=== PATIENT | male | born 1955 | race Caucasian/White ===

== ENCOUNTER → 2020-03-23 19:07 | Outpatient (CLI) | payer MEDICARE, OTHER, SELFPAY ==
[2020-03-23 19:18] LABS: Basophils # 0.1 K/mm3 (0-0.2); Basophils % 0.7 % (0.1-2.0); Eosinophils # 0.2 K/mm3 (0.0-0.4); Eosinophils % 2.5 % (0.1-12.0); Hematocrit 50.4 % (42.0-52.0); Hemoglobin 16.5 g/dL (14.1-18.0); Lymphocytes # 3.8 K/mm3 (0.7-4.5); Lymphocytes % 38.7 % (10-50); Mean Corpuscular HGB Conc 32.8 g/dL (31.8-35.4); Mean Corpuscular Hemoglobin 27.4 pg (27.0-31.2); Mean Corpuscular Volume 83.5 fl (80-94); Mean Platelet Volume 8.9 fl (7.4-10.4); Monocytes # 0.6 K/mm3 (0.1-1.0); Monocytes % 5.9 % (1.7-9.3); Neutrophils # 5.2 K/mm3 (1.8-7.8); Neutrophils % 52.3 % (37.0-80.0); Platelet Count 311 K/mm3 (142-424); Red Blood Count 6.04 M/mm3 (4.60-6.20); White Blood Count 9.9 K/mm3 (4.8-10.8)
[2020-03-23 19:21] LABS: Alanine Aminotransferase 37 U/L (12-78); Albumin Level 5.3 g/dl (3.5-5.0); Albumin/Globulin Ratio 1.5 (1.1-1.8); Alkaline Phosphatase 106 U/L (38-126); Anion Gap 19.5 mEq/L (5-15); Aspartate Amino Transferase 33 U/L (17-59); Bilirubin,Total 0.6 mg/dl (0.2-1.3); Blood Urea Nitrogen 23 mg/dl (9-20); Calcium 10.3 mg/dl (8.4-10.2); Carbon Dioxide 28 mmol/L (22.0-30.0); Chloride 98 mmol/L (98-107); Chol/HDL Ratio 4.3 (1-3.5); Cholesterol 226 mg/dl (140-200); Estimated Glomerular Filt Rate 97 ml/min (>60); GFR (African American) 118 ML/MIN (>60); Globulin 3.6 g/dL (1.3-3.2); Glucose 112 mg/dl (74-100); HDL Cholesterol 52 mg/dl (40-60); Potassium 4.5 mmoL/L (3.5-5.1); Sodium 141 mmol/L (136-145); Total Protein,Serum 8.9 g/dl (6.3-8.2)
[2020-03-23 19:32] LABS: Triglycerides 496 mg/dl (30-150)
[2020-03-23 19:53] LABS: Prostate Specific Ag Screen 0.2 ng/ml (0.0-4.0)
[2020-03-23 20:11] LABS: Hemoglobin A1C 7.3 % (4.0-6.0)
== END ==
PROVIDERS: Visit Provider Family Medicine
DX: E11.9 Type 2 diabetes mellitus without complications (principal); I10 Essential (primary) hypertension; Z12.5 Encounter for screening for malignant neoplasm of prostate; Z87.81 Personal history of (healed) traumatic fracture; Z79.84 Long term (current) use of oral hypoglycemic drugs
CPT/HCPCS: 80053; 80061; 83036; 85025; G0103

== ENCOUNTER → 2020-10-09 14:52 | Outpatient (CLI) | payer MEDICARE, OTHER, SELFPAY ==
[2020-10-09 16:01] LABS: Chol/HDL Ratio 6.6 (1-3.5); Cholesterol 296 mg/dl (140-200); HDL Cholesterol 45 mg/dl (40-60); Triglycerides 364 mg/dl (30-150); VLDL Cholesterol 73 mg/dL (0-40)
[2020-10-09 16:04] LABS: Alanine Aminotransferase 37 U/L (12-78); Albumin Level 4.8 g/dl (3.5-5.0); Albumin/Globulin Ratio 1.5 (1.1-1.8); Alkaline Phosphatase 99 U/L (38-126); Anion Gap 15.7 mEq/L (5-15); Aspartate Amino Transferase 31 U/L (17-59); Basophils # 0.1 K/mm3 (0-0.2); Basophils % 0.7 % (0.1-2.0); Bilirubin,Total 0.7 mg/dl (0.2-1.3); Blood Urea Nitrogen 14 mg/dl (9-20); Calcium 10.1 mg/dl (8.4-10.2); Carbon Dioxide 25 mmol/L (22.0-30.0); Chloride 102 mmol/L (98-107); Eosinophils # 0.2 K/mm3 (0.0-0.4); Eosinophils % 2.8 % (0.1-12.0); Estimated Glomerular Filt Rate 114 ml/min (>60); GFR (African American) 137 ML/MIN (>60); Globulin 3.2 g/dL (1.3-3.2); Glucose 165 mg/dl (74-100); Hematocrit 44.4 % (42.0-52.0); Hemoglobin 14.5 g/dL (14.1-18.0); Lymphocytes # 2.8 K/mm3 (0.7-4.5); Lymphocytes % 36.1 % (10-50); Mean Corpuscular HGB Conc 32.7 g/dL (31.8-35.4); Mean Corpuscular Volume 85.7 fl (80-94); Mean Platelet Volume 8.5 fl (7.4-10.4); Monocytes # 0.5 K/mm3 (0.1-1.0); Monocytes % 5.8 % (1.7-9.3); Neutrophils # 4.3 K/mm3 (1.8-7.8); Neutrophils % 54.6 % (37.0-80.0); Platelet Count 355 K/mm3 (142-424); Potassium 4.7 mmoL/L (3.5-5.1); Red Blood Count 5.18 M/mm3 (4.60-6.20); Red Cell Distribution Width 14.4 % (11.5-17.5); Sodium 138 mmol/L (136-145); White Blood Count 7.8 K/mm3 (4.8-10.8)
[2020-10-09 16:12] LABS: Direct LDL Cholesterol 180.73 mg/dL (100-129)
[2020-10-09 16:31] LABS: Prostate Specific Ag, Diagnost 0.261 ng/ml (0.0-4.0)
[2020-10-09 18:20] LABS: Hemoglobin A1C 8.7 % (4.0-6.0)
== END ==
PROVIDERS: Visit Provider Family Medicine
DX: I10 Essential (primary) hypertension (principal); E11.9 Type 2 diabetes mellitus without complications; R35.1 Nocturia; Z79.84 Long term (current) use of oral hypoglycemic drugs
CPT/HCPCS: 80053; 80061; 83036; 84153; 85025

== ENCOUNTER → 2020-12-28 18:58 | Outpatient (CLI) | payer MEDICARE, OTHER, SELFPAY ==
[2020-12-28 19:56] LABS: Basophils # 0.1 K/mm3 (0-0.2); Basophils % 0.7 % (0.1-2.0); Eosinophils # 0.2 K/mm3 (0.0-0.4); Eosinophils % 2.1 % (0.1-12.0); Hematocrit 43.8 % (42.0-52.0); Hemoglobin 14.2 g/dL (14.1-18.0); Lymphocytes % 29.2 % (10-50); Mean Corpuscular HGB Conc 32.4 g/dL (31.8-35.4); Mean Corpuscular Hemoglobin 27.4 pg (27.0-31.2); Mean Corpuscular Volume 84.4 fl (80-94); Mean Platelet Volume 7.8 fl (7.4-10.4); Monocytes # 0.5 K/mm3 (0.1-1.0); Monocytes % 4.6 % (1.7-9.3); Neutrophils # 6.5 K/mm3 (1.8-7.8); Neutrophils % 63.5 % (37.0-80.0); Platelet Count 317 K/mm3 (142-424); Red Blood Count 5.19 M/mm3 (4.60-6.20); Red Cell Distribution Width 15.6 % (11.5-17.5); White Blood Count 10.2 K/mm3 (4.8-10.8)
[2020-12-28 19:58] LABS: Chloride 103 mmol/L (98-107); Sodium 141 mmol/L (136-145)
[2020-12-28 19:59] LABS: Potassium 4.6 mmoL/L (3.5-5.1)
[2020-12-28 20:01] LABS: Alanine Aminotransferase 29 U/L (12-78); Alkaline Phosphatase 90 U/L (38-126); Anion Gap 15.6 mEq/L (5-15); Aspartate Amino Transferase 25 U/L (17-59); Bilirubin,Total 0.6 mg/dl (0.2-1.3); Blood Urea Nitrogen 14 mg/dl (9-20); Carbon Dioxide 27 mmol/L (22.0-30.0); Cholesterol 112 mg/dl (140-200); Estimated Glomerular Filt Rate 97 ml/min (>60); GFR (African American) 117 ML/MIN (>60); Triglycerides 187 mg/dl (30-150); VLDL Cholesterol 37 mg/dL (0-40)
[2020-12-28 20:02] LABS: Albumin Level 4.8 g/dl (3.5-5.0); Albumin/Globulin Ratio 1.8 (1.1-1.8); Calcium 9.6 mg/dl (8.4-10.2); Globulin 2.7 g/dL (1.3-3.2); Glucose 99 mg/dl (74-100); HDL Cholesterol 37 mg/dl (40-60); Total Protein,Serum 7.5 g/dl (6.3-8.2)
[2020-12-28 20:14] LABS: Direct LDL Cholesterol 45.83 mg/dL (100-129)
[2020-12-28 20:45] LABS: Hemoglobin A1C 7.2 % (4.0-6.0)
== END ==
PROVIDERS: Visit Provider Family Medicine
DX: I35.0 Nonrheumatic aortic (valve) stenosis (principal); I10 Essential (primary) hypertension; E11.9 Type 2 diabetes mellitus without complications; Z79.84 Long term (current) use of oral hypoglycemic drugs
CPT/HCPCS: 80053; 80061; 83036; 85025

== ENCOUNTER → 2021-05-07 14:52 | Outpatient (CLI) | payer MEDICARE, OTHER, SELFPAY ==
[2021-05-07 16:29] LABS: Alanine Aminotransferase 25 U/L (12-78); Albumin Level 4.9 g/dl (3.5-5.0); Albumin/Globulin Ratio 1.6 (1.1-1.8); Alkaline Phosphatase 82 U/L (38-126); Anion Gap 17.5 mEq/L (5-15); Aspartate Amino Transferase 30 U/L (17-59); Bilirubin,Total 0.7 mg/dl (0.2-1.3); Blood Urea Nitrogen 13 mg/dl (9-20); Calcium 10.1 mg/dl (8.4-10.2); Carbon Dioxide 29 mmol/L (22.0-30.0); Chloride 102 mmol/L (98-107); Estimated Glomerular Filt Rate 97 ml/min (>60); GFR (African American) 117 ML/MIN (>60); Globulin 3.1 g/dL (1.3-3.2); Glucose 103 mg/dl (74-100); Potassium 4.5 mmoL/L (3.5-5.1); Sodium 144 mmol/L (136-145)
[2021-05-07 16:30] LABS: Hemoglobin A1C 6.9 % (4.0-6.0)
[2021-05-07 17:00] LABS: Prostate Specific Ag Screen 0.2 ng/ml (0.0-4.0)
== END ==
PROVIDERS: Visit Provider Family Medicine
DX: E11.9 Type 2 diabetes mellitus without complications (principal); Z12.5 Encounter for screening for malignant neoplasm of prostate
CPT/HCPCS: 80053; 83036; G0103

== ENCOUNTER → 2021-10-20 09:48 | Outpatient (CLI) | payer MEDICARE, OTHER, SELFPAY | PROVIDERS: PCP Family Medicine; Visit Provider Surgery | DX: Z01.812 Encounter for preprocedural laboratory examination (principal); Z11.52 Encounter for screening for COVID-19; Z13.810 Encounter for screening for upper gastrointestinal disorder; R07.89 Other chest pain | CPT/HCPCS: C9803; U0003; U0005 ==

== ENCOUNTER 2021-10-23 11:23 | Day surgery (SDC) | payer MEDICARE, OTHER, SELFPAY ==
[2021-10-22 12:55] VITALS: BMI 28.8
[2021-10-23] VITALS (7 sets, daily range): BP systolic 124–161; BP diastolic 71–93; PULSE 58–75; RESP 16–18; TEMP 36.3–36.4; O2SAT 93–97
--- NOTE | 2021-10-23 11:42 | P.PN_ITS ---
[facility] Anesthesia Checklist - Structural Data Admitted From: Home Planned Operative Procedure/s: egd Consent for Planned Operative Procedure(s) Verified: Yes - Airway Assessment C-Spine Mobility Assessed: Yes TMJ Mobility Assessed: Yes Dentition: Good Dentition - Neurological Assessment Level of Consciousness: Awake, Alert, Appropriate - Anesthesia Plan Anesthesia Risk discussed: Yes Anesthesia Plan: Verified ASA Class: III Anesthesia Type: [facility] History I have reviewed the patient's past medical history: Yes Medical History: Reports:: Coronary Artery Disease, Diabetes Mellitus Type 2, Hyperlipidemia, Hypertension, Myocardial Infarction Denies:: Cancer, Diabetes Mellitus Type 1, MRSA *Have you ever received a pneumonia vaccine?: No *Have you received a flu vaccine this season?: No Other Medical History: Reports: Other (Jardiance hurt his kidneys - was taken off ) Anesthesia experience/problems:: none Other Surgeries: Yes: Colonoscopy, Hernia Repair Amputation: No Fractures: Yes (left leg) - *Social History Last grade of school completed: GED Smoking Status: Never smoker Alcohol Intake: current Alcohol Intake Frequency:: holidays/special occasions only Substance Use Type: denies use *Occupational Status:: retired, disabled Housing: house Household Members: spouse *Travel in the last 8 weeks: None Family Hx:: No significant family history
[2021-10-23 11:52] LABS: POC Glucose,Bedside 132 (70-110)
--- NOTE | 2021-10-23 12:12 | P.PCN_ITS ---
- Procedure: Date: 10/23/21 Patient Date of :: 1955 Procedure Performed:: Esophagogastroduodenoscopy with biopsy Indications:: Atypical chest pain Performing Provider:: Guillermo Chnace MD Referring Provider:: Dr. Calabrese Sedation:: Monitored anesthesia care Procedure:: After informed consent was obtained the patient was taken to the endoscopy suite . Sedation ensued after the patient was transferred to the left lateral decubitus position. Pulse, blood pressure, and oxygen saturation were monitored throughout the procedure. The endoscope was advanced beyond the duodenal bulb. Retroflexion within the gastric lumen was accomplished. The gastroscope was carefully removed and the patient was transferred to recovery in stable condition. Please see findings and specimens below for detail. Findings:: Gastroesophageal junction at 40 cm Some increase spasticity/contraction of distal esophagus No obvious stricture or mass lesions Patchy mild gastritis with increased lobulated inflammation and prepyloric region Specimens:: Antral/prepyloric (increased lobulation) biopsy Recommendations:: Follow-up pathology Barium swallow and possible modified barium swallow to be considered Complications:: No immediate Estimated blood obtained (mL): 1
== END 2021-10-23 12:50 | disposition home or self-care (01) ==
LOC: OUTP 11:26
PROVIDERS: PCP Family Medicine; Visit Provider Surgery
PROC: 0DJ08ZZ Inspection of Upper Intestinal Tract, Via Natural or Artificial Opening Endoscopic (ICD-10-PCS; CPT 43235; principal; 2021-10-23 12:30)
DX: K22.4 Dyskinesia of esophagus (principal); K31.9 Disease of stomach and duodenum, unspecified; K29.60 Other gastritis without bleeding; I25.10 Atherosclerotic heart disease of native coronary artery without angina pectoris; E11.9 Type 2 diabetes mellitus without complications; E78.5 Hyperlipidemia, unspecified; I10 Essential (primary) hypertension; I25.2 Old myocardial infarction; E66.9 Obesity, unspecified; Z68.30 Body mass index [BMI] 30.0-30.9, adult; Z88.8 Allergy status to other drugs, medicaments and biological substances; Z79.82 Long term (current) use of aspirin; Z79.84 Long term (current) use of oral hypoglycemic drugs; Z79.899 Other long term (current) drug therapy
CPT/HCPCS: 43239; 82962; 88305

== ENCOUNTER → 2021-11-09 08:14 | Outpatient (CLI) | payer MEDICARE, OTHER, SELFPAY ==
--- NOTE | 2021-11-09 08:14 | FL_ITS ---
FINAL REPORT CLINICAL HISTORY: dysphagia FINDINGS: ESOPHAGRAM HISTORY: Dysphagia. PROCEDURE: The patient ingested barium. Effervescent crystals were also administered. 9 fluoroscopic spot films were obtained. 1.2 minutes of fluoroscopy time. FINDINGS: The esophagus is normal. There is small sliding-typehiatal hernia. There is no gastroesophageal reflux. Peristalsis is normal. A 13 mm barium tablet passes through the esophagus and into the stomach without delay. IMPRESSION: Small sliding-type hiatal hernia. Otherwise, unremarkable exam. Films reviewed , interpreted and dictated by Dr. Will. Transcribed by Mo Jane PA-C. Reviewed, Interpreted and Dictated by Zane Will III, MD Transcribed by PRANAV Tomlin Authenticated and [facility]
== END ==
PROVIDERS: PCP Family Medicine; Visit Provider Surgery
DX: R13.10 Dysphagia, unspecified (principal)
CPT/HCPCS: 74220

== ENCOUNTER → 2022-02-22 11:44 | Outpatient (CLI) | payer MEDICARE, OTHER, SELFPAY ==
[2022-02-22 12:12] LABS: INR 3.06 (0.9-1.1)
== END ==
PROVIDERS: PCP Family Medicine; Visit Provider Family Medicine
DX: I35.0 Nonrheumatic aortic (valve) stenosis (principal); Z51.81 Encounter for therapeutic drug level monitoring; Z79.01 Long term (current) use of anticoagulants
CPT/HCPCS: 36415; 85610

== ENCOUNTER → 2022-07-23 23:56 | Outpatient (CLI) | payer MEDICARE, OTHER, SELFPAY ==
[2022-07-23 18:12] LABS: Hemoglobin A1C 6.1 % (4.0-6.0)
== END ==
PROVIDERS: PCP Family Medicine; Visit Provider Family Medicine
DX: E11.9 Type 2 diabetes mellitus without complications (principal); Z79.84 Long term (current) use of oral hypoglycemic drugs
CPT/HCPCS: 83036

== ENCOUNTER → 2022-10-15 11:00 | Outpatient (CLI) | payer MEDICARE, OTHER, SELFPAY ==
[2022-10-15 14:24] LABS: Basophils # 0.1 K/mm3 (0-0.2); Basophils % 0.8 % (0.1-2.0); Eosinophils # 0.2 K/mm3 (0.0-0.4); Eosinophils % 2.8 % (0.1-12.0); Hematocrit 41.3 % (42.0-52.0); Hemoglobin 13.3 g/dL (14.1-18.0); Lymphocytes # 2.6 K/mm3 (0.7-4.5); Lymphocytes % 33.3 % (10-50); Mean Corpuscular HGB Conc 32.3 g/dL (31.8-35.4); Mean Corpuscular Hemoglobin 28.4 pg (27.0-31.2); Mean Corpuscular Volume 87.9 fl (80-94); Mean Platelet Volume 7.8 fl (7.4-10.4); Monocytes # 0.5 K/mm3 (0.1-1.0); Monocytes % 6.2 % (1.7-9.3); Neutrophils # 4.5 K/mm3 (1.8-7.8); Platelet Count 263 K/mm3 (142-424); Red Cell Distribution Width 14.5 % (11.5-17.5); White Blood Count 7.9 K/mm3 (4.8-10.8)
[2022-10-15 14:37] LABS: Alanine Aminotransferase 28 U/L (12-78); Albumin Level 4.3 g/dl (3.5-5.0); Albumin/Globulin Ratio 1.7 (1.1-1.8); Alkaline Phosphatase 76 U/L (38-126); Aspartate Amino Transferase 26 U/L (17-59); Bilirubin,Total 0.5 mg/dl (0.2-1.3); Blood Urea Nitrogen 17 mg/dl (9-20); Calcium 8.9 mg/dl (8.4-10.2); Carbon Dioxide 27 mmol/L (22.0-30.0); Chloride 98 mmol/L (98-107); Chol/HDL Ratio 2.8 (1-3.5); Cholesterol 136 mg/dl (140-200); Estimated Glomerular Filt Rate 97 ml/min (>60); GFR (African American) 117 ML/MIN (>60); Globulin 2.5 g/dL (1.3-3.2); Glucose 145 mg/dl (74-100); HDL Cholesterol 48 mg/dl (40-60); Sodium 138 mmol/L (136-145); Total Protein,Serum 6.8 g/dl (6.3-8.2); Triglycerides 257 mg/dl (30-150); VLDL Cholesterol 51 mg/dL (0-40)
[2022-10-15 14:49] LABS: Direct LDL Cholesterol 56.93 mg/dL (100-129)
[2022-10-15 15:08] LABS: Prostate Specific Ag Screen 0.2 ng/ml (0.0-4.0); Thyroid Stimulating Hormone 1.53 uIU/mL (0.465-4.68)
== END ==
PROVIDERS: PCP Family Medicine; Visit Provider Family Medicine
DX: E11.9 Type 2 diabetes mellitus without complications (principal); Z12.5 Encounter for screening for malignant neoplasm of prostate; Z79.4 Long term (current) use of insulin; Z79.899 Other long term (current) drug therapy
CPT/HCPCS: 80053; 80061; 84443; 85025; G0103

== ENCOUNTER 2024-05-20 11:20 | Outpatient (CLI) | payer MEDICARE, OTHER, SELFPAY ==
[2024-05-20 18:23] LABS: Chol/HDL Ratio 3.7 (1-3.5); Cholesterol 143 mg/dl (140-200); HDL Cholesterol 39 mg/dl (40-60); Triglycerides 320 mg/dl (30-150); VLDL Cholesterol 64 mg/dL (0-40)
[2024-05-20 18:34] LABS: Direct LDL Cholesterol 71.11 mg/dL (100-129)
== END 2024-05-20 23:59 | disposition home or self-care (01) ==
LOC: LAB.DROPOF 05-21 14:35
PROVIDERS: PCP Family Medicine; Visit Provider Family Medicine
DX: E11.9 Type 2 diabetes mellitus without complications (principal)
CPT/HCPCS: 80061

== ENCOUNTER 2024-09-02 11:40 | Outpatient (CLI) | payer MEDICARE, OTHER, SELFPAY ==
[2024-09-02 18:30] LABS: Basophils # 0.1 K/mm3 (0-0.2); Basophils % 0.6 % (0.1-2.0); Eosinophils # 0.2 K/mm3 (0.0-0.4); Eosinophils % 2.7 % (0.1-12.0); Hematocrit 37.6 % (42.0-52.0); Hemoglobin 11.6 g/dL (14.1-18.0); Lymphocytes # 2.6 K/mm3 (0.7-4.5); Lymphocytes % 32.8 % (10-50); Mean Corpuscular HGB Conc 30.9 g/dL (31.8-35.4); Mean Corpuscular Hemoglobin 24.6 pg (27.0-31.2); Mean Corpuscular Volume 79.7 fl (80-94); Mean Platelet Volume 10.3 fl (7.4-10.4); Monocytes # 0.6 K/mm3 (0.1-1.0); Monocytes % 7.8 % (1.7-9.3); Neutrophils # 4.4 K/mm3 (1.8-7.8); Neutrophils % 55.8 % (37.0-80.0); Platelet Count 266 K/mm3 (142-424); Red Blood Count 4.72 M/mm3 (4.60-6.20); Red Cell Distribution Width 17.1 % (11.5-17.5); White Blood Count 7.9 K/mm3 (4.8-10.8)
[2024-09-02 20:52] LABS: Alanine Aminotransferase 33 U/L (12-78); Albumin Level 4.3 g/dl (3.5-5.0); Albumin/Globulin Ratio 1.7 (1.1-1.8); Alkaline Phosphatase 74 U/L (38-126); Anion Gap 16.5 mEq/L (5-15); Aspartate Amino Transferase 29 U/L (17-59); Bilirubin,Total 0.7 mg/dl (0.2-1.3); Blood Urea Nitrogen 15 mg/dl (9-20); Calcium 9.4 mg/dl (8.4-10.2); Carbon Dioxide 25 mmol/L (22.0-30.0); Chloride 102 mmol/L (98-107); Chol/HDL Ratio 3.6 (1-3.5); Cholesterol 138 mg/dl (140-200); Estimated Glomerular Filt Rate 112 ml/min (>60); GFR (African American) 136 ML/MIN (>60); Globulin 2.6 g/dL (1.3-3.2); Glucose 153 mg/dl (74-100); HDL Cholesterol 38 mg/dl (40-60); Potassium 4.5 mmoL/L (3.5-5.1); Sodium 139 mmol/L (136-145); Total Protein,Serum 6.9 g/dl (6.3-8.2); Triglycerides 232 mg/dl (30-150); VLDL Cholesterol 46 mg/dL (0-40)
[2024-09-02 21:03] LABS: Direct LDL Cholesterol 56.21 mg/dL (100-129)
[2024-09-02 21:06] LABS: Creatinine,Urine Random 126 mg/dL (Not Estab.)
[2024-09-02 21:07] LABS: Microalbumin/Creatinine Ratio 44.8
[2024-09-02 21:23] LABS: Thyroid Stimulating Hormone 1.43 uIU/mL (0.465-4.68)
== END 2024-09-02 23:59 | disposition home or self-care (01) ==
LOC: LAB.DROPOF 09-03 13:20
PROVIDERS: PCP Family Medicine; Visit Provider Family Medicine
DX: E78.5 Hyperlipidemia, unspecified (principal); E11.9 Type 2 diabetes mellitus without complications; I10 Essential (primary) hypertension
CPT/HCPCS: 80053; 80061; 82043; 82570; 84443; 85025

== ENCOUNTER 2025-04-29 11:14 | Outpatient (CLI) | payer MEDICARE, OTHER, SELFPAY ==
--- OUTSIDE RECORDS SUMMARY | 2025-04-05 12:15 | XMS_ITS | Encounter Summary ---
Author Organization [employer] ([place], [place], [place], [place], [place]) Address [address] [place] [address] Care Team Providers Care Extras Casting Director Name Role Phone Tony Calabrese MD Primary Care Provider [phone] Jean-Pierre Cabrera MD Unavailable [phone] Kd Prince PA-C Unavailable [phone] Renae Car AUTOMOBILE MECHANIC Unavailable [phone] Reason for Visit * Reason Comments Follow-up 6 mth F/U LV 5 Encounter Details Date Type Department Care Team (Late st Contact Info) Description 04/05/2025 1:15 PM EDT Office Visit [facility] Cardiology [address] [place] [address] Renae Car, AUTOMOBILE MECHANIC [address] [facility] [address] [place] [address] Coronary artery disease involving [place] coronary artery of [place] heart without angina pectoris (Primary Dx); Nonrheumatic aortic valve stenosis; Primary hypertension; Mixed hyperlipidemia; History of mechanical aortic valve replacement; Essential hypertension; Anticoagulant long-term use Social History Tobacco Use Types Packs/Day Years Used Date Smoking Tobacco: Never Smokeless Tobacco: Never Alcohol Use Standard Drinks/Week Comments Yes 1 (1 standard drink = 0.6 oz pur e alcohol) Social Connection and Isolation Panel Answer Date Recorded In a typical week, how many times do you talk on the phone with family, friends, or neighbors? Never 08/26/2022 How often do you get together with friends or re latives? Never 08/26/2022 How often do you attend worship or church serv ices? Never 08/26/2022 Do you belong to any clubs o r organizations such as worship groups, unions, fraternal or athletic groups, or school groups? No 08/26/2022 How often do you attend meet ings of the clubs or organizations you belong to? Never 08/26/2022 Are you , , di vorced, , never , or living with a partner? 08/26/2022 Overall Financial Resource Strain (CARDIA) Answe r Date Recorded How hard is it for you to pa y for the very basics like food, housing, medical care, and heating? Not hard at all 08/26/2022 Exercise Vital Sign Answer Date Recorde d On average, how many days pe r week do you engage in moderate to strenuous exercise (like a brisk walk)? 0 days 08/26/2022 On average, how many minutes do you engage in exercise at this level? 0 min 08/26/2022 Hunger Vital Sign Answer Date Recorded Within the past 12 months, y ou worried that your food would run out before you got the money to buy more. Never true 08/27/19 23 Within the past 12 months, t he food you bought just didn't last and you didn't have money to get more. Never true 08/26/2022 PRAPARE - Transportation Answer Date Re corded In the past 12 months, has l ack of transportation kept you from medical appointments or from getting medications? No 06/16/2023 Lack of Transportation (Non-Medical) Not on file 06/16/2023 Family and Community Support Answer Vinicio e Recorded Help with Day to Day Activities Not on file 06/17/2023 Feeling Lonely or Isolated Not on file 06/17 Educational Attainment Answer Date Jason rded Speak language other than Ethiopian at home Not on file 06/17/2023 Want help with school or training Not on file 06/17/2023 Substance Use Answer Date Recorded Used prescription meds for non-medical reasons N ot on file 06/17/2023 Used illegal drugs past 12 months Not on file 06/17/2023 Sex and Gender Information Value Date Recorded Sex Assigned at Male 08/26/2022 2:31 AM CDT Legal Sex Male 5:38 PM CDT Gender Identity Male 08/26/2022 2:31 AM CDT Sexual Orientation Not on file documented as of this encounter Last Filed Vital Signs Vital Sign Reading Time Taken Comments Blood Pressure 130/60 04/05/2025 1:22 PM EDT Pulse 65 04/05/2025 1:22 PM EDT Temperature - - Respiratory Rate - - Oxygen Saturation - - Inhaled Oxygen Concentration - - Weight 86.7 kg (191 lb 3.2 oz) 04/05/2025 1:22 P M EDT Height 170.2 cm (5' 7 ) 04/05/2025 1:22 PM EDT Body Mass Index 29.95 04/05/2025 1:22 PM EDT documented in this encounter Progress Notes * Renae Car, AUTOMOBILE MECHANIC - 04/05/2025 1:15 PM EDT Basic Information: Name: Ian Koch, :1955 PCP: Tony Calabrese MD HPI: History of Present Illness Ian Koch is a 68 y.o. year old male with a past medical history of coronary artery disease,hypertension, hyperlipidemia, and aortic stenosis s/p aortic valve replacement in November 2021. He presents to the office today for 6 month follow up. He has not experienced any recent episodes of chest pain. Occasionally, he experiences discomfort when walking fast or after eating a large meal, which resolves after resting for a few minutes. His breathing remains unchanged and good. He is currently taking Farxiga and glimepiride for blood sugar management. Farxiga is expensive butcovered by his insurance, while there was a recent issue with refilling glimepiride, which was resolved. He performs INR checks at home every Friday, which he finds convenient despite some discomfortfrom finger pricks. Socially, he lives in [place] after moving from [facility] to be closer to his grandson, who is his only grandchild. He spends a lot of time in his Lazy Boy chair and feels unmotivated, oftenprocrastinating on tasks. He attributes some of this to the weather, stating he is often tired. Review of Systems: ROS Pertinent positives as listed in the HPI. All other systems reviewed are negative. History: History Past Medical History: Diagnosis Date Aortic valve stenosis Back pain Benign prostatic hyperplasia Cardiac enzymes elevated Carotid bruit Chest pain Coronary artery disease Diabetes mellitus (HCC) DVT (deep venous thrombosis) (HCC) Hypertension NSTEMI (non-ST elevated myocardial infarction) (HCC) Open fracture Peptic ulcer Past Surgical History: Procedure Laterality Date AORTIC VALVE REPLACEMENT [address] [place] HP mechanical valve. application of platelet rich poor platelet gel BACK SURGERY spinal fusion w/spinal cord stimulator BYPASS,CORONARY ENDOVASCULAR N/A 06/14/2023 Procedure: LISA, REDO-STERNOTOMY,CORONARY ARTERY BYPASS GRAFT X 2 ([facility]) USING RIGHT SAPHENOUS VEIN VIA EVH + INTERNAL MAMMARY ARTERY, REMOVAL OF INTRA-AORTIC BALLOON PUMP; Surgeon: Jean-Pierre Cabrera IV, MD; Location: [facility] OR; Service: Cardiothoracic; Laterality: N/A; CARDIAC CATHETERIZATION PHUONG to Prox Cx ENDOSCOPIC VEIN HARVEST N/A 06/14/2023 Procedure: SURGICAL PROCUREMENT, VEIN, ENDOSCOPIC; Surgeon: Jean-Pierre Cabrera IV, MD; Location: [facility] OR; Service: Cardiothoracic; Laterality: N/A; FOOT SURGERY FRACTURE SURGERY HERNIA REPAIR LEG SURGERY spinal instrumentation placement STERNOTOMY LISA 06/14/2023 Procedure: ECHOCARDIOGRAM, TRANSESOPHAGEAL; Surgeon: Jean-Pierre Cabrera IV, MD; Location: [facility] OR; Service: Cardiothoracic;; Social History Tobacco Use Smoking status: Never Smokeless tobacco: Never Vaping Use Vaping status: Never Used Substance Use Topics Alcohol use: Yes Alcohol/week: 1.0 standard drink of alcohol Types: 1 Cans of beer per week Drug use: Never Allergies Allergen Reactions Empagliflozin Other (See Comments) Other reaction(s): kidney pain Prior Cardiac/Vascular Testing: Coronary artery disease 06/14/2023 Re-entry sternotomy CABG x 2 (RIZZO to LAD, SVG to OM) -05/2023 ISR to LCx-->CTSx consulted -01/2023 PHUONG to LCx -08/2022 NSTEMI- PTCA/ PHUONG to Lcx -05/2022- NSTEMI- PTCA to LCx -10/2021 NSTEMI- [facility] PHUONG to prox LCX, -01/2021 [facility]- another overlapping PHUONG to LAD. -12/2020 [facility] PHUONG to proximal LAD Severe aortic stenosis 11/28/2021 Aortic valve replacement using a [address] Blayne HP mechanical valve -06/10/2023 LISA EF 45-50%, stable mechanical aortic valve, mild physiological leakage volume Medications: Scheduled Meds: Continuous Infusions: Current Outpatient Medications Medication Sig Dispense Refill aspirin 81 MG EC tablet Take 1 tablet (81 mg total) by mouth daily. atorvastatin (LIPITOR) 80 MG tablet TAKE 1 TABLET BY MOUTH EVERY DAY 90 tablet 2 dapagliflozin propanediol (Farxiga) 10 mg tablet Take by mouth daily. dutasteride-tamsulosin 0.5-0.4 mg CM24 Take 1 capsule by mouth daily. glimepiride (AMARYL) 1 MG tablet Take 1 tablet (1 mg total) by mouth daily with breakfast. lisinopriL (ZESTRIL) 5 MG tablet Take 0.5 tablets (2.5 mg total) by mouth daily. 45 tablet 3 metFORMIN (GLUCOPHAGE-XR) 500 MG 24 hr tablet Take 2 tablets (1,000 mg total) by mouth daily with dinner. metoprolol succinate (TOPROL-XL) 50 MG 24 hr tablet Take 1 tablet (50 mg total) by mouth daily. nitroglycerin (NITROSTAT) 0.[address] 1 tablet (0.4 mg total) under the tongue every 5 (five) minutes as needed Put 1 pill under tongue every 5min as needed for chest pain.No more than 3 doses in 15min.Call 911 if pain unrelieved 5min after 1st dose. pantoprazole (PROTONIX) 40 MG tablet Take 1 tablet (40 mg total) by mouth daily. 90 tablet 3 warfarin (COUMADIN, JANTOVEN) 5 MG tablet Take 1 tablet (5 mg total) by mouth daily. No current facility-administered medications for this visit. PRN Meds:.@MEDSPRN@ Objective: BP 130/60 (BP Location: Right arm, Patient Position: Sitting) Pulse 65 Ht 1.702 m (5' 7 ) Wt 86.7 kg (191 lb 3.2 oz) BMI 29.95 kg/m?? Physical Exam General- alert and aware, no acute distress. HEENT- normocephalic, oral membranes moist Neck- supple, no lymphadenopathy. No carotid bruits. No noted JVD Lungs- clear to auscultation throughout, no wheezes, rhonci or rales Heart- Normal S1,S2. Regular rate and rhythm without murmur, gallop or rub Ext- palpable pulses. No noted edema. Skin- Clear, dry. Warm Psych- orientated to person, place, and time. Appropriate mood. EKG: Sinus Rhythm, ventricular rate 65 bpm Assessment and Plan: 1. Coronary artery disease involving [place] coronary artery of [place] heart without angina pectorisECG 12 lead 2. Nonrheumatic aortic valve stenosis 3. Primary hypertension ECG 12 lead 4. Mixed hyperlipidemia ECG 12 lead 5. History of mechanical aortic valve replacement 6. Essential hypertension 7. Anticoagulant long-term use Assessment & Plan Coronary artery disease -Stable ischemic heart disease with no anginal symptoms by description. -Continue with aspirin 81 mg indefinitely along with high intensity statin therapy for established CAD. Severe aortic stenosis - Mechanical aortic valve replacement in 2021 - INR monitoring at home weekly, management per primary care physician Hypertension --Blood pressure at goal today continue current antihypertensive regimen. Hyperlipidemia - Continue statin therapy -Periodic blood work as prescribed with PCP, specifically lipid profile with a goal LDL less than 55. Encouraged patient to increase physical activity for a goal of 150 minutes of moderate cardiovascular activity each week. Follow a heart healthy diet to reduce cardiovascular risk. Follow-up: 6 month or sooner if needed Renae Car APRN Consent for [employer] Use The following consent language was reviewed verbally with the patient in full: Mary Carmen, I am using a tool to help me do my notes. It is recording our conversation and creates my notes automatically and I can focus on our discussion instead of typing in the room. Is that okay with you? The patient demonstrated understanding and verbally agreed to the above consent language. All questions were addressed, and the patient provided informed consent to proceed. OPERATOR documented in this encounter Plan of Treatment Scheduled Orders Name Type Priority Associated Diagnoses Orde r Schedule ECG 12 lead ECG Routine Coronary artery disease involving [place] coronary artery of [place] heart without angina pectoris Primary hypertension Mixed hyperlipidemia Expected: 04/05/2025, Expires: 05/06/2026 documented as of this encounter Visit Diagnoses Diagnosis Coronary artery disease involving [place] coronary artery of [place] heart without angina pectoris- Primary Nonrheumatic aortic valve stenosis Primary hypertension Unspecified essential hypertension Mixed hyperlipidemia History of mechanical aortic valve replacement Essential hypertension Unspecified essential hypertension Anticoagulant long-term use Encounter for long-term (current) use of anticoagulants documented in this encounter Care Teams Extras Casting Director Relationship Specialty Start Date End Date Tony Calabrese MD [address] [place] [address] PCP - General Family Medicine 06/06/22 Jean-Pierre Cabrera MD [address] [facility] [address] [place], [place] [id number] Surgeon Cardiothoracic Surgery 06/26/23 Kd Prince PA-C [address] [place] [address] Associate Professor Of Musicology Cardiology 06/26/23 Renae Car, JOSÉ MIGUEL [address] [facility] [address] [place] [address] Cardiology 09/30/23 documented as of this encounter
--- OUTSIDE RECORDS SUMMARY | 2025-05-02 11:42 | XMS_ITS | Encounter Summary ---
Author Organization [employer] ([place], [place], [place], [place], [place]) Address [address] [place] [address] Care Team Providers Care Card Feeder Name Role Phone Tony Calabrese MD Primary Care Provider [phone] Jean-Pierre Cabrera MD Unavailable [phone] Kd Prince PA-C Unavailable [phone] Renae Car APRN Unavailable [phone] Encounter Details Date Type Department Care Team (Latest Contact Info) Description 04/05/2025 Travel Social History Tobacco Use Types Packs/Day Years [...] Never 08/26/2022 How often do you attend buddhist or sikh serv ices? Never 08/26/2022 Do you belong to any clubs o r organizations such as buddhist groups, unions, fraternal or athletic groups, or [...] Date Jason rded Speak language other than Honduran at home Not on file 06/17/2023 Want [...] on file documented as of this encounter Plan of Treatment Not on file documented as of this encounter Visit Diagnoses Not on filedocumented in this encounter Care Teams Card Feeder Relationship Specialty Start Date End Date Tony Calabrese MD [address] [place] [address] PCP - General Family Medicine 06/06/22 Jean-Pierre Cabrera MD [address] [facility] [address] [place] [address] Surgeon Cardiothoracic Surgery 06/26/23 Kd Prince PA-C [address] [place] [address] Thermal Spray Operator Cardiology 06/26/23 Renae Car, LOAN INTERVIEWER [employer] [address] [facility] [address] [place] [address] Cardiology 09/30/23 documented as of this encounter
--- OUTSIDE RECORDS SUMMARY | 2025-05-02 11:42 | XMS_ITS | Clinical Summary ---
Author Organization [employer] ([place], [place], [place], [place], [place]) Address [address] [place] [address] Care Team Providers Care Artillery Specialist Name Role Phone Tony Calabrese MD Primary Care Provider [phone] Jean-Pierre Cabrera MD Unavailable [phone] Kd Prince PA-C Unavailable [phone] Renae Car APRN Unavailable Allergies Active Allergy Reactions Criticality Noted Date Comments Empagliflozin Other (See Comments) Medium 12/24/2021 Other reaction(s): kidney pain Medications nitroglycerin (NITROSTAT) 0.[address] 1 tablet (0.4 mg total) under the tongue every 5 (five) minutes as needed Put 1 pill under tongue every 5min as needed for chest pain.No more than 3 doses in 15min.Call 911 if pain unrelieved 5min after 1st dose. Active metFORMIN (GLUCOPHAGE-XR) 500 MG 24 hr tablet Take 2 tablets (1,000 mg total) by mouth daily with dinner. Active dutasteride-tamsul osin 0.5-0.4 mg CM24 Take 1 capsule by mouth daily. Active aspirin 81 MG EC tablet Take 1 tablet (81 mg total) by mouth daily. Active warfarin (COUMADIN, JANTOVEN) 5 MG tablet Take 1 tablet (5 mg total) by mouth daily. Active lisinopriL (ZESTRIL) 5 MG tablet Take 0.5 tablets (2.5 mg total) by mouth daily. 45 tablet 3 4 Active atorvastatin (LIPITOR) 80 MG tabletIndications: Mixed hyperlipidemia TAKE 1 TABLET BY MOUTH EVERY DAY 90 tablet 2 5 Active pantoprazole (PROTONIX) 40 MG tablet Take 1 tablet (40 mg total) by mouth daily. 90 tablet 3 5 Active metoprolol succinate (TOPROL-XL) 50 MG 24 hr tablet Take 1 tablet (50 mg total) by mouth daily. Active dapagliflozin propanediol (Farxiga) 10 mg tablet Take by mouth daily. Active glimepiride (AMARYL) 1 MG tablet Take 1 tablet (1 mg total) by mouth daily with breakfast. Active Active Problems Problem Noted Date Diagnosed Date History of mechanical aortic valve replacement 0 06/20/2023 BPH (benign prostatic hyperplasia) 06/14/2023 06/14/2023 Dysphagia 06/14/2023 06/14/2023 CAD (coronary artery disease) 06/14/2023 Essential hypertension 06/14/2023 4 Arthritis 05/06/2022 Lumbar disc disease 05/06/2022 Arteriosclerosis of coronary artery 06/26/2021 Overview (05/06/2022): 08/02/21 [facility]- [place] Patent prox LAD stent Hyperlipidemia 06/26/2021 Diabetes mellitus 06/26/2021 Aortic valve stenosis 06/26/2021 Controlled type 2 diabetes m ellitus without complication, without long-term current use of insulin 03/25/2017 06/14/2023 Peripheral nerve disease 07/04/2015 Resolved Problems Problem Noted Date Diagnosed Date Resolved Date Acute hypoxemic respiratory failure 06/20/2023 10/07/2023 Diabetes 06/14/2023 06/14/2023 10/07/2023 Primary hypertension 08/14/2022 024 NSTEMI (non-ST elevated myoc ardial infarction) 06/03/2022 10/07/2023 High blood pressure 05/06/2022 08/15/19 23 GERD (gastroesophageal reflux disease) 05/06/2022 06/14/2023 Mitral regurgitation 05/06/2022 024 Paroxysmal A-fib 05/06/2022 06/14/2023 Encounters Date Type Department Care Team Description 04/05/2025 1:15 PM EDT Office Visit [facility] Cardiology [address] [place] [phone] Renae Car APRN Coronary artery disease involving [place] coronary artery of [place] heart without angina pectoris (Primary Dx); Nonrheumatic aortic valve stenosis; Primary hypertension; Mixed hyperlipidemia; History of mechanical aortic valve replacement; Essential hypertension; Anticoagulant long-term use 04/05/2025 Travel from Last 3 Months Family History Medical History Relation Name Comments Cancer Brother Cancer Father Lung cancer Father Cancer Mother Relation Name Status Comments Brother Father Mother Social History Tobacco Use Types Packs/Day Years [...] Never 08/26/2022 How often do you attend yarsani or jainism serv ices? Never 08/26/2022 Do you belong to any clubs o r organizations such as yarsani groups, unions, fraternal or athletic groups, or [...] Date Jason rded Speak language other than [place] at home Not on file 06/17/2023 Want [...] AM CDT Sexual Orientation Not on file Last Filed Vital Signs Vital Sign Reading Time Taken Comments Blood Pressure 130/60 04/05/2025 1:22 PM EDT Pulse 65 04/05/2025 1:22 PM EDT Temperature 36.6 C (97.8 F) 06/20/2023 8:48 AM EST Respiratory Rate 16 06/20/2023 8:48 AM EST Oxygen Saturation 96% 06/20/2023 8:48 AM EST Inhaled Oxygen Concentration 40% 06/14/2023 1 0:18 PM EST Weight 86.7 kg (191 lb 3.2 oz) 04/05/2025 1:22 P M EDT Height 170.2 cm (5' 7 ) 04/05/2025 1:22 PM EDT Body Mass Index 29.95 04/05/2025 1:22 PM EDT Plan of Treatment Health Maintenance Due Date Last Done Comments CT Colonography 1955 Colonoscopy 1955 Colorectal Cancer Screening 1955 Diabetic Kidney Health Evalu ation (KED) 1955 FOBT/FIT 1955 Fit-DNA (Cologuard) 1955 Sigmoidoscopy 1955 Diabetic Eye Exam 12/27/1965 Depression Screening (12+) 1967 Hepatitis C Screening 12/27/1973 Shingles Vaccine (Zoster) (1 of 2) 12/27/2005 Respiratory Syncytial Virus (RSV) Adult or (1 - Risk 60-74 years 1-dose series) 2015 Pneumococcal 50+ years (2 of 2 - PCV) 01/19/2019, 11/07/2010 Medicare Initial AWV G0438 03/10/2020 Hemoglobin A1C 05/06/2022 Falls Risk Screening 06/09/2024 COVID-19 VACCINE ( - season) 2025 Influenza Vaccine (#1) 2025 04/26/2022, 2012 Tobacco Cessation Counseling and Screening (12+) 04/05/2026 04/05/2025 DTAP/TDAP/TD VACCINES (4 - T d or Tdap) 08/05/2027 08/05/2017, 10/09/2012, 06/09/2007 Medical Devices Implanted Type Area Java Software Device Identifier Shelf Expiration Date Model / Serial / Lot Stent Cor Christopher Front 3.0x18mm [id number] - [id number] Implanted:Qty: 1 on 01/14/2023 by Donna Smith MD at [facility] ([place], [place]) IMPLANTS Coronary MEDTRONIC:VASCU LAR [id number] / / Mechanical Heart Valve Left: Heart Stimulator Left: Hip Marker Grft Rng Cor Byps [id number] - [id number] Implanted:Qty: 1 on 06/14/2023 by Jean-Pierre Cabrera MD at [facility] ([place], [place]) N/A: Aorta ANAND MED PRDT [id number] / / [id number] Insurance MEDICARE PART A B AETNA Advance Directives For more information, please contact: [phone] * Full Code (Latest Code Status on File) Date Activated Date Inactivated Comments 06/14/2023 5:49 PM 06/20/2023 4:34 PM * Full Code Date Activated Date Inactivated Comments 06/08/2023 4:28 PM 06/14/2023 5:49 PM * Full Code Date Activated Date Inactivated Comments 06/04/2023 12:51 PM 06/06/2023 8:10 PM * Full Code Date Activated Date Inactivated Comments 06/02/2023 1:16 AM 06/04/2023 12:51 PM * Full Code Date Activated Date Inactivated Comments 01/14/2023 9:38 AM 01/15/2023 4:01 PM Care Teams Artillery Specialist Relationship Specialty Start Date End Date Tony Calabrese MD [address] [place] [address] PCP - General Family Medicine 06/06/22 Jean-Pierre Cabrera MD [address] [place] [address] Surgeon Cardiothoracic Surgery 06/26/23 Kd Prince PA-C [address] [facility] [place] [address] Basket Maker Cardiology 06/26/23 Renae Car, KETTLE GIRL [address] [facility] [address] [place] [address] Cardiology 09/30/23
--- OUTSIDE RECORDS SUMMARY | 2025-05-02 11:43 | XMS_ITS | Encounter Summary ---
Author Organization [employer] ([place], [place], [place], [place], [place]) Address [address] [place] [address] Care Team Providers Care Polysomnographic Technician Name Role Phone Tony Calabrese MD Primary Care Provider [phone] Jean-Pierre Cabrera MD Unavailable [phone] Kd Prince PA-C Unavailable [phone] Renae Car APRN Unavailable [phone] Encounter Details Date Type Department Care Team (Late st Contact Info) Description 01/15/2021 Transcribed Document [facility] [place] Family Medicine [address] [place] [address] ProviderLiz MD [address] [place] [address] Social History Tobacco Use Types Packs/Day Years Used Date Smoking Tobacco: Never Assessed Sex and Gender Information Value Date Recorded Sex Assigned at Male 08/26/2022 2:31 AM CDT Legal Sex Male 5:38 PM CDT Gender Identity Male 08/26/2022 2:31 AM CDT Sexual Orientation Not on file documented as of this encounter Miscellaneous Notes * Cerner Conversion Note - Liz Patel MD - 01/15/2021 4:51 PM CDT ED Triage Entered On: 01/15/2021 17:20 EDT Performed On: 01/15/2021 17:17 EDT by SIRISHA ZEE RN ED Triage Across the Room Chief Complaint : Pt presents to the ER with chest pain that started at 1000 this am. Reports he had a stent placed in December. Pain radiates to his left arm. Dr. 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 Triage Date/Time : 01/15/2021 17:17 EDT SIRISHA ZEE RN - 01/15/2021 17:17 EDT DCP GENERIC CODE Tracking Acuity : 2 - Emergent Tracking Group : [facility] ED SIRISHA ZEE RN - 01/15/2021 17:17 EDT Mode of Arrival : Ambulatory Transported to ED by : Walk in To Room Via : Ambulate Accompanied By : Unaccompanied ED Vital Signs : Document Height & Weight : Document ED Allergies : Document ED Reason for Visit : Document SIRISHA ZEE RN - 01/15/2021 17:17 EDT Infectious Disease History Has the patient ever been tested for COVID-19? : No, Patient stated Does patient have symptoms of COVID-19? : No COVID19 Screening : No Experiencing Infectious Disease Symptoms : No symptoms Physical contact outside [place] in the last 30 days : No Infectious Disease History : Chicken pox/Shingles, Influenza, Mumps Tuberculosis Symptoms : None SIRISHA ZEE RN - 01/15/2021 17:17 EDT Vital Signs ED Temperature Source : Oral Temperature Mode : Fahrenheit Temperature, Fahrenheit : 97.8 Deg F Clinical Temperature, C : 36.6 Deg C Oxygen Therapy Mode : Room air Peripheral Pulse Rate : 79 bpm Respiratory Rate : 18 Breaths/Min Systolic Blood Pressure : 148 mmHg (HI) Diastolic Blood Pressure : 72 mmHg Oxygen Saturation : 99 % SIRISHA ZEE RN - 01/15/2021 17:17 EDT Allergy (As Of: 01/15/2021 17:20:12 EDT) Allergies (Active) No Known Allergies Estimated Onset Date: Unspecified ; Created By: BELLA JUAN RN; Reaction Status: Active ; Category: Drug ; Substance: No Known Allergies ; Type: Allergy ; Updated By: BELLA JUAN RN; Reviewed Date: 01/15/2021 17:18 EDT Diagnosis Control ED (As Of: 01/15/2021 17:20:12 EDT) Problems(Active) kevin horse in left calf muscle (SNOMED CT :52091044 ) Name of Problem: kevin horse in left calf muscle ; Recorder: BELLA JUAN RN; Confirmation: Confirmed ; Classification: Medical ; Code: [id number] ; Contributor System: PowerChart ; Last Updated: 06/03/2019 11:58 EST ; Life Cycle Date: 08/04/2015 ; Life Cycle Status: Active ; Vocabulary: SNOMED CT Arthritis (SNOMED CT :7612849 ) Name of Problem: Arthritis ; Recorder: BELLA JUAN RN; Confirmation: Confirmed ; Classification: Medical ; Code: 8016914 ; Contributor System: PowerChart ; Last Updated: 04/28/2018 15:39 EST ; Life Cycle Date: 08/04/2015 ; Life Cycle Status: Active ; Vocabulary: SNOMED CT Asthma, childhood (SNOMED CT :666732478 ) Name of Problem: Asthma, childhood ; Onset Date: 08/04/2015 ; Recorder: BELLA JUAN RN; Confirmation: Confirmed ; Classification: Medical ; Code: 436797253 ; Contributor System: PowerChart ; Last Updated: 08/04/2015 10:49 EST ; Life Cycle Date: 08/04/2015 ; Life Cycle Status: Active ; Vocabulary: SNOMED CT At risk for sleep apnea (IMO :91820341 ) Name of Problem: At risk for sleep apnea ; Recorder: SYSTEM, SYSTEM; Confirmation: Confirmed ; Classification: Medical ; Code: 74270671 ; Last Updated: 09/29/2018 15:14 EDT ; Life Cycle Date: 09/29/2018 ; Life Cycle Status: Active ; Vocabulary: IMO Back pain (SNOMED CT :283712639 ) Name of Problem: Back pain ; Recorder: BELLA JUAN RN; Confirmation: Confirmed ; Classification: Medical ; Code: 676607098 ; Contributor System: PowerChart ; Last Updated: 08/04/2015 10:55 EST ; Life Cycle Date: 08/04/2015 ; Life Cycle Status: Active ; Vocabulary: SNOMED CT Bronchitis (SNOMED CT :32037639 ) Name of Problem: Bronchitis ; Onset Date: 07/04/2015 ; Recorder: BELLA JUAN RN; Confirmation: Confirmed ; Classification: Medical ; Code: 80924846 ; Contributor System: PowerChart ; Last Updated: 08/04/2015 10:49 EST ; Life Cycle Date: 08/04/2015 ; Life Cycle Status: Active ; Vocabulary: SNOMED CT Chest pain (SNOMED CT :51321429 ) Name of Problem: Chest pain ; Recorder: ALPA THOMAS RN; Confirmation: Confirmed ; Classification: Medical ; Code: 27278629 ; Contributor System: PowerChart ; Last Updated: 01/30/2017 13:18 EDT ; Life Cycle Date: 01/30/2017 ; Life Cycle Status: Active ; Vocabulary: SNOMED CT ; Comments: 01/30/2017 13:18 - ALPA THOMAS RN dispatcher motor vehicle workup-stated everything was ok 06/2016 Deep vein thrombosis (right hip) (SNOMED CT :9519775784 ) Name of Problem: Deep vein thrombosis (right hip) ; Recorder: ALPA THOMAS RN; Confirmation: Confirmed ; Classification: Medical ; Code: 6130862581 ; Contributor System: PowerChart ; Last Updated: 01/30/2017 13:18 EDT ; Life Cycle Date: 01/30/2017 ; Life Cycle Status: Active ; Vocabulary: SNOMED CT Diet controlled diabetes mellitus (SNOMED CT :480902312 ) Name of Problem: Diet controlled diabetes mellitus ; Recorder: BELLA JUAN RN; Confirmation: Confirmed ; Classification: Medical ; Code: 512384169 ; Contributor System: PowerChart ; Last Updated: 08/04/2015 10:56 EST ; Life Cycle Date: 08/04/2015 ; Life Cycle Status: Active ; Vocabulary: SNOMED CT Disorder of prostate (BPH) (SNOMED CT :04425076 ) Name of Problem: Disorder of prostate (BPH) ; Recorder: ALPA THOMAS RN; Confirmation: Confirmed ; Classification: Medical ; Code: 72079953 ; Contributor System: PowerChart ; Last Updated: 01/30/2017 13:20 EDT ; Life Cycle Date: 01/30/2017 ; Life Cycle Status: Active ; Vocabulary: SNOMED CT High blood pressure (SNOMED CT :99740679 ) Name of Problem: High blood pressure ; Onset Date: 2004 ; Recorder: BELLA JUAN RN; Confirmation: Confirmed ; Classification: Medical ; Code: 85879336 ; Contributor System: PowerChart ; Last Updated: 08/04/2015 10:48 EST ; Life Cycle Date: 08/04/2015 ; Life Cycle Status: Active ; Vocabulary: SNOMED CT Hyperlipidemia (SNOMED CT :52912256 ) Name of Problem: Hyperlipidemia ; Onset Date: 2004 ; Recorder: BELLA JUNA RN; Confirmation: Confirmed ; Classification: Medical ; Code: 84555307 ; Contributor System: EveryScapeChart ; Last Updated: 08/04/2015 10:48 EST ; Life Cycle Date: 08/04/2015 ; Life Cycle Status: Active ; Vocabulary: SNOMED CT Leaky heart valve (unsure which one) (SNOMED CT :99769392 ) Name of Problem: Leaky heart valve (unsure which one) ; Recorder: ALPA THOMAS RN; Confirmation: Confirmed ; Classification: Medical ; Code: 26123169 ; Contributor System: EveryScapeChart ; Last Updated: 01/30/2017 13:17 EDT ; Life Cycle Date: 01/30/2017 ; Life Cycle Status: Active ; Vocabulary: SNOMED CT Lumbar herniated disc (L1-2) (SNOMED CT :532680182 ) Name of Problem: Lumbar herniated disc (L1-2) ; Recorder: ALPA THOMAS RN; Confirmation: Confirmed ; Classification: Medical ; Code: 353228559 ; Contributor System: PowerChart ; Last Updated: 01/30/2017 13:30 EDT ; Life Cycle Date: 01/30/2017 ; Life Cycle Status: Active ; Vocabulary: SNOMED CT Murmur, heart (SNOMED CT :5248654682 ) Name of Problem: Murmur, heart ; Recorder: ALPA THOMAS RN; Confirmation: Confirmed ; Classification: Medical ; Code: 5032680009 ; Contributor System: PowerChart ; Last Updated: 01/30/2017 13:17 EDT ; Life Cycle Date: 01/30/2017 ; Life Cycle Status: Active ; Vocabulary: SNOMED CT Numbness and tingling of foot (great toe) (SNOMED CT :243673182 ) Name of Problem: Numbness and tingling of foot (great toe) ; Recorder: ALPA THOMAS RN; Confirmation: Confirmed ; Classification: Medical ; Code: 704440185 ; Contributor System: PowerChart ; Last Updated: 01/30/2017 13:27 EDT ; Life Cycle Date: 01/30/2017 ; Life Cycle Status: Active ; Vocabulary: SNOMED CT ; Comments: 01/30/2017 13:27 - ALPA THOMAS RN feels cold, numb Peptic ulcer disease (SNOMED CT :9961069624 ) Name of Problem: Peptic ulcer disease ; Onset Date: 1975 ; Recorder: BELLA JUAN RN; Confirmation: Confirmed ; Classification: Medical ; Code: [id number] ; Contributor System: EveryScapeChart ; Last Updated: 08/04/2015 10:50 EST ; Life Cycle Date: 08/04/2015 ; Life Cycle Status: Active ; Vocabulary: SNOMED CT Peripheral neuropathy, left foot (SNOMED CT :0849936882 ) Name of Problem: Peripheral neuropathy, left foot ; Onset Date: 07/04/2015 ; Recorder: BELLA JUAN RN; Confirmation: Confirmed ; Classification: Medical ; Code: [id number] ; Contributor System: Multifonds ; Last Updated: 08/04/2015 10:56 EST ; Life Cycle Date: 08/04/2015 ; Life Cycle Status: Active ; Vocabulary: SNOMED CT Urinary frequency/urgency (SNOMED CT :315815164 ) Name of Problem: Urinary frequency/urgency ; Recorder: ALPA THOMAS RN; Confirmation: Confirmed ; Classification: Medical ; Code: 432399965 ; Contributor System: Multifonds ; Last Updated: 01/30/2017 13:20 EDT ; Life Cycle Date: 01/30/2017 ; Life Cycle Status: Active ; Vocabulary: SNOMED CT Diagnoses(Active) Chest pain Date: 01/15/2021 ; Diagnosis Type: Reason For Visit ; Confirmation: Complaint of ; Clinical Dx: Chest pain ; Classification: Medical ; Clinical Service: Emergency medicine ; Code: PNED ; Probability: 0 ; Diagnosis Code: [id number] ED Height and Weight Height Source : Stated Height Entry Format : [place] Height, Feet : 5 ft(Converted to: 152 cm, 60 Inch) Height, Inches : 7 Inch(Converted to: 0 ft 7 Inch, 17.78 cm) Clinical Height : 170.18 cm Weight Source, ED : Critical estimated dosing weight Weight Entry Format : [place] Weight, Pounds : 180 lb Clinical Dosing Weight : 81.82 kg Body Surface Area (BSA) : 1.94 m2 Body Mass Index : 28.3 kg/m2 (HI) [place] Body Weight (IBW) : 65.16 kg SIRISHA ZEE RN - 01/15/2021 17:17 EDT documented in this encounter Plan of Treatment Not on file documented as of this encounter Visit Diagnoses Not on filedocumented in this encounter Care Teams Polysomnographic Technician Relationship Specialty Start Date End Date Tony Calabrese MD [address] [place] [address] PCP - General Family Medicine 06/06/22 Jean-Pierre Cabrera MD [address] [facility] [address] [place] [address] Surgeon Cardiothoracic Surgery 06/26/23 Kd Prince PA-C [address] [place] [address] Building Custodian Cardiology 06/26/23 Renae Car, JOSÉ MIGUEL [address] [facility] [address] [place] [address] Cardiology 09/30/23 documented as of this encounter
--- OUTSIDE RECORDS SUMMARY | 2025-05-02 11:43 | XMS_ITS | Encounter Summary ---
Author Organization [employer] ([place], [place], [place], [place], [place]) Address [address] [place] [address] Care Team Providers Care Supervisor Trust Accounts Name Role Phone Tony Calabrese MD Primary Care Provider [phone] Jean-Pierre Cabrera MD Unavailable [phone] Kd Prince PA-C Unavailable [phone] Renae Car APRN Unavailable [phone] Encounter Details Date Type Department Care Team (Late st Contact Info) Description 01/15/2021 Transcribed Document [facility] [place] [address] [place] [address] ProviderLiz MD [address] [place] [address] Social History Tobacco Use Types Packs/Day [...] Note - Liz Patel MD - 01/15/2021 9:13 PM CDT Admission History, Adult Entered On: 01/18/2021 1:19 EDT Performed On: 01/17/2021 21:00 EDT by Jose Luis Fatima Non Emp RN Advance Directive Patient has Advance Directive *Q : No, patient refuses Advance Directive information Jose Luis Fatima Non Emp RN - 01/18/2021 1:14 EDT Anesthesia/Transfusion History Family History of Anesthesia Reaction : No prior transfusion(s) Transfusion History : Prior anesthesia without reaction Family History of Anesthesia Reaction : None Jose Luis Fatima Non Emp RN - 01/18/2021 1:14 EDT Functional Assessment Living Situation : Home Patient Lives With : Spouse Mobility Assistance Prior to Admission : Independent PEREZ Hx Falls Immediate/Within 3 Months : No Current Home Treatments : None Jose Luis Fatima Non Emp RN - 01/18/2021 1:14 EDT General Info Mode of Arrival on Unit : Ambulatory Legal Guardian : Unaccompanied Legal Guardian : No Support Person/Patient Learning Support Specialist : Yes Support Person/Pt Rep Name : Sue Koch Support Person/Pt Rep Contact Information : cell Want Family/Rep/Phys Notified of Admit : No Emergency Contact #1 : Sue Koch Emergency Contact #1 Emergency Contact #1 Relationship : spouse Emergency Contact #2 : . Emergency Contact #2 Phone Number : . Emergency Contact #2 Relationship : . Chief Complaint : Pt presents to the ER with chest pain that started at 1000 this am. Reports he had a stent placed in December. Pain radiates to his left arm. 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 Information Obtained From : Patient Primary Language : Swedish Preferred Communication Mode : Verbal Communication Barrier : None Neurological Surgery Teacher Needed : No Jose Luis Faitma Non Emp RN - 01/18/2021 1:14 EDT Fall Risk Scales ABCs Fall Injury Risk Identification : Coagulation, Surgery ABC Fall Injury Risk : Moderate to high injury risk Injury Moderate to High Risk Interventions : Specialty low bed, Transport methods appropriate to patient PEREZ Hx Falls Immediate/Within 3 Months : No Perez Secondary Diagnosis : Yes PEREZ Use of Ambulatory Aid : None PEREZ IV Therapy or IV Access : Yes Perez Gait/Transferring : Normal, bedrest, immobile Perez Mental Status : Oriented to own ability Perez Fall Risk Score : 35 PEREZ Fall Scale Risk Level : 25-45 Medium Risk [place] Fall Interventions : Adequate lighting, Assistive devices within reach, Bed in low position, Call device within reach, Hourly comfort/safety rounds, Non-slip footwear, Personal items within reach, Room free of clutter/spills, Upper side-rails up, Wires/Cords secured Fall Moderate to High Risk Interventions : Transport methods appropriate to patient Barriers to Learning : None evident Learning Style Preferences Family : Verbal explanation Learning Style Preferences Patient : Verbal explanation Fall Risk Scale Calc Temp : 0 Jose Luis Fatima Non Emp RN - 01/18/2021 1:14 EDT Health Histories Smoking Status : Never (less than 100 in lifetime; none in last 30 days) Smokeless Tobacco Status : Never Jose Luis Fatima Non Emp RN - 01/18/2021 1:14 EDT Social History (As Of: 01/18/2021 01:19:40 EDT) Tobacco: Smoking Status Never smoker. (Last Updated: 02/05/2017 17:51:30 EDT by Sudha Cheatham RN) Alcohol: Alcohol Use History Yes. Days/Week: 7. # Drinks/Day: 1. Date/Time of Last Drink: wine (4 oz). Use in Last 12 Months: Yes. (Last Updated: 08/04/2015 11:00:59 EST by BELLA JUAN, MICHAEL) Substance Abuse: Drug Use Hx: No. Use in Last 12 Months: No. (Last Updated: 08/04/2015 11:01:11 EST by BELLA JUAN, MICHAEL) Height and Weight, Clinical Dosing Weight Source : Bed scale Weight Entry Format : [place] Clinical Dosing Weight : 81.82 kg Weight, Pounds : 180 lb Body Surface Area (BSA) : 1.94 m2 Body Mass Index : 28.3 kg/m2 (HI) Jose Luis Fatima Non Emp RN - 01/18/2021 1:20 EDT Height Source : Stated Height Entry Format : [place] Height, Feet : 5 ft(Converted to: 152 cm, 60 Inch) Height, Inches : 7 Inch(Converted to: 0 ft 7 Inch, 17.78 cm) Clinical Height : 170.18 cm [place] Body Weight : 65 kg Jose Luis Fatima Non Emp RN - 01/18/2021 1:14 EDT Infectious Disease History Has the patient ever been tested for COVID-19? : No, Patient stated Does patient have symptoms of COVID-19? : No COVID19 Screening : No Experiencing Infectious Disease Symptoms : No symptoms Physical contact outside [place] in the last 30 days : No Infectious Disease History : Chicken pox/Shingles, Influenza, Mumps Tuberculosis Symptoms : None Jose Luis Fatima Non Emp RN - 01/18/2021 1:14 EDT Influenza Vaccine Asmt, Adult Previous Vaccines from Immunization Schedule : No qualifying data available. Influenza Immunization, Current Season : Outside of influenza season Jose Luis Fatima Non Emp RN - 01/18/2021 1:14 EDT Pneumococcal Vaccine Previous Vaccines from Immunization Schedule : No qualifying data available. Pneumonia Immunization Received : No Pneumococcal Risk Assessment < Age 65 : N/A- Patient 65 years of age or older Pneumococcal Vaccine Contraindications : No contraindications to pneumococcal vaccine Transplant Workup/Recent Transplant : No Order for Pneumococcal Vaccine : Declined Vaccination Jose Luis Fatima Non Emp RN - 01/18/2021 1:14 EDT Order Details Transport Mode Order Detail : Wheelchair Isolation Precautions Order Detail : Standard Precautions Order Detail : N/A IV Order Detail : 1 Oxygen Order Detail : 0 Nurse Collect Order Detail : 0 Lift/Transfer : Minimal Central Line Order Detail : No Room Service : Appropriate Arterial Line : No Patient Needs Meds Crushed/Liquid : No Jose Luis Fatima Non Emp RN - 01/18/2021 1:14 EDT Nutrition History Adaptive Feeding Equipment : Regular Eating Poorly Due to Decreased Appetite : No Unplanned Weight Loss in Past 3-6 Months : No Malnutrition Screening Tool Total(mal) : 0 Malnutrition Screening Tool Risk Level : Patient not at risk Jose Luis Fatima Non Emp RN - 01/18/2021 1:14 EDT [place] Suicide Severity Rating Scale (C-SSRS) CSSRS Past Month Wish to be : No CSSRS Past Month Suicidal Thoughts : No CSSRS Lifetime Suicide Behavior : No Suicide Severity Rating Score : 0 Suicide Severity Rating : No Additional Care Required at this time Jose Luis Fatima Non Emp RN - 01/18/2021 1:14 EDT Psychosocial History Do You Have a History of the Following? : Patient denies history Currently in Unsafe Situation : No Jose Luis Fatima Non Emp RN - 01/18/2021 1:14 EDT Sleep Apnea Risk Assmt Hx of Obstructive Sleep Apnea Diagnosis : No Snore Loudly : Yes Tired, Fatigued, or Sleepy During Day : No Observed Stopping Breathing During Sleep : No Have/Are Being Treated for Hypertension : Yes BMI Greater Than 35 kg/m2 : No Age over 50 Years Old : Yes Neck Circumference Greater Than 40 cm : No Gender Male : Yes STOP-BANG Sleep Apnea Risk Level Score : 4 Jose Luis FatimaElizabeth Emp RN - 01/18/2021 1:14 EDT Valuables and Belongings Valuables and Belongings : Clothing Clothing : Common streetwear Clothing Disposition : With patient Jose Luis FatimaElizabeth Emp RN - 01/18/2021 1:14 EDT Electronically signed by Rosa [facility] Conversion Human Resources Training Manager Cerner at 09/26/2022 9:05 AM CDT documented in this encounter Plan of Treatment Not on file documented as of this encounter Visit Diagnoses Not on filedocumented in this encounter Care Teams Supervisor Trust Accounts Relationship Specialty Start Date End Date Tony Calabrese MD [address] [place] [address] PCP - General Family Medicine 06/06/22 Jean-Pierre Cabrera MD [address] [facility] [address] [place], [place] [id number] Surgeon Cardiothoracic Surgery 06/26/23 Kd Prince PA-C [address], [facility] [address] [place] [address] Flatwork Assembler Cardiology 06/26/23 Renae Car APRN [address] [facility] [address] [place] [address] Cardiology 09/30/23 documented as of this encounter
--- OUTSIDE RECORDS SUMMARY | 2025-05-02 11:43 | XMS_ITS | Encounter Summary ---
Author Organization [employer] ([place], [place], [place], [place], [place]) Address [address] [place] [address] Care Team Providers Care Chain Sales Consultant Name Role Phone Tony Calabrese MD Primary Care Provider [phone] Jean-Pierre Cabrera MD Unavailable [phone] Kd Prince PA-C Unavailable [phone] Renae Car APRN Unavailable [phone] Encounter Details Date Type Department Care Team (Late st Contact Info) Description 01/15/2021 Transcribed Document [facility] [place] [address] [place] [address] ProviderLiz MD [address] [place] [address] Social History Tobacco Use Types Packs/Day [...] Note - Liz Patel MD - 01/15/2021 6:25 PM CDT Patient: BULMARO ELLISON Age: 65 years Sex: Male : 1955 Associated Diagnoses: Chest pain Author: CHAPIN LAGUNAS MD Basic Information Additional information: Chief Complaint from Nursing Triage Note : Chief Complaint 01/15/2021 17:17 EDT Chief Complaint Pt presents to the ER with chest pain that started at 1000 this am. Reports he had a stent placed in December. Pain radiates to his left arm. 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 . History of Present Illness The patient presents with chest pain. The onset was 7 hours ago. The course/duration of symptoms is constant. Location: substernal. Radiating pain: left arm. left shoulder. The character of symptoms is tightness. The degree at onset was minimal. The degree at maximum was moderate. The degree at present is minimal. The exacerbating factor is exertion. The relieving factor is none. Risk factors consist of coronary artery disease, hypertension, diabetes mellitus, not pulmonary embolism and not deep vein thrombosis. Prior episodes: cardiac and [facility] and stent placed 1mn ago. Therapy today Aspirin and brillinta. Associated symptoms: denies shortness of breath, denies nausea, denies vomiting, denies diaphoresis, denies anxiety and denies palpitations. Review of Systems Constitutional symptoms: No fever, no chills, no sweats, no weakness, no fatigue. Skin symptoms: No rash, Eye symptoms: Vision unchanged, no pain, no discharge, no blurred vision. ENMT symptoms: No ear pain, no sore throat, no nasal congestion. Respiratory symptoms: No shortness of breath, no cough. Cardiovascular symptoms: Chest pain, no palpitations, no syncope. Gastrointestinal symptoms: No abdominal pain, no nausea, no vomiting, no diarrhea. Genitourinary symptoms: No dysuria, no hematuria. Musculoskeletal symptoms: No back pain, no Joint pain. Neurologic symptoms: No headache, no dizziness, no numbness, no weakness. Health Status Allergies: Allergic Reactions (Selected) No Known Allergies. Medications: (Selected) Inpatient Medications Ordered Normal Saline Flush: 10 mL, IV Push, See Comment Prescriptions Prescribed Metoprolol Tartrate 25 mg oral tablet: 0.5 Tab, Oral, BID, 30 Tab, 0 Refill(s) lisinopril 10 mg oral tablet: 1 Tab, Oral, Daily, 30 Tab, 0 Refill(s) ticagrelor 90 mg oral tablet: 1 Tab, Oral, BID, 60 Tab, 0 Refill(s) Documented Medications Documented Calcium 600+D Plus Minerals oral tablet, chewable: 1 Tab, Chew, At Bedtime, 0 Refill(s) Fish Oil 1200 mg oral capsule: 1 Cap, Oral, Daily, 0 Refill(s) Tylenol 325 mg oral tablet: 2 Tab, Oral, Q4H, not to exceed 4000 mg/day, PRN: as needed for pain, 0 Refill(s) aspirin 81 mg oral delayed release tablet: 1 Tab, Oral, Daily, 30 Tab, 0 Refill(s) atorvastatin 80 mg oral tablet: 1 Tab, Oral, At Bedtime, 0 Refill(s) metFORMIN 500 mg oral tablet: 1 Tab, Oral, BID, 180 Tab, 0 Refill(s) methocarbamol 750 mg oral tablet: 1 Tab, Oral, TID, PRN: as needed for pain, 0 Refill(s) tamsulosin 0.4 mg oral capsule: 1 Cap, Oral, Daily, 0 Refill(s). Past Medical/ Family/ Social History Surgical history: spinal cord stimulator in the month of 09/2018 at 62 Years. back fusion in the month of 01/2017 at 61 Years. L4-5 discectomy in 2014 at 59 Years. right inguinal repair on 08/04/2012 at 56 Years. back surgery L5 on 08/04/1988 at 32 Years. left leg, compound fx, 30% calf muscle lost on 08/04/1985 at 29 Years. left foot injury/surgery in 1958 at 2 Years., Reviewed as documented in chart. Family history: No family history items have been selected or recorded., Reviewed as documented in chart. Social history: Social & Psychosocial Habits Alcohol 08/04/2015 Alcohol Use History, Social Habits Yes Days Per Week of Alcohol Use 7 Number of Drinks per Day 1 Date/Time of Last Drink wine (4 oz) Alcohol Use in Last Twelve Months Yes Substance Abuse 08/04/2015 Recreational Drug Use History No Recreational Drug Use Last 12 Months No Tobacco 02/05/2017 Smoking Status Never smoker , Reviewed as documented in chart. Problem list: Active Problems (19) kevin horse in left calf muscle Arthritis Asthma, childhood At risk for sleep apnea Back pain Bronchitis Chest pain Deep vein thrombosis (right hip) Diet controlled diabetes mellitus Disorder of prostate (BPH) High blood pressure Hyperlipidemia Leaky heart valve (unsure which one) Lumbar herniated disc (L1-2) Murmur, heart Numbness and tingling of foot (great toe) Peptic ulcer disease Peripheral neuropathy, left foot Urinary frequency/urgency , per nurse's notes. Physical Examination Vital Signs Vital Signs/Vital Measures 01/15/2021 17:47 EDT Systolic Blood Pressure 140 mmHg Diastolic Blood Pressure 76 mmHg Mean Arterial Pressure (MAP)-BMDI 108 Heart Rate Monitored 78 bpm Respiratory Rate 23 Breaths/Min HI Oxygen Saturation 98 % Oxygen Therapy Mode Room air 01/15/2021 17:44 EDT Oxygen Therapy Mode Room air 01/15/2021 17:17 EDT Systolic Blood Pressure 148 mmHg HI Diastolic Blood Pressure 72 mmHg Temperature Source Oral Temperature Mode Fahrenheit Temperature, Fahrenheit 97.8 Deg F Clinical Temperature, C 36.6 Deg C Peripheral Pulse Rate 79 bpm Respiratory Rate 18 Breaths/Min Oxygen Saturation 99 % Oxygen Therapy Mode Room air . Measurements 01/15/2021 17:17 EDT Height Source Stated Height Entry Format [place] Height/Length, FIJIAN (ft) 5 ft Height/Length FIJIAN 7 Inch CLINICALHEIGHT 170.18 cm [place] Body Weight 65.16 kg Weight Source, ED Critical estimated dosing weight Weight Entry Format [place] Weight [place] lb 180 lb CLINICALWEIGHT 81.82 kg Body Surface Area (BSA) 1.94 m2 Body Mass Index 28.3 kg/m2 HI . Oxygen Saturation 01/15/2021 17:47 EDT Oxygen Saturation 98 % 01/15/2021 17:17 EDT Oxygen Saturation 99 % . General: Alert, no acute distress. Skin: Warm. Head: Normocephalic. Neck: Supple. Eye: Sclera: not icteric. Ears, nose, mouth and throat: Oral mucosa moist. Cardiovascular: Regular rate and rhythm, No murmur, Normal peripheral perfusion, No edema. Respiratory: Lungs are clear to auscultation, respirations are non-labored, breath sounds are equal. Chest wall: No tenderness. Back: Nontender. Gastrointestinal: Soft, Nontender, Non distended, Normal bowel sounds. Neurological: No focal neurological deficit observed. Lymphatics: No lymphadenopathy. Psychiatric: Cooperative. Medical Decision Making Documents reviewed: Emergency department nurses' notes. Electrocardiogram: Time 01/15/2021 17:32:00, rate 79, normal sinus rhythm, No ST changes, no ectopy, normal [place] & QRS intervals, EP Interp. Results review: Lab results : Lab Results 01/15/2021 17:54 EDT WBC 10.5 K/uL HI RBC 4.78 Million/uL Hgb 13.3 g/dL LOW Hct 41.9 % MCV 87.7 fL MCH 27.8 pg MCHC 31.7 Gram/dL LOW Platelet Count 258 K/uL MPV 9.8 fL RDW 15.0 % HI Neut % 54.9 % Neut # 5.77 K/uL Lymph % 34.3 % Lymph # 3.59 x10(3)/uL [place] % 6.9 % [place] # 0.72 K/uL Eos % 2.7 % Eos # 0.28 x10(3)/uL Baso % 0.8 % Baso # 0.08 x10(3)/uL Slide Review No IG# 0.04 x10(3)/uL IG% 0.40 % D Dimer Quant 0.33 mg/L FEU , Interpretation. Chest X-Ray: No acute disease process, interpretation by Emergency Physician. Reexamination/ Reevaluation Time: 01/15/2021 20:45:00 . Notes: Patient discussed with [facility] emergency department hospitalist, Dr. Fred Young will admit him to telemetry for further evaluation and treatment., Second troponin to be drawn approximately 9 p.m.. Impression and Plan Diagnosis Chest pain - Discharge, Medical Plan Condition: Improved. Disposition: Patient care transitioned to: Time: 01/15/2021 18:50:00, SHARON GONZALEZ MD-EMR. Electronically signed by Rosa [facility] Conversion Assistant Service Manager Cerner at 09/26/2022 9:23 AM CDT documented in this encounter Plan of Treatment Not on file documented as of this encounter Visit Diagnoses Not on filedocumented in this encounter Care Teams Chain Sales Consultant Relationship Specialty Start Date End Date Tony Calabrese MD [address] [place] [address] PCP - General Family Medicine 06/06/22 Jean-Pierre Cabrera MD [address] [facility] [address] [address] Surgeon Cardiothoracic Surgery 06/26/23 Kd Prince PA-C [address] [place] [address] Retirement Manager Cardiology 06/26/23 Renae Car, AWNING FRAME MAKER [address] [facility] [address] [place] [address] Cardiology 09/30/23 documented as of this encounter
--- OUTSIDE RECORDS SUMMARY | 2025-05-02 11:43 | XMS_ITS | Encounter Summary ---
Author Organization [employer] ([place], [place], [place], [place], [place]) Address [address] [place] [address] Care Team Providers Care Portable Track Crew Chief Name Role Phone Tony Calabrese MD Primary Care Provider [phone] Jean-Pierre Cabrera MD Unavailable [phone] Kd Prince PA-C Unavailable [phone] Renae Car APRN Unavailable [phone] Encounter Details Date Type Department Care Team (Late st Contact Info) Description 01/15/2021 Transcribed Document [facility] [place] Family Medicine [address] [place] [address] ProviderLiz MD [address] [place] [address] Social History Tobacco Use Types Packs/Day [...] Note - Liz Patel MD - 01/15/2021 6:45 PM CDT Patient: IAN ELLISON Age: 65 years Sex: Male : 1955 Associated Diagnoses: None Author: PINKY BENNETT, JOSÉ MIGUEL Basic Information PCP: Rice Cleaning Machine Tender: Lizeth Chief Complaint chest pain History of Present Illness Ian Ellison is an exceptionally pleasant 65-year-old gentleman with a known history of atherosclerotic cardiovascular disease???status post drug-eluting stent placement to the left anterior descending artery approximately 1 month ago, hypertension, dyslipidemia, diabetes mellitus type 2, and valvular heart disease with moderate AR/MR who presented to [facility] emergency department with complaints of left-sided chest pain. Cardiology is been asked to see and assist in management of his care. He tells me that he was outside working on a ladder today around 10am when he developed left-sided chest pain which radiated into his shoulder and arm. He tells me this is not the same pain he suffered with his OH, but it has been persistent throughout the day. He denies any associated symptoms such as shortness of air, diaphoresis, palpitations, or syncope. He tells me his been his normal state of health until today. He does however admit to progressively higher blood pressures over the past few weeks. At the time of this assessment the patient is still having mild chest pain which she rates 3 out of 10. Review of Systems Constitutional: Negative except as documented in history of present illness. Eye: Negative except as documented in history of present illness. Ear/Nose/Mouth/Throat: Negative except as documented in history of present illness. Respiratory: Negative except as documented in history of present illness. Cardiovascular: Negative except as documented in history of present illness. Gastrointestinal: Negative except as documented in history of present illness. Genitourinary: Negative except as documented in history of present illness. Hematology/Lymphatics: Negative except as documented in history of present illness. Endocrine: Negative except as documented in history of present illness. Immunologic: Negative except as documented in history of present illness. Musculoskeletal: Negative except as documented in history of present illness. Integumentary: Negative except as documented in history of present illness. Neurologic: Negative except as documented in history of present illness. Psychiatric: Negative except as documented in history of present illness. ROS reviewed as documented in chart Health Status Allergies (1) Active Reaction No Known Allergies None Documented Home Medications (11) Active aspirin 81 mg oral delayed release tablet 81 mg = 1 Tab, Oral, Daily atorvastatin 80 mg oral tablet 80 mg = 1 Tab, Oral, At Bedtime Calcium 600+D Plus Minerals oral tablet, chewable 1 Tab, Chew, At Bedtime Fish Oil 1200 mg oral capsule 1,200 mg = 1 Cap, Oral, Daily lisinopril 10 mg oral tablet 10 mg = 1 Tab, Oral, Daily metFORMIN 500 mg oral tablet 500 mg = 1 Tab, Oral, BID methocarbamol 750 mg oral tablet 750 mg = 1 Tab, PRN, Oral, TID Metoprolol Tartrate 25 mg oral tablet 12.5 mg = 0.5 Tab, Oral, BID tamsulosin 0.4 mg oral capsule 0.4 mg = 1 Cap, Oral, Daily ticagrelor 90 mg oral tablet 90 mg = 1 Tab, Oral, BID Tylenol 325 mg oral tablet 650 mg = 2 Tab, PRN, Oral, Q4H Allergies: Allergic Reactions (Selected) No Known Allergies, Allergies (1) Active Reaction No Known Allergies None Documented Current medications: (Selected) Inpatient Medications Ordered Normal Saline Flush: [...] oral capsule: 1 Cap, Oral, Daily, 0 Refill(s), Medications (1) Active Scheduled: (1) #NaCl 0.9% *FLUSH* inj 10 mL 10 mL, IV Push, See Comment Continuous: (0) PRN: (0) Problem list: All Problems Arthritis / SNOMED CT 7764517 / Confirmed Asthma, childhood / SNOMED CT 208208699 / Confirmed At risk for sleep apnea / IMO 15008376 / Confirmed Back pain / SNOMED CT 166819902 / Confirmed Bronchitis / SNOMED CT 29947505 / Confirmed Chest pain / SNOMED CT 79286594 / Confirmed health program analyst workup-stated everything was ok 06/2016 kevin horse in left calf muscle / SNOMED CT 78731516 / Confirmed Deep vein thrombosis (right hip) / SNOMED CT 9203634453 / Confirmed Diet controlled diabetes mellitus / SNOMED CT 242116499 / Confirmed Disorder of prostate (BPH) / SNOMED CT 44527389 / Confirmed Murmur, heart / SNOMED CT 9354759957 / Confirmed Leaky heart valve (unsure which one) / SNOMED CT 68498186 / Confirmed High blood pressure / SNOMED CT 43021339 / Confirmed Hyperlipidemia / SNOMED CT 96465090 / Confirmed Urinary frequency/urgency / SNOMED CT 408891751 / Confirmed Numbness and tingling of foot (great toe) / SNOMED CT 416146348 / Confirmed feels cold, numb Peptic ulcer disease / SNOMED CT 9750686696 / Confirmed Peripheral neuropathy, left foot / SNOMED CT 3501519664 / Confirmed Lumbar herniated disc (L1-2) / SNOMED CT 472846263 / Confirmed, Active Problems (19) kevin horse in left [...] disease Peripheral neuropathy, left foot Urinary frequency/urgency Histories No education data available. Social & Psychosocial Habits Alcohol 08/04/2015 Alcohol Use History, Social Habits Yes Days Per Week of Alcohol Use 7 Number of Drinks per Day 1 Date/Time of Last Drink wine (4 oz) Alcohol Use in Last Twelve Months Yes Substance Abuse 08/04/2015 Recreational Drug Use History No Recreational Drug Use Last 12 Months No Tobacco 02/05/2017 Smoking Status Never smoker Past Medical History: ASCVD HTN HLD DM II VHD Family History: noncontributory Procedure history: spinal cord stimulator in the month of 09/2018 at 62 Years. back fusion in the month of 01/2017 at 61 Years. L4-5 discectomy in 2014 at 59 Years. right inguinal repair on 08/04/2012 at 56 Years. back surgery L5 on 08/04/1988 at 32 Years. left leg, compound fx, 30% calf muscle lost on 08/04/1985 at 29 Years. left foot injury/surgery in 195 at 2 Years. Social History Social & Psychosocial Habits Alcohol 08/04/2015 Alcohol Use History, Social Habits Yes Days Per Week of Alcohol Use 7 Number of Drinks per Day 1 Date/Time of Last Drink wine (4 oz) Alcohol Use in Last Twelve Months Yes Substance Abuse 08/04/2015 Recreational Drug Use History No Recreational Drug Use Last 12 Months No Tobacco 02/05/2017 Smoking Status Never smoker . Physical Examination VS/Measurements Vitals Signs (last 24 hrs) Last Charted Minimum Maximum Temp 97.8 (JAN 15:17) 97.8 (JAN 15:) 97.8 (JAN 15:) Mon HR 78 (JAN 15 17:47) 78 (JAN 15:47) 78 (JAN 15:47) Periph HR 79 (JAN 15:17) 79 (JAN 15:17) 79 (JAN 15:) Resp Rate H 23 (JAN 15 17:47) 18 (JAN 15 17:17) H 23 (JAN 15:47) SBP 140 (JAN 15:47) 140 (JAN 15:47) H 148 (JAN 15:17) DBP 76 (JAN 15 17:47) 72 (JAN 15 17:17) 76 (JAN 15 17:47) MAP 108 (JAN 15 17:47) 108 (JAN 15 17:47) 108 (JAN 15 17:47) SpO2 98 (JAN 15:47) 98 (JAN 15:47) 99 (JAN 15:17) General: Alert and oriented, No acute distress. Eye: Pupils are equal, round and reactive to light, Extraocular movements are intact. HENT: Normocephalic, Tympanic membranes are clear, Oral mucosa is moist. Neck: Supple, Non-tender. Respiratory: Respirations are non-labored, Symmetrical chest wall expansion. Cardiovascular: Normal rate, Regular rhythm, S1, S2, Normal peripheral perfusion. Systolic murmur: Location ( Aortic area ), Intensity ( Grade III ). Arterial pulses: Bilateral, Lower extremity, 2+. Capillary refill: Bilateral, Upper extremity, Less than 2 seconds. Gastrointestinal: Soft, Non-tender, Non-distended, Normal bowel sounds. Genitourinary: No costovertebral angle tenderness. Musculoskeletal: Normal range of motion, Normal strength. Integumentary: Warm, Dry, Intact. Neurologic: Alert, Oriented, No focal deficits. Psychiatric: Cooperative, Appropriate mood & affect. Review / Management JAN 15 17:54 \ L 13.3 / H 10.5 258 / 41.9 \ Cardiac Markers (Current Encounter/Past 24 Hours) No Cardiac Marker Results Found (Past 24 Hours) Blood Gases (Current Encounter/Past 24 Hours) No Blood Gas Results Found (Past 24 Hours) Radiology Results (Last 48 hours) [id number] -- 01/15/2021 16:51 CR Chest 1 Vw Portable (01/15/2021 18:07) Result: PORTABLE CHEST 01/15/2021 5:53 PMHISTORY: Precordial chest painCOMPARISON: December 20, 2020FINDINGS: The cardiac silhouette is proper size. The aortic contours arenormal. The mediastinal and hilar structures are unremarkable. The lungsare clear. There is no pneumothorax. Thoracic spinal stimulator againnoted. IMPRESSION: No acute cardiopulmonary process. Images reviewed, interpreted, and dictated by Carmen Wilson MD Results review: Labs (Last four charted values) WBC H 10.5 (JAN 15) HB L 13.3 (JAN 15) HCT 41.9 (JAN 15) Plt 258 (JAN 15) . Impression: Normal sized left ventricle. Mild left ventricular hypertrophy. Visually estimated ejection fraction 50% +/- 5%. Unable to obtain bullseye average for strain due to irregular heart rhythm. Normal systolic function. Indeterminate diastolic function. Mild to moderate mitral regurgitation ERO 0.22cm2. Mild to Moderate aortic valve regurgitation. Moderate aortic stenosis Max 48mmHg Mean 31mmHg. No masses or thrombi. Measurements Summary: LVEDd: 4.62 cm LVESd: 3.67 cm IVSEd: 1.1 cm AO Root:3.16 cm LVPWd: 1.3 cm Impression and Plan IMPRESSION: * Chest pain * Atherosclerotic cardiovascular disease???status post drug-eluting stent to the left anterior descending artery 12/21/20 * Valvular heart disease A. Moderate MR/AR / * Hypertension * Dyslipidemia * Diabetes mellitus type 2 * Hx PUD PLAN; Serial cardiac enzymes and EKG Probnp Recommend admission internal medicine rule out OH Continue aspirin, Brilinta, beta-scott If cardiac enzymes elevated will initiate heparin GTT per protocol Further recommendations pending lab results Electronically signed by Rosa, [facility] Conversion Vinegar Maker Cerner at 09/26/2022 9:17 AM CDT documented in this encounter Plan of Treatment Not on file documented as of this encounter Visit Diagnoses Not on filedocumented in this encounter Care Teams Portable Track Crew Chief Relationship Specialty Start Date End Date Tony Calabrese MD [address] [place] [address] PCP - General Family Medicine 06/06/22 Jean-Pierre Cabrera MD [address] [facility] [address] [place], [place] [id number] Surgeon Cardiothoracic Surgery 06/26/23 Kd Prince PA-C [address] [place] [address] Rice Cleaning Machine Tender Cardiology 06/26/23 Renae Car APRN [address] [facility] [address] [place], [place] [id number] Cardiology 09/30/23 documented as of this encounter
--- OUTSIDE RECORDS SUMMARY | 2025-05-02 11:43 | XMS_ITS | Encounter Summary ---
Author Organization [employer] ([place], [place], [place], [place], [place]) Address [address] [place] [address] Care Team Providers Care Psychopaedic Nurse Name Role Phone Tony Calabrese MD Primary Care Provider [phone] Jean-Pierre Cabrera MD Unavailable [phone] Kd Prince PA-C Unavailable [phone] Renae Car APRN Unavailable [phone] Encounter Details Date Type Department Care Team (Late st Contact Info) Description 01/15/2021 Transcribed Document [facility] [place] [address] [place] [address] ProviderLiz MD [address] [place] [address] Social History Tobacco Use Types Packs/Day [...] MD - 01/15/2021 4:51 PM CDT ED Assessment Entered On: 01/15/2021 17:46 EDT Performed On: 01/15/2021 17:44 EDT by JAKOB GARG RN ED Quick Look Assessment Level of Consciousness : Alert, Awake Affect/Behavior : Appropriate, Calm, Cooperative Orientation : Oriented x 4 Skin Color : Other: normal Skin Temperature : Warm Skin Description : Dry JAKOB GARG RN - 01/15/2021 17:44 EDT ED General-Functional Assess Information Obtained From : Patient Preferred Communication Mode : Verbal Communication Barrier : None Primary Language : Hong Konger Any Spiritual/Cultural Needs or Requests : No Currently in Unsafe Situation : No JAKOB GARG RN - 01/15/2021 17:44 EDT Social Habits Smoking Status : Never (less than 100 in lifetime; none in last 30 days) Smokeless Tobacco Status : Never Desires Tobacco Cessation Calc : 0 JAKOB GARG RN - 01/15/2021 17:44 EDT Social History (As Of: 01/15/2021 17:46:31 EDT) Tobacco: Smoking Status Never smoker. (Last Updated: 02/05/2017 17:51:30 EDT by Sudha Cheatham RN) Alcohol: Alcohol Use History Yes. Days/Week: 7. # Drinks/Day: 1. Date/Time of Last Drink: wine (4 oz). Use in Last 12 Months: Yes. (Last Updated: 08/04/2015 11:00:59 EST by BELLA JUAN RN) Substance Abuse: Drug Use Hx: No. Use in Last 12 Months: No. (Last Updated: 08/04/2015 11:01:11 EST by BELLA JUAN RN) Cardiovascular ASMT, ED Cardiovascular Assessment WDL : WDL with exceptions (Comment: pt c/o chest pain that has been constant since 10am this morning, states he had a stent placed on 12/21 here at [facility], also states he has a leaky valve , states it doesnt radiate anywhere [JAKOB GARG RN - 01/15/2021 17:44 EDT] ) JAKOB GARG RN - 01/15/2021 17:44 EDT Respiratory Respiratory Assessment WDL : WDL JAKOB GARG RN - 01/15/2021 17:44 EDT Oxygen Therapy Oxygen Therapy Mode : Room air JAKOB GARG RN - 01/15/2021 17:44 EDT Gastrointestinal ED Gastrointestinal Assessment WDL : ANURADHA JAKOB GARG RN - 01/15/2021 17:44 EDT Neurologic ASMT, ED Neurologic Assessment WDL : ANURADHA JAKOB GARG RN - 01/15/2021 17:44 EDT Pain Assessment Pain Assessment : Initial assessment Pain Scale Used : 0-10 Scale Location : Other: chest JAKOB GARG RN - 01/15/2021 17:44 EDT Pain Scale Intensity : 7 JAKOB GARG RN - 01/15/2021 17:44 EDT Image 4 - Images currently included in the form version of this document have not been included in the text rendition version of the form. documented in this encounter Plan of Treatment Not on file documented as of this encounter Visit Diagnoses Not on filedocumented in this encounter Care Teams Psychopaedic Nurse Relationship Specialty Start Date End Date Tony Calabrese MD [address] [place] [address] PCP - General Family Medicine 06/06/22 Jean-Pierre Cabrera MD [address] [facility] [address] [place], [place] [id number] Surgeon Cardiothoracic Surgery 06/26/23 Kd Prince PA-C [address] [place] [address] Medium Cycle Salesperson Cardiology 06/26/23 Renae Car APRN [address] [facility] [address] [place] [address] Cardiology 09/30/23 documented as of this encounter
--- OUTSIDE RECORDS SUMMARY | 2025-05-02 11:43 | XMS_ITS | Encounter Summary ---
Author Organization [employer] ([place], [place], [place], [place], [place]) Address [address] [place] [address] Care Team Providers Care Liberal Arts And Humanities Chair Name Role Phone Tony Calabrese MD Primary Care Provider [phone] Jean-Pierre Cabrera MD Unavailable [phone] Kd Prince PA-C Unavailable [phone] Renae Car APRN Unavailable [phone] Encounter Details Date Type Department Care Team (Late st Contact Info) Description 01/16/2021 Transcribed Document [facility] [place] [address] [place] [address] ProviderLiz MD [address] [place] [address] Social History Tobacco Use Types Packs/Day Years Used Date Smoking Tobacco: Never Assessed Sex and Gender Information Value Date Recorded Sex Assigned at Male 08/26/2022 2:31 AM CDT Legal Sex Male 5:38 PM CDT Gender Identity Male 08/26/2022 2:31 AM CDT Sexual Orientation Not on file documented as of this encounter Miscellaneous Notes * Cerner Conversion Note - Liz Patel MD - 01/16/2021 11:55 AM CDT Patient: IAN ELLISON Age: 65 Years Sex: Male : 1955 Subjective DOS 01/16/2021@10:30 AM. The patient reports no further chest pain. He is awaiting his ordered stress test. Nursing staff report that he remains afebrile with stable vital signs. He is saturating appropriately on room air. His troponin trend has remained negative. Review of systems Constitutional: No fever, no chills Respiratory: No acute dyspnea, no cough Cardiovascular: No further chest pain, no palpitation, no increasing pedal edema GI: No nausea, vomiting or diarrhea Neuro: No confusion, no acute motor or sensory changes Vital Signs T: 36.6 ??C HR: 82 RR: 15 BP: 132/58 SpO2: 97% HT: 170.18 cm WT: 81.82 kg BMI: 28.3 Oxygen Settings (Last) Oxygen Therapy Mode: Room air (01/15/21 17:47:00) Intake & Output Totals Last 24 Hours (7a-7a) Input Total: 0 mL Output Total: 0 mL Balance: 0 mL Physical Exam General: Alert and oriented, well nourished, no acute distress. Eye: PERRL, EOMI, Conjunctiva appropriate. HENT: Normocephalic, normal hearing, moist oral mucosa. Neck: Supple, non-tender, no JVD, no lymphadenopathy. Lungs: Appropriate effort, Clear to auscultation, adequate excursion. Heart: regular rate, regular rhythm, no murmur, no pedal edema, no reproducible chest wall tenderness on palpation. Abdomen: Soft, non-tender, non-distended, normal bowel sounds, no masses. Musculoskeletal: adequate range of motion and tone, appropriate strength Skin: Skin is warm, dry and pink, no diffuse rashes. Neurologic: Awake, alert and oriented X 3, sensory intact. Psychiatric: Cooperative, appropriate mood and affect. 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 ???Beta-scott therapy Diabetes Mellitus Type 2 controlled -Routine Blood sugar monitoring ???Recent hemoglobin A1c 7.4% -Sliding Scale Insulin coverage -ADA calorie restricted, Carbohydrate controlled diet -Julio inhibitor therapy -Statin Therapy -ASA 81 mg daily -Routine electrolytes & creatinine -Diabetes education Hypertension controlled -Telemetry monitoring -Routine BP monitoring -Julio inhibitor therapy -beta scott therapy -ASA 81 mg -Routine lab evaluation VTE Prophylaxis - Medical Heparin 5,000 Units, SubCutaneous, Inj, Q8HInt, Routine, Start 01/15/21 22:00:00 EDT, 01/15/21 21:04:00 EDT (DOLORES ATELynn) Ticagrelor 90 mg, Oral, Tab, BID, Routine, Start 01/15/21 22:28:00 EDT, 01/15/21 22:28:00 EDT (HARMONY BERNAL) Sequential Compression Device Start: 01/15/21 20:34:00 EDT, Bilateral, Length: Knee High, While patient is in bed, Continuous Order (HARMONY BERNAL) Medications aspirin, 81 mg= 1 Tab, Oral, Daily atorvastatin, 80 mg= 2 Tab, Oral, At Bedtime Colace, 100 mg= 1 Cap, Oral, BID Dulcolax Laxative, 5 mg= 1 Tab, Oral, Daily, PRN DuoNeb 0.5 mg-2.5 mg/3 mL inhalation solution, 3 mL, Nebulized Inhalation , RT_Q6H, PRN Fish Oil, 1000 mg= 1 Cap, Oral, Daily heparin, 5000 Units= 1 mL, SubCutaneous, Q8HInt hydrALAZINE, 10 mg= 0.5 mL, IV Push, Q6H, PRN insulin lispro sliding scale, Scale C:, SubCutaneous, AC and at Bedtime lisinopril, 10 mg= 1 Tab, Oral, Daily melatonin, 3 mg= 1 Tab, Oral, At Bedtime, PRN metoprolol tartrate, 12.5 mg= 0.5 Tab, Oral, BID MiraLax, 17 Gram= 1 Packet, Oral, Daily, PRN Os-Momo 500 + D, 1 Tab, Oral, At Bedtime Pepcid, 20 mg= 1 Tab, Oral, Q12H Phenergan, 6.25 mg= 0.25 mL, IntraVENous, Q6H, PRN Roxicodone, 5 mg= 1 Tab, Oral, Q4H, PRN Roxicodone, 10 mg= 2 Tab, Oral, Q4H, PRN tamsulosin, 0.4 mg= 1 Cap, Oral, Daily ticagrelor, 90 mg= 1 Tab, Oral, BID Tylenol, 650 mg= 2 Tab, Oral, Q4H, PRN Zofran, 4 mg= 2 mL, IV Push, Q4H, PRN Diagnostic Results Radiology Results (Last 48 hours) [id number] -- 01/15/2021 21:13 CR Chest 1 Vw Portable (01/15/2021 18:07) Result: PORTABLE CHEST 01/15/2021 5:53 PMHISTORY: Precordial chest painCOMPARISON: December 20, 2020FINDINGS: The cardiac silhouette is proper size. The aortic contours arenormal. The mediastinal and hilar structures are unremarkable. The lungsare clear. There is no pneumothorax. Thoracic spinal stimulator againnoted. IMPRESSION: No acute cardiopulmonary process. Images reviewed, interpreted, and dictated by Carmen Wilson MD Lab Results Test Name Test Result Date/Time Sodium Level 140 mmol/L 01/16/2021 05:34 EDT Sodium Level 137 mmol/L 01/15/2021 17:54 EDT Potassium Level 3.8 mmol/L 01/16/2021 05:34 EDT Potassium Level 4.7 mmol/L 01/15/2021 17:54 EDT Chloride Level 109 mmol/L 01/16/2021 05:34 EDT Chloride Level 107 mmol/L 01/15/2021 17:54 EDT Carbon Dioxide Level 27 mmol/L 01/16/2021 05:34 EDT Carbon Dioxide Level 23 mmol/L 01/15/2021 17:54 EDT Anion Gap 8 (Low) 01/16/2021 05:34 EDT Anion Gap 12 01/15/2021 17:54 EDT Glucose Level 105 mg/dL 01/16/2021 05:34 EDT Glucose Level 83 mg/dL 01/15/2021 17:54 EDT Blood Urea Nitrogen 16 mg/dL 01/16/2021 05:34 EDT Blood Urea Nitrogen 16 mg/dL 01/15/2021 17:54 EDT Creatinine Level 0.80 mg/dL 01/16/2021 05:34 EDT Creatinine Level 0.70 mg/dL 01/15/2021 17:54 EDT eGFR >60 mL/min/1.73m2 01/16/2021 05:34 EDT eGFR >60 mL/min/1.73m2 01/15/2021 17:54 EDT eGFR NonAfrican >60 mL/min/1.73m2 01/16/2021 05:34 EDT eGFR NonAfrican >60 mL/min/1.73m2 01/15/2021 17:54 EDT Bun/Creatinine 20.0 01/16/2021 05:34 EDT Bun/Creatinine 22.9 (High) 01/15/2021 17:54 EDT Calcium Level 8.8 mg/dL 01/16/2021 05:34 EDT Calcium Level 9.5 mg/dL 01/15/2021 17:54 EDT Protein Total 7.8 Gram/dL 01/15/2021 17:54 EDT Albumin Level 4.0 Gram/dL 01/15/2021 17:54 EDT Globulin 3.8 Gram/dL 01/15/2021 17:54 EDT A/G Ratio 1.1 01/15/2021 17:54 EDT Bilirubin Total 0.7 mg/dL 01/15/2021 17:54 EDT Alk Phos 69 Units/Liter 01/15/2021 17:54 EDT AST 43 Units/Liter (High) 01/15/2021 17:54 EDT ALT 41 Units/Liter 01/15/2021 17:54 EDT Magnesium Level 2.1 mg/dL 01/16/2021 05:34 EDT Device Comment 1 Notified Nurse RBV 01/16/2021 06:31 EDT Glucose POC2 112 mg/dL (High) 01/16/2021 06:31 EDT Lipase Level 123 Units/Liter 01/15/2021 17:54 EDT Troponin I Ultra <0.015 ng/mL 01/16/2021 05:34 EDT Troponin I Ultra 0.020 ng/mL 01/15/2021 21:00 EDT Troponin I Ultra <0.015 ng/mL 01/15/2021 17:54 EDT ProBNP 205 pg/mL (High) 01/15/2021 21:45 EDT WBC 8.2 K/uL 01/16/2021 05:34 EDT WBC 10.5 K/uL (High) 01/15/2021 17:54 EDT RBC 4.54 Million/uL 01/16/2021 05:34 EDT RBC 4.78 Million/uL 01/15/2021 17:54 EDT Hgb 12.9 g/dL (Low) 01/16/2021 05:34 EDT Hgb 13.3 g/dL (Low) 01/15/2021 17:54 EDT Hct 39.1 % (Low) 01/16/2021 05:34 EDT Hct 41.9 % 01/15/2021 17:54 EDT MCV 86.1 fL 01/16/2021 05:34 EDT MCV 87.7 fL 01/15/2021 17:54 EDT MCH 28.4 pg 01/16/2021 05:34 EDT MCH 27.8 pg 01/15/2021 17:54 EDT MCHC 33.0 Gram/dL 01/16/2021 05:34 EDT MCHC 31.7 Gram/dL (Low) 01/15/2021 17:54 EDT Platelet Count 254 K/uL 01/16/2021 05:34 EDT Platelet Count 258 K/uL 01/15/2021 17:54 EDT MPV 9.8 fL 01/16/2021 05:34 EDT MPV 9.8 fL 01/15/2021 17:54 EDT RDW 15.2 % (High) 01/16/2021 05:34 EDT RDW 15.0 % (High) 01/15/2021 17:54 EDT Neut % 52.1 % 01/16/2021 05:34 EDT Neut % 54.9 % 01/15/2021 17:54 EDT Neut # 4.28 K/uL 01/16/2021 05:34 EDT Neut # 5.77 K/uL 01/15/2021 17:54 EDT Lymph % 34.6 % 01/16/2021 05:34 EDT Lymph % 34.3 % 01/15/2021 17:54 EDT Lymph # 2.84 K/uL 01/16/2021 05:34 EDT Lymph # 3.59 x10(3)/uL 01/15/2021 17:54 EDT Concho % 9.0 % 01/16/2021 05:34 EDT Concho % 6.9 % 01/15/2021 17:54 EDT Concho # 0.74 K/uL 01/16/2021 05:34 EDT Concho # 0.72 K/uL 01/15/2021 17:54 EDT Eos % 3.8 % 01/16/2021 05:34 EDT Eos % 2.7 % 01/15/2021 17:54 EDT Eos # 0.31 01/16/2021 05:34 EDT Eos # 0.28 x10(3)/uL 01/15/2021 17:54 EDT Baso % 0.5 % 01/16/2021 05:34 EDT Baso % 0.8 % 01/15/2021 17:54 EDT Baso # 0.04 01/16/2021 05:34 EDT Baso # 0.08 x10(3)/uL 01/15/2021 17:54 EDT Slide Review No 01/16/2021 05:34 EDT Slide Review No 01/15/2021 17:54 EDT IG# 0.04 x10(3)/uL 01/15/2021 17:54 EDT IG% 0.40 % 01/15/2021 17:54 EDT PT 10.9 Second(s) 01/16/2021 05:34 EDT INR 1.0 01/16/2021 05:34 EDT D Dimer Quant 0.33 mg/L FEU 01/15/2021 17:54 EDT TSH 3.290 mcInt Units/mL 01/16/2021 05:34 EDT documented in this encounter Plan of Treatment Not on file documented as of this encounter Visit Diagnoses Not on filedocumented in this encounter Care Teams Liberal Arts And Humanities Chair Relationship Specialty Start Date End Date Tony Calabrese MD [address] [place] [address] PCP - General Family Medicine 06/06/22 Jean-Pierre Cabrera MD [address] [facility] [address] [place] [address] Surgeon Cardiothoracic Surgery 06/26/23 Kd Prince PA-C [address] [place] [address] [employer]k Screen Printer Machine Cardiology 06/26/23 Renae Car, JOSÉ MIGUEL [address] [facility] [address] [place] [address] Cardiology 09/30/23 documented as of this encounter
--- OUTSIDE RECORDS SUMMARY | 2025-05-02 11:43 | XMS_ITS | Encounter Summary ---
Author Organization [employer] ([place], [place], [place], [place], [place]) Address [address] [place] [address] Care Team Providers Care Industrial Sales Engineer Name Role Phone Tony Calabrese MD Primary Care Provider [phone] Jean-Pierre Cabrera MD Unavailable [phone] Kd Prince PA-C Unavailable [phone] Renae Car APRN Unavailable [phone] Encounter Details Date Type Department Care Team (Late st Contact Info) Description 12/22/2020 Transcribed Document [facility] [place] [address] [place] [address] ProviderLiz MD [address] [place] [address] Social History Tobacco Use Types Packs/Day Years Used Date Smoking Tobacco: Never Assessed Sex and Gender Information Value Date Recorded Sex Assigned at Male 08/26/2022 2:31 AM CDT Legal Sex Male 5:38 PM CDT Gender Identity Male 08/26/2022 2:31 AM CDT Sexual Orientation Not on file documented as of this encounter Miscellaneous Notes * Cerner Conversion Note - Liz ProviderMD - 12/22/2020 1:39 AM CDT Event Note Entered On: 12/22/2020 1:40 EDT Performed On: 12/22/2020 1:39 EDT by Ban Loyola Rn-Traveler Event Note Description of Event : DR Lizeth odered to stop heparin infusion after heart cath as he is started on Brilinta. Ban Loyola Rn-Traveler - 12/22/2020 1:39 EDT Electronically signed by Rosa, [facility] Conversion Sprinkling Truck Driver Cerner at 09/26/2022 9:12 AM CDT documented in this encounter Plan of Treatment Not on file documented as of this encounter Visit Diagnoses Not on filedocumented in this encounter Care Teams Industrial Sales Engineer Relationship Specialty Start Date End Date Tony Calabrese MD [address] [place] [address] PCP - General Family Medicine 06/06/22 Jean-Pierre Cabrera MD [address] [facility] [address] [place], [place] [id number] Surgeon Cardiothoracic Surgery 06/26/23 Kd Prince PA-C [address] [place] [address] Autocutter Cardiology 06/26/23 Renae Car APRN [address] [facility] [address] [place] [address] Cardiology 09/30/23 documented as of this encounter
--- OUTSIDE RECORDS SUMMARY | 2025-05-02 11:43 | XMS_ITS | Encounter Summary ---
Author Organization [employer] ([place], [place], [place], [place], [place]) Address [address] [place] [address] Care Team Providers Care Senior Cytogenetic Technologist Name Role Phone Tony Calabrese MD Primary Care Provider [phone] Jean-Pierre Cabrera MD Unavailable [phone] Kd Prince PA-C Unavailable [phone] Renae Car APRN Unavailable [phone] Encounter Details Date Type Department Care Team (Late st Contact Info) Description 12/22/2020 Transcribed Document [facility] [place] [address] [place] [id number] ProviderLiz MD [address] [place] [id number] Social History Tobacco Use Types Packs/Day Years Used Date Smoking Tobacco: Never Assessed Sex and Gender Information Value Date Recorded Sex Assigned at Male 08/26/2022 2:31 AM CDT Legal Sex Male 5:38 PM CDT Gender Identity Male 08/26/2022 2:31 AM CDT Sexual Orientation Not on file documented as of this encounter Miscellaneous Notes * Cerner Conversion Note - Liz Patel MD - 12/22/2020 1:52 PM CDT [facility] [place] [address] IAN ELLISON :1955 Visit Time:12/21/2020 Your Visit Summary Your Care Team Admitting Physician - ELIZABETH SCHMIDT MD-FAM Attending Physician - MAGALI ABEL DO Primary Care Physician - JUDY TIJERINA (REF)HEIDI Referring Physician - DEMAR MANCIA MD Your Diagnosis Chest pain, Chest pain NSTEMI (non-ST elevated myocardial infarction) Discharge Vitals Temperature 37.1 ??C Heart Rate (Monitored) 89 Respiratory Rate 17 Blood Pressure 109/65 What to do next Instructions From Your Care Team STOP taking the following medications: 1) lisinopril-HCTZ (hydrochlorothiazide) --- this will be replaced by plain lisinopril Discharge Activity: stand post- [facility] activity, Discharge Activity: Other (use Special Instructions) Diet: Discharge Diet: Heart healthy diet Follow-Up Appointments Follow Up with CITLALI CARDENAS When 01/25/2021 08:30 AM EDT Comments Appointment has been made Where: [address] [place] [address] [facility] (1) Follow Up with Follow up with primary care provider When Within 5 to 7 days Medications What How Much When Instructions Next Dose lisinopril (lisinopril 10 mg oral tablet) 1 Tablet(s) Oral Every Day This will replace lisinopril-HCTZ Pickup at [facility] 12/23/2020 metoprolol (Metoprolol Tartrate 25 mg oral tablet) 0.5 Tablet(s) Oral Two Times A Day Pickup at [facility] 5pm ticagrelor (ticagrelor 90 mg oral tablet) 1 Tablet(s) Oral Two Times A Day Pickup at [facility] 9pm acetaminophen (Tylenol 325 mg oral tablet) 2 Tablet(s) Oral Every 4 Hours as needed for as needed for pain not to exceed 4000 mg/ day aspirin (aspirin 81 mg oral delayed release tablet) 1 Tablet(s) Oral Every Day 12/23/2020 atorvastatin (atorvastatin 80 mg oral tablet) 1 Tablet(s) Oral At Bedtime 9pm metFORMIN (metFORMIN 500 mg oral tablet) 1 Tablet(s) Oral Two Times A Day HOLD for now. Restart on 12-24-2020 12/24/2020 methocarbamol (methocarbamol 750 mg oral tablet) 1 Tablet(s) Oral Three Times A Day as needed for as needed for pain multivitamin with minerals (Calcium 600+D Plus Minerals oral tablet, chewable) 1 Tablet(s) Chew At Bedtime 9pm omega-3 polyunsaturated fatty acids (Fish Oil 1200 mg oral capsule) 1 Capsule(s) Oral Every Day 12/23/2020 tamsulosin (tamsulosin 0.4 mg oral capsule) 1 Capsule(s) Oral Every Day 12/23/2020 Pharmacy Information [facility] [place]: [address] [facility] [address] [place], [place] [id number] [phone] Take your medications faithfully. Do NOT skip medication. Do NOT stop taking medications without the direction of a physician. Carry a list of your medications with you at all times, and take this medication list with you to your first follow up visit. Report any side effects. Avoid herbal remedies unless discussed with your physician. As part of your treatment plan, your physician may have prescribed a limited course of a controlled substance. This medication may be given to help people with moderate or severe pain or for other medical conditions, but there are risks involved with treatment. Common side effects may include nausea, constipation, drowsiness, sweating, itching, dry mouth, and rash. More serious side effects may include cognitive and motor impairment, like problems with thinking, concentrating, alertness, and movement (e.g. slowed reflexes), and driving and operating heavy machinery can be dangerous. It is important for you to talk to your physician if you have these side effects or questions. These controlled substances can produce physical dependence and be habit-forming if taken for an extended period of time, which means that the body has gotten used to them and may experience withdrawal symptoms if they are abruptly stopped. Withdrawal symptoms can include runny nose, sweating, goose bumps, diarrhea, abdominal cramping, rapid heartbeat, difficulty sleeping, and nervousness. Please dispose of unused and medications per your retail pharmacy guidance. Allergies No Known Allergies Immunizations This Visit No Immunizations Found Education Materials Coronary Angioplasty, Care After This sheet gives you information about how to care for yourself after your procedure. Your health care provider may also give you more specific instructions. If you have problems or questions, contact your health care provider. What can I expect after the procedure? After your procedure, it is common to have: ??? Bruising at the catheter insertion site. This usually fades within 1???2 weeks. ??? Blood collecting in the tissue (hematoma) that may be painful to the touch. It should become smaller and less tender within 1???2 weeks. Follow these instructions at home: Medicines ??? Take waoo-ffw-lolvshh and prescription medicines only as told by your health care provider. ??? Blood thinners may be prescribed after your procedure to improve blood flow. Bathing ??? You may shower 24???48 hours after the procedure or as told by your health care provider. ??? Do not take baths, swim, or use a hot tub until your health care provider approves. Insertion site care ??? Follow instructions from your health care provider about how to take care of your insertion site. Make sure you: ? Wash your hands with soap and water before you change your bandage (dressing). If soap and water are not available, use hand rehabilitation worker. ? Change your dressing as told by your health care provider. ? Gently wash the site with plain soap and water. ? Use a clean towel to pat the area dry. ? Do not rub the site, because this may cause bleeding. ? Do not apply powder or lotion to the site. ??? Check your insertion site every day for signs of infection. Check for: ? More redness, swelling, or pain. ? More fluid or blood. ? Warmth. ? Pus or a bad smell. Lifestyle ??? Make any lifestyle changes as recommended by your health care provider. This may include: ? Not using any products that contain nicotine or tobacco, such as cigarettes and e-cigarettes. If you need help quitting, ask your health care provider. ? Managing your weight. ? Getting regular exercise. ? Managing your blood pressure. ? Limiting your alcohol intake. ? Managing other health problems, such as diabetes. ??? Eat a heart-healthy diet. This should include plenty of fresh fruits and vegetables. Avoid foods that are: ? High in salt (sodium). ? Canned or highly processed. ? High in saturated fat or sugar. ? Fried. General instructions ??? Do not lift over 10 lb (4.5 kg) for 5 days after your procedure or as told by your health care provider. ??? Ask your health care provider when it is okay to: ? Return to work or school. ? Resume usual physical activities or sports. ? Resume sexual activity. ??? Keep all follow-up visits as told by your health care provider. This is important. Contact a health care provider if: ??? You have a fever. ??? You have chills. ??? You have increased bleeding from the insertion site. Hold pressure on the site. Get help right away if: ??? You develop chest pain or shortness of breath, feel faint, or pass out. ??? You have unusual pain at the insertion site. ??? You have redness, warmth, or swelling at the insertion site. ??? You have drainage (other than a small amount of blood on the dressing) from the insertion site. ??? The insertion site is bleeding, and the bleeding does not stop after 30 minutes of holding steady pressure on the site. ??? You develop bleeding from any other place, such as from the rectum. There may be bright red blood in your urine or stool, or it may appear as black, tarry stool. This information is not intended to replace advice given to you by your health care provider. Make sure you discuss any questions you have with your health care provider. Document Revised: 05/08/2018 Document Reviewed: 12/29/2016 [employer] Patient Education ?? 2020 [employer] Radial Site Care This sheet gives you information about how to care for yourself after your procedure. Your health care provider may also give you more specific instructions. If you have problems or questions, contact your health care provider. What can I expect after the procedure? After the procedure, it is common to have: ??? Bruising and tenderness at the catheter insertion area. Follow these instructions at home: Medicines ??? Take epzd-thk-glcwxjm and prescription medicines only as told by your health care provider. Insertion site care ??? Follow instructions from your health care provider about how to take care of your insertion site. Make sure you: ? Wash your hands with soap and water before you change your bandage (dressing). If soap and water are not available, use hand rehabilitation worker. ? Change your dressing as told by your health care provider. ? Leave stitches (sutures), skin glue, or adhesive strips in place. These skin closures may need to stay in place for 2 weeks or longer. If adhesive strip edges start to loosen and curl up, you may trim the loose edges. Do not remove adhesive strips completely unless your health care provider tells you to do that. ??? Check your insertion site every day for signs of infection. Check for: ? Redness, swelling, or pain. ? Fluid or blood. ? Pus or a bad smell. ? Warmth. ??? Do not take baths, swim, or use a hot tub until your health care provider approves. ??? You may shower 24???48 hours after the procedure, or as directed by your health care provider. ? Remove the dressing and gently wash the site with plain soap and water. ? Pat the area dry with a clean towel. ? Do not rub the site. That could cause bleeding. ??? Do not apply powder or lotion to the site. Activity ??? For 24 hours after the procedure, or as directed by your health care provider: ? Do not flex or bend the affected arm. ? Do not push or pull heavy objects with the affected arm. ? Do not drive yourself home from the hospital or clinic. You may drive 24 hours after the procedure unless your health care provider tells you not to. ? Do not operate machinery or power tools. ??? Do not lift anything that is heavier than 10 lb (4.5 kg), or the limit that you are told, until your health care provider says that it is safe. ??? Ask your health care provider when it is okay to: ? Return to work or school. ? Resume usual physical activities or sports. ? Resume sexual activity. General instructions ??? If the catheter site starts to bleed, raise your arm and put firm pressure on the site. If the bleeding does not stop, get help right away. This is a medical emergency. ??? If you went home on the same day as your procedure, a responsible adult should be with you for the first 24 hours after you arrive home. ??? Keep all follow-up visits as told by your health care provider. This is important. Contact a health care provider if: ??? You have a fever. ??? You have redness, swelling, or yellow drainage around your insertion site. Get help right away if: ??? You have unusual pain at the radial site. ??? The catheter insertion area swells very fast. ??? The insertion area is bleeding, and the bleeding does not stop when you hold steady pressure on the area. ??? Your arm or hand becomes pale, cool, tingly, or numb. These symptoms may represent a serious problem that is an emergency. Do not wait to see if the symptoms will go away. Get medical help right away. Call your local emergency services (911 in the [place] Do not drive yourself to the hospital. Summary ??? After the procedure, it is common to have bruising and tenderness at the site. ??? Follow instructions from your health care provider about how to take care of your radial site wound. Check the wound every day for signs of infection. ??? Do not lift anything that is heavier than 10 lb (4.5 kg), or the limit that you are told, until your health care provider says that it is safe. This information is not intended to replace advice given to you by your health care provider. Make sure you discuss any questions you have with your health care provider. Document Revised: 07/01/2018 Document Reviewed: 07/01/2018 [employer] Patient Education ?? 2020 [employer]. metoprolol (oral/injection) (me TOE pro lol) Kapspargo Sprinkle, Lopressor, Metoprolol Succinate ER, Metoprolol Tartrate, Toprol-XL What is the most important information I should know about metoprolol? You should not use this medicine if you have a serious heart problem (heart block, sick sinus syndrome, slow heart rate), severe circulation problems, severe heart failure, or a history of slow heart beats that caused fainting. What is metoprolol? Metoprolol is a beta-scott that affects the heart and circulation (blood flow through arteries and veins). Metoprolol is used to treat angina (chest pain) and hypertension (high blood pressure). It is also used to lower your risk of or needing to be hospitalized for heart failure. Metoprolol injection is used during the early phase of a heart attack to lower the risk of . Metoprolol may also be used for other purposes not listed in this medication guide. What should I discuss with my healthcare provider before taking metoprolol? You should not use this medicine if you are allergic to metoprolol, or other beta-blockers (atenolol, carvedilol, labetalol, nadolol, nebivolol, propranolol, sotalol, and others), or if you have: ?? a serious heart problem such as heart block, sick sinus syndrome, or slow heart rate; ?? severe circulation problems; ?? severe heart failure (that required you to be in the hospital); or ?? a history of slow heart beats that have caused you to faint. Tell your doctor if you have ever had: ?? asthma, chronic obstructive pulmonary disease (COPD), sleep apnea, or other breathing disorder; ?? diabetes (taking metoprolol may make it harder for you to tell when you have low blood sugar); ?? liver disease; ?? congestive heart failure; ?? problems with circulation (such as Raynaud's syndrome); ?? a thyroid disorder; or ?? pheochromocytoma (tumor of the adrenal gland). Do not give this medicine to a child without medical advice. Tell your doctor if you are or plan to become . It is not known whether metoprolol will harm an unborn baby. However, having high blood pressure during may cause complications such as diabetes or eclampsia (dangerously high blood pressure that can lead to medical problems in both mother and baby). The benefit of treating hypertension may outweigh any risks to the baby. Ask a doctor before using this medicine if you are breast-feeding. Metoprolol can pass into breast milk and may cause dry skin, dry mouth, diarrhea, constipation, or slow heartbeats in your baby. How should I take metoprolol? Follow all directions on your prescription label and read all medication guides or instruction sheets. Your doctor may occasionally change your dose. Use the medicine exactly as directed. Metoprolol should be taken with a meal or just after a meal. Take the medicine at the same time each day. Swallow the capsule whole and do not crush, chew, break, or open it. A Toprol XL tablet can be divided in half if your doctor has told you to do so. Swallow the half-tablet whole, without chewing or crushing. Measure liquid medicine carefully. Use the dosing syringe provided, or use a medicine dose-measuring device (not a kitchen spoon). You will need frequent medical tests, and your blood pressure will need to be checked often. If you need surgery, tell the surgeon ahead of time that you are using metoprolol. You should not stop using metoprolol suddenly. Stopping suddenly may make your condition worse. If you have high blood pressure, keep using this medicine even if you feel well. High blood pressure often has no symptoms. You may need to use metoprolol for the rest of your life. Store at room temperature away from moisture and heat. Metoprolol injection is given as an infusion into a vein. A healthcare provider will give you this injection in a medical setting where your heart and blood pressure can be monitored. Metoprolol injections are given for only a short time before switching you to the oral form of this medicine. What happens if I miss a dose? Skip the missed dose and use your next dose at the regular time. Do not use two doses at one time. What happens if I overdose? Seek emergency medical attention or call the Poison Help line at . What should I avoid while taking metoprolol? Avoid driving or hazardous activity until you know how this medicine will affect you. Your reactions could be impaired. Drinking alcohol can increase certain side effects of metoprolol. What are the possible side effects of metoprolol? Get emergency medical help if you have signs of an allergic reaction: hives; difficulty breathing; swelling of your face, lips, tongue, or throat. Call your doctor at once if you have: ?? very slow heartbeats; ?? a light-headed feeling, like you might pass out; ?? shortness of breath (even with mild exertion), swelling, rapid weight gain; or ?? cold feeling in your hands and feet. Common side effects may include: ?? dizziness, tired feeling; ?? depression, confusion, memory problems; ?? nightmares, trouble sleeping; ?? diarrhea; or ?? mild itching or rash. This is not a complete list of side effects and others may occur. Call your doctor for medical advice about side effects. You may report side effects to FDA at 7-350-PWL-3813. What other drugs will affect metoprolol? Tell your doctor about all your current medicines. Many drugs can affect metoprolol, especially: ?? any other heart or blood pressure medications; ?? epinephrine (Epi-Pen); ?? an antidepressant; ?? an ergot medicine--dihydroergotamine, ergonovine, ergotamine, methylergonovine; or ?? an MAO inhibitor--isocarboxazid, linezolid, phenelzine, rasagiline, selegiline, tranylcypromine. This list is not complete and many other drugs may affect metoprolol. This includes prescription and hbfl-vqc-auxilme medicines, vitamins, and herbal products. Not all possible drug interactions are listed here. Where can I get more information? Your pharmacist can provide more information about metoprolol. Remember, keep this and all other medicines out of the reach of children, never share your medicines with others, and use this medication only for the indication prescribed. Every effort has been made to ensure that the information provided by [employer]. ('[employer]') is accurate, up-to-date, and complete, but no guarantee is made to that effect. Drug information contained herein may be time sensitive. [employer] information has been compiled for use by healthcare practitioners and consumers in the [place] and therefore [employer] does not warrant that uses outside of the [place] are appropriate, unless specifically indicated otherwise. [employer]'s drug information does not endorse drugs, diagnose patients or recommend therapy. [employer] drug information is an informational resource designed to assist licensed healthcare practitioners in caring for their patients and/or to serve consumers viewing this service as a supplement to, and not a substitute for, the expertise, skill, knowledge and judgment of healthcare practitioners. The absence of a warning for a given drug or drug combination in no way should be construed to indicate that the drug or drug combination is safe, effective or appropriate for any given patient. [employer] does not assume any responsibility for any aspect of healthcare administered with the aid of information [employer] provides. The information contained herein is not intended to cover all possible uses, directions, precautions, warnings, drug interactions, allergic reactions, or adverse effects. If you have questions about the drugs you are taking, check with your doctor, nurse or pharmacist. Copyright 2617-1132 [employer]. Version: 17.03. Revision Date: 11/04/2018. ticagrelor (kristina KA rubenl or) Brilinta (ticagrelor) What is the most important information I should know about ticagrelor? You should not use ticagrelor if you have any active bleeding or a history of bleeding in the brain. Do not use this medicine just before heart bypass surgery. Ticagrelor may cause you to bleed more easily, which can be severe or life-threatening. Call your doctor or seek emergency medical attention if you have bleeding that will not stop, black or bloody stools, red or pink urine, or if you cough up blood or vomit that looks like coffee grounds. Tell your doctor about all your current medicines and any you start or stop using. Many drugs can interact with ticagrelor. Do not stop taking ticagrelor without first talking to your doctor, even if you have signs of bleeding. Stopping ticagrelor may increase your risk of a heart attack or stroke. What is ticagrelor? Ticagrelor is used to lower your risk of heart attack, stroke, or due to a blocked artery or a prior heart attack. Ticagrelor is also used to lower your risk of blood clots if you have coronary artery disease (decreased blood flow to the heart) and have been treated with stents to open clogged arteries. Ticagrelor is also used to lower your risk of a first heart attack or stroke if you have decreased blood flow to the heart. Ticagrelor is also used to lower the risk of stroke and in adults with a blockage or decreased blood flow in an artery that supplies blood to the brain. Ticagrelor is usually given together with low-dose aspirin. Carefully follow your doctor's dosing instructions. Using too much aspirin can make ticagrelor less effective. Ticagrelor may also be used for purposes not listed in this medication guide. What should I discuss with my healthcare provider before taking ticagrelor? You should not use ticagrelor if you are allergic to it, or if you have: ?? any active bleeding; or ?? a history of bleeding in the brain (such as from a head injury). Tell your doctor if you have ever had: ?? a stroke; ?? heart problems; ?? a surgery or bleeding injury; ?? bleeding problems; ?? a stomach ulcer or colon polyps; ?? liver disease; or ?? asthma, COPD (chronic obstructive pulmonary disorder) or other breathing problem. It is not known whether this medicine will harm an unborn baby. Tell your doctor if you are or plan to become . You should not breastfeed while using ticagrelor. How should I take ticagrelor? Follow all directions on your prescription label and read all medication guides or instruction sheets. Ticagrelor is taken together with aspirin. Use these medicines exactly as directed. Do not take more aspirin than your doctor has prescribed. Taking too much aspirin can make ticagrelor less effective. Take ticagrelor at the same times each day, with or without food. If you cannot swallow a tablet whole, crush the pill and mix it with water. Stir and drink this mixture right away. Add more water to the glass, stir, and drink right away. Ticagrelor keeps your blood from coagulating (clotting) and can make it easier for you to bleed, even from a minor injury. Contact your doctor or seek emergency medical attention if you have any bleeding that will not stop. To prevent excessive bleeding, you may need to stop using ticagrelor for a short time before a surgery, medical procedure, or dental work. Any healthcare provider who treats you should know that you are taking ticagrelor. Do not stop taking ticagrelor without first talking to your doctor, even if you have signs of bleeding. Stopping the medicine could increase your risk of a heart attack or stroke. This medicine may affect medical testing for platelets in your blood and you may have false results. Tell the laboratory staff that you use ticagrelor. Store at room temperature away from moisture and heat. What happens if I miss a dose? Skip the missed dose and use your next dose at the regular time. Do not use two doses at one time. What happens if I overdose? Seek emergency medical attention or call the Poison Help line at . Overdose can cause excessive bleeding. What should I avoid while taking ticagrelor? Drinking alcohol while taking aspirin can increase your risk of stomach bleeding. Avoid activities that may increase your risk of bleeding or injury. Use extra care to prevent bleeding while shaving or brushing your teeth. While taking ticagrelor with aspirin, avoid using medicines for pain, fever, swelling, or cold/flu symptoms. They may contain ingredients similar to aspirin (such as salicylates, ibuprofen, ketoprofen, or naproxen). Taking certain products together can cause you to get too much aspirin which can increase your risk of bleeding. What are the possible side effects of ticagrelor? Get emergency medical help if you have signs of an allergic reaction: hives; difficult breathing; swelling of your face, lips, tongue, or throat. Call your doctor at once if you have: ?? slow heartbeats; ?? nosebleeds, or any bleeding that will not stop; ?? shortness of breath even with mild exertion or while lying down; ?? easy bruising, unusual bleeding, purple or red spots under your skin; ?? red, pink, or brown urine; ?? black, bloody, or tarry stools; or ?? coughing up blood or vomit that looks like coffee grounds. Common side effects may include: ?? bleeding; or ?? shortness of breath. This is not a complete list of side effects and others may occur. Call your doctor for medical advice about side effects. You may report side effects to FDA at 5-328-JIQ-4913. What other drugs will affect ticagrelor? Sometimes it is not safe to use certain medications at the same time. Some drugs can affect your blood levels of other drugs you take, which may increase side effects or make the medications less effective. Tell your doctor about all your current medicines. Many drugs can affect ticagrelor, especially: ?? antifungal medicine; ?? antiviral medicine to treat HIV or AIDS; ?? a blood thinner; ?? cholesterol medication; ?? heart or blood pressure medication; ?? opioid medication; ?? seizure medicine; or ?? tuberculosis medicine. This list is not complete and many other drugs may affect ticagrelor. This includes prescription and lqda-rgx-cvskkwc medicines, vitamins, and herbal products. Not all possible drug interactions are listed here. Where can I get more information? Your pharmacist can provide more information about ticagrelor. Remember, keep this and all other medicines out of the reach of children, never share your medicines with others, and use this medication only for the indication prescribed. Every effort has been made to ensure that the information provided by [employer]. [employer]') is accurate, up-to-date, and complete, but no guarantee is made to that effect. Drug information contained herein may be time sensitive. [employer] information has been compiled for use by healthcare practitioners and consumers in the [place] and therefore [employer] does not warrant that uses outside of the [place] are appropriate, unless specifically indicated otherwise. [employer] drug information does not endorse drugs, diagnose patients or recommend therapy. [employer] drug information is an informational resource designed to assist licensed healthcare practitioners in caring for their patients and/or to serve consumers viewing this service as a supplement to, and not a substitute for, the expertise, skill, knowledge and judgment of healthcare practitioners. The absence of a warning for a given drug or drug combination in no way should be construed to indicate that the drug or drug combination is safe, effective or appropriate for any given patient. [facility] does not assume any responsibility for any aspect of healthcare administered with the aid of information [employer] provides. The information contained herein is not intended to cover all possible uses, directions, precautions, warnings, drug interactions, allergic reactions, or adverse effects. If you have questions about the drugs you are taking, check with your doctor, nurse or pharmacist. Copyright 0591-8378 [facility] [employer]. Version: 5.01. Revision Date: 06/30/2020. lisinopril ([place] pril) Prinivil, Qbrelis, Zestril What is the most important information I should know about lisinopril? Do not use if you are , and tell your doctor right away if you become . If you have diabetes, do not use lisinopril together with any medication that contains aliskiren (a blood pressure medicine). Do not take lisinopril within 36 hours before or after taking medicine that contains sacubitril (such as Entresto). What is lisinopril? Lisinopril is an JOHNNY inhibitor that is used to treat high blood pressure (hypertension) in adults and children who are at least 6 years old. Lisinopril is also used to treat congestive heart failure in adults, or to improve survival after a heart attack. Lisinopril may also be used for purposes not listed in this medication guide. What should I discuss with my healthcare provider before taking lisinopril? You should not use lisinopril if you are allergic to it, or if you: ?? have a history of angioedema; ?? recently took a heart medicine called sacubitril; or ?? are allergic to any other JOHNNY inhibitor, such as benazepril, captopril, enalapril, fosinopril, moexipril, perindopril, quinapril, ramipril, or trandolapril. Do not take lisinopril within 36 hours before or after taking medicine that contains sacubitril (such as Entresto). If you have diabetes, do not use lisinopril together with any medication that contains aliskiren (a blood pressure medicine). You may also need to avoid taking lisinopril with aliskiren if you have kidney disease. Tell your doctor if you have ever had: ?? kidney disease (or if you are on dialysis); ?? liver disease; or ?? high levels of potassium in your blood. Do not use if you are , and tell your doctor right away if you become . Lisinopril can cause injury or to the unborn baby if you take the medicine during your second or third trimester. You should not breastfeed while using this medicine. How should I take lisinopril? Follow all directions on your prescription label and read all medication guides or instruction sheets. Your doctor may occasionally change your dose. Use the medicine exactly as directed. Drink plenty of water each day while you are taking this medicine. Lisinopril can be taken with or without food. Measure liquid medicine carefully. Use the dosing syringe provided, or use a medicine dose-measuring device (not a kitchen spoon). Your blood pressure will need to be checked often. Your kidney function and electrolytes may also need to be checked. Call your doctor if you are sick with vomiting or diarrhea, or if you are sweating more than usual. You can easily become dehydrated while taking lisinopril. This can lead to very low blood pressure, a serious electrolyte imbalance, or kidney failure. If you need surgery, tell the surgeon ahead of time that you are using lisinopril. If you have high blood pressure, keep using this medicine even if you feel well. High blood pressure often has no symptoms. You may need to use blood pressure medicine for the rest of your life. Store at room temperature away from moisture and heat. Do not freeze the oral liquid. What happens if I miss a dose? Take the medicine as soon as you can, but skip the missed dose if it is almost time for your next dose. Do not take two doses at one time. What happens if I overdose? Seek emergency medical attention or call the Poison Help line at . What should I avoid while taking lisinopril? Drinking alcohol can further lower your blood pressure and may increase certain side effects of lisinopril. Avoid becoming overheated or dehydrated during exercise, in hot weather, or by not drinking enough fluids. Lisinopril can decrease sweating and you may be more prone to heat stroke. Do not use potassium supplements or salt substitutes, unless your doctor has told you to. Avoid getting up too fast from a sitting or lying position, or you may feel dizzy. What are the possible side effects of lisinopril? Get emergency medical help if you have signs of an allergic reaction: hives; severe stomach pain; difficulty breathing; swelling of your face, lips, tongue, or throat. You may be more likely to have an allergic reaction if you are -[place]. Call your doctor at once if you have: ?? a light-headed feeling, like you might pass out; ?? fever, sore throat; ?? high potassium--nausea, weakness, tingly feeling, chest pain, irregular heartbeats, loss of movement; ?? kidney problems--little or no urination, swelling in your feet or ankles, feeling tired or short of breath; or ?? liver problems--nausea, upper stomach pain, itching, tired feeling, loss of appetite, dark urine, yenny-colored stools, jaundice (yellowing of the skin or eyes). Common side effects may include: ?? headache, dizziness; ?? cough; or ?? chest pain. This is not a complete list of side effects and others may occur. Call your doctor for medical advice about side effects. You may report side effects to FDA at 6-481-HVJ-5414. What other drugs will affect lisinopril? Tell your doctor about all your other medicines, especially: ?? a diuretic or 'water pill'; ?? lithium; ?? gold injections to treat arthritis; ?? insulin or oral diabetes medicine; ?? a potassium supplement; ?? medicine to prevent organ transplant rejection--everolimus, sirolimus, tacrolimus, temsirolimus; or ?? NSAIDs (nonsteroidal anti-inflammatory drugs)--aspirin, ibuprofen (Advil, Motrin), naproxen (Aleve), celecoxib, diclofenac, indomethacin, meloxicam, and others. This list is not complete. Other drugs may affect lisinopril, including prescription and fkzu-zkw-wlcnzaa medicines, vitamins, and herbal products. Not all possible drug interactions are listed here. Where can I get more information? Your pharmacist can provide more information about lisinopril. Remember, keep this and all other medicines out of the reach of children, never share your medicines with others, and use this medication only for the indication prescribed. Every effort has been made to ensure that the information provided by [employer]') is accurate, up-to-date, and complete, but no guarantee is made to that effect. Drug information contained herein may be time sensitive. Free [employer] information has been compiled for use by healthcare practitioners and consumers in the [place] and therefore [employer] does not warrant that uses outside of the [place] are appropriate, unless specifically indicated otherwise. [employer] drug information does not endorse drugs, diagnose patients or recommend therapy. [employer] drug information is an informational resource designed to assist licensed healthcare practitioners in caring for their patients and/or to serve consumers viewing this service as a supplement to, and not a substitute for, the expertise, skill, knowledge and judgment of healthcare practitioners. The absence of a warning for a given drug or drug combination in no way should be construed to indicate that the drug or drug combination is safe, effective or appropriate for any given patient. [employer] does not assume any responsibility for any aspect of healthcare administered with the aid of information [employer] provides. The information contained herein is not intended to cover all possible uses, directions, precautions, warnings, drug interactions, allergic reactions, or adverse effects. If you have questions about the drugs you are taking, check with your doctor, nurse or pharmacist. Copyright [id number] [employer]. Version: 15.03. Revision Date: 03/30/2019. Emergency Awareness and Preventative Care STROKE is an EMERGENCY Every Minute Counts Act FAST and Check for these signs: FACE Does the face look uneven? ARM Does one arm drift down? SPEECH Does their speech sound strange? TIME Call at any sign of stroke Stroke Risk Factors Atrial Fibrillation (irregular heartbeat) Diabetes Family history of stroke Heart Disease Heavy alcohol use High Blood Pressure High Cholesterol Physical inactivity and obesity Smoking Cigarette Smoking The facts are clear, cigarette smoking will shorten your life. Smoking can cause many illnesses along the way. As a healthcare provider, we recommend that you stop smoking. Assistance with quitting is available by contacting 7-843-MDWANOW. This is a free resource providing counseling, support, and referral. Or you may contact your personal physician. [place] [facility]: The National Suicide Prevention Lifeline is a national network of local crisis centers that provides free and confidential emotional support to people in suicidal crisis or emotional distress 24 hours a day, 7 days a week. Don't Wait! Stop a Heart Attack Before it Starts What is a heart attack? A heart attack is damage or to a part of the heart from severely decreased or lack of blood flow to the heart. Over time, arteries can become narrow from the buildup of fat and cholesterol, which is called plaque. The plaque can rupture causing a blood clot to form. When the blood clot forms, the artery can become severely narrowed or completely blocked, causing a heart attack. Heart attack is the leading cause of in the [place]. 85% of muscle damage occurs within the first 2 hours. Delay in the recognition of heart attack symptoms increases the chances of . Know the early symptoms of a heart attack: Nausea Feeling of fullness in chest Jaw Pain Pain that travels down one or both arms Fatigue/being tired Anxiety Back Pain Chest pressure, squeezing, or discomfort Shortness of breath Sweating, or a cold sweat Feeling of impending doom There are unusual signs of a heart attack, too! Women, the elderly, and diabetics may present with atypical symptoms: Fainting/dizziness Weakness Confusion Risk Factors for a Heart Attack Some heart disease risk factors, such as age and family history, cannot be changed. Others, like smoking and lack of exercise, can be changed. Smoking High Cholesterol High Blood Pressure Family History Obesity Age Gender (Males are at higher risk) Lack of Exercise Diabetes Diet Stress Excessive Alcohol Intake If you or someone you know is experiencing the signs and symptoms of a heart attack, DON???T DELAY. Call immediately and seek help. If someone collapses, perform CPR! Do not attempt to drive if you are having symptoms of heart attack. Hands-Only CPR Why Hands-Only CPR? Hands-Only CPR has been shown to be as effective as conventional CPR for cardiac arrests that occur outside of a hospital. Survival depends on immediately receiving CPR from someone nearby. How do you perform Hands-Only CPR? There are two easy steps: Call 9-1-1 if you see a teen or adult collapse Push hard and fast in the center of the chest at a beat of 100 beats per minute. Save a life! 4 WAYS TO GET AHEAD OF SEPSIS SEPSIS is a MEDICAL EMERGENCY. Time matters! Infections put you and your family at risk for a life-threatening condition called sepsis. Sepsis is the body's extreme response to an infection. It is life-threatening, and without timely treatment, sepsis can rapidly lead to tissue damage, organ failure, and . Sepsis happens when an infection you already have-in your skin, lungs, urinary tract or somewhere else-triggers a chain reaction throughout your body. 1 PREVENT INFECTIONS Take good care of chronic conditions. Talk to your doctor about getting the recommended vaccines. 2 PRACTICE GOOD HYGIENE Wash your hands frequently. Keep cuts or open sores clean and covered until they are healed. 3 KNOW THE SYMPTOMS Confusion or disorientation Shortness of breath High heart rate Fever, shivering, or feeling very cold Extreme pain or discomfort Clammy or sweaty skin 4 ACT FAST Get medical care IMMEDIATELY if you suspect sepsis or if you have an infection that is not getting better or is getting worse. To learn more about sepsis and how to prevent infections, visit www.cdc.gov/sepsis. Test Results Laboratory or Other Results This Visit (last charted value for your 12/21/2020 visit) Hematology 12/22/2020 5:22 AM WBC: 10.0 K/uL -- Normal range between ( 3.6 and 9.5 ) RBC: 4.63 Million/uL -- Normal range between ( 4.20 and 5.70 ) Hct: 40.2 % -- Normal range between ( 40.1 and 51.0 ) Hgb: 12.9 g/dL -- Normal range between ( 13.5 and 17.3 ) Platelet Count: 277 K/uL -- Normal range between ( 163 and 369 ) MCH: 27.9 pg -- Normal range between ( 25.6 and 32.2 ) MCHC: 32.1 Gram/dL -- Normal range between ( 32.2 and 36.5 ) MCV: 86.8 fL -- Normal range between ( 79.0 and 94.8 ) Slide Review: No Eos %: 2.3 % -- Normal range between ( 0.0 and 7.0 ) [place] #: 0.75 K/uL -- Normal range between ( 0.16 and 1.00 ) Eos #: 0.23 x10(3)/uL -- Normal range between ( 0.00 and 0.80 ) [place] %: 7.5 % -- Normal range between ( 3.0 and 9.0 ) Baso %: 0.6 % -- Normal range between ( 0.0 and 1.5 ) Baso #: 0.06 x10(3)/uL -- Normal range between ( 0.00 and 0.20 ) RDW: 14.6 % -- Normal range between ( 11.7 and 14.9 ) Neut %: 60.6 % -- Normal range between ( 34.0 and 71.0 ) Neut #: 6.05 K/uL -- Normal range between ( 1.56 and 6.13 ) Lymph %: 28.6 % -- Normal range between ( 19.3 and 53.1 ) Lymph #: 2.86 x10(3)/uL -- Normal range between ( 1.00 and 3.90 ) MPV: 9.8 fL -- Normal range between ( 9.4 and 12.4 ) IG#: 0.04 x10(3)/uL -- Normal range between ( 0.00 and 0.05 ) IG%: 0.40 % -- Normal range between ( 0.00 and 0.60 ) General Chemistry 12/22/2020 10:42 AM Glucose POC2: 161 mg/dL -- Normal range between ( 70 and 110 ) Device Comment 1: Device Comment 1 12/22/2020 5:22 AM Creatinine Level: 0.90 mg/dL -- Normal range between ( 0.70 and 1.30 ) Sodium Level: 139 mmol/L -- Normal range between ( 136 and 146 ) Potassium Level: 3.6 mmol/L -- Normal range between ( 3.5 and 5.1 ) Chloride Level: 106 mmol/L -- Normal range between ( 102 and 112 ) Carbon Dioxide Level: 30 mmol/L -- Normal range between ( 21 and 32 ) Anion Gap: 7 -- Normal range between ( 9 and 20 ) Bun/Creatinine: 16.7 -- Normal range between ( 8.0 and 20.0 ) Calcium Level: 9.2 mg/dL -- Normal range between ( 8.4 and 10.1 ) eGFR : >60 mL/min/1.73m2 eGFR NonAfrican: >60 mL/min/1.73m2 Glucose Level: 128 mg/dL -- Normal range between ( 74 and 106 ) Blood Urea Nitrogen: 15 mg/dL -- Normal range between ( 7 and 22 ) 12/21/2020 3:18 AM Bilirubin Total: 0.4 mg/dL -- Normal range between ( 0.2 and 1.2 ) Hgb A1C: 7.4 % A/G Ratio: 1.2 -- Normal range between ( 1.1 and 2.5 ) ALT: 29 Units/Liter -- Normal range between ( 16 and 61 ) AST: 20 Units/Liter -- Normal range between ( 5 and 37 ) Globulin: 3.1 Gram/dL -- Normal range between ( 1.5 and 4.5 ) Alk Phos: 73 Units/Liter -- Normal range between ( 27 and 136 ) eAVG Glucose: 166 mg/dL Calcium Ionized: 1.12 mmol/L -- Normal range between ( 1.12 and 1.32 ) Magnesium Level: 1.9 mg/dL -- Normal range between ( 1.5 and 2.4 ) Protein Total: 6.7 Gram/dL -- Normal range between ( 6.4 and 8.2 ) Albumin Level: 3.6 Gram/dL -- Normal range between ( 3.4 and 5.0 ) 12/20/2020 8:14 PM Lactic Acid Level: 1.2 mmol/L -- Normal range between ( 0.4 and 2.0 ) Cardiac Specific Markers 12/21/2020 10:54 AM Troponin I Ultra: 0.159 ng/mL -- Normal range between ( 0.015 and 0.045 ) 12/21/2020 3:18 AM CK MB: 2.00 ng/mL -- Normal range between ( 0.50 and 3.60 ) CK: 139 Units/Liter -- Normal range between ( 39 and 308 ) MBI: 1.4 12/20/2020 8:14 PM ProBNP: 194 pg/mL -- Normal range between ( 0 and 125 ) Coagulation 12/21/2020 11:37 PM PTT Heparin: 122.3 Second(s) -- Normal range between ( 50.0 and 75.0 ) 12/21/2020 8:48 PM ACT POC: 285 Second(s) -- Normal range between ( 74 and 137 ) 12/20/2020 9:57 PM D Dimer Quant: 0.20 mg/L FEU -- Normal range between ( 0.00 and 0.58 ) INR: 1.0 -- Normal range between ( 0.9 and 1.2 ) PT: 10.5 Second(s) -- Normal range between ( 9.2 and 12.0 ) Lipid Studies 12/22/2020 5:22 AM Cholesterol Tot: 108 mg/dL -- Normal range between ( 0 and 199 ) Cholesterol HDL: 39.0 mg/dL Cholesterol LDL Calculation: 6.4 mg/dL -- Normal range between ( 0.0 and 99.0 ) Cholesterol VLDL Calculation: 62.6 mg/dL -- Normal range between ( 5.0 and 40.0 ) Cholesterol/HDL Ratio: 2.8 -- Normal range between ( 0.0 and 3.2 ) Triglyceride: 313 mg/dL -- Normal range between ( 0 and 249 ) LDL/HDL Ratio: 0.2 -- Normal range between ( 0.0 and 3.6 ) Diagnostic Radiology 12/20/2020 8:50 PM CR Chest 2 Vws: CR Chest 2 Vws Echo 12/21/2020 8:11 AM EC Echo Complete: EC Echo Complete Patient Name:IAN ELLISON I have received and understand this information and was given the opportunity to ask questions. Patient/Shaper Set Up Operator Name: Patient/Shaper Set Up Operator Signature: Relationship to Patient: Clinician/Hospital Shaper Set Up Operator Signature: Date: Electronically signed by Rosa, [facility] Conversion Community Service Manager Cerner at 09/26/2022 8:59 AM CDT documented in this encounter Plan of Treatment Not on file documented as of this encounter Visit Diagnoses Not on filedocumented in this encounter Care Teams Senior Cytogenetic Technologist Relationship Specialty Start Date End Date Tnoy Calabrese MD [address] [place] [address] PCP - General Family Medicine 06/06/22 Jean-Pierre Cabrera MD [address] [facility] [address] [place], [place] [id number] Surgeon Cardiothoracic Surgery 06/26/23 Kd Prince PA-C [address] [place] [address] [employer] Attendant Cardiology 06/26/23 Renae Car APRN [address] [facility] [address] [place], [place] [id number] Cardiology 09/30/23 documented as of this encounter
--- OUTSIDE RECORDS SUMMARY | 2025-05-02 11:43 | XMS_ITS | Encounter Summary ---
Author Organization [employer] ([place], [place], [place], [place], [place]) Address [address] [place] [address] Care Team Providers Care Decatizer Name Role Phone Tony Calabrese MD Primary Care Provider [phone] Jean-Pierre Cabrera MD Unavailable [phone] Kd Prince PA-C Unavailable [phone] Renae Car APRN Unavailable [phone] Encounter Details Date Type Department Care Team (Late st Contact Info) Description 12/22/2020 Transcribed Document [facility] [place] Family Medicine [address] [place] [address] ProviderLiz MD [address] [place] [address] Social History Tobacco Use Types Packs/Day [...] Note - Liz Patel MD - 12/22/2020 1:50 PM CDT Stroke/Warfarin Instructions Entered On: 12/22/2020 13:51 EDT Performed On: 12/22/2020 13:50 EDT by SHANNAN FREEMAN RN Stroke/Warfarin Instructions Stroke/TIA Discharge Ins : N/A Warfarin Discharge Ins : N/A SHANNAN FREEMAN RN - 12/22/2020 13:50 EDT Electronically signed by Rosa [facility] Conversion Recreation Worker Cerner at 09/26/2022 9:16 AM CDT documented in this encounter Plan of Treatment Not on file documented as of this encounter Visit Diagnoses Not on filedocumented in this encounter Care Teams Decatizer Relationship Specialty Start Date End Date Tony Calabrese MD [address] [place] [address] PCP - General Family Medicine 06/06/22 Jean-Pierre Cabrera MD [address] [facility] [address] [place] [address] Surgeon Cardiothoracic Surgery 06/26/23 Kd Prince PA-C [address] [place] [address] Color Checker Cardiology 06/26/23 Renae Car, JOSÉ MIGUEL [address] [facility] [address] [place] [address] Cardiology 09/30/23 documented as of this encounter
--- OUTSIDE RECORDS SUMMARY | 2025-05-02 11:43 | XMS_ITS | Encounter Summary ---
Author Organization [employer] ([place], [place], [place], [place], [place]) Address [address] [place] [address] Care Team Providers Care Match Maker Name Role Phone Tony Calabrese MD Primary Care Provider [phone] Jean-Pierre Cabrera MD Unavailable [phone] Kd Prince PA-C Unavailable [phone] Renae Car APRN Unavailable [phone] Encounter Details Date Type Department Care Team (Late st Contact Info) Description 01/15/2021 Transcribed Document [facility] [place] Family Medicine [address] [place] [address] ProviderLiz MD [address] [place] [address] Social History Tobacco Use Types Packs/Day [...] Patel MD - 01/15/2021 4:51 PM CDT Ellie Violence Assessment Entered On: 01/15/2021 17:46 EDT Performed On: 01/15/2021 17:44 EDT by FOREST, JAKOB Q, RN Broset Violence Assessment Broset Violence Checklist of Symptoms : None Broset Violence Symptoms Subtotal : 0 Broset Violence Symptoms Indicator : Low risk (0) Broset Interventions : [place] precautions for safety used JAKOB GARG RN - 01/15/2021 17:44 EDT Electronically signed by Rosa, [facility] Conversion Security Site Supervisor Cerner at 09/26/2022 9:06 AM CDT documented in this encounter Plan of Treatment Not on file documented as of this encounter Visit Diagnoses Not on filedocumented in this encounter Care Teams Match Maker Relationship Specialty Start Date End Date Tony Calabrese MD [address] [place] [address] PCP - General Family Medicine 06/06/22 Jean-Pierre Cabrera MD [address] [facility] [address] [place] [address] Surgeon Cardiothoracic Surgery 06/26/23 Kd Prince PA-C [address] [place] [address] Video Production Engineer Cardiology 06/26/23 Renae Car APRN [address] [facility] [address] [place] [address] Cardiology 09/30/23 documented as of this encounter
--- OUTSIDE RECORDS SUMMARY | 2025-05-02 11:43 | XMS_ITS | Encounter Summary ---
Author Organization [employer] ([place], [place], [place], [place], [place]) Address [address] [place] [address] Care Team Providers Care Leaf Stamper Name Role Phone Tony Calabrese MD Primary Care Provider [phone] Jean-Pierre Cabrera MD Unavailable [phone] Kd Prince PA-C Unavailable [phone] Renae Car APRN Unavailable [phone] Encounter Details Date Type Department Care Team (Late st Contact Info) Description 12/22/2020 Transcribed Document [facility] [place] [address] [place] [address] ProviderLiz MD [address] [place] [address] Social History Tobacco Use Types Packs/Day [...] Note - Liz Patel MD - 12/22/2020 7:52 AM CDT Patient: IAN ELLISON Age: 64 years Sex: Male : 1955 Associated Diagnoses: None Author: TRUDI ABEL DO Subjective pt seen by met his morning, no chest pain or sob, no abd pain orn /v. no wrist pain. Objective Intake and Output Intake & Output Totals Last 24 Hours (7a-7a) Intake (0) No intake events found in the last 24 hours. Output (0 Events) No output events found in the last 24 hours. Input Total: 0 mL Output Total: 0 mL Balance: 0 mL VS/Measurements Vitals Signs (last 24 hrs) Last Charted Minimum Maximum Temp 97 (DEC 22 05:55) 97 (DEC 22 05:55) 98.2 (DEC 21 21:37) Mon HR 77 (DEC 22 05:55) 63 (DEC 22 02:30) 96 (DEC 21 11:00) Resp Rate 18 (DEC 22 05:55) L 10 (DEC 21 10:00) H 38 (DEC 21 09:00) SBP 107 (DEC 22 05:55) 100 (DEC 22 03:00) H 159 (DEC 21 21:37) DBP 61 (DEC 22 05:55) L 52 (DEC 22 02:30) 89 (DEC 21 17:00) MAP 74 (DEC 22 05:55) 66 (DEC 22 03:00) 121 (DEC 21 15:00) SpO2 96 (DEC 22 05:55) L 93 (DEC 22 04:30) 100 (DEC 21 16:00) General: Alert and oriented, No acute distress. Eye: Pupils are equal, round and reactive to light, Normal conjunctiva. HENT: Normocephalic, Normal hearing. Respiratory: Lungs are clear to auscultation, Respirations are non-labored, Breath sounds are equal. Cardiovascular: Normal rate, Regular rhythm, No murmur, No edema. Gastrointestinal: Soft, Non-tender, Non-distended, Normal bowel sounds. Integumentary: Warm, Dry. Neurologic: Alert, Oriented, No focal deficits. Psychiatric: Cooperative, Appropriate mood & affect. Results Review General results Interpretation: DEC 22 05:22 139 106 15 / H 128 3.6 30 0.90 \ DEC 22 05:22 \ L 12.9 / H 10.0 277 / 40.2 \ Labs (Last four charted values) WBC H 10.0 (DEC 22) H 11.0 (DEC 21) H 10.3 (DEC 20) HB L 12.9 (DEC 16) L 12.1 (DEC 15) L 12.9 (DEC 14) HCT 40.2 (DEC 22) L 37.1 (DEC 15) 40.6 (DEC 14) Plt 277 (DEC 22) 250 (DEC 15) 274 (DEC 14) Na 139 (DEC 22) 140 (DEC 15) 138 (DEC 14) K 3.6 (DEC 22) 4.0 (DEC 15) 3.7 (DEC 20) Cl 106 (DEC 22) 107 (DEC 15) 105 (DEC 20) CO2 30 (DEC 22) 27 (DEC 15) 28 (DEC 20) BUN 15 (DEC 22) 15 (DEC 15) 18 (DEC 20) Cr 0.90 (DEC 22) L 0.60 (DEC 21) 0.70 (DEC 20) Glu R H 128 (DEC 22) H 109 (DEC 15) H 114 (DEC 20) Ca 9.2 (DEC 16) 9.0 (DEC 15) 8.9 (DEC 20) Lactic 1.2 (DEC 20) PT 10.5 (DEC 20) INR 1.0 (DEC 20) AST 20 (DEC 21) 20 (DEC 14) ALT 29 (DEC 21) 37 (DEC 20) ALK P 73 (DEC 21) 89 (DEC 20) T Bili 0.4 (DEC 21) 0.3 (DEC 20) PTN 6.7 (DEC 21) 7.5 (DEC 20) ALB 3.6 (DEC 15) 4.0 (DEC 20) Troponin H 0.159 (DEC 15) H 0.366 (DEC 15) H 0.402 (DEC 20) H 0.149 (DEC 20) Radiology Results (Last 48 hours) [id number] -- 12/21/2020 12:57 CR Chest 2 Vws (12/20/2020 20:50) Result: EXAMINATION TECHNIQUE:2 view chestCLINICAL HISTORY:Chest pain.COMPARISON:02/07/2017FINDINGS:No dense consolidation. No pneumothorax or pleural effusion. Normalheart size.IMPRESSION:No acute cardiopulmonary findings.Images personally reviewed, interpreted and dictated by Cristino Mcgregor.Rasheed Impression and Plan NSTEMI - s/p C on 12/21- with PHUONG to LAD - continue statin and aspirin, brilinta started - monitor on telemetry - cardiology consult appreciated type 2 dm - a1c 7.4 - continue ssi essential htn - decrease lisinopril and add metoprolol BPH - continue flomax d/w at bedside d/w cards, ok to dc today time spent:24 min anticipated discharge disposition: home Trudi Casey [facility] Hospitalist pager- [phone] Electronically signed by Rosa, [facility] Conversion Supervisor Instrument Maintenance Cerner at 09/26/2022 9:06 AM CDT documented in this encounter Plan of Treatment Not on file documented as of this encounter Visit Diagnoses Not on filedocumented in this encounter Care Teams Leaf Stamper Relationship Specialty Start Date End Date Tony Calabrese MD [address] [place] [address] PCP - General Family Medicine 06/06/22 Jean-Pierre Cabrera MD [address] [facility] [address] [place], [place] [address] Surgeon Cardiothoracic Surgery 06/26/23 Kd Prince PA-C [address] [place] [address] Cabin Worker Cardiology 06/26/23 Renae Car APRN [address] [facility] [address] [place], [place] [id number] Cardiology 09/30/23 documented as of this encounter
--- OUTSIDE RECORDS SUMMARY | 2025-05-02 11:43 | XMS_ITS | Encounter Summary ---
Author Organization [employer] ([place], [place], [place], [place], [place]) Address [address] [place] [address] Care Team Providers Care Industrial Technology Education Teacher Name Role Phone Tony Calabrese MD Primary Care Provider [phone] Jean-Pierre Cabrera MD Unavailable [phone] Kd Prince PA-C Unavailable [phone] Renae Car APRN Unavailable [phone] Encounter Details Date Type Department Care Team (Late st Contact Info) Description 01/16/2021 Transcribed Document [facility] [place] Family Medicine [address] [place] [address] ProviderLiz MD [address] [place] [address] Social History Tobacco Use Types Packs/Day [...] Note - Liz Patel MD - 01/16/2021 2:00 AM CDT Supply Chain Development Manager Details Entered On: 01/16/2021 3:17 EDT Performed On: 01/16/2021 2:00 EDT by Darleen King RN-PATIENT CARE BEDSIDE NON-EXEMPT Order Details Transport Mode Order Detail : Wheelchair Isolation Precautions Order Detail : Standard Precautions Order Detail : N/A IV Order Detail : 1 Oxygen Order Detail : 0 Nurse Collect Order Detail : 0 Lift/Transfer : Minimal Central Line Order Detail : No Room Service : Appropriate Arterial Line : No Patient Needs Meds Crushed/Liquid : No Darleen King RN-PATIENT CARE BEDSIDE NON-EXEMPT - 01/16/2021 3:16 EDT Electronically signed by [facility] Conversion Timing Inspector Cerner at 09/26/2022 9:07 AM CDT documented in this encounter Plan of Treatment Not on file documented as of this encounter Visit Diagnoses Not on filedocumented in this encounter Care Teams Industrial Technology Education Teacher Relationship Specialty Start Date End Date Tony Calabrese MD [address] [place] [address] PCP - General Family Medicine 06/06/22 Jean-Pierre Cabrera MD [address] [facility] [address] [place], [place] [address] Surgeon Cardiothoracic Surgery 06/26/23 Kd Prince PA-C [address] [facility] [address] [place] [address] [place]sman Cardiology 06/26/23 Renae Car APRN [address] [facility] [address] [place], [place] [address] Cardiology 09/30/23 documented as of this encounter
--- OUTSIDE RECORDS SUMMARY | 2025-05-02 11:43 | XMS_ITS | Clinical Summary ---
Author Organization [facility] [employer] [facility] Address [address] [place] [id number] Care Team Providers Care Direct Support Specialist Name Role Phone Tony Calabrese MD Primary Care Provider [phone] Allergies Active Allergy Reactions Criticality Noted Date Comments Empagliflozin Unknown - High Severity 5 Medications metFORMIN (GLUCOPHAGE) 500 MG tablet Take 1 tablet by mouth 2 (Two) Times a Day With Meals. Active metoprolol succinate XL (TOPROL-XL) 50 MG 24 hr tablet Take 2 tablets by mouth Daily. Active isosorbide mononitrate (IMDUR) 30 MG 24 hr tablet Take 1 tablet by mouth Daily. Active atorvastatin (LIPITOR) 80 MG tablet Take 1 tablet by mouth Daily. Active warfarin (COUMADIN) 5 MG tablet Take 1 tablet by mouth Daily. Dosing adjusted to INR level. Active nitroglycerin (NITROSTAT) 0.[address] 1 tablet under the tongue Every 5 (Five) Minutes As Needed for Chest Pain. Take no more than 3 doses in 15 minutes. Active aspirin 81 MG EC tablet Take 1 tablet by mouth Daily. Active lisinopril (PRINIVIL,ZESTRIL) 2.5 MG tablet Take 1 tablet by mouth Daily. Active omeprazole (priLOSEC) 20 MG capsule Take 1 capsule by mouth Daily. Active dutasteride-tamsulo sin (ANGELA) 0.5-0.4 MG capsule capsule Take 1 capsule by mouth Daily. Active ondansetron ODT (ZOFRAN-ODT) 4 MG disintegrating tabletIndications:P yelonephritis Place 1 tablet under the tongue Every 8 (Eight) Hours As Needed for Nausea or Vomiting. 15 tablet 5 Active ciprofloxacin (CIPRO) 500 MG tabletIndications:U TI symptoms,Pyelonephr itis 1 po bid 20 tablet Active Social History Tobacco Use Types Packs/Day Years Used Date Smoking Tobacco: Never Smokeless Tobacco: Never Tobacco Cessation:Counseling Given: Not Answered Alcohol Use Standard Drinks/Week Comments Yes 1 (1 standard drink = 0.6 oz pur e alcohol) Abuse Screen Answer Date Recorded Feels Unsafe at Home or Work/School no 12/22/2024 Feels Threatened by Someone no 12/07 Does Anyone Try to Keep You From Having Contact with Others or Doing Things Outside Your Home? no 12/22/2024 Physical Signs of Abuse Present no 12/22/2024 Housing Stability Answer Date Recorded Current Living Arrangements Not on file 03/09 Potentially Unsafe Housing Conditions Not on bridget e 03/21/2023 Family and Community Support Answer Vinicio e Recorded Help with Day-to-Day Activities Not on file 03/21/2023 Lonely or Isolated Not on file 03/21/2023 Employment Answer Date Recorded Do you want help finding or keeping work or a ramos b? Not on file 03/21/2023 Disabilities Answer Date Recorded Concentrating, Remembering, or Making Decisions Difficulty Not on file 03/21/2023 Doing Errands Independently Difficulty Not on fi le 03/21/2023 Education Answer Date Recorded Help with school or training? Not on file Preferred Language Not on file 03/21/2023 Sex and Gender Information Value Date Recorded Sex Assigned at Not on file Legal Sex Male 3:00 PM EST Gender Identity Not on file Sexual Orientation Not on file Last Filed Vital Signs Vital Sign Reading Time Taken Comments Blood Pressure 150/74 12/22/2024 10:20 AM EDT Pulse 64 12/22/2024 10:58 AM EDT Temperature 36.3 C (97.4 F) 12/22/2024 9:36 AM EDT Respiratory Rate 18 12/22/2024 9:36 AM EDT Oxygen Saturation 95% 12/22/2024 10:20 AM EDT Inhaled Oxygen Concentration - - Weight 88.5 kg (195 lb) 12/22/2024 9:36 AM EDT Height 170.2 cm (5' 7 ) 12/22/2024 9:36 AM EDT Body Mass Index 30.54 12/22/2024 9:36 AM EDT Plan of Treatment Health Maintenance Due Date Last Done Comments COVID-19 Vaccine (#1) 12/27/1960 DIABETIC EYE EXAM 12/27/1965 DIABETIC FOOT EXAM 12/27/1965 URINE MICROALBUMIN-CREATININ E RATIO (uACR) 12/27/1965 COLOGUARD 12/27/2000 COLON CANCER SCREENING 5 YEA R SIGMOIDOSCOPY 12/27/2000 CT COLONOGRAPHY 12/27/2000 FECAL OCCULT BLOOD TEST 12/27/2000 FIT Testing (1 year) 12/27/2000 ZOSTER VACCINE (1 of 2) 12/27/2005 Pneumococcal Vaccine 50+ (2 of 2 - PCV) 01/19/2019 01/19/2018, 11/07/2010 ANNUAL WELLNESS VISIT 07/12/2022 HEMOGLOBIN A1C 07/12/2022 06/12/2018 INFLUENZA VACCINE 01/07/2025 04/24/2023, , 06/25/2019, Additional history exists COLONOSCOPY 09/11/2026 09/11/2016 COLORECTAL CANCER SCREENING 09/11/2026 TDAP/TD VACCINES (4 - Td or Tdap) 08/05/2027 08/05/2017, 10/09/2012, 06/09/2007 HEPATITIS C SCREENING Completed 05/20/2014 Insurance MEDICARE A & B MAIL [employer]ERS Care Teams Direct Support Specialist Relationship Specialty Start Date End Date Tony Calabrese MD [address] [place] [address] PCP - General Family Medicine 07/12/22
--- OUTSIDE RECORDS SUMMARY | 2025-05-02 11:43 | XMS_ITS | Referral Summary ---
Author Organization [employer] ([place], [place], [place], [place], [place]) Address [address] [place] [address] Care Team Providers Care Maths Tutor Name Role Phone Tony Calabrese MD Primary Care Provider [phone] Jean-Pierre Cabrera MD Unavailable [phone] Kd Prince PA-C Unavailable [phone] Renae Car WARRANTY ADMINISTRATOR Unavailable [phone] Encounters Date Type Department Care Team Description 04/05/2025 Travel 04/05/2025 1:15 PM EDT Office Visit [facility] Cardiology [address] [place] [address] Renae Car, WARRANTY ADMINISTRATOR Coronary artery disease involving [place] coronary artery of [place] heart without angina pectoris (Primary Dx); Nonrheumatic aortic valve stenosis; Primary hypertension; Mixed hyperlipidemia; History of mechanical aortic valve replacement; Essential hypertension; Anticoagulant long-term use from Last 3 Months Allergies Active Allergy Reactions Criticality Noted Date [...] of coronary artery 06/26/2021 Overview (05/06/2022): 08/02/21 [facility]- Lizeth Patent prox LAD stent Hyperlipidemia 06/26/2021 Diabetes [...] 06/03/2022 10/07/2023 High blood pressure 05/06/2022 08/15/19 GERD (gastroesophageal reflux disease) 05/06/2022 06/14/2023 Mitral regurgitation 05/06/2022 024 Paroxysmal A-fib 05/06/2022 06/14/2023 Social History Tobacco Use Types Packs/Day Years [...] How often do you attend yarsani or shinto serv ices? Never 08/26/2022 Do you belong [...] Date Jason rded Speak language other than Malaysian at home Not on file 06/17/2023 Want [...] 04/05/2025 1:22 PM EDT Plan of Treatment Not on file Medical Devices Implanted Type Area Drier Operator Head Device Identifier Shelf Expiration Date Model / Serial / Lot Stent Cor Christopher Front 3.0x18mm [id number] - [id number] Implanted:Qty: 1 on 01/14/2023 by Donna Smith MD at [facility] IMPLANTS Coronary [employer]:VASCU LAR [id number] / / Mechanical Heart Valve Left: Heart Stimulator Left: Hip Marker Nathaniel Rng Cor Byps [id number] - [id number] Implanted:Qty: 1 on 06/14/2023 by Jean-Pierre Cabrera MD at [facility] N/A: Aorta ANAND MED PRDT [id number] / / [id number] Insurance MEDICARE PART A B T Advance Directives For more information, please contact: [phone] * Full Code (Latest Code Status on [...] 9:38 AM 01/15/2023 4:01 PM Care Teams Maths Tutor Relationship Specialty Start Date End Date Tony Calabrese MD [address] [place] [address] PCP - General Family Medicine 06/06/22 Jean-Pierre Cabrera MD [address] [facility] [address] [place], [place] [address] Surgeon Cardiothoracic Surgery 06/26/23 Kd Prince PABear [address] [place] [address] Mobile Tester Cardiology 06/26/23 Renae Car, WARRANTY ADMINISTRATOR [address] [facility] [address] [place] [address] Cardiology 09/30/23
--- OUTSIDE RECORDS SUMMARY | 2025-05-02 11:43 | XMS_ITS | Encounter Summary ---
Author Organization [employer] ([place], [place], [place], [place], [place]) Address [address] [place] [address] Care Team Providers Care Passenger Rate Clerk Name Role Phone Tony Calabrese MD Primary Care Provider [phone] Jean-Pierre Cabrera MD Unavailable [phone] Kd Prince PA-C Unavailable [phone] Renae Car APRN Unavailable [phone] Encounter Details Date Type Department Care Team (Late st Contact Info) Description 01/16/2021 Transcribed Document [facility] [place] Family Medicine [address] [place] [address] ProviderLiz MD [address] [place] [address] Social History Tobacco Use Types Packs/Day [...] Note - Liz Patel MD - 01/16/2021 1:55 AM CDT Meds to Bed Enrollment Entered On: 01/16/2021 7:25 EDT Performed On: 01/16/2021 1:55 EDT by VIRI FRANK RPh Meds to Bed Enrollment Patient Enrollment Decision: : Yes/enroll in meds to bed program VIRI FRANK RPh - 01/16/2021 7:25 EDT documented in this encounter Plan of Treatment Not on file documented as of this encounter Visit Diagnoses Not on filedocumented in this encounter Care Teams Passenger Rate Clerk Relationship Specialty Start Date End Date Tony Calabrese MD [address] [place] [address] PCP - General Family Medicine 06/06/22 Jean-Pierre Cabrera MD [address] [facility] [address] [place] [address] Surgeon Cardiothoracic Surgery 06/26/23 Kd Prince PA-C [address], [facility] [address] [place] [address] Quick Technician Cardiology 06/26/23 Renae Car, JOSÉ MIGUEL [address] [facility] [address] [place] [address] Cardiology 09/30/23 documented as of this encounter
--- OUTSIDE RECORDS SUMMARY | 2025-05-02 11:43 | XMS_ITS | Encounter Summary ---
Author Organization [facility] Address [address] [place] [address] Care Team Providers Care Entry Level Mechanical Engineer Name Role Phone Dave Levine MD Primary Care Provider [phone] Ana Velarde APRN Primary Care Provider + None, None Primary Care Provider Unavailabl e Craig Salazar MD Unavailable [phone] Tony Calabrese MD Primary Care Provider [phone] Liss Parker MD Unavailable [phone] Encounter Details Date Type Department Care Team (Late st Contact Info) Description 08/21/2017 Abstract [facility] Physicians - Heart & Vascular, [facility] [address] [place] [id number] Craig Salazar MD [address] [address] Social History Tobacco Use Types Packs/Day Years Used Date Smoking Tobacco: Never Smokeless Tobacco: Never Alcohol Use Standard Drinks/Week Comments Yes 5.8 (1 standard drin k = 0.6 oz pure alcohol) Red Wine every night small amount Sex and Gender Information Value Date Recorded Sex Assigned at Not on file Legal Sex Male 7:19 PM EST Gender Identity Not on file Sexual Orientation Not on file documented as of this encounter Plan of Treatment Not on file documented as of this encounter Visit Diagnoses Not on filedocumented in this encounter Additional Health Concerns Assessment Noted Time PHQ-9 Depression Total Score: 1 03/25/20 17 3:05 PM EDT documented as of this encounter Care Teams Entry Level Mechanical Engineer Relationship Specialty Start Date End Date Dave Levine MD PCP - General Family Medicine 04/09/12 07/23/18 Ana Velarde, CERAMIC CHEMIST [address] [facility] [place] [address] [place] [address] PCP - General Nurse Practitioner, Family 07/24/1807/14/19 None, None [address] [place] [address] PCP - General 07/15/19 09/20/20 [place] [address] [place] [address] PCP - General Family Medicine 09/21/20 Craig Salazar MD [address] [facility] [address] [place] [address] Cardiology 07/27/20 Liss Parker MD [facility] [address] [place], [place] [address] General Surgery 06/16/22 documented as of this encounter
--- OUTSIDE RECORDS SUMMARY | 2025-05-02 11:43 | XMS_ITS | Encounter Summary ---
Author Organization [employer] ([place], [place], [place], [place], [place]) Address [address] [place] [address] Care Team Providers Care Supervisor Shipfitters Name Role Phone Tony Calabrese MD Primary Care Provider [phone] Jean-Pierre Cabrera MD Unavailable [phone] Kd Prince PA-C Unavailable [phone] Renae Car APRN Unavailable [phone] Encounter Details Date Type Department Care Team (Late st Contact Info) Description 07/08/2018 Transcribed Document [facility] [place] [address] [place] [address] ProviderLiz MD [address] [place] [address] Social History Tobacco Use Types Packs/Day Years Used Date Smoking Tobacco: Never Assessed Sex and Gender Information Value Date Recorded Sex Assigned at Male 08/26/2022 2:31 AM CDT Legal Sex Male 5:38 PM CDT Gender Identity Male 08/26/2022 2:31 AM CDT Sexual Orientation Not on file documented as of this encounter Miscellaneous Notes * Cerner Conversion Note - Liz Patel MD - 07/08/2018 7:23 AM RADIO INTERFERENCE EXPERT DATE OF ADMISSION: 07/07/2018 HISTORY OF PRESENT ILLNESS: This is a 62-year-old male with a chief complaint of chronic lower back pain that radiated to lower extremities for several years' duration, who came today for a followup. The patient is status post multiple back surgeries and he was referred to us, and we evaluated him and we tried a caudal epidural steroid injection twice, in March and April, that gave the patient a temporary relief of pain. However, the patient had more of the pain in the lower back and it radiated to lower extremities. We already discussed about the spinal cord stimulator and he is coming today to have more discussion about that. 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 He came today with his to discuss the details of the spinal cord stimulator, and had multiple questions. REVIEW OF SYSTEMS: Constitutional, Respiratory, Cardiovascular, Ophthalmology, Gastrointestinal, Genitourinary, ENT, Musculoskeletal, Integumentary, Neurology, Psychiatry, Endocrine, and Hematology were not changed from last visit on June 12, 2018. PHYSICAL EXAMINATION: Blood pressure 135/76, heart rate 107, respirations 16, saturation 96%, temperature 97.6, pain level 8, and hours of sleep 4-5. No change in physical and neurological exam. Muscle tone and power, sensory, and deep tendon reflexes were unchanged. The nurse notes, vital signs, and medication were reviewed and evaluated. The patient had a chronic pain psychology evaluation by a specialist which showed that the patient was an appropriate candidate for implantable spinal cord stimulator devices. ASSESSMENT: 1. Chronic lower back pain secondary to degenerative joint disease and degenerative disk disease to the lumbosacral spine. 2. Lumbosacral radiculopathy. 3. Multiple failed back surgeries. 4. Lumbosacral spondylosis. PLAN: 1. I had a lengthy discussion with the patient in regard to his condition, I spent more than 20 minutes to discuss with him pros and cons/risks and benefits of the spinal cord stimulator. 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 I mentioned to the patient that the recommendation is to turn it off the stimulator when he is driving his car until after six months. We will re-evaluate him for a possible using it while he was driving after his body used to the stimulation. The patient mentioned also that he is doing also manual work and heavy work. I mentioned to him that this can be helped by placing surgical leads, and I might ask Dr. Ramires to help with this issue. I already gave the patient an education material in regard to the spinal cord stimulator NEVRO and the patient will review that with his , and if he has any question to call us. 2. After the discussion, the patient decided to go for the spinal cord stimulator trial and have seven days off of his driving to see if this modality of treatment is going to give him good help and relief, and then after that he will decide about the spinal cord stimulator implant. Guicho Thorne M.D., [facility] Pain Certified Dict: 07/08/2018 07:23:57 Trans: 07/08/2018 08:40:58 CC1: Guicho Thorne M.D., [facility] Pain Certified CC2: Dr. Dave Levine CC3: Toby Ramires MD Electronically signed by [facility], [facility] Conversion Signaler Cerner at 09/26/2022 9:28 AM CDT documented in this encounter Plan of Treatment Not on file documented as of this encounter Visit Diagnoses Not on filedocumented in this encounter Care Teams Supervisor Shipfitters Relationship Specialty Start Date End Date Tony Calabrese MD [address] [place] [address] PCP - General Family Medicine 06/06/22 Jean-Pierre Cabrera MD [address] [facility] [address] [place], [place] [id number] Surgeon Cardiothoracic Surgery 06/26/23 Kd Prince PA-C [address] [place] [address] Food Or Baggage Handling Rampman Cardiology 06/26/23 Renae Car APRN [address] [facility] [address] [place], [place] [address] Cardiology 09/30/23 documented as of this encounter
--- OUTSIDE RECORDS SUMMARY | 2025-05-02 11:43 | XMS_ITS | Encounter Summary ---
Author Organization [employer] ([place], [place], [place], [place], [place]) Address [address] [place] [address] Care Team Providers Care Ferryboat Operator Helper Name Role Phone Tony Calabrese MD Primary Care Provider [phone] Jean-Pierre Cabrera MD Unavailable [phone] Kd Prince PA-C Unavailable [phone] Renae Car APRN Unavailable [phone] Encounter Details Date Type Department Care Team (Late st Contact Info) Description 12/22/2020 Transcribed Document [facility] [place] [address] [place] [address] ProviderLiz MD [address] [place] [address] Social History Tobacco Use Types Packs/Day [...] Note - Liz Patel MD - 12/22/2020 5:00 AM CDT Chart Check - Review Order Profile Entered On: 12/22/2020 4:33 EDT Performed On: 12/22/2020 5:00 EDT by Ban Loyola Rn-Traveler Chart Check Powerplans Initiated/Discontinued as Appropriate : Yes All Active Orders Reviewed : Yes Ban Loyola Rn-Traveler - 12/22/2020 4:33 EDT documented in this encounter Plan of Treatment Not on file documented as of this encounter Visit Diagnoses Not on filedocumented in this encounter Care Teams Ferryboat Operator Helper Relationship Specialty Start Date End Date Tony Calabrese MD [address] [place] [address] PCP - General Family Medicine 06/06/22 Jean-Pierre Cabrera MD [address] [facility] [address] [place] [address] Surgeon Cardiothoracic Surgery 06/26/23 Kd Prince PA-C [address] [place] [address] Sourcing Specialist Cardiology 06/26/23 Renae Car, JOSÉ MIGUEL [address] [facility] [address] [place] [address] Cardiology 09/30/23 documented as of this encounter
--- OUTSIDE RECORDS SUMMARY | 2025-05-02 11:43 | XMS_ITS | Encounter Summary ---
Author Organization [employer] ([place], [place], [place], [place], [place]) Address [address] [place] [address] Care Team Providers Care Director Of Finance Name Role Phone Tony Calabrese MD Primary Care Provider [phone] Jean-Pierre Cabrera MD Unavailable [phone] Kd Prince PA-C Unavailable [phone] JoloRenae gómez APRN Unavailable [phone] Encounter Details Date Type Department Care Team (Late st Contact Info) Description 01/18/2021 Transcribed Document [facility] [place] [address] [place] [address] ProviderLiz MD [address] [place] [address] Social History Tobacco Use Types Packs/Day Years Used Date Smoking Tobacco: Never Assessed Sex and Gender Information Value Date Recorded Sex Assigned at Male 08/26/2022 2:31 AM CDT Legal Sex Male 5:38 PM CDT Gender Identity Male 08/26/2022 2:31 AM CDT Sexual Orientation Not on file documented as of this encounter Miscellaneous Notes * Cerner Conversion Note - Liz Patel MD - 01/18/2021 9:[address] [facility] OT Charges Entered On: 01/18/2021 9:12 EDT Performed On: 01/18/2021 9:11 EDT by SIRISHA RAJAN, OTR/L [place] OT Charges Screen For Swage Tender : 1 SIRISHA RAJAN, OTR/L - 01/18/2021 9:11 EDT Electronically signed by [facility] Conversion Webfed Offset Press Operator [employer] at 09/26/2022 9:25 AM CDT documented in this encounter Plan of Treatment Not on file documented as of this encounter Visit Diagnoses Not on filedocumented in this encounter Care Teams Director Of Finance Relationship Specialty Start Date End Date Tony Calabrese MD [address] [place] [address] PCP - General Family Medicine 06/06/22 Jean-Pierre Cabrera MD [address] [facility] [address] [place] [address] Surgeon Cardiothoracic Surgery 06/26/23 Kd Prince PA-C [address], [facility] [address] [place] [address] Geological Engineer Cardiology 06/26/23 Renae Car, JOSÉ MIGUEL [address] [facility] [address] [place] [address] Cardiology 09/30/23 documented as of this encounter
--- OUTSIDE RECORDS SUMMARY | 2025-05-02 11:43 | XMS_ITS | Encounter Summary ---
Author Organization [employer] ([place], [place], [place], [place], [place]) Address [address] [place] [address] Care Team Providers Care Puppet Master Name Role Phone Tony Calabrese MD Primary Care Provider [phone] Jean-Pierre Cabrera MD Unavailable [phone] Kd Prince PA-C Unavailable [phone] Renae Car APRN Unavailable [phone] Encounter Details Date Type Department Care Team (Late st Contact Info) Description 01/18/2021 Transcribed Document [facility] [place] Medicine [address] [place] [address] ProviderLiz MD [address] [place] [address] Social History Tobacco Use Types Packs/Day [...] Note - Liz Patel MD - 01/18/2021 9:08 AM CDT Final Discharge Planning Entered On: 01/18/2021 9:10 EDT Performed On: 01/18/2021 9:08 EDT by ROLDAN MONTAÑO, RN-Cattery Operator Final Discharge Planning Discharge Arrangements : Patient Post-Acute Information Patient Name: [facility]: [id number] Gender: Male : 55 Age: 65 Years No Post-Acute Placement(s) Listed No Post-Acute Service(s) Listed No [place] Referral(s) Listed Patient Offered Choice/Affiliations Explained : No Designation of Choice Signed : No Important Medicare Message Reviewed With : Patient Important Medicare Message Reviewed D/T : 01/18/2021 10:00 EDT Transportation Needs : Family/Friend Patient/Family Notified of Plan : Yes Support Person/Pt Rep Notified of Plan : Yes Is Patient Ready for Discharge? : Yes Physician Notified Patient is Ready for Discharge? : Yes Discharge To Care Management : Home/Residential/Detention or Self Care -01 ROLDAN MONTAÑO, RN-Cattery Operator - 01/18/2021 9:08 EDT documented in this encounter Plan of Treatment Not on file documented as of this encounter Visit Diagnoses Not on filedocumented in this encounter Care Teams Puppet Master Relationship Specialty Start Date End Date Tony Calabrese MD [address] [place] [address] PCP - General Family Medicine 06/06/22 Jean-Pierre Cabrera MD [address] [facility] [address] [place], [place] [address] Surgeon Cardiothoracic Surgery 06/26/23 Kd Prince PA-C [address] [place] [address] Behavior Analyst Cardiology 06/26/23 Renae Car APRN [address] [facility] [address] [place] [address] Cardiology 09/30/23 documented as of this encounter
--- OUTSIDE RECORDS SUMMARY | 2025-05-02 11:43 | XMS_ITS | Encounter Summary ---
Author Organization [employer] ([place], [place], [place], [place], [place]) Address [address] [place] [address] Care Team Providers Care Wind Farm Support Specialist Name Role Phone Tony Calabrese MD Primary Care Provider [phone] Jean-Pierre Cabrera MD Unavailable [phone] Kd Prince PA-C Unavailable [phone] Renae Car APRN Unavailable [phone] Encounter Details Date Type Department Care Team (Late st Contact Info) Description 01/16/2021 Transcribed Document [facility] [place] [address] [place] [address] ProviderLiz MD [address] [place] [address] Social History Tobacco Use Types Packs/Day [...] Note - Liz Patel MD - 01/16/2021 4:00 AM CDT Height and Weight, Routine Entered On: 01/17/2021 5:32 EDT Performed On: 01/16/2021 4:00 EDT by Darleen King, MICHAEL-PATIENT CARE BEDSIDE NON-EXEMPT Height and Weight, Routine Routine Weight Source : Bed scale Routine Weight Entry Format : Mccormick Routine Weight, Pounds : 180 lb Routine Weight Calculation : 81.82 kg Height Source : Stated Height Entry Format : Mccormick Height, Feet : 5 ft Height, Inches : 7 Inch Clinical Height : 170.18 cm Body Surface Area (BSA), Routine : 1.94 m2 Body Mass Index (BMI), Routine : 28.25 kg/m2 Darleen King RN-PATIENT CARE BEDSIDE NON-EXEMPT - 01/17/2021 5:31 EDT Electronically signed by Rosa, [facility] Conversion Pre Billing Specialist Cerner at 09/26/2022 9:09 AM CDT documented in this encounter Plan of Treatment Not on file documented as of this encounter Visit Diagnoses Not on filedocumented in this encounter Care Teams Wind Farm Support Specialist Relationship Specialty Start Date End Date Tony Calabrese MD [address] [place] [address] PCP - General Family Medicine 06/06/22 Jean-Pierre Cabrera MD [address] [facility] [address] [place], [place] [address] Surgeon Cardiothoracic Surgery 06/26/23 Kd Prince PA-C [address] [place] [address] Driver/Merchandiser Cardiology 06/26/23 Renae Car APRN [address] [facility] [address] [place], [place] [address] Cardiology 09/30/23 documented as of this encounter
--- OUTSIDE RECORDS SUMMARY | 2025-05-02 11:43 | XMS_ITS | Encounter Summary ---
Author Organization [employer] ([place], [place], [place], [place], [place]) Address [address] [place] [address] Care Team Providers Care Side Panel Padder Name Role Phone Tony Calabrese MD Primary Care Provider [phone] Jean-Pierre Cabrera MD Unavailable [phone] Kd Prince PA-C Unavailable [phone] Renae Car APRN Unavailable [phone] Encounter Details Date Type Department Care Team (Late st Contact Info) Description 01/16/[address] [facility] [place] [address] [place] [address] ProviderLiz MD [address] [place] [address] Social History Tobacco Use Types Packs/Day [...] Note - Liz Patel MD - 01/16/2021 1:51 PM CDT Attempt to Treat, PT Entered On: 01/16/2021 14:09 EDT Performed On: 01/16/2021 13:51 EDT by JOSE R, PARKER, PT Attempt to Treat Unable to Treat Due To : Patient Unavailable Inability to Treat Comment : Patient off floor for stress test. PT will attempt again as time allows Notification : PARKER Ortega, PT - 01/16/2021 14:09 EDT Electronically signed by [facility], [facility] Conversion Center Hole Reamer Cerner at 09/26/2022 9:23 AM CDT documented in this encounter Plan of Treatment Not on file documented as of this encounter Visit Diagnoses Not on filedocumented in this encounter Care Teams Side Panel Padder Relationship Specialty Start Date End Date Tony Calabrese MD [address] [place] [address] PCP - General Family Medicine 06/06/22 Jean-Pierre Cabrera MD [address] [facility] [address] [place], [place] [address] Surgeon Cardiothoracic Surgery 06/26/23 Kd Prince PA-C [address] [place] [address] Choir Teacher Cardiology 06/26/23 Renae Car APRN [address] [facility] [address] [place], [place] [address] Cardiology 09/30/23 documented as of this encounter
--- OUTSIDE RECORDS SUMMARY | 2025-05-02 11:43 | XMS_ITS | Encounter Summary ---
Author Organization [facility] Address [address] [place], [place] [address] Care Team Providers Care Fire Eater Name Role Phone Dave Levine MD Primary Care Provider [phone] Ana Velarde APRN Primary Care Provider + None, None Primary Care Provider Unavailabl Craig Blanton MD Unavailable [phone] Tony Calabrese MD Primary Care Provider Liss Parker MD Unavailable [phone] Reason for Visit * Reason Onset Date Comments Other 02/04/2017 Needs ECHO faxed Encounter Details Date Type Department Care Team (Late st Contact Info) Description 02/04/2017 Telephone [facility] Physicians - Primary Care, Eff[address] [place] [id number] [place] [address] Other (Needs ECHO faxed) Social History Tobacco Use Types Packs/Day Years [...] as of this encounter Miscellaneous Notes * Telephone Encounter - Kallie Villalpando - 02/05/2017 11:05 AM EDT PT STATED THAT SOMEONE FROM OUR OFFICE ALREADY FAX OVER ECHO RESULTS TO THE FAX NUMBER LISTED BELOW. SO THIS WAS ALREADY TAKEN CARE OF YESTERDAY 02/04/2017. * Telephone Encounter - Tessie Quintanilla - 02/04/2017 8:38 AM EDT Pt calling, needs ECHO done by Dr. Persaud on 04/18/16 faxed to [facility] at [phone]. 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 I asked if he has contacted Dr. Mcnair's officeto do this and states he has had trouble getting a hold of his office. documented in this encounter Plan of Treatment Not on file documented as of this encounter Visit Diagnoses Not on filedocumented in this encounter Additional Health Concerns Assessment Noted Time PHQ-9 Depression Total Score: 1 02/23/20 16 8:37 AM EDT documented as of this encounter Care Teams Fire Eater Relationship Specialty Start Date End Date Dave Levine MD PCP - General Family Medicine 04/09/12 07/23/18 Ana Velarde, VAT TENDER [address] [facility] [place], [place] [id number] PCP - General Nurse Practitioner, Family 07/24/1807/14/19 None, None [address] [place] [address] PCP - General 07/15/19 09/20/20 [place] [address] [place] [address] PCP - General Family Medicine 09/21/20 Craig Salazar MD [address] [facility] [address] [place], [place] [id number] Cardiology 07/27/20 Liss Parker MD [facility] [address] [place], [place] [address] General Surgery 06/16/22 documented as of this encounter
--- OUTSIDE RECORDS SUMMARY | 2025-05-02 11:43 | XMS_ITS | Clinical Summary ---
Author Organization [facility] Address [address] [place] [address] Phone Care Team Providers Care Home Health Provider Name Role Phone Unavailable Primary Care Provider Unavailabl e Allergies Active Allergy Reactions Criticality Noted Date Comments Meperidine 12/30/2010 Pt states pill form caused him to break out in a cold sweat and chills, IV form he has no reaction Medications aspirin 81 mg tablet Take 81 mg by mouth daily. Active simvastatin (ZOCOR) 40 mg Take 40 mg by mouth daily. Active Idalou-3 Fatty Acids-Vitamin E (FISH OIL) 1,000 mg Cap Take by mouth. Active Active Problems Problem Noted Date Diagnosed Date HTN (hypertension) 04/10/2010 Incontinence ED (erectile dysfunction) Hypercholesteremia Hyperglycemia Immunizations Immunization Administration Dates Next Due Pneumococcal Polysaccharide 23 Valent 11/07/2010 Tdap 06/09/2007 Surgical History Surgery Date Site/Laterality Comments COLONOSCOPY 3 to 4 years ago BACK SURGERY 1988 L5 patially removed FRACTURE SURGERY 1985 left tib/fib and foot fx from accident Medical History Medical History Date Comments Hypertension Hyperlipidemia Asthma Family History Medical History Relation Name Comments Cancer Father Early Father Cancer Maternal Aunt High Blood Pressure Maternal Aunt Arthritis Maternal Grandfather Arthritis Maternal Grandmother Diabetes Maternal Grandmother Cancer Maternal Uncle High Blood Pressure Maternal Uncle Cancer Mother Early Mother High Blood Pressure Paternal Aunt Cancer Paternal Uncle High Blood Pressure Paternal Uncle Relation Name Status Comments Father Maternal Aunt Maternal Grandfather Maternal Grandmother Maternal Uncle Mother Paternal Aunt Paternal Uncle Social History Tobacco Use Types Packs/Day Years Used Date Smoking Tobacco: Never Smokeless Tobacco: Never Alcohol Use Standard Drinks/Week Comments Yes 1 (1 standard drink = 0.6 oz pur e alcohol) nightly Sexually Active Control Partners Comments Yes Sex and Gender Information Value Date Recorded Sex Assigned at Not on file Legal Sex Male 3:23 PM EDT Gender Identity Not on file Sexual Orientation Not on file Last Filed Vital Signs Vital Sign Reading Time Taken Comments Blood Pressure 116/80 01/14/2011 8:52 AM EDT Pulse 71 01/14/2011 8:52 AM EDT Temperature 36.8 C (98.2 F) 01/14/2011 8:52 AM EDT Respiratory Rate 20 12/31/2010 4:08 PM EDT Oxygen Saturation 99% 01/14/2011 8:52 AM EDT Inhaled Oxygen Concentration - - Weight 87.1 kg (192 lb) 01/14/2011 8:52 AM EDT Height 171.5 cm (5' 7.5 ) 01/14/2011 8:52 AM EDT Body Mass Index 29.63 01/14/2011 8:52 AM EDT Plan of Treatment Health Maintenance Due Date Last Done Comments Annual Wellness Exam 12/27/1958 Hepatitis C Screening 12/27/1973 Cologuard 12/27/2000 FIT 12/27/2000 Sigmoidoscopy 12/27/2000 Virtual Colonography 12/27/2000 Zoster (1 of 2) 12/27/2005 Pneumococcal Vaccine 50+ (2 of 2 - PCV) 11/08/2011 11/07/2010 DTaP/TDaP/Td (2 - Td or Tdap) 06/09/2017 06/09/2007 Colon Cancer Screening 09/11/2017 Colonoscopy 09/11/2017 09/11/2016 COVID-19 Vaccine (1 - 2024-2 6 season) 2025 Influenza Vaccine (#1) 2025 Hepatitis B Vaccine Aged Out No longe r eligible based on patient's age to complete this topic Meningococcal B Vaccine Aged Out No l onger eligible based on patient's age to complete this topic Insurance PPO on file O on file
--- OUTSIDE RECORDS SUMMARY | 2025-05-02 11:43 | XMS_ITS | Encounter Summary ---
Author Organization [employer] ([place], [place], [place], [place], [place]) Address [address] [place] [address] Care Team Providers Care Redrawer Name Role Phone Tony Calabrese MD Primary Care Provider [phone] Jean-Pierre Cabrera MD Unavailable [phone] Kd Prince PA-C Unavailable [phone] Renae Car APRN Unavailable [phone] Encounter Details Date Type Department Care Team (Late st Contact Info) Description 02/07/2017 Transcribed Document [facility] [place] [facility] [place] [address] ProviderLiz MD [address] [place] [address] Social History Tobacco Use Types Packs/Day Years Used Date Smoking Tobacco: Never Assessed Sex and Gender Information Value Date Recorded Sex Assigned at Male 08/26/2022 2:31 AM CDT Legal Sex Male 5:38 PM CDT Gender Identity Male 08/26/2022 2:31 AM CDT Sexual Orientation Not on file documented as of this encounter Miscellaneous Notes * Cerner Conversion Note - Liz Patel MD - 02/07/2017 12:11 PM CDT Patient: BULMARO ELLISON Age: 61 years Sex: Male : 1955 Associated Diagnoses: None Author: ADALBERTO AKBAR PA-C Discharge Information PCP : Dr. Dave Levine Admitting MD: Dr. Ike Dee MD: Dr. Aragon Admitting Dx: 1. L5-S1 bilateral neural foraminal stenosis, status post two decompressions of the segment. 2. 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 L5-S1 bilateral neural foraminal stenosis, status post two decompressions of the segment. 2. L1-2 disk herniation with severe stenosis. Procedures: perfromed on 02/05/[address] Ramires 1. An L5-S1 posterior lumbar interbody fusion. 2. An L1-2 laminectomy and discectomy via left-sided approach. 3. Intraoperative CT scan with stereotactic navigation. 4. Use of operating microscope. See med list for discharge medications Physical Examination VS/Measurements Vitals Signs (last 24 hrs) Last Charted Minimum Maximum Temp 98.9 (FEB 07 09:46) 97.6 (FEB 07 05:15) H 101.1 (FEB 07 02:37) Mon HR 109 (FEB 07 09:46) 105 (FEB 06 22:27) 119 (FEB 07 02:37) Resp Rate 18 (FEB 07 09:46) 16 (FEB 06 16:40) 18 (FEB 07 09:46) SBP 138 (FEB 07 09:46) 124 (FEB 07 06:13) 138 (FEB 07 09:46) DBP 79 (FEB 07 09:46) 67 (FEB 06 22:27) 79 (FEB 06 16:40) MAP 99 (FEB 07 09:46) 84 (FEB 06 22:27) 101 (FEB 07 09:46) SpO2 95 (FEB 07 09:47) L 90 (FEB 07 09:46) 95 (FEB 07 09:47) General: Alert and oriented, No acute distress. Eye: Pupils are equal, round and reactive to light. HENT: Normocephalic. Respiratory: Respirations are non-labored. Cardiovascular: Normal rate, Regular rhythm. Musculoskeletal: Normal range of motion, Normal strength. Integumentary: Warm, Dry, Intact. Neurologic: Alert, Oriented, Normal sensory, Normal motor function, Cranial Nerves II-XII are grossly intact, 5/5. Psychiatric: Cooperative, Appropriate mood & affect. Hospital Course 61yo WM with history of Two decompressions of L5-S1 with recurrent neural foraminal steonsis at L5-S1 and L1-L2 HNP with severe stenosis admitted to the hospital to undergo L5-S1 PLIF and L1-2 laminectomy and disectomy. Consent was obtained from the patinet in preop. The patient was brought to the OR, underwent above procedure without major complication. He was brought to the PACU for recovery in stable condition and eventually transferring to the floor. Scds were placed. His drain was removed POD 1 and ortega removed POD1. He had some initial difficulty urinating after the ortega was out, but this quickly resolved. PPX SQH was started on POD2. He participated with PT/OT starting on POD1, ambulating well. His pain was well controlled. His preoperative radicular pain has resolved. Hospitalist was consulted for medical managment. Pt was found to have mild fever of tmax 101.1 and mild tachycarida. Workup was underway per medicine team. Pt and his feel confident that he will be safe and successful if he is discharged to home. CM was consulted and no needs were found. He will be discharged to home with care of family. Discharge Plan DC to home with care of family if OK with medicine. 1. Follow up in 2 weeks for staple removal 2. Follow up in [address] Ramires with A/p and lateral lumbar xrays. 3. Follow medicine recs. Electronically signed by Rosa [facility] Conversion Barrel Washer Machine Cerner at 09/26/2022 9:13 AM CDT documented in this encounter Plan of Treatment Not on file documented as of this encounter Visit Diagnoses Not on filedocumented in this encounter Care Teams Redrawer Relationship Specialty Start Date End Date Tony Calabrese MD [address] [place] [address] PCP - General Family Medicine 06/06/22 Jean-Pierre Cabrera MD [address] [facility] [address] [place] [address] Surgeon Cardiothoracic Surgery 06/26/23 Kd Prince PA-C [address] [place] [address] Grocery Department Manager Cardiology 06/26/23 Renae Car, MOTORCYCLE SUBASSEMBLER [address] [facility] [address] [place] [address] Cardiology 09/30/23 documented as of this encounter
--- OUTSIDE RECORDS SUMMARY | 2025-05-02 11:43 | XMS_ITS | Encounter Summary ---
Author Organization [employer] ([place], [place], [place], [place], [place]) Address [address] [place] [address] Care Team Providers Care Attendance Clerk Name Role Phone Tony Calabrese MD Primary Care Provider [phone] Jean-Pierre Cabrera MD Unavailable [phone] Kd Prince PA-C Unavailable [phone] Renae Car APRN Unavailable [phone] Encounter Details Date Type Department Care Team (Late st Contact Info) Description 01/16/2021 Transcribed Document [facility] [place] Family Medicine [address] [place] [address] Liz Patel MD [address] [place] [address] Social History Tobacco Use Types Packs/Day [...] Note - Liz Patel MD - 01/16/2021 1:49 AM CDT ED Discharge Entered On: 01/16/2021 1:50 EDT Performed On: 01/16/2021 1:49 EDT by Ivory Holt Discharge Process Patient Disposition : Admit/Observe Patient Education Completed : No Teaching Evaluation : Needs further teaching IV Discontinued : No Nursing Documentation Completed : Yes JonathonIvory - 01/16/2021 1:49 EDT Admission, ED Nurse Report Accepted By : report called to floor nurse, by Liss Jang RN Nurse Report Acceptance Time : 01/16/2021 1:40 EDT `Nurse Report (Hand Off) : Called Accompanied By, Discharge : Other: RN Fluids/Drips Continued on Admission : No Mode Of Departure : Ivory Lima - 01/16/2021 1:49 EDT Electronically signed by [facility] Conversion Touring Production Manager Cerner at 09/26/2022 9:14 AM CDT documented in this encounter Plan of Treatment Not on file documented as of this encounter Visit Diagnoses Not on filedocumented in this encounter Care Teams Attendance Clerk Relationship Specialty Start Date End Date Tony Calabrese MD [address] [place] [address] PCP - General Family Medicine 06/06/22 Jean-Pierre Cabrera MD [address] [facility] [address] [place], [place] [id number] Surgeon Cardiothoracic Surgery 06/26/23 Kd Prince PA-C [address], [facility] [address] [place] [address] Precision Agriculture Technician Cardiology 06/26/23 Renae Car APRN [address] [facility] [address] [place], [place] [id number] Cardiology 09/30/23 documented as of this encounter
--- OUTSIDE RECORDS SUMMARY | 2025-05-02 11:43 | XMS_ITS | Encounter Summary ---
Author Organization [employer] ([place], [place], [place], [place], [place]) Address [address] [place] [address] Care Team Providers Care Fiberglass Model Maker Name Role Phone Tony Calabrese MD Primary Care Provider [phone] Jean-Pierre Cabrera MD Unavailable [phone] Kd Prince PA-C Unavailable [phone] Renae Car APRN Unavailable [phone] Encounter Details Date Type Department Care Team (Late st Contact Info) Description 01/16/2021 Transcribed Document [facility] [place] [address] [place] [address] ProviderLiz MD [address] [place] [address] Social History Tobacco Use Types Packs/Day [...] Note - Liz Patel MD - 01/16/2021 5:00 AM CDT Chart Check - Review Order Profile Entered On: 01/17/2021 5:27 EDT Performed On: 01/16/2021 5:00 EDT by Darleen King RN-PATIENT CARE BEDSIDE NON-EXEMPT Chart Check Powerplans Initiated/Discontinued as Appropriate : Yes All Active Orders Reviewed : Yes Darleen King RN-PATIENT CARE BEDSIDE NON-EXEMPT - 01/17/2021 5:27 EDT Electronically signed by Rosa [facility] Conversion Parliamentary Archivist Cerner at 09/26/2022 9:18 AM CDT documented in this encounter Plan of Treatment Not on file documented as of this encounter Visit Diagnoses Not on filedocumented in this encounter Care Teams Fiberglass Model Maker Relationship Specialty Start Date End Date Tony Calabrese MD [address] [place] [address] PCP - General Family Medicine 06/06/22 Jean-Pierre Cabrera MD [address] [facility] [address] [place] [address] Surgeon Cardiothoracic Surgery 06/26/23 Kd Prince PA-C [address] [place] [address] Anthropologist Cardiology 06/26/23 Renae Car, JOSÉ MIGUEL [address] [facility] [address] [place] [address] Cardiology 09/30/23 documented as of this encounter
--- OUTSIDE RECORDS SUMMARY | 2025-05-02 11:43 | XMS_ITS | Encounter Summary ---
Author Organization [employer] ([place], [place], [place], [place], [place]) Address [address] [place] [address] Care Team Providers Care Sheriff'S Detective Name Role Phone Tony Calabrese MD Primary Care Provider [phone] Jean-Pierre Cabrera MD Unavailable [phone] Kd Prince PA-C Unavailable [phone] Renae Car APRN Unavailable [phone] Encounter Details Date Type Department Care Team (Late st Contact Info) Description 01/15/2021 Transcribed Document [facility] Radiology [address] [place] [address] Harmony Bernal MD [address] [place] [address] [place] [address] Social History Tobacco Use Types Packs/Day Years Used Date Smoking Tobacco: Never Assessed Sex and Gender Information Value Date Recorded Sex Assigned at Male 08/26/2022 2:31 AM CDT Legal Sex Male 5:38 PM CDT Gender Identity Male 08/26/2022 2:31 AM CDT Sexual Orientation Not on file documented as of this encounter Miscellaneous Notes * Cerner Conversion Note - Harmony Bernal MD - 01/15/2021 9:34 PM EDT Patient: BULMARO ELLISON Age: 65 Years Sex: Male : 1955 Chief Complaint Pt presents to the ER with chest pain that started at 1000 this am. Reports he had a stent placed in December. Pain radiates to his left arm. Dr. Stanley bookkeeper. Primary Care Provider JUDY TIJERINA (REF) C History of Present Illness This is a 65 years old white male patient with significant past medical history of coronary artery disease status post stent placement in the past, several back surgeries, hypertension, hyperlipidemia and diabetes mellitus, patient presented to the emergency department today complaining of left-sided chest pain, patient stated that chest pain started 10 AM this morning, pressure-like, 10 out of 10, radiates to his left arm, progressively getting worse, associated with shortness of breath, patient denied any fever or chills, patient denied any nausea or vomiting, in the emergency department patient was hemodynamically stable, first troponin was negative, cardiology consulted, recommendation for admission for further evaluation and treatment. Review of Systems Constitutional: [No fevers, chills, sweats] Eye: [No recent visual problems, eye discharge, eye pain, redness] HEENT: [No ear pain, nasal congestion, sore throat, voice changes] Respiratory: [No shortness of breath, cough, pain on breathing, sputum production] Cardiovascular: [+Chest pain, no palpitations, syncope, shortness of breath while laying flat] Gastrointestinal: [No nausea, vomiting, diarrhea, constipation] Genitourinary: [No hematuria, dysuria, incontinence, lesions on genitalia] Kingsley/Lymph: [Negative for bruising tendency, swollen lymph glands, nosebleeds, history of anticoagulation] Endocrine: [Negative for excessive thirst, excessive hunger, excessive urination, heat or cold intolerance] Musculoskeletal: [No back pain, neck pain, joint pain, muscle pain, decreased range of motion] Integumentary: [No rash, pruritus, abrasions, lesions] Neurologic: [No weakness, numbness, frequent headaches, tremors, blackouts] Psychiatric: [No anxiety, depression, mood changes, hallucinations] Vital Signs T: 36.6 ??C HR: 78(Monitored) RR: 21 BP: 141/74 SpO2: 97% HT: 170.18 cm WT: 81.82 kg BMI: 28.3 Oxygen Settings (Last) Oxygen Therapy Mode: Room air (01/15/21 17:47:00) Physical Exam GENERAL: The patient is a well-developed, well-nourished, no apparent distress. alert and oriented x3. Head : is normocephalic and atraumatic. EYES: Extraocular muscles are intact. Pupils are equal, round, and reactive to light and accommodation. NECK: Supple. No carotid bruits. No lymphadenopathy or thyromegaly. LUNGS: Clear to auscultation. No added sounds. No tenderness HEART: Regular rate and rhythm without murmur. No heave ABDOMEN: Soft, nontender, and nondistended. Positive bowel sounds. No hepatosplenomegaly was noted. EXTREMITIES: Without any cyanosis, clubbing, rash, lesions or edema. PSYCHIATY: Anxious and cooperative SKIN: No ulceration or induration present. Musculoskeletal : No joint pain, swelling or tenderness Assessment/Plan Chest pain, will rule out out ACS First troponin negative Serial troponin will be ordered Cardiology following Continue metoprolol Continue lisinopril Continue Plavix and aspirin Continue atorvastatin Hypertension Stable Continue home medication IV hydralazine as needed Diabetes mellitus type 2 Hold Metformin Sliding-scale insulin Benign prostatic hyperplasia Continue tamsulosin Hyperlipidemia Continue atorvastatin Past medical history reviewed Labs reviewed Medications reviewed CODE STATUS full code Discussed with ER physician Time spent 45 minutes Orders: acetaminophen, 650 mg, Oral, Tab, Q4H, PRN for Pain (Mild 1-3), Routine, Start 01/15/21 21:04:00 EDT, 01/15/21 21:04:00 EDT albuterol-ipratropium, 3 mL, Nebulized Inhalation, Inh, RT_Q6H, PRN for Shortness of Breath, Routine, Start 01/15/21 21:04:00 EDT bisacodyl, 5 mg, Oral, EC Tab, Daily, PRN for Constipation, Routine, Start 01/15/21 21:04:00 EDT, 01/15/21 21:04:00 EDT docusate, 100 mg, Oral, Cap, BID, Routine, Start 01/15/21 21:04:00 EDT, 01/15/21 21:04:00 EDT famotidine, 20 mg, Oral, Tab, Q12H, Routine, Start 01/15/21 21:04:00 EDT, 01/15/21 21:04:00 EDT heparin, 5,000 Units, SubCutaneous, Inj, Q8HInt, Routine, Start 01/15/21 22:00:00 EDT, 01/15/21 21:04:00 EDT hydrALAZINE, 10 mg, IV Push, Inj, Q6H, PRN for Hypertension, Routine, Start 01/15/21 21:04:00 EDT, 01/15/21 21:04:00 EDT insulin lispro, Scale C:, SubCutaneous, Inj, AC and at Bedtime, Routine, Start 01/16/21 7:00:00 EDT, At HS give only if FSBG > 180 mg/dL melatonin, 3 mg, Oral, Tab, At Bedtime, PRN for Insomnia, Routine, Start 01/15/21 21:04:00 EDT, 01/15/21 21:04:00 EDT ondansetron, 4 mg, IV Push, Inj, Q4H, PRN for Nausea, Routine, Start 01/15/21 21:04:00 EDT, 01/15/21 21:04:00 EDT oxyCODONE, 5 mg, Oral, Tab, Q4H, PRN for Pain (Moderate 4-6), Routine, Start 01/15/21 21:04:00 EDT, 01/15/21 21:04:00 EDT oxyCODONE, 10 mg, Oral, Tab, Q4H, PRN for Pain (Severe 7-10), Routine, Start 01/15/21 21:04:00 EDT, 01/15/21 21:04:00 EDT polyethylene glycol 3350, 17 Gram, Oral, Powder, Daily, PRN for Constipation, Routine, Start 01/15/21 21:04:00 EDT promethazine, 6.25 mg, IntraVENous, Inj, Q6H, PRN for Nausea, Routine, Start 01/15/21 21:04:00 EDT, 01/15/21 21:04:00 EDT Ambulate BMP Basic Metabolic Panel CBC w/ Auto Diff Consult to Case Management Diabetes Education (Nursing) Diabetes Education (Nursing) Diet, Adult DVT VTE Prophylaxis Education Facility Protocol Intake and Output Lab Order Instructions to Nursing Magnesium Level Notify Provider of Change in Patient Condition Notify Provider of Change in Patient Condition Notify Provider Vital Signs OT Evaluation and Treatment Oxygen Therapy PT Evaluation and Treatment PT/INR Prothrombin Time Resuscitation Status Sequential Compression Device TSH Thyroid Stimulating Hormone Vital Signs Weight (Routine) VTE Prophylaxis - Medical Heparin 5,000 Units, SubCutaneous, Inj, Q8HInt, Routine, Start 01/15/21 22:00:00 EDT, 01/15/21 21:04:00 EDT (HARMONY BERNAL) Sequential Compression Device Start: 01/15/21 20:34:00 EDT, Bilateral, Length: Knee High, While patient is in bed, Continuous Order (EL-GASSIER, ATEF) Problem List/Past Medical History Ongoing kevin horse in left calf muscle Arthritis [...] disease Peripheral neuropathy, left foot Urinary frequency/urgency Historical No qualifying data Procedure/Surgical History DILATION OF 1 COR ART WITH DRUG-ELUT INTRALUM, PERC APPROACH (12/21/2020), FLUOROSCOPY OF MULTIPLE CORONARY ARTERIES USING OT CONTRAST (12/21/2020), MEASURE OF CARDIAC SAMPL & PRESSURE, L HEART, PERC APPROACH (12/21/2020), ULTRASONOGRAPHY OF HEART WITH AORTA (12/21/2020), spinal cord stimulator (09/2018), EXCISION OF LUMBAR VERTEBRAL DISC, OPEN APPROACH (02/05/2017), FUSION LUM JT W INTBD FUS DEV, POST APPR A COL, OPEN (02/05/2017), RELEASE LUMBAR NERVE, OPEN APPROACH (02/05/2017), back fusion (01/2017), L4-5 discectomy (2014), right inguinal repair (08/04/2012), back surgery L5 (08/04/1988), left leg, compound fx, 30% calf muscle lost (08/04/1985), left foot injury/surgery (1957). Home Medications (11) Active aspirin 81 mg [...] mg = 2 Tab, PRN, Oral, Q4H Allergies No Known Allergies Social History Alcohol Alcohol Use History Yes. Days/Week: 7. # Drinks/Day: 1. Date/Time of Last Drink: wine (4 oz). Use in Last 12 Months: Yes. Substance Abuse Drug Use Hx: No. Use in Last 12 Months: No. Tobacco Smoking Status Never smoker. Family History Heart disease Diagnostic Results Radiology Results (Last 48 hours) [id number] -- 01/15/2021 21:13 CR Chest 1 Vw [...] Test Name Test Result Date/Time Sodium Level 137 mmol/L 01/15/2021 17:54 EDT Potassium Level 4.7 mmol/L 01/15/2021 17:54 EDT Chloride Level 107 mmol/L 01/15/2021 17:54 EDT Carbon Dioxide Level 23 mmol/L 01/15/2021 17:54 EDT Anion Gap 12 01/15/2021 17:54 EDT Glucose Level 83 mg/dL 01/15/2021 17:54 EDT Blood Urea Nitrogen 16 mg/dL 01/15/2021 17:54 EDT Creatinine Level 0.70 mg/dL 01/15/2021 17:54 EDT eGFR >60 mL/min/1.73m2 01/15/2021 17:54 EDT eGFR NonAfrican >60 mL/min/1.73m2 01/15/2021 17:54 EDT Bun/Creatinine 22.9 (High) 01/15/2021 17:54 EDT Calcium Level 9.5 mg/dL 01/15/2021 17:54 EDT Protein Total 7.8 Gram/dL 01/15/2021 17:54 EDT Albumin Level 4.0 Gram/dL 01/15/2021 17:54 EDT Globulin 3.8 Gram/dL 01/15/2021 17:54 EDT A/G Ratio 1.1 01/15/2021 17:54 EDT Bilirubin Total 0.7 mg/dL 01/15/2021 17:54 EDT Alk Phos 69 Units/Liter 01/15/2021 17:54 EDT AST 43 Units/Liter (High) 01/15/2021 17:54 EDT ALT 41 Units/Liter 01/15/2021 17:54 EDT Lipase Level 123 Units/Liter 01/15/2021 17:54 EDT Troponin I Ultra <0.015 ng/mL 01/15/2021 17:54 EDT WBC 10.5 K/uL (High) 01/15/2021 17:54 EDT RBC 4.78 Million/uL 01/15/2021 17:54 EDT Hgb 13.3 g/dL (Low) 01/15/2021 17:54 EDT Hct 41.9 % 01/15/2021 17:54 EDT MCV 87.7 fL 01/15/2021 17:54 EDT MCH 27.8 pg 01/15/2021 17:54 EDT MCHC 31.7 Gram/dL (Low) 01/15/2021 17:54 EDT Platelet Count 258 K/uL 01/15/2021 17:54 EDT MPV 9.8 fL 01/15/2021 17:54 EDT RDW 15.0 % (High) 01/15/2021 17:54 EDT Neut % 54.9 % 01/15/2021 17:54 EDT Neut # 5.77 K/uL 01/15/2021 17:54 EDT Lymph % 34.3 % 01/15/2021 17:54 EDT Lymph # 3.59 x10(3)/uL 01/15/2021 17:54 EDT Robertson % 6.9 % 01/15/2021 17:54 EDT Robertson # 0.72 K/uL 01/15/2021 17:54 EDT Eos % 2.7 % 01/15/2021 17:54 EDT Eos # 0.28 x10(3)/uL 01/15/2021 17:54 EDT Baso % 0.8 % 01/15/2021 17:54 EDT Baso # 0.08 x10(3)/uL 01/15/2021 17:54 EDT Slide Review No 01/15/2021 17:54 EDT IG# 0.04 x10(3)/uL 01/15/2021 17:54 EDT IG% 0.40 % 01/15/2021 17:54 EDT D Dimer Quant 0.33 mg/L FEU 01/15/2021 17:54 EDT Additional Documentation Code Status Start: 01/15/21 20:34:00 EDT, Full Code, Continuous Order documented in this encounter Plan of Treatment Not on file documented as of this encounter Visit Diagnoses Not on filedocumented in this encounter Care Teams Sheriff'S Detective Relationship Specialty Start Date End Date Tony Calabrese MD [address] [place] [address] PCP - General Family Medicine 06/06/22 Jean-Pierre Cabrera MD [address] [facility] [address] [place] [address] Surgeon Cardiothoracic Surgery 06/26/23 Kd Prince PA-C [address] [facility], [facility] [address] [place] [address] Chairman & Co Founder Cardiology 06/26/23 Renae Car, AWNING HANGER [address] [facility] [place] [address] Cardiology 09/30/23 documented as of this encounter
--- OUTSIDE RECORDS SUMMARY | 2025-05-02 11:43 | XMS_ITS | Encounter Summary ---
Author Organization [employer] ([place], [place], [place], [place], [place]) Address [address] [place] [address] Care Team Providers Care Marketing Traffic Coordinator Name Role Phone Tony Calabrese MD Primary Care Provider [phone] Jean-Pierre Cabrera MD Unavailable [phone] Kd Prince PA-C Unavailable [phone] Renae Car APRN Unavailable [phone] Encounter Details Date Type Department Care Team (Late st Contact Info) Description 12/22/2020 Transcribed Document [facility] Family Medicine [address] [place] [address] ProviderLiz MD [address] [place] [address] Social History Tobacco Use Types Packs/Day [...] Note - Liz Patel MD - 12/22/2020 10:37 AM CDT Patient: BULMARO ELLISON Age: 64 years Sex: Male : 1955 Associated Diagnoses: None Author: MAGALI ABEL DO Results Review Admission Date:12/20/2020 Discharge Date: 12/22/2020 Discharge Information discharge to home Physical Examination VS/Measurements Vitals Signs (last 24 hrs) Last Charted Minimum Maximum Temp 97 (DEC 22 05:55) 97 (DEC 22 05:55) 98.2 (DEC 21 21:37) Mon HR 77 (DEC 22 05:55) 63 (DEC 22 02:30) 96 (DEC 21 11:00) Resp Rate 18 (DEC 22 05:55) 18 (DEC 22 05:55) H 33 (DEC 21 11:00) SBP 107 (DEC 22 05:55) 100 (DEC 22 03:00) H 159 (DEC 21 21:37) DBP 61 (DEC 22 05:55) L 52 (DEC 22 02:30) 89 (DEC 21 17:00) MAP 74 (DEC 22 05:55) 66 (DEC 22 03:00) 121 (DEC 21 15:00) SpO2 96 (DEC 22 05:55) L 93 (DEC 22 04:30) 100 (DEC 21 16:00) on 12/22 he is awake, alert and pleasant, heart RRR, lungs CTA, abd soft, no le edema. Hospital Course Significant labs/imaging: Radiology Results (Last 48 hours) [id number] -- 12/21/2020 12:57 CR Chest 2 Vws (12/20/2020 20:50) Result: EXAMINATION TECHNIQUE:2 view chestCLINICAL HISTORY:Chest pain.COMPARISON:02/07/2017FINDINGS:No dense consolidation. No pneumothorax or pleural effusion. Normalheart size.IMPRESSION:No acute cardiopulmonary findings.Images personally reviewed, interpreted and dictated by Cristino Cobos CBC Results (Current Encounter/Past 24 Hours) WBC 10.0 K/uL HI 12/22/2020 08:17 Hct 40.2 % 12/22/2020 05:55 Hgb 12.9 g/dL LOW 12/22/2020 08:17 Platelet Count 277 K/uL 12/22/2020 05:55 CMP Results (Current Encounter/Past 24 Hours) Protein Total 6.7 Gram/dL 12/21/2020 03:56 Bun/Creatinine 16.7 12/22/2020 06:00 eGFR NonAfrican >60 mL/min/1.73m2 12/22/2020 06:00 A/G Ratio 1.2 12/21/2020 03:56 Creatinine Level 0.90 mg/dL 12/22/2020 06:00 Globulin 3.1 Gram/dL 12/21/2020 03:56 eGFR >60 mL/min/1.73m2 12/22/2020 06:00 Sodium Level 139 mmol/L 12/22/2020 06:00 Potassium Level 3.6 mmol/L 12/22/2020 06:00 Chloride Level 106 mmol/L 12/22/2020 06:00 Carbon Dioxide Level 30 mmol/L 12/22/2020 06:00 Anion Gap 7 LOW 12/22/2020 06:00 Alk Phos 73 Units/Liter 12/21/2020 03:56 ALT 29 Units/Liter 12/21/2020 03:56 AST 20 Units/Liter 12/21/2020 03:56 Blood Urea Nitrogen 15 mg/dL 12/22/2020 06:00 Glucose Level 128 mg/dL HI 12/22/2020 06:00 Albumin Level 3.6 Gram/dL 12/21/2020 03:56 Bilirubin Total 0.4 mg/dL 12/21/2020 03:56 Calcium Level 9.2 mg/dL 12/22/2020 06:00 Magnesium Level 1.9 mg/dL 12/21/2020 03:56 Consultants: dr harris- cardiology Procedures: LHC with dr Cardenas on 12/21 with PHUONG to LAD. official op note pending at this time. Problem List: NSTEMI - s/p LHC on 12/21- with PHUONG to LAD - continue statin and aspirin, brilinta started - monitor on telemetry - cardiology consult appreciated type 2 dm - a1c 7.4 - continue ssi essential htn - decrease lisinopril and add metoprolol BPH - continue flomax hospital course: Mr. Ellison is a 64 year old male with history of HTN, DM who presented to [facility] on 12/20 for evaluation of chest pain, he had slight elevated in troponin and was seen by cardiology. He had LHC on 12/21 and got PHUONG to LAd. He was started on brilinta. His lisinopril was decreased and metoprolol was started. On 12/22 he is being discharged to home. Discharge Follow Up Follow up with primary care provider - Within 5 to 7 days CITLALI CARDENAS - Within 1 month Discharge Activity Special Instructions - stand post- [facility] activity Discharge Plan Discharge Summary Plan Discharge Status: improved. Discharge instructions given: to patient. Prescriptions: Home Medications (11) Active aspirin 81 mg [...] mg = 2 Tab, PRN, Oral, Q4H . Time spent on discharge: 35 min Magali Joel Hospitalist Electronically signed by Mateo Lee Conversion Foreign Exchange Services Manager Cerner at 09/26/2022 9:11 AM CDT documented in this encounter Plan of Treatment Not on file documented as of this encounter Visit Diagnoses Not on filedocumented in this encounter Care Teams Marketing Traffic Coordinator Relationship Specialty Start Date End Date Tony Calabrese MD [address] [place] [address] PCP - General Family Medicine 06/06/22 Jean-Pierre Cabrera MD [address] [facility] [address] [place] [address] Surgeon Cardiothoracic Surgery 06/26/23 Kd Prince PA-C [address] [place] [address] Balance Wheel Screw Hole Tapper Cardiology 06/26/23 Renae Car, MASTER CONTROL SUPERVISOR [address] [facility] [address] [place] [address] Cardiology 09/30/23 documented as of this encounter
--- OUTSIDE RECORDS SUMMARY | 2025-05-02 11:43 | XMS_ITS | Encounter Summary ---
Author Organization [employer] ([place], [place], [place], [place], [place]) Address [address] [place] [address] Care Team Providers Care Registered Dietitian Name Role Phone Tony Calabrese MD Primary Care Provider [phone] Jean-Pierre Cabrera MD Unavailable [phone] Kd Prince PA-C Unavailable [phone] Renae Car APRN Unavailable [phone] Encounter Details Date Type Department Care Team (Late st Contact Info) Description 12/22/2020 Transcribed Document [facility] [place] Medicine [address] [place] [address] ProviderLiz MD [address] [place] [address] Social History Tobacco Use Types Packs/Day [...] Note - Liz Patel MD - 12/22/2020 4:19 PM CDT Nursing Discharge Summary Entered On: 12/22/2020 16:20 EDT Performed On: 12/22/2020 16:19 EDT by AZ JACKSON CNA Discharge Documentation Discharge Date/Time : 12/22/2020 16:00 EDT Patient Disposition, General : Discharge Discharge To : Home with ambulatory/outpatient follow-up Mode Of Departure, General Discharge : Private vehicle, Wheelchair Accompanied By, Discharge : Spouse IV Discontinued : Yes Personal Belongings With Patient : Yes Pt's Own Supply of Medications Returned : No patient supply of medications to return Prescriptions Given to Patient : Other: meds to beds delivered to patient 3 medications Medications Given to Patient : No Discharge Instructions Reviewed With, Opportunity For Questions Given : Patient, Spouse Patient Education Completed : Yes Teaching Method : Explanation, Printed materials Teaching Evaluation : Verbalizes understanding AZ JACKSON CNA - 12/22/2020 16:19 EDT Electronically signed by Rosa [facility] Conversion Last Inserter Cerner at 09/26/2022 9:17 AM CDT documented in this encounter Plan of Treatment Not on file documented as of this encounter Visit Diagnoses Not on filedocumented in this encounter Care Teams Registered Dietitian Relationship Specialty Start Date End Date Tony Calabrese MD [address] [place] [address] PCP - General Family Medicine 06/06/22 Jean-Pierre Cabrera MD [address] [facility] [address] [place], [place] [id number] Surgeon Cardiothoracic Surgery 06/26/23 Kd Prince PA-C [address] [facility] [address] [place] [address] Wood Mechanist Cardiology 06/26/23 Renae Car APRN [address] [facility] [address] [place], [place] [id number] Cardiology 09/30/23 documented as of this encounter
--- OUTSIDE RECORDS SUMMARY | 2025-05-02 11:43 | XMS_ITS | Encounter Summary ---
Author Organization [employer] ([place], [place], [place], [place], [place]) Address [address] [place] [address] Care Team Providers Care Post Acute Care Nurse Practitioner Name Role Phone Tony Calabrese MD Primary Care Provider [phone] Jean-Pierre Cabrera MD Unavailable [phone] Kd Prince PA-C Unavailable [phone] Renae Car APRN Unavailable [phone] Encounter Details Date Type Department Care Team (Late st Contact Info) Description 12/22/2020 Transcribed Document [facility] Family Medicine [address] [place] [address] ProviderLiz MD [address] [place] [address] Social History Tobacco Use Types Packs/Day [...] Note - Liz Patel MD - 12/22/2020 1:51 PM CDT Patient Education Materials Follows: Radial Site Care This sheet gives you [...] these instructions at home: Medicines ??? Take [id number] and prescription medicines only as told by your health care provider. Insertion site care ??? Follow instructions from your health care provider about how to take care of your insertion site. Make sure you: ? Wash your hands with soap and water before you change your bandage (dressing). If soap and water are not available, use hand assistant professor of anthropology. ? Change your dressing as told by [...] care provider approves. ??? You may shower 24?48 hours after the procedure, or as directed [...] provider. Document Revised: 07/01/2018 Document Reviewed: 07/01/2018 [employer] Patient Education ? 2020 [employer] Radiology Coronary Angioplasty, Care After This sheet gives [...] catheter insertion site. This usually fades within 1?2 weeks. ??? Blood collecting in the tissue (hematoma) that may be painful to the touch. It should become smaller and less tender within 1?2 weeks. Follow these instructions at home: Medicines ??? Take uqnl-cuj-mjnynxi and prescription medicines only as told by your health care provider. ??? Blood thinners may be prescribed after your procedure to improve blood flow. Bathing ??? You may shower 24?48 hours after the procedure or as told [...] and water are not available, use hand assistant professor of anthropology. ? Change your dressing as told by [...] provider. Document Revised: 05/08/2018 Document Reviewed: 12/29/2016 [employer] Patient Education ? 2019 [employer]. documented in this encounter Plan of Treatment Not on file documented as of this encounter Visit Diagnoses Not on filedocumented in this encounter Care Teams Post Acute Care Nurse Practitioner Relationship Specialty Start Date End Date Tony Calabrese MD [address] [place] [address] PCP - General Family Medicine 06/06/22 Jean-Pierre Cabrera MD [address] [facility] [address] [place] [address] Surgeon Cardiothoracic Surgery 06/26/23 Kd Prince PA-C [address] [facility] [address] [place] [address] Shop Blacksmith Cardiology 06/26/23 Renae Car, TEMPLATE FITTER [address] [facility] [address] [place] [address] Cardiology 09/30/23 documented as of this encounter
--- OUTSIDE RECORDS SUMMARY | 2025-05-02 11:43 | XMS_ITS | Encounter Summary ---
Author Organization [employer] ([place], [place], [place], [place], [place]) Address [address] [place] [address] Care Team Providers Care Hobber Name Role Phone Tony Calabrese MD Primary Care Provider [phone] Jean-Pierre Cabrera MD Unavailable [phone] Kd Prince PA-C Unavailable Renae Car APRN Unavailable [phone] Encounter Details Date Type Department Care Team (Late st Contact Info) Description 12/22/2020 Transcribed Document [facility] Radiology [address] [place] [address] Rey Lau MD [address] [place] [address] Social History Tobacco Use Types Packs/Day Years Used Date Smoking Tobacco: Never Assessed Sex and Gender Information Value Date Recorded Sex Assigned at Male 08/26/2022 2:31 AM CDT Legal Sex Male 5:38 PM CDT Gender Identity Male 08/26/2022 2:31 AM CDT Sexual Orientation Not on file documented as of this encounter Miscellaneous Notes * Cerner Conversion Note - Rey Lau MD - 12/22/2020 9:31 AM EDT Patient: BULMARO ELLISON Age: 64 years Sex: Male : 1955 Associated Diagnoses: None Author: REY LAU MD-CAR Primary Soda Dialyzer: [facility] NAD Patient seen and examined at the bedside at the bedside awake alert oriented x3 not does not have the pain I discussed with him thoroughly the procedure that was done yesterday and the management plan. He is on aspirin and Brilinta and we will add beta-scott today. From the cardiology standpoint he can follow-up as outpatient. Health Status Allergies: Allergic Reactions (Selected) No Known Allergies, Allergies (1) Active Reaction No Known Allergies None Documented Current medications: (Selected) Inpatient Medications Ordered Ativan: 0.5 mg, IV Push, Q4H, PRN: Agitation DuoNeb 0.5 mg-2.5 mg/3 mL inhalation solution: 3 mL, Nebulized Inhalation, Q6H, PRN: Shortness of Breath Pepcid: 20 mg, Oral, Daily Phenergan: 6.25 mg, IntraVENous, Q6H, PRN: Nausea Sodium Chloride 0.9% intravenous solution 500 mL: Titrate, IntraVENous Tylenol: 650 mg, Oral, Q4H, PRN: Other (See Comment) Zofran: 4 mg, IV Push, Q4H, PRN: Nausea aspirin: 81 mg, Oral, Daily atorvastatin: 80 mg, Oral, At Bedtime cloNIDine: 0.1 mg, Oral, Q4H, PRN: Hypertension heparin injection 25,000 Units + NaCl 0.45% Premix Diluent 250 mL: Titrate, IntraVENous hydrALAZINE: 10 mg, IV Push, Q6H, PRN: Hypertension hydroCHLOROthiazide: 25 mg, Oral, Daily lisinopril: 20 mg, Oral, Daily methocarbamol: 750 mg, Oral, TID, PRN: Pain morphine: 2 mg, IV Push, Q2H, PRN: Pain (Severe 7-10) tamsulosin: 0.4 mg, Oral, Daily ticagrelor: 90 mg, Oral, BID Documented Medications Documented Calcium 600+D Plus Minerals [...] 1 Tab, Oral, At Bedtime, 0 Refill(s) hydrochlorothiazide-lisinopril 25 mg-20 mg oral tablet: 1 Tab, Oral, Daily, 0 Refill(s) metFORMIN 500 mg oral tablet: 1 Tab, Oral, BID, 180 Tab, 0 Refill(s) methocarbamol 750 mg oral tablet: 1 Tab, Oral, TID, PRN: as needed for pain, 0 Refill(s) tamsulosin 0.4 mg oral capsule: 1 Cap, Oral, Daily, 0 Refill(s), Home Medications (9) Active aspirin 81 mg oral delayed release tablet 81 mg = 1 Tab, Oral, Daily atorvastatin 80 mg oral tablet 80 mg = 1 Tab, Oral, At Bedtime Calcium 600+D Plus Minerals oral tablet, chewable 1 Tab, Chew, At Bedtime Fish Oil 1200 mg oral capsule 1,200 mg = 1 Cap, Oral, Daily hydrochlorothiazide-lisinopril 25 mg-20 mg oral tablet 1 Tab, Oral, Daily metFORMIN 500 mg oral tablet 500 mg = 1 Tab, Oral, BID methocarbamol 750 mg oral tablet 750 mg = 1 Tab, PRN, Oral, TID tamsulosin 0.4 mg oral capsule 0.4 mg = 1 Cap, Oral, Daily Tylenol 325 mg oral tablet 650 mg = 2 Tab, PRN, Oral, Q4H , Medications (18) Active Scheduled: (7) aspirin EC 81 mg tab 81 mg 1 Tab, Oral, Daily atorvastatin 40 mg tab 80 mg 2 Tab, Oral, At Bedtime famotidine 20 mg tab 20 mg 1 Tab, Oral, Daily hydrochlorothiazide 25 mg tab 25 mg 1 Tab, Oral, Daily lisinopril 20 mg tab 20 mg 1 Tab, Oral, Daily tamsulosin CR 0.4 mg cap 0.4 mg 1 Cap, Oral, Daily ticagrelor 90 mg tab 90 mg 1 Tab, Oral, BID Continuous: (2) heparin/NaCl 0.45% 25,000 Units + Premix Diluent NaCl 0.45% 250 mL 250 mL, IntraVENous NaCl 0.9% TITRATE 500 mL 500 mL, IntraVENous PRN: (9) acetaminophen 325 mg tab 650 mg 2 Tab, Oral, Q4H albuterol-ipratropium inh 3 mL 3 mL, Nebulized Inhalation, Q6H cloNIDine 0.1 mg tab 0.1 mg 1 Tab, Oral, Q4H hydrALAZINE 20 mg/1 mL inj 10 mg 0.5 mL, IV Push, Q6H LORazepam 2 mg/mL inj 0.5 mg 0.25 mL, IV Push, Q4H methocarbamol 500 mg tab 750 mg 1.5 Tab, Oral, TID morphine 2 mg/1 ml inj 2 mg 1 mL, IV Push, Q2H ondansetron 4 mg/2 mL inj 4 mg 2 mL, IV Push, Q4H promethazine 25 mg/1 mL inj 6.25 mg 0.25 mL, IntraVENous, Q6H Problem list: All Problems High blood pressure / SNOMED CT 72292866 / Confirmed Hyperlipidemia / SNOMED CT 52489228 / Confirmed Asthma, childhood / SNOMED CT 994382961 / Confirmed Bronchitis / SNOMED CT 74249651 / Confirmed Peptic ulcer disease / SNOMED CT 1957877539 / Confirmed Arthritis / SNOMED CT 9584154 / Confirmed Back pain / SNOMED CT 935396672 / Confirmed kevin horse in left calf muscle / SNOMED CT 28384605 / Confirmed Diet controlled diabetes mellitus / SNOMED CT 053738937 / Confirmed Peripheral neuropathy, left foot / SNOMED CT 0932567090 / Confirmed Murmur, heart / SNOMED CT 9672140804 / Confirmed Leaky heart valve (unsure which one) / SNOMED CT 51467544 / Confirmed Deep vein thrombosis (right hip) / SNOMED CT 1810868614 / Confirmed Chest pain / SNOMED CT 21330968 / Confirmed airfield operations specialist workup-stated everything was ok 06/2016 Disorder of prostate (BPH) / SNOMED CT 29830775 / Confirmed Urinary frequency/urgency / SNOMED CT 473324224 / Confirmed Numbness and tingling of foot (great toe) / SNOMED CT 562479438 / Confirmed feels cold, numb Lumbar herniated disc (L1-2) / SNOMED CT 319745497 / Confirmed At risk for sleep apnea / IMO 10782795 / Confirmed, Active Problems (19) kevin horse [...] disease Peripheral neuropathy, left foot Urinary frequency/urgency Objective Intake and Output 24 hour intake, 24 hour output VS/Measurements Vitals Signs (last 24 hrs) Last [...] mucosa is moist. Neck: Supple, Non-tender. Respiratory: Lungs are clear to auscultation, Respirations are non-labored, Symmetrical chest wall expansion. Cardiovascular: Normal rate, Regular rhythm, Good pulses equal in all extremities, Normal peripheral perfusion. Gastrointestinal: Soft, Non-tender, Non-distended, Normal bowel sounds. Genitourinary: No costovertebral angle tenderness. Musculoskeletal: Normal range of motion, Normal strength. Integumentary: Warm, Dry, Intact. Neurologic: Alert, Oriented, No focal deficits. Psychiatric: Cooperative, Appropriate mood & affect. Results Review DEC 22 05:22 139 106 15 / H 128 3.6 30 0.90 \ DEC 22 05:22 \ L 12.9 / H 10.0 277 / 40.2 \ Cardiac Markers (Current Encounter/Past 24 Hours) CK MB 2.00 ng/mL 12/21/2020 04:03 CK 139 Units/Liter 12/21/2020 04:03 MBI 1.4 NA 12/21/2020 04:03 Radiology Results (Last 48 hours) [id number] -- 12/21/2020 12:57 CR Chest 2 Vws (12/20/2020 20:50) Result: EXAMINATION TECHNIQUE:2 view chestCLINICAL HISTORY:Chest pain.COMPARISON:02/07/2017FINDINGS:No dense consolidation. No pneumothorax or pleural effusion. Normalheart size.IMPRESSION:No acute cardiopulmonary findings.Images personally reviewed, interpreted and dictated by Cristino Cobos Impression and Plan IMPRESSION: * NSTEMI---SP PHUONG---> LAD troponin 0.149-->0.402-->0.366 * Hypertension * Heart murmur a. Moderate AR/MR * Dyslipidemia * Diabetes mellitus type 2 * History of peptic ulcer disease PLAN; 12/22/20 Ambulate this morning Continue medications as currently formulated and we will add metoprolol. Refer to cardiac rehab. Follow-up with primary cardiology in 4 weeks 12/21/2020 Patient had an elevated troponin that is now trending down. With patient's history of chest pain recommended coronary angiography with possible stent placement. Patient was explained the risk and benefits of procedure wishes to proceed. Continue dual antiplatelet therapy and high-dose statin therapy. 12/20/2020 Agree with admission to internal medicine Serial cardiac enzymes and EKG Aspirin, statin, ticagrelor Continue heparin for now Restart home beta-scott Echocardiogram N.p.o. after midnight for ischemic evaluation tomorrow. Type to be determined pending cardiac enzyme trend documented in this encounter Plan of Treatment Not on file documented as of this encounter Visit Diagnoses Not on filedocumented in this encounter Care Teams Hobber Relationship Specialty Start Date End Date Tony Calabrese MD [address] [place] [address] PCP - General Family Medicine 06/06/22 Jean-Pierre Cabrera MD [address] [facility] [address] [place] [address] Surgeon Cardiothoracic Surgery 06/26/23 Kd Prince PA-C [address] [place] [address] Soda Dialyzer Cardiology 06/26/23 Renae Car, JOSÉ MIGUEL [address] [facility] [address] [place] [address] Cardiology 09/30/23 documented as of this encounter
--- OUTSIDE RECORDS SUMMARY | 2025-05-02 11:43 | XMS_ITS | Encounter Summary ---
Author Organization [employer] ([place], [place], [place], [place], [place]) Address [address] [place] [address] Care Team Providers Care Hat And Cap Opener Name Role Phone Tony Calarbese MD Primary Care Provider [phone] Jean-Pierre Cabrera MD Unavailable [phone] Kd Prince PA-C Unavailable [phone] Renae Car APRN Unavailable [phone] Encounter Details Date Type Department Care Team (Late st Contact Info) Description 12/22/2020 Transcribed Document [facility] [place] Family Medicine [address] [place] [address] ProviderLiz MD [address] [place] [address] Social History Tobacco Use Types Packs/Day [...] Note - Liz Patel MD - 12/22/2020 1:36 PM CDT Initial Discharge Planning Entered On: 12/22/2020 13:38 EDT Performed On: 12/22/2020 13:36 EDT by MEG CASTLE, Electric Mule Operator Initial Assessment I Previously Documented Living Environment : No qualifying data available. Living Situation : Home with family care Patient Lives With : Spouse Is the Patient a Caregiver at Home? : No Employment/Vocation : employed Emergency Contact #1 : sue bal Emergency Contact #1 Phone Number : [phone] Emergency Contact #1 Relationship : spouse Emergency Contact #2 : x Emergency Contact #2 Phone Number : x Emergency Contact #2 Relationship : x Enter Doctors Name : Dave Levine Does Patient have PCP Listed? : Yes Legal Guardian : No Is Guardianship Needed : No MEG CASTLE Social Worker - 12/22/2020 13:36 EDT Initial Assessment II Sensory and Motor Deficits : None Current Home Treatments and Equipment : None Services and Community Resources : Other: none MEG CASTLE Social Worker - 12/22/2020 13:36 EDT Discharge Needs I Anticipated Discharge Date : 12/22/2020 EDT Anticipated Discharge To, CM : Home with family care Current Home Treatment/Equipment : Current Home Treatment/Equipment No qualifying data available. Post Acute/Home Treatments : None Documentation Status Complete : Yes MEG CASTLE Social Worker - 12/22/2020 13:36 EDT Narrative Note Narrative Note : Pt admitted for chest pain and found to have NSTEMI. Had Left heart cath yesterday. MDR rounds held this am. Pt going home today with his , Sue. Camila 30 day coupon given to nurse for pt. No other needs identified. HD # 1. elos 2. RRS Low 37. Boost 3. MEG CASTLE Social Worker - 12/22/2020 13:36 EDT documented in this encounter Plan of Treatment Not on file documented as of this encounter Visit Diagnoses Not on filedocumented in this encounter Care Teams Hat And Cap Opener Relationship Specialty Start Date End Date Tony Calabrese MD [address] [place] [address] PCP - General Family Medicine 06/06/22 Jean-Pierre Cabrera MD [address] [place] [address] [place] [address] Surgeon Cardiothoracic Surgery 06/26/23 Kd Prince PA-C [address] [facility] [address] [place] [address] Equipment Operating Engineer Cardiology 06/26/23 Renae Car, JOSÉ MIGUEL [address] [facility] [address] [place] [address] Cardiology 09/30/23 documented as of this encounter
--- OUTSIDE RECORDS SUMMARY | 2025-05-02 11:43 | XMS_ITS | Encounter Summary ---
Author Organization [employer] ([place], [place], [place], [place], [place]) Address [address] [place] [address] Care Team Providers Care Cnc Machine Operator Name Role Phone Tony Calabrese MD Primary Care Provider [phone] Jean-Pierre Cabrera MD Unavailable [phone] Kd Prince PA-C Unavailable [phone] Renae Car APRN Unavailable [phone] Encounter Details Date Type Department Care Team (Late st Contact Info) Description 01/18/2021 Transcribed Document [facility] [place] Family Medicine [address] [place] [address] Liz Patel MD [address] [place] [address] Social History Tobacco Use Types Packs/Day [...] Note - Liz Patel MD - 01/18/2021 11:56 AM CDT Stroke/Warfarin Instructions Entered On: 01/18/2021 11:57 EDT Performed On: 01/18/2021 11:56 EDT by Kevyn Oquendo Non Emp RN Stroke/Warfarin Instructions Stroke/TIA Discharge Ins : Open Warfarin Discharge Ins : N/A Kevyn Oquendo Non Emp RN - 01/18/2021 11:56 EDT Stroke/TIA Discharge Instructions Individualized Stroke Risk Factors *Q : Diabetes, Hypertension/High blood pressure Stroke Education Handouts Given *Q : Yes Kevyn Oquendo Non Emp RN - 01/18/2021 11:56 EDT Stroke Education Materials Given-Grid Activation of EMS *Q : Verbalizes understanding Follow-up Care After Discharge *Q : Verbalizes understanding Medications prescribed at DC *Q : Verbalizes understanding Risk Factors for Stroke *Q : Verbalizes understanding Warning S&S of Stroke *Q : Verbalizes understanding Kevyn Oquendo Non Emp RN - 01/18/2021 11:56 EDT Stroke/TIA Signs/Symptoms to Report Immediately : Sudden onset difficulty speaking, Sudden onset difficulty understanding speech, Sudden onset change in vision, Sudden onset weakness particulary on one side of the body, Sudden onset numbness/tingling, Sudden severe headache, Sudden dizziness or trouble with gait, Call 9-1: EMS activation is crucial My LDL Level: : LDL Level No qualifying data available. Kevyn Oquendo Non Emp RN - 01/18/2021 11:56 EDT documented in this encounter Plan of Treatment Not on file documented as of this encounter Visit Diagnoses Not on filedocumented in this encounter Care Teams Cnc Machine Operator Relationship Specialty Start Date End Date Tony Calabrese MD [address] [place] [address] PCP - General Family Medicine 06/06/22 Jean-Pierre Cabrera MD [address] [facility] [address] [place] [address] Surgeon Cardiothoracic Surgery 06/26/23 Kd Prince PA-C [address] [place] [address] Online Education Manager Cardiology 06/26/23 Renae Car Santos, LADIES ATTENDANT [address] [facility] [address] Cardiology 09/30/23 documented as of this encounter
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
--- OUTSIDE RECORDS SUMMARY | 2025-05-02 11:43 | XMS_ITS | Encounter Summary ---
Author Organization [employer] ([place], [place], [place], [place], [place]) Address [address] [place] [address] Care Team Providers Care Supervisor Correspondence Section Name Role Phone Tony Calabrese MD Primary Care Provider [phone] Jean-Pierre Cabrera MD Unavailable [phone] Kd Prince PA-C Unavailable [phone] Renae Car APRN Unavailable [phone] Encounter Details Date Type Department Care Team (Late st Contact Info) Description 12/22/2020 Transcribed Document [facility] [place] [address] [place] [address] ProviderLiz MD [address] [place] [address] Social History Tobacco Use Types Packs/Day [...] Note - Liz Patel MD - 12/22/2020 1:39 PM CDT Final Discharge Planning Entered On: 12/22/2020 13:39 EDT Performed On: 12/22/2020 13:39 EDT by MEG CASTLE, Dental Office Receptionist Final Discharge Planning Discharge Arrangements : Patient Post-Acute Information Patient Name: BULMARO ELLISON Gender: Male : 55 Age: 64 Years No Post-Acute Placement(s) Listed No Post-Acute Service(s) Listed No [place] Referral(s) Listed Patient Offered Choice/Affiliations Explained : No Designation of Choice Signed : No Transportation Needs : Family/Friend Is Patient High/Moderate Readmission Risk? : No Discharge To Care Management : Home/Residential/Alf or Self Care -01 EMG CASTLE, Dental Office Receptionist - 12/22/2020 13:39 EDT documented in this encounter Plan of Treatment Not on file documented as of this encounter Visit Diagnoses Not on filedocumented in this encounter Care Teams Supervisor Correspondence Section Relationship Specialty Start Date End Date Tony Calabrese MD [address] [place] [address] PCP - General Family Medicine 06/06/22 Jean-Pierre Cabrera MD [address] [facility] [address] [place], [place] [id number] Surgeon Cardiothoracic Surgery 06/26/23 Kd Prince PA-C [address], [facility] [address] [place] [address] Unit Assistant Cardiology 06/26/23 Renae Car APRN [address] [facility] [address] [place] [address] Cardiology 09/30/23 documented as of this encounter
--- OUTSIDE RECORDS SUMMARY | 2025-05-02 11:43 | XMS_ITS | Encounter Summary ---
Author Organization [employer] ([place], [place], [place], [place], [place]) Address [address] [place] [address] Care Team Providers Care Business Development Officer Name Role Phone Tony Calabrese MD Primary Care Provider [phone] Jean-Pierre Cabrera MD Unavailable [phone] Kd Prince PA-C Unavailable [phone] KamrarRenae gómez APRN Unavailable [phone] Encounter Details Date Type Department Care Team (Late st Contact Info) Description 01/16/2021 Transcribed Document [facility] [place] [address] [place] [address] Liz Patel MD [address] [place] [address] Social History Tobacco Use Types Packs/Day [...] Note - Liz Patel MD - 01/16/2021 5:14 PM CDT DATE OF SERVICE: 01/16/2021 LEXISCAN MYOVIEW PERFUSION STUDY INDICATION: Chest pain, recent coronary artery stent. RESTING ELECTROCARDIOGRAM: Normal sinus rhythm, increase voltages, nonspecific ST-T wave changes. Left ventricular hypertrophy with strain pattern. LEXISCAN STRESS: Standard Lexiscan stress protocol. Peak heart rate response of 108 beats per minute, blood pressure response to 161/81 mmHg were achieved. There was no chest discomfort. No arrhythmia. The stress electrocardiogram, nondiagnostic secondary to the left ventricular hypertrophy with strain pattern. 10.6 mCi of Myoview was administered prior to rest scan and 32.7 mCi prior to the post stress scan. MYOVIEW PERFUSION DATA: Reversible defect: There is a large area of moderate reversible defect involving the basal mid distal inferior wall, apex and mild partial reversible defect involving basal mid anterior wall. Left ventricular function: Gated management of left ventricular systolic function post stress is 38%. Global hypokinesia. IMPRESSION: Abnormal Lexiscan Myoview perfusion study. Large area of inferior reversible defect suggestive of ischemia in the right coronary artery territory. There is a partial reversible defect involving the basal mid anterior wall suggestive of ischemia in the diagonal branch territory. Mild to moderate left ventricular systolic dysfunction post stress. /[id number] Candido Vasques MD SSL/AQ / SSL / MODL /[id number] CC: Dr. Isidro Koch Electronically signed by [facility] Conversion Gasfitter Cerner at 09/26/2022 9:09 AM CDT documented in this encounter Plan of Treatment Not on file documented as of this encounter Visit Diagnoses Not on filedocumented in this encounter Care Teams Business Development Officer Relationship Specialty Start Date End Date Tony Calabrese MD [address] [place] [address] PCP - General Family Medicine 06/06/22 Jean-Pierre Cabrera MD [address] [facility] [address] [place] [address] Surgeon Cardiothoracic Surgery 06/26/23 Kd Prince PA-C [address] [facility] [address] [place] [id number] Photograph Enlarger Cardiology 06/26/23 Renae Car, CIRCULATION SALES REPRESENTATIVE [address] [facility] [address] [place] [address] Cardiology 09/30/23 documented as of this encounter
--- OUTSIDE RECORDS SUMMARY | 2025-05-02 11:43 | XMS_ITS | Encounter Summary ---
Author Organization [employer] ([place], [place], [place], [place], [place]) Address [address] [place] [address] Care Team Providers Care Pouncer Machine Name Role Phone Tony Calabrese MD Primary Care Provider [phone] Jean-Pierre Cabrera MD Unavailable [phone] Kd Prince PA-C Unavailable [phone] Renae Car APRN Unavailable [phone] Encounter Details Date Type Department Care Team (Late st Contact Info) Description 01/15/2021 Transcribed Document [facility] [place] Family Medicine [address] [place] [address] ProviderLiz MD [address] [place] [address] Social History Tobacco Use Types Packs/Day [...] Patel MD - 01/15/2021 4:51 PM CDT [place] Suicide Severity Rating Scale (C-SSRS) Entered On: 01/15/2021 17:46 EDT Performed On: 01/15/2021 17:44 EDT by JAKOB GARG RN [place] Suicide Severity Rating Scale (C-SSRS) CSSRS Past Month Wish to be : No CSSRS Past Month Suicidal Thoughts : No CSSRS Lifetime Suicide Behavior : No Suicide Severity Rating Score : 0 Suicide Severity Rating : No Additional Care Required at this time JAKOB GARG RN - 01/15/2021 17:44 EDT Electronically signed by [facility], [facility] Conversion Loader Helper Sorting Yard Cerner at 09/26/2022 9:09 AM CDT documented in this encounter Plan of Treatment Not on file documented as of this encounter Visit Diagnoses Not on filedocumented in this encounter Care Teams Pouncer Machine Relationship Specialty Start Date End Date Tony Calabrese MD [address] [place] [address] PCP - General Family Medicine 06/06/22 Jean-Pierre Cabrera MD [address] [facility] [address] [place], [place] [id number] Surgeon Cardiothoracic Surgery 06/26/23 Kd Prince PA-C [address] [place] [address] Roastmaster Cardiology 06/26/23 Renae Car APRN [address] [facility] [address] [place] [address] Cardiology 09/30/23 documented as of this encounter
--- OUTSIDE RECORDS SUMMARY | 2025-05-02 11:43 | XMS_ITS | Encounter Summary ---
Author Organization [employer] ([place], [place], [place], [place], [place]) Address [address] [place] [address] Care Team Providers Care Digital Marketing Project Manager Name Role Phone Tony Calabrese MD Primary Care Provider [phone] Jean-Pierre Cabrera MD Unavailable [phone] Kd Prince PA-C Unavailable [phone] Renae Car APRN Unavailable [phone] Encounter Details Date Type Department Care Team (Late st Contact Info) Description 01/16/2021 Transcribed Document [facility] [place] Family Medicine [address] [place] [address] ProviderLiz MD [address] [place] [address] Social History Tobacco Use Types Packs/Day [...] Note - Liz Patel MD - 01/16/2021 7:29 PM CDT Event Note Entered On: 01/16/2021 19:30 EDT Performed On: 01/16/2021 19:29 EDT by Sofi Yu Non Emp Rn Event Note Event Date/Time : 01/16/2021 16:00 EDT Description of Event : Per cardiology, hold heparin this afternoon and tonight for heart cath in the morning Sofi Yu Non Emp Rn - 01/16/2021 19:29 EDT Electronically signed by Rosa [facility] Conversion Toll Test Worker Cerner at 09/26/2022 9:05 AM CDT documented in this encounter Plan of Treatment Not on file documented as of this encounter Visit Diagnoses Not on filedocumented in this encounter Care Teams Digital Marketing Project Manager Relationship Specialty Start Date End Date Tony Calabrese MD [address] [place] [address] PCP - General Family Medicine 06/06/22 Jean-Pierre Cabrera MD [address] [facility] [address] [place], [place] [id number] Surgeon Cardiothoracic Surgery 06/26/23 Kd Prince PA-C [address] [place] [address] Statement Clerks Manager Cardiology 06/26/23 Renae Car APRN [address] [facility] [address] [place], [place] [id number] Cardiology 09/30/23 documented as of this encounter
--- OUTSIDE RECORDS SUMMARY | 2025-05-02 11:43 | XMS_ITS | Encounter Summary ---
Author Organization [employer] ([place], [place], [place], [place], [place]) Address [address] [place] [address] Care Team Providers Care Terra Cotta Mold Maker Name Role Phone Tony Calabrese MD Primary Care Provider [phone] Jean-Pierre Cabrera MD Unavailable [phone] Kd Prince PA-C Unavailable [phone] Renae Car APRN Unavailable [phone] Encounter Details Date Type Department Care Team (Late st Contact Info) Description 01/16/2021 Transcribed Document [facility] [place] Medicine [address] [place] [address] ProviderLiz MD [address] [place] [address] Social History Tobacco Use Types Packs/Day [...] Note - Liz Patel MD - 01/16/2021 1:50 PM CDT Attempt to Treat, OT Entered On: 01/16/2021 14:06 EDT Performed On: 01/16/2021 13:50 EDT by CLIFFSTEPHANIE SPENCE OTR/Larry Attempt to Treat Unable to Treat Due To : Patient Unavailable Inability to Treat Comment : pt KELLY for stress test. Will check back as schedule allows STEPHANIE CORONADO OTR/L - 01/16/2021 14:05 EDT Electronically signed by Rosa [facility] Conversion Heel Seat Filler Cerner at 09/26/2022 9:07 AM CDT documented in this encounter Plan of Treatment Not on file documented as of this encounter Visit Diagnoses Not on filedocumented in this encounter Care Teams Terra Cotta Mold Maker Relationship Specialty Start Date End Date Tony Calabrese MD [address] [place] [address] PCP - General Family Medicine 06/06/22 Jean-Pierre Cabrera MD [address] [facility] [address] [place] [address] Surgeon Cardiothoracic Surgery 06/26/23 Kd Prince PA-C [address] [place] [address] Tack Coverer Cardiology 06/26/23 Renae Car APRN [address] [facility] [address] [place] [address] Cardiology 09/30/23 documented as of this encounter
--- OUTSIDE RECORDS SUMMARY | 2025-05-02 11:43 | XMS_ITS | Clinical Summary ---
Author Organization [facility] Address [address] [place] [address] Care Team Providers Care Medicaid Analyst Name Role Phone Craig Salazar MD Unavailable [phone] Tony Calabrese MD Primary Care Provider [phone] Liss Parker MD Unavailable Allergies Active Allergy Reactions Criticality Noted Date Comments Meperidine 04/08/2014 Pt states pill form caused him to break out in a cold sweat and chills, IV form he has no reaction Other 02/17/2015 BEE STINGS Medications aspirin 81 mg PO TbEC Take 81 mg by mouth daily. Active Cholecalciferol , Vitamin D3, (VITAMIN D) 1,000 unit CapsuleIndicati ons:Mild vitamin D deficiency Take 2 Caps by mouth 2 times daily. 60 Cap 5 4 Active Additional Information Patient not taking.Reported on 09/21/2020 atorvastatin (LIPITOR) 80 mg Tablet TAKE 1 TABLET EVERY EVENING 90 Tab 3 9 Active Additional Information Patient not taking.Reported on 09/21/2020 Lisinopril-Hydr ochlorothiazide (PRINZIDE, ZESTORETIC) 20-25 mg per tablet TAKE 1 TABLET DAILY 90 Tab 3 9 Active Additional Information Patient not taking.Reported on 09/21/2020 gabapentin (NEURONTIN) 300 mg capsule Take 300 mg by mouth 3 times daily. Active metFORMIN (GLUCOPHAGE-XR) 500 mg XR tabletIndicatio ns:Controlled type 2 diabetes mellitus without complication, without long-term current use of insulin (CMS/HCC) Take 1 Tab by mouth 2 times daily. 60 Tab 0 Active Additional Information Patient not taking.Reported on 09/21/2020 Cinnamon Bark 500 mg Capsule Take 1,000 mg by mouth 2 times daily. Active Berb Ascencio/herbal complex no.18 (BERBERINE-HERB AL COMB NO.18 PO) Take by mouth Twice a day at supper and bedtime.. Active alpha lipoic acid 200 mg Capsule Take by mouth 2 times daily. Active Active Problems Problem Noted Date Diagnosed Date DDD (degenerative disc disease), lumbosacral Controlled type 2 diabetes m ellitus without complication, without long-term current use of insulin 03/25/2017 Nonrheumatic aortic valve stenosis 04/19/2016 Chondromalacia of patella, unspecified lateralit y 11/29/2015 Post-traumatic osteoarthritis of both knees 11/08 Mixed hyperlipidemia 04/08/2014 Mild vitamin D deficiency 04/08/2014 HTN (hypertension), benign 12/29/2012 Chest pain 12/29/2012 Overview (03/10/2017): Replaced inactive diagnosis via diagnosis import SOBOE (shortness of breath on exertion) 12/30/19 13 Resolved Problems Problem Noted Date Diagnosed Date Resolved Date Inguinal hernia unilateral, non-recurrent 05/26/2013 04/07/2015 Immunizations Immunization Administration Dates Next Due Influenza 06/25/2019,03/14/2017 Influenza (whole) 05/14/2013 Pneumococcal Polysaccharide 23 Valent (PNEUMOVAX ) 01/19/2018,11/07/2010 Tdap 10/09/2012,06/09/2007 Family History Medical History Relation Name Comments Cancer Father Lung Cancer Father Heart Problems Maternal Grandmother Cancer Mother Stomach Cancer Mother Anesthesia Complications Neg Hx Relation Name Status Comments Brother 1 Alive Brother 2 Alive Daughter Alive Father (Age 48) Maternal Grandmother Mother (Age 49) Sister 1 Alive Sister 2 Alive Sister 3 Alive Sister 4 Alive Sister 5 Alive Social History Tobacco Use Types Packs/Day Years Used Date Smoking Tobacco: Never Smokeless Tobacco: Never Tobacco Cessation:Counseling Given: No Alcohol Use Standard Drinks/Week Comments Yes 5.8 (1 standard drin k = 0.6 oz pure alcohol) Red Wine every night small amount PHQ-2 Answer Date Recorded PHQ-2 Score 0 09/13/2018 Sex and Gender Information Value Date Recorded Sex Assigned at Not on file Legal Sex Male 7:19 PM EST Gender Identity Not on file Sexual Orientation Not on file 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 Not on file Not on file Not on file Last Filed Vital Signs Vital Sign Reading Time Taken Comments Blood Pressure 140/88 09/21/2020 3:38 PM EDT Pulse 97 09/21/2020 3:38 PM EDT Temperature 36.8 C (98.2 F) 06/25/2019 4:10 PM EST Respiratory Rate 16 06/25/2019 4:10 PM EST Oxygen Saturation 98% 06/25/2019 4:10 PM EST Inhaled Oxygen Concentration - - Weight 89.8 kg (198 lb) 09/21/2020 3:38 PM EDT Height 171.5 cm (5' 7.5 ) 09/21/2020 3:38 PM EDT Body Mass Index 30.55 09/21/2020 3:38 PM EDT Plan of Treatment Health Maintenance Due Date Last Done Comments Cologuard 1955 Zoster-RZV(Shingrix) (1 of 2) 12/27/2005 Pneumococcal Vaccine: 50+ Ye ars (2 of 2 - PCV) 01/19/2019 01/19/2018, 11/07/2010 Lipid Monitoring 06/12/2019 06/12/2018, , 03/14/2017, Additional history exists FIT 06/26/2019 06/26/2018, 04/07/2015 Fall Risk Assessment 12/27/2020 Tetanus Vaccination (Every 1 0 Years) 10/09/2022 10/09/2012, 06/09/2007 Advance Care Planning 06/09/2024 Depression Screening 06/09/2024 06/25/2019, 06/26/2018, 03/25/2017, Additional history exists COVID-19 Vaccine (1 - 2024-2 6 season) 2025 Influenza Vaccination (#1) 02/07/202506/25, 03/14/2017, 05/14/2013 Colonoscopy 09/11/2026 09/11/2016, 06/09/2008 Colorectal Cancer Screening 09/11/2026 RSV Vaccines (1 - 1-dose 75+ series) 12/27/2030 Hepatitis C Virus (HCV) Screening Completed 014 Diabetes Mellitus Foot Care (Yearly) Discontinued 07/03/2017, 04/07/2015 Lipid Screening Discontinued 06/12/2018, 10/07, 03/14/2017, Additional history exists Diabetes Mellitus Eye Exam (Yearly) Discontinued 06/25/2019, 04/09/2018, 01/07/2015 Influenza Vaccination (Yearly) Discontinued 0 06/25/2019, 06/26/2018 (Patient/Parent/Guardian Counseled and Declines), 03/14/2017, Additional history exists Medical Devices Implanted Type Area Flat Breakdown Processor Device Identifier Shelf Expiration Date Model / Serial / Lot Graft Mesh Sheet Pp 3x6 Implanted:Qty : 1 on 05/26/2013 by Liss Parker MD at [facility] Right: Umbilical * [employer] 03/08/2018 [id number] / / [id number] Procedures Procedure Name Priority Date/Time Associated Diagnosis Comments AMB REFERRAL TO OPHTHALMOLOGY Routine 06/25/2019 FECAL IMMUNOCHEMICAL TEST Routine 06/26/2018 9:26 PM EST Screening for colon cancer LIPID PROFILE Routine 06/12/2018 2:30 PM EST Mixed hyperlipidemia EXTERNAL COLONOSCOPY - SEE COMMENT Routine 09/11/2016 HEPATITIS C AB WITH REFLEX TO HCV,RNA,QUANT PCR Routine 05/20/2014 2:00 PM EST Need for hepatitis C screening test from Last 3 Months or Most Recently Relevant to Health Maintenance Results * AMB REFERRAL TO OPHTHALMOLOGY (06/25/2019) us Historical Provider OUTPATIENT REFERRAL ORDERABL ES Final Result [facility] [address] [place] [address] * FECAL IMMUNOCHEMICAL TEST (06/26/2018 9:26 PM EST) Fecal Immunochemical Test Negative Negative [facility] Feces 06/26/2018 9:26 PM EST 06/26/2018 9:27 PM EST Ana Velarde DIRECTOR BLOOD BANK BODY FLUIDS, STOOLS, AND OTHER Final Result Performing Organization Address [facility] de Phone Number [facility] [address] * (ABNORMAL) LIPID PROFILE (06/12/2018 2:30 PM EST) Cholesterol 158 125 - 199 mg/dL [facility] Comment: TOTAL CHOLESTEROL INTERPRETATION: Less than 200 mg/dL Desireable 200-239 mg/dL Borderline Greater or Equal to 240 mg/dL High LDL Calculated 79 0 - 100 mg/dL [facility] Comment: LDL CHOLESTEROL INTERPRETATION: Less than 100 mg/dL Optimal 100-129 mg/dL Near optimal/above optimal 130-159 mg/dL Borderline High 160-189 mg/dL High Greater or Equal to 190 mg/dL Very High HDL 42 40 - 180 mg/dL [facility] Comment: HDL CHOLESTEROL INTERPRETATION: Less than 40 mg/dL Low Greater than 60 mg/dL Desirable Triglycerides 187(H) 0 - 150 mg/dL [facility] Comment: TOTAL TRIGLYCERIDE INTERPRETATION: Less than 150 mg/dL Normal 150-199 mg/dL Borderline HIgh 200-499 mg/dL High Greater or Equal to 500 mg/dL Very High Plasma 06/12/2018 2:30 PM EST 06/12/2018 7:57 PM EST Narrative [facility] - 06/12/2018 8:15 PM EST Has the patient fasted?->Yes Ana Velarde DIRECTOR BLOOD BANK CHEMISTRY ORDERABLES Fin al Result Performing Organization Address [facility] de Phone Number [facility] [address] * EXTERNAL COLONOSCOPY - SEE COMMENT (09/11/2016) Historical Provider MS IMAGING Final Result * HEPATITIS C AB (05/20/2014 2:00 PM EST) HCV Qual Interp Nonreactive Nonreactive [facility] Comment:IgG and IgM anti-HCV not detected. Signal/Cutoff 0.10 0.00 - 1.00 S/CO [facility] Serum 05/20/2014 2:00 PM EST 05/20/2014 2:00 PM EST us Ana Velarde DIRECTOR BLOOD BANK HEMATOLOGY ORDERABLES Fi nal Result [facility] [address] [place] [address], [facility] from Last 3 Months or Most Recently Relevant to Health Maintenance Insurance MEDICARE MEDICARE AETNA MEDICARE AET Care Teams Medicaid Analyst Relationship Specialty [place] [address] [place] [address] PCP - General Family Medicine 09/21/20 Craig Salazar MD [address] [facility] [address] [place] [address] Cardiology 07/27/20 Liss Parker MD [address] [facility] [address] [place] [address] General Surgery 06/16/22
--- OUTSIDE RECORDS SUMMARY | 2025-05-02 11:43 | XMS_ITS | Encounter Summary ---
Author Organization [employer] ([place], [place], [place], [place], [place]) Address [address] [place] [address] Care Team Providers Care Compatibility Test Engineer Name Role Phone Tony Calabrese MD Primary Care Provider [phone] Jean-Pierre Cabrera MD Unavailable [phone] Kd Prince PA-C Unavailable [phone] Renae Car APRN Unavailable Encounter Details Date Type Department Care Team (Late st Contact Info) Description 01/18/2021 Transcribed Document [facility] [place] Family Medicine [address] [place] [address] ProviderLiz MD [address] [place] [address] Social History Tobacco Use Types Packs/Day [...] Note - Liz Patel MD - 01/18/2021 8:[address] [facility] Entered On: 01/18/2021 8:48 EDT Performed On: 01/18/2021 8:48 EDT by MARY JANE HUMPHREY PT [facility] Physical Therapy Screen : 1 MARY JANE HUMPHREY, PT - 01/18/2021 8:48 EDT Electronically signed by Rosa, [facility] Conversion Extract [employer] at 09/26/2022 9:26 AM CDT documented in this encounter Plan of Treatment Not on file documented as of this encounter Visit Diagnoses Not on filedocumented in this encounter Care Teams Compatibility Test Engineer Relationship Specialty Start Date End Date Tony Calabrese MD [address] [place] [address] PCP - General Family Medicine 06/06/22 Jean-Pierre Cabrera MD [address] [facility] [address] [place] [address] Surgeon Cardiothoracic Surgery 06/26/23 Kd Prince PA-C [address] [place] [address] Station Operator Cardiology 06/26/23 Renae Car, JOSÉ MIGUEL [address] [facility] [address] [place] [address] Cardiology 09/30/23 documented as of this encounter
--- OUTSIDE RECORDS SUMMARY | 2025-05-02 11:43 | XMS_ITS | Encounter Summary ---
Author Organization [facility] ([place], [place], [place], [place], [place]) Address [address] [place] [address] Care Team Providers Care Retail Sales Vitamin Consultant Name Role Phone Tony Calabrese MD Primary Care Provider [phone] Jean-Pierre Cabrera MD Unavailable [phone] Kd Prince PA-C Unavailable [phone] Renae Car APRN Unavailable [phone] Encounter Details Date Type Department Care Team (Late st Contact Info) Description 06/12/2018 Transcribed Document [facility] [place] [address] [place] [address] ProviderLiz MD [address] [place] [address] Social History Tobacco Use Types Packs/Day Years Used Date Smoking Tobacco: Never Assessed Sex and Gender Information Value Date Recorded Sex Assigned at Male 08/26/2022 2:31 AM CDT Legal Sex Male 5:38 PM CDT Gender Identity Male 08/26/2022 2:31 AM CDT Sexual Orientation Not on file documented as of this encounter Miscellaneous Notes * Cerner Conversion Note - Liz Patel MD - 06/12/2018 8:20 PM POULTRY PROCESSOR DATE OF ADMISSION: 06/12/2018 HISTORY OF PRESENT ILLNESS: This is a 62-year-old male with a chief complaint of chronic lower back pain for several years' duration. The patient presents today for a followup visit. The patient does continue to complain of pain especially around the coccyx. He states that that is the most painful spot for him. He notes that it is burning. The patient states these have in burning and numbness down his left leg to the bottom of his left foot. He states that he has very discouraged, as he thought that he has had four back surgeries and his pain would at some point get better. He states that he has just had increased pain since surgery. He said that he feels like it is affecting his mood and he is frustrated because he feels like there is nothing he can do. The patient states that he has tried to use heat on his feet, but that does not seem to give him much relief. The patient states he does use a compounding cream to help some. He has also been trying to take the Duexis, but he states, that does not seem to help either. He states that he works long hours for the [employer]. He states that due to that he feels like he is on his feet for long periods to where he is unable to sit as he would like. He states that his pain is affecting his life and is very upsetting to him. 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 Due to that, he is unable to take certain medications that would be beneficial to him otherwise. The patient states that he did get new insoles for his shoes and that may helped some, but at the end of the day, his feet are very painful and hurting due to staying on it for long periods of time. The patient's AMPARO was reviewed and found to be appropriate at today's office visit. Of note, the patient is not prescribed any opioid medications from this clinic. The patient previously was seen at [facility]. At that time, they did discuss the spinal cord stimulator with him. He states that he was not sure if he would be interested at that time, but he did do a psych evaluation at that time and states that he was determined not to be a candidate due to his depression and things that he had going on at that time. The patient states that he would like to see if he could have another psych evaluation to see if he can be a candidate now. He states that he has no other options except that so he would like to least proceed to see if he could be a candidate. REVIEW OF SYSTEMS: Constitutional, Respiratory, Cardiovascular, Ophthalmology, Gastrointestinal, Genitourinary, ENT, Musculoskeletal, Integumentary, Neurology, Psychiatry, Endocrine, Hematology were not changed from 05/13/2018. PHYSICAL EXAMINATION: VITAL SIGNS: Blood pressure 145/90, weight 185 pounds, height 5 feet 7 inches, heart rate 106, respiratory rate 16, O2 saturation 96% on room air, temperature 96.7. Hours of sleep 6. Pain 01/16. No change in physical and neurological exam. Muscle tone power sensory and deep tendon reflexes were unchanged. The nurse notes, vital signs, and medication were reviewed and evaluated. ASSESSMENT: 1. Chronic lower back pain secondary to degenerative joint disease and degenerative disk disease of lumbosacral spine. 2. Multiple failed back surgeries. 3. Lumbosacral radiculopathy. 4. Lumbosacral spondylosis. PLAN: 1. Continue using compounding cream 3-4 times a day as needed for back pain and other joint pains. 2. Continue Duexis 800/ mg take one tablet by mouth 3 times a day as needed. 3. The patient did get insoles for his shoes and states that provides him with some alleviation of pain, but not much due to being on his feet for long hours. 4. I have encouraged the patient to continue doing some exercises to include walking, stretching along with range of motion exercises. 5. Discussed with the patient that we can do injection therapy for him to try to help alleviate his pain. He declined at this time and states that he would like to see if he is a candidate for the spinal cord stimulator. 6. Schedule her with spinal cord stimulator psych evaluation with Dr. Morgan to determine if the patient is a candidate for the spinal cord stimulator at this time. 7. The patient was given a spinal cord stimulator DVD for the [employer]. He states, he will review this information and determine if he would like to proceed with that company or not. 8. The patient is going to follow up in one month for re-evaluation and medication management. He is going to follow up after he has met with Dr. Morgan for this psych evaluation. 9. The assessment and plan for today's visit has been reviewed by Dr. Thorne. However, all medications were prescribed by me for this patient's treatment plan. Dictated By: Neeta Mancilla APRN For Guicho Thorne M.D., [facility] Pain Certified Guicho Thorne M.D., [facility] Pain Certified Dict: 06/12/2018 20:20:17 Trans: 06/12/2018 21:55:41 Processed: 06/15/2018 12:03:55 Eastern CC1: Guicho Thorne M.D., [facility] Pain Certified CC2: Dave Levine M.D. documented in this encounter Plan of Treatment Not on file documented as of this encounter Visit Diagnoses Not on filedocumented in this encounter Care Teams Retail Sales Vitamin Consultant Relationship Specialty Start Date End Date Tony Calabrese MD [address] [place] [address] PCP - General Family Medicine 06/06/22 Jean-Pierre Cabrera MD [address] [facility] [address] [place] [address] Surgeon Cardiothoracic Surgery 06/26/23 Kd Prince PA-C [address], [facility] [[email or web address] [address] [place] [address] Upper Trimmer Cardiology 06/26/23 Renae Car APRN [address] [facility] [address] [place], [place] [id number] Cardiology 09/30/23 documented as of this encounter
--- OUTSIDE RECORDS SUMMARY | 2025-05-02 11:43 | XMS_ITS | Encounter Summary ---
Author Organization [employer] ([place], [place], [place], [place], [place]) Address [address] [place] [address] Care Team Providers Care C D Reactor Operator Name Role Phone Tony Calabrese MD Primary Care Provider [phone] Jean-Pierre Cabrera MD Unavailable [phone] Kd Prince PA-C Unavailable [phone] Renae Car APRN Unavailable [phone] Encounter Details Date Type Department Care Team (Late st Contact Info) Description 01/16/2021 Transcribed Document [facility] [place] [address] [place] [address] ProviderLiz MD [address] [place] [address] Social History Tobacco Use Types Packs/Day [...] Note - Liz Patel MD - 01/16/2021 9:38 AM CDT Height and Weight, Routine Entered On: 01/17/2021 5:32 EDT Performed On: 01/16/2021 9:38 EDT by Darleen King, MICHAEL-PATIENT CARE BEDSIDE NON-EXEMPT Height and Weight, Routine Routine Weight Source : Bed scale Routine Weight Entry Format : Young Routine Weight, Pounds : 180 lb Routine Weight Calculation : 81.82 kg Height Source : Stated Height Entry Format : Young Height, Feet : 5 ft Height, Inches : 7 Inch Clinical Height : 170.18 cm Body Surface Area (BSA), Routine : 1.94 m2 Body Mass Index (BMI), Routine : 28.25 kg/m2 Darleen King RN-PATIENT CARE BEDSIDE NON-EXEMPT - 01/17/2021 5:32 EDT Electronically signed by [facility] Conversion [employer]ner at 09/26/2022 9:11 AM CDT documented in this encounter Plan of Treatment Not on file documented as of this encounter Visit Diagnoses Not on filedocumented in this encounter Care Teams C D Reactor Operator Relationship Specialty Start Date End Date Tony Calabrese MD [address] [place] [address] PCP - General Family Medicine 06/06/22 Jean-Pierre Cabrera MD [address] [facility] [address] [place], [place] [id number] Surgeon Cardiothoracic Surgery 06/26/23 Kd Prince PA-C [address] [place] [address] Ux Developer Designer Cardiology 06/26/23 Renae Car APRN [address] [facility] [address] [place], [place] [address] Cardiology 09/30/23 documented as of this encounter
--- OUTSIDE RECORDS SUMMARY | 2025-05-02 11:43 | XMS_ITS | Encounter Summary ---
Author Organization [employer] ([place], [place], [place], [place], [place]) Address [address] [place] [address] Care Team Providers Care Engineering Analyst Name Role Phone Tony Calabrese MD Primary Care Provider [phone] Jean-Pierre Cabrera MD Unavailable [phone] Kd Prince PA-C Unavailable [phone] Renae Car APRN Unavailable [phone] Encounter Details Date Type Department Care Team (Late st Contact Info) Description 12/22/2020 Transcribed Document [facility] [place] [place] Family Medicine [address] [place] [address] ProviderLiz MD [address] [place] [address] Social History Tobacco Use Types Packs/Day [...] Note - Liz Patel MD - 12/22/2020 2:00 AM CDT Commodities Clerk Details Entered On: 12/22/2020 4:33 EDT Performed On: 12/22/2020 2:00 EDT by Ban Loyola Rn-Traveler Order Details Transport Mode Order Detail : Bed (including specialty) Isolation Precautions Order Detail : Standard Precautions Order Detail : N/A IV Order Detail : 1 Oxygen Order Detail : 0 Lift/Transfer : Minimal Central Line Order Detail : No Room Service : Appropriate Arterial Line : No Patient Needs Meds Crushed/Liquid : No Ban Loyola Rn-Traveler - 12/22/2020 4:33 EDT Electronically signed by [facility], [facility] Conversion Grinder Set Up Operator [employer] at 09/26/2022 9:21 AM CDT documented in this encounter Plan of Treatment Not on file documented as of this encounter Visit Diagnoses Not on filedocumented in this encounter Care Teams Engineering Analyst Relationship Specialty Start Date End Date Tony Calabrese MD [address] [place] [address] PCP - General Family Medicine 06/06/22 Jean-Pierre Cabrera MD [address] [facility] [address] [place], [place] [id number] Surgeon Cardiothoracic Surgery 06/26/23 Kd Prince PA-C [address], [address] [place] [address] Occupational Health Nurse Cardiology 06/26/23 Renae Car APRN [address] [facility] [address] [place], [place] [address] Cardiology 09/30/23 documented as of this encounter
--- OUTSIDE RECORDS SUMMARY | 2025-05-02 11:44 | XMS_ITS | Encounter Summary ---
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 [place] [address] [place] [id number] ProviderLiz MD [address] [place] [id number] Social History Tobacco Use Types Packs/Day Years Used Date Smoking Tobacco: Never Assessed Sex and Gender Information Value Date Recorded Sex Assigned at Male 08/26/2022 2:31 AM CDT Legal Sex Male 5:38 PM CDT Gender Identity Male 08/26/2022 2:31 AM CDT Sexual Orientation Not on file documented as of this encounter Miscellaneous Notes * Cerner Conversion Note - Liz Patel MD - 10/05/2018 4:11 PM CDT [facility] [place] [place] [address] BULMARO ELLISON :1955 Visit Time:10/05/2018 What to do next Your Diagnosis Postlaminectomy syndrome, not elsewhere classified, Postlaminectomy syndrome, not elsewhere classified Instructions From Your Care Team Diet after Discharge: Resume usual diet as tolerated, Do not drink any alcoholic beverages, Drink at least 8-10 glasses of water per day Activity after Discharge: As tolerated, Rest and relax today, No strenuous activity Lifting Restrictions: No heavy lifting over 10 pounds, no bending, twisting or overhead work Driving after Discharge: Do not drive until 24 hours after no longer taking pain medications Showering/Bathing: No showering, No tub bathing, soaking or swimming, sponge bathe only Notify Provider of: temperature 101 or greater, redness, swelling, excessive bleeding, pus drainage, new loss of sensation Wound/Incision Care after Discharge: Keep operative site/wound site clean and dry, DO NOT change dressing; may reinforce it as needed wear abdominal binder at all times when out of bed Medications What How Much When Instructions Next Dose Unchanged acetaminophen (Tylenol 325 mg oral tablet) 2 Tablet(s) Oral Every 4 Hours as needed for as needed for pain not to exceed 4000 mg/ day Unchanged acetaminophen-hydrocodone (acetaminophen-HYDROcodone 325 mg-7.5 mg oral tablet) Oral As needed for as needed for pain Unchanged aspirin 81 Milligram(s) Oral Every Day Unchanged atorvastatin 80 Milligram(s) Oral At Bedtime Unchanged hydroCHLOROthiazide-lisinopril (hydrochlorothiazide-lisinopril 25 mg-20 mg oral tablet) 1 Tablet(s) Oral Every Day Unchanged metFORMIN 500 Milligram(s) Oral Two Times A Day Unchanged multivitamin with minerals (Calcium 600+D Plus Minerals oral tablet, chewable) 1 Tablet(s) Chew At Bedtime Unchanged omega-3 polyunsaturated fatty acids (Fish Oil) 1,200 Milligram(s) Oral Every Day Take your medications faithfully. Do NOT skip [...] Please dispose of unused and medications per pharmacy guidance. Education Materials General Anesthesia, Adult, Care After These instructions provide you with information about caring for yourself after your procedure. Your health care provider may also give you more specific instructions. Your treatment has been planned according to current medical practices, but problems sometimes occur. Call your health care provider if you have any problems or questions after your procedure. What can I expect after the procedure? After the procedure, it is common to have: ??? Vomiting. ??? A sore throat. ??? Mental slowness. It is common to feel: ??? Nauseous. ??? Cold or shivery. ??? Sleepy. ??? Tired. ??? Sore or achy, even in parts of your body where you did not have surgery. Follow these instructions at home: For at least 24 hours after the procedure: ??? Do not: ? Participate in activities where you could fall or become injured. ? Drive. ? Use heavy machinery. ? Drink alcohol. ? Take sleeping pills or medicines that cause drowsiness. ? Make important decisions or sign legal documents. ? Take care of children on your own. ??? Rest. Eating and drinking ??? If you vomit, drink water, juice, or soup when you can drink without vomiting. ??? Drink enough fluid to keep your urine clear or pale yellow. ??? Make sure you have little or no nausea before eating solid foods. ??? Follow the diet recommended by your health care provider. General instructions ??? Have a responsible adult stay with you until you are awake and alert. ??? Return to your normal activities as told by your health care provider. Ask your health care provider what activities are safe for you. ??? Take blps-zpc-sgpxuyj and prescription medicines only as told by your health care provider. ??? If you smoke, do not smoke without supervision. ??? Keep all follow-up visits as told by your health care provider. This is important. Contact a health care provider if: ??? You continue to have nausea or vomiting at home, and medicines are not helpful. ??? You cannot drink fluids or start eating again. ??? You cannot urinate after 8???12 hours. ??? You develop a skin rash. ??? You have fever. ??? You have increasing redness at the site of your procedure. Get help right away if: ??? You have difficulty breathing. ??? You have chest pain. ??? You have unexpected bleeding. ??? You feel that you are having a life-threatening or urgent problem. This information is not intended to replace advice given to you by your health care provider. Make sure you discuss any questions you have with your health care provider. Document Released: 09/01/2001 Document Revised: 10/28/2016 Document Reviewed: 05/09/2016 [employer] Patient Education ?? 2017 [employer]. oxycodone (ox i KOE done) Oxaydo, OxyCONTIN, Oxyfast, Roxicodone, Xtampza ER What is the most important information I should know about oxycodone? MISUSE OF OPIOID MEDICINE CAN CAUSE ADDICTION, OVERDOSE, OR . Keep the medication in a place where others cannot get to it. Taking opioid medicine during may cause life-threatening withdrawal symptoms in the . Fatal side effects can occur if you use opioid medicine with alcohol, or with other drugs that cause drowsiness or slow your breathing. What is oxycodone? Oxycodone is an opioid pain medication used to treat moderate to severe pain. The extended-release form of oxycodone is for jjewai-mkp-qkxpo treatment of pain and should not be used on an as-needed basis for pain. Oxycodone may also be used for purposes not listed in this medication guide. What should I discuss with my healthcare provider before using oxycodone? You should not use oxycodone if you are allergic to it, or if you have: ? severe asthma or breathing problems; or ?? a blockage in your stomach or intestines. You should not use oxycodone unless you are already using a similar opioid medicine and are tolerant to it. Most brands of oxycodone are not approved for use in people under 18. OxyContin should not be given to a child younger than 11 years old. Tell your doctor if you have ever had: ? a head injury, or seizures; ?? drug or alcohol addiction, or mental illness; ?? liver or kidney disease; ?? urination problems; or ?? problems with your gallbladder, pancreas, or thyroid. If you use opioid medicine while you are , your baby could become dependent on the drug. This can cause life-threatening withdrawal symptoms in the baby after it is born. Babies born dependent on opioids may need medical treatment for several weeks. Do not breast-feed. Oxycodone can pass into breast milk and may cause drowsiness, breathing problems, or in a nursing baby. How should I use oxycodone? Follow the directions on your prescription label and read all medication guides. Never use oxycodone in larger amounts, or for longer than prescribed. Tell your doctor if you feel an increased urge to take more of this medicine. Never share opioid medicine with another person, especially someone with a history of drug abuse or addiction. MISUSE CAN CAUSE ADDICTION, OVERDOSE, OR . Keep the medication in a place where others cannot get to it. Selling or giving away opioid medicine is against the law. Stop taking all other xkatss-roc-terxv narcotic pain medicines when you start taking extended-release oxycodone. Take oxycodone with food. Swallow the capsule or tablet whole to avoid exposure to a potentially fatal overdose. Do not crush, chew, break, open, or dissolve. Never crush or break an oxycodone pill to inhale the powder or mix it into a liquid to inject the drug into your vein. This can cause in . Measure liquid medicine carefully. Use the dosing syringe provided, or use a medicine dose-measuring device (not a kitchen spoon). You should not stop using oxycodone suddenly. Follow your doctor's instructions about tapering your dose. Store at room temperature, away from heat, moisture, and light. Keep track of your medicine. Oxycodone is a drug of abuse and you should be aware if anyone is using your medicine improperly or without a prescription. Do not keep leftover opioid medication. Just one dose can cause in someone using this medicine accidentally or improperly. Ask your pharmacist where to locate a drug take-back disposal program. If there is no take-back program, flush the unused medicine down the toilet. What happens if I miss a dose? Since oxycodone is used for pain, you are not likely to miss a dose. Skip any missed dose if it is almost time for your next dose. Do not use two doses at one time. What happens if I overdose? Seek emergency medical attention or call the Poison Help line at . An oxycodone overdose can be fatal, especially in a child or other person using the medicine without a prescription. Overdose can cause severe muscle weakness, pinpoint pupils, very slow breathing, extreme drowsiness, or coma. What should I avoid while using oxycodone? Do not drink alcohol. Dangerous side effects or could occur. Avoid driving or operating machinery until you know how oxycodone will affect you. Dizziness or severe drowsiness can cause falls or other accidents. Avoid medication errors. Always check the brand and strength of oxycodone you get from the pharmacy. What are the possible side effects of oxycodone? Get emergency medical help if you have signs of an allergic reaction: hives; difficult breathing; swelling of your face, lips, tongue, or throat. Opioid medicine can slow or stop your breathing, and may occur. A person caring for you should seek emergency medical attention if you have slow breathing with long pauses, blue colored lips, or if you are hard to wake up. Call your doctor at once if you have: ? noisy breathing, sighing, shallow breathing; ?? a slow heart rate or weak pulse; ?? a light-headed feeling, like you might pass out; ?? confusion, unusual thoughts or behavior; ?? seizure (convulsions); or ?? low cortisol levels-- nausea, vomiting, loss of appetite, dizziness, worsening tiredness or weakness. Seek medical attention right away if you have symptoms of serotonin syndrome, such as: agitation, confusion, fever, sweating, fast heart rate, chest pain, feeling short of breath, muscle stiffness, trouble walking, or feeling faint. Serious side effects may be more likely in older adults and those who are malnourished or debilitated. Long-term use of opioid medication may affect fertility (ability to have children) in men or women. It is not known whether opioid effects on fertility are permanent. Common side effects may include: ? drowsiness, headache, dizziness, tiredness; or ?? constipation, stomach pain, nausea, vomiting. This is not a complete list of side effects and others may occur. Call your doctor for medical advice about side effects. You may report side effects to FDA at 8-112-OZX-5631. What other drugs will affect oxycodone? You may have breathing problems or withdrawal symptoms if you start or stop taking certain other medicines. Tell your doctor if you also use an antibiotic, antifungal medication, heart or blood pressure medication, seizure medication, or medicine to treat HIV or hepatitis C. Opioid medication can interact with many other drugs and cause dangerous side effects or . Be sure your doctor knows if you also use: ? cold or allergy medicines, bronchodilator asthma/COPD medication, or a diuretic ('water pill'); ?? medicines for motion sickness, irritable bowel syndrome, or overactive bladder; ?? other narcotic medications--opioid pain medicine or prescription cough medicine; ?? a sedative like Valium--diazepam, alprazolam, lorazepam, Xanax, Klonopin, Versed, and others; ?? drugs that make you sleepy or slow your breathing--a sleeping pill, muscle relaxer, medicine to treat mood disorders or mental illness; or ?? drugs that affect serotonin levels in your body--a stimulant, or medicine for depression, Parkinson's disease, migraine headaches, serious infections, or nausea and vomiting. This list is not complete and many other drugs may affect oxycodone. This includes prescription and ayin-eir-pjlryqi medicines, vitamins, and herbal products. Not all possible drug interactions are listed here. Where can I get more information? Your pharmacist can provide more information about oxycodone. Remember, keep this and all other medicines out of the reach of children, never share your medicines with others, and use this medication only for the indication prescribed. Every effort has been made to ensure that the information provided by [employer]. [employer]') is accurate, up-to-date, and complete, but no guarantee is made to that effect. Drug information contained herein may be time sensitive. [employer] information has been compiled for use by healthcare practitioners and consumers in the [place] and therefore [employer] does not warrant that uses outside of the [place] are appropriate, unless specifically indicated otherwise. [employer] drug information does not endorse drugs, diagnose patients or recommend therapy. [employer] drug information is an informational resource designed [...] effective or appropriate for any given patient. [employer] does not assume any responsibility for any aspect of healthcare administered with the aid of information [employer] provides. The information contained herein is not intended to cover all possible uses, directions, precautions, warnings, drug interactions, allergic reactions, or adverse effects. If you have questions about the drugs you are taking, check with your doctor, nurse or pharmacist. Copyright 8758-6095 [employer]. Version: 13.02. Revision Date: 05/06/2018.cephalexin (sef a LEON in) Sara, Kemichael What is the most important information I should know about cephalexin? You should not use this medicine if you are allergic to cephalexin or to similar antibiotics, such as Ceftin, Cefzil, Omnicef, and others. Tell your doctor if you are allergic to any drugs, especially penicillins or other antibiotics. What is cephalexin? Cephalexin is a cephalosporin (SEF a low spor in) antibiotic that is used to treat bacterial infections of the lungs, ear, skin, bones, bladder, and kidneys. Cephalexin is used to treat infections in adults and children who are at least 1 year old. Cephalexin may also be used for purposes not listed in this medication guide. What should I discuss with my healthcare provider before taking cephalexin? You should not use this medicine if you are allergic to cephalexin or to other cephalosporin antibiotics, such as: ? cefaclor (Ceclor), cefadroxil (Duricef), cefazolin (Ancef, Kefzol); ?? cefdinir (Omnicef), cefditoren (Spectracef); ?? cefixime (Suprax); ?? cefotaxime (Claforan), cefotetan (Cefotan); ?? cefpodoxime (Vantin), cefprozil (Cefzil); ?? ceftaroline (Teflaro), ceftazidime (Ceptaz, Fortaz), ceftriaxone (Rocephin); ?? cefuroxime (Ceftin), and others. Tell your doctor if you have ever had: ? an allergy to any drug (especially penicillin); ?? liver or kidney disease; or ?? intestinal problems, such as colitis. The liquid form of cephalexin may contain sugar. This may affect you if you have diabetes. Tell your doctor if you are or breast-feeding. How should I take cephalexin? Follow all directions on your prescription label and read all medication guides or instruction sheets. Use the medicine exactly as directed. Do not use cephalexin to treat any condition that has not been checked by your doctor. Shake the oral suspension (liquid) before you measure a dose. Use the dosing syringe provided, or use a medicine dose-measuring device (not a kitchen spoon). Use this medicine for the full prescribed length of time, even if your symptoms quickly improve. Skipping doses can increase your risk of infection that is resistant to medication. Cephalexin will not treat a viral infection such as the flu or a common cold. Do not share cephalexin with another person, even if they have the same symptoms you have. This medicine can affect the results of certain medical tests. Tell any doctor who treats you that you are using cephalexin. Store the tablets and capsules at room temperature away from moisture, heat, and light. Store the liquid medicine in the refrigerator. Throw away any unused liquid after 14 days. What happens if I miss a dose? Take the medicine as soon as you can, but skip the missed dose if it is almost time for your next dose. Do not take two doses at one time. What happens if I overdose? Seek emergency medical attention or call the Poison Help line at . Overdose symptoms may include nausea, vomiting, stomach pain, diarrhea, and blood in your urine. What should I avoid while taking cephalexin? Antibiotic medicines can cause diarrhea, which may be a sign of a new infection. If you have diarrhea that is watery or bloody, call your doctor before using anti-diarrhea medicine. What are the possible side effects of cephalexin? Get emergency medical help if you have signs of an allergic reaction (hives, difficult breathing, swelling in your face or throat) or a severe skin reaction (fever, sore throat, burning eyes, skin pain, red or purple skin rash with blistering and peeling). Call your doctor at once if you have: ? severe stomach pain, diarrhea that is watery or bloody (even if it occurs months after your last dose); ?? unusual tiredness, feeling light-headed or short of breath; ?? easy bruising, unusual bleeding, purple or red spots under your skin; ?? a seizure; ?? pale skin, cold hands and feet; ?? yellowed skin, dark colored urine; ?? fever, weakness; or ?? pain in your side or lower back, painful urination. Common side effects may include: ? diarrhea; ?? nausea, vomiting; ?? indigestion, stomach pain; or ?? vaginal itching or discharge. This is not a complete list of side effects and others may occur. Call your doctor for medical advice about side effects. You may report side effects to FDA at 3-250-ZSR-7947. What other drugs will affect cephalexin? Tell your doctor about all your other medicines, especially: ? metformin; or ?? probenecid. This list is not complete. Other drugs may affect cephalexin, including prescription and hlhl-qac-sexlbpc medicines, vitamins, and herbal products. Not all possible drug interactions are listed here. Where can I get more information? Your pharmacist can provide more information about cephalexin. Remember, keep this and all other medicines out of the reach of children, never share your medicines with others, and use this medication only for the indication prescribed. Every effort has been made to ensure that the information provided by [employer]. [employer]') is accurate, up-to-date, and complete, but no guarantee is made to that effect. Drug information contained herein may be time sensitive. [employer] information has been compiled for use by healthcare practitioners and consumers in the [place] and therefore [employer] does not warrant that uses outside of the [place] are appropriate, unless specifically indicated otherwise. [employer]'s drug information does not endorse drugs, diagnose patients or recommend therapy. [employer] drug information is an informational resource designed [...] effective or appropriate for any given patient. [employer] does not assume any responsibility for any aspect of healthcare administered with the aid of information [employer] provides. The information contained herein is not intended to cover all possible uses, directions, precautions, warnings, drug interactions, allergic reactions, or adverse effects. If you have questions about the drugs you are taking, check with your doctor, nurse or pharmacist. Copyright 4487-0264 [employer]. Version: 10.01. Revision Date: 06/05/2018. Emergency Awareness and Preventative Care STROKE is [...] Assistance with quitting is available by contacting 3-734-JQQJ-NOW. This is a free resource providing counseling, support, and referral. Or you may contact your personal physician. National Suicide Prevention Lifeline: The National Suicide Prevention Lifeline is a [...] CPR? There are two easy steps: Call if you see a teen or adult [...] and how to prevent infections, visit www.cdc.gov/sepsis. Patient Portal Reminder: Be sure to sign up for the [employer] patient portal, which gives you 30/12 access to your medical information ??? including these discharge instructions ??? using your computer, smartphone, or tablet. Just go to [employer] to get started. Questions? Call . Test Results Laboratory or Other Results This Visit (last charted value for your 10/05/2018 visit) Hematology 09/29/18 14:47:00 WBC: 11.7 K/uL -- Normal range between ( 3.6 and 9.5 ) RBC: 4.91 Million/uL -- Normal range between ( 4.20 and 5.70 ) Hct: 41.9 % -- Normal range between ( 40.1 and 51.0 ) Hgb: 13.9 g/dL -- Normal range between ( 13.5 and 17.3 ) Platelet Count: 294 K/uL -- Normal range between ( 163 and 369 ) MCH: 28.3 pg -- Normal range between ( 25.6 and 32.2 ) MCHC: 33.2 Gram/dL -- Normal range between ( 32.2 and 36.5 ) MCV: 85.3 fL -- Normal range between ( 79.0 and 94.8 ) Slide Review: No RDW: 13.2 % -- Normal range between ( 11.7 and 14.9 ) MPV: 9.7 fL -- Normal range between ( 9.4 and 12.4 ) General Chemistry 10/05/18 15:37:00 Glucose POC2: 146 mg/dL -- Normal range between ( 70 and 110 ) Device Comment 1: Device Comment 1 10/05/18 11:30:00 Device Comment 3: Device Comment 3 Device Comment 2: Device Comment 2 09/29/18 14:47:00 Creatinine Level: 1.00 mg/dL -- Normal range between ( 0.70 and 1.30 ) Sodium Level: 137 mmol/L -- Normal range between ( 136 and 146 ) Potassium Level: 4.0 mmol/L -- Normal range between ( 3.5 and 5.1 ) Chloride Level: 102 mmol/L -- Normal range between ( 102 and 112 ) Carbon Dioxide Level: 26 mmol/L -- Normal range between ( 21 and 32 ) Anion Gap: 13 -- Normal range between ( 9 and 20 ) Bilirubin Total: 0.3 mg/dL -- Normal range between ( 0.2 and 1.2 ) A/G Ratio: 1.2 -- Normal range between ( 1.1 and 2.5 ) ALT: 39 Units/Liter -- Normal range between ( 16 and 61 ) AST: 17 Units/Liter -- Normal range between ( 5 and 37 ) Globulin: 3.2 Gram/dL -- Normal range between ( 1.5 and 4.5 ) Alk Phos: 78 Units/Liter -- Normal range between ( 27 and 136 ) Bun/Creatinine: 16.0 -- Normal range between ( 8.0 and 20.0 ) Calcium Level: 9.3 mg/dL -- Normal range between ( 8.4 and 10.1 ) eGFR : >60 mL/min/1.73m2 eGFR NonAfrican: >60 mL/min/1.73m2 Glucose Level: 208 mg/dL -- Normal range between ( 74 and 106 ) Blood Urea Nitrogen: 16 mg/dL -- Normal range between ( 7 and 22 ) Protein Total: 7.0 Gram/dL -- Normal range between ( 6.4 and 8.2 ) Albumin Level: 3.8 Gram/dL -- Normal range between ( 3.4 and 5.0 ) Coagulation 09/29/18 14:47:00 INR: 0.9 -- Normal range between ( 0.9 and 1.1 ) PTT: 27.4 Second(s) -- Normal range between ( 22.0 and 32.0 ) PT: 10.1 Second(s) -- Normal range between ( 9.6 and 12.0 ) Patient Name:BULMARO ELLISON I have received this information and was given the opportunity to ask questions. Patient/Dj Instructor Name: Patient/Dj Instructor Signature: Relationship to Patient: Clinician/Hospital Dj Instructor Signature: Date: Electronically signed by Rosa, [facility] Conversion Supervisor Pumping Cerner at 09/26/2022 9:17 AM CDT documented in this encounter Plan of Treatment Not on file documented as of this encounter Visit Diagnoses Not on filedocumented in this encounter Care Teams Coal Pulverizer Operator Relationship Specialty Start Date End Date Tony Calabrese MD [address] [place] [address] PCP - General Family Medicine 06/06/22 Jean-Pierre Cabrera MD [address] [address] Surgeon Cardiothoracic Surgery 06/26/23 Kd Prince PA-C [address] [place] [address] Clinical Pharmacy Coordinator Cardiology 06/26/23 Renae Car, DIRECTOR FRANCHISE SALES [address] [facility] [address] [place] [address] Cardiology 09/30/23 documented as of this encounter
--- OUTSIDE RECORDS SUMMARY | 2025-05-02 11:44 | XMS_ITS | Encounter Summary ---
Author Organization [employer] ([place], [place], [place], [place], [place]) Address [address] [place] [address] Care Team Providers Care Clean Up Worker Name Role Phone Tony Calabrese MD Primary Care Provider [phone] Jean-Pierre Cabrera MD Unavailable [phone] Kd Prince PA-C Unavailable [phone] Renae Car APRN Unavailable [phone] Encounter Details Date Type Department Care Team (Late st Contact Info) Description 08/14/2018 Transcribed Document [facility] [place] Family Medicine [address] [place] [address] ProviderLiz MD [address] [place] [address] Social History Tobacco Use Types Packs/Day Years Used Date Smoking Tobacco: Never Assessed Sex and Gender Information Value Date Recorded Sex Assigned at Male 08/26/2022 2:31 AM CDT Legal Sex Male 5:38 PM CDT Gender Identity Male 08/26/2022 2:31 AM CDT Sexual Orientation Not on file documented as of this encounter Miscellaneous Notes * Cerner Conversion Note - Liz Patel MD - 08/14/2018 7:56 AM COMMUNICATIONS ASSOCIATE DATE OF ADMISSION: 08/13/2018 HISTORY OF PRESENT ILLNESS: This is a 62-year-old male with a chief complaint is chronic lower back pain for several years' duration, came today for followup. The patient is status post spinal cord stimulator trial by Juanjo on August 06, 2018 and came today to be re-evaluated. The patient mentioned that he had great response to the stimulator reaching up to 95%, which is still ongoing. He was able to walk more and able to accomplish so many things at home and outside the house. He denied any problem, complication, or side effect to the stimulator. PHYSICAL EXAMINATION: Blood pressure 152/81, heart rate is 100, respiration 16, saturation 97%, temperature 98.8. Pain level 1. Hours of sleep is 8. Examination of the back showed no swelling, deformity, or discoloration. No sign of oozing, bleeding, or discharge and the dressing looks clean. No change in physical and neurological exam. Muscle tone power sensory and deep tendon reflexes were unchanged. The nurse notes, vital signs, and medication were reviewed and evaluated. ASSESSMENT: 1. Chronic lower back pain secondary to degenerative joint disease and degenerative disk disease to the lumbosacral spine. 2. Patient had history of multiple failed back surgeries. 3. Lumbosacral radiculopathy. 4. Lumbosacral spondylosis. PLAN: 1. I am pleased with the spinal cord stimulator trial that we have on August 06, 2018 that gave the patient 95% relief of pain, which is still ongoing. The patient mentioned that his pain level dropped down to 1/10 and he was able to accomplish many things at home and outside the house. 2. I removed the spinal cord stimulator lead with tip intact and covered the area with Band-Aid. 3. I am going to schedule the patient for spinal cord stimulator implant as soon as possible. Guicho Thorne M.D., RIVER Pain Certified Dict: 08/14/2018 07:56:23 Trans: 08/14/2018 10:09:59 CC1: Guicho Thorne M.D., RIVER Pain Certified documented in this encounter Plan of Treatment Not on file documented as of this encounter Visit Diagnoses Not on filedocumented in this encounter Care Teams Clean Up Worker Relationship Specialty Start Date End Date Tony Calabrese MD [address] [place] [address] PCP - General Family Medicine 06/06/22 Jean-Pierre Cabrera MD 1401 [facility] [address] [place] [address] Surgeon Cardiothoracic Surgery 06/26/23 Kd Prince PA-C [address] [place] [address] Dealership Manager Cardiology 06/26/23 Renae Car, JOSÉ MIGUEL 14[address] [facility] [address] [place] [address] Cardiology 09/30/23 documented as of this encounter
--- OUTSIDE RECORDS SUMMARY | 2025-05-02 11:44 | XMS_ITS | Encounter Summary ---
Author Organization [employer] ([place], [place], [place], [place], [place]) Address [address] [place] [address] Care Team Providers Care Poundmaster Name Role Phone Tony Calabrese MD Primary Care Provider [phone] Jean-Pierre Cabrera MD Unavailable [phone] Kd Prince PA-C Unavailable [phone] Joceline Renae Graham JOSÉ MIGUEL Unavailable [phone] Encounter Details Date Type Department Care Team (Late st Contact Info) Description 10/05/2018 Transcribed Document [facility] [place] Family Medicine [address] [place] [address] ProviderLiz MD [address] [place] [address] Social History Tobacco Use Types Packs/Day Years Used Date Smoking Tobacco: Never Assessed Sex and Gender Information Value Date Recorded Sex Assigned at Male 08/26/2022 2:31 AM CDT Legal Sex Male 5:38 PM CDT Gender Identity Male 08/26/2022 2:31 AM CDT Sexual Orientation Not on file documented as of this encounter Miscellaneous Notes * [employer] Conversion Note - Liz Patel MD - 10/05/2018 4:05 PM CDT Patient Education Materials Follows: General Anesthesia, Adult, Care After These instructions [...] For at least 24 hours after the procedure:??? Do not: ? Participate in activities where [...] activities are safe for you. ??? Take [id number] and prescription medicines only as told by [...] eating again. ??? You cannot urinate after 8?12 hours. ??? You develop a skin rash. [...] 09/01/2001 Document Revised: 10/28/2016 Document Reviewed: 05/09/2016 Elsevier Interactive Patient Education ? 2017 [employer] documented in this encounter Plan of Treatment Not on file documented as of this encounter Visit Diagnoses Not on filedocumented in this encounter Care Teams Poundmaster Relationship Specialty Start Date End Date Tony Calabrese MD [address] [place] [address] PCP - General Family Medicine 06/06/22 Jean-Pierre Cabrera MD 14[address] [facility] [address] [place], [place] [id number] Surgeon Cardiothoracic Surgery 06/26/23 Kd Prince PA-C [address] [place] [address] Postal Superintendent Cardiology 06/26/23 Renae Car APRN [address] [facility] [address] [place] [address] Cardiology 09/30/23 documented as of this encounter
--- OUTSIDE RECORDS SUMMARY | 2025-05-02 11:44 | XMS_ITS | Encounter Summary ---
Author Organization [employer] ([place], [place], [place], [place], [place]) Address [address] [place] [address] Care Team Providers Care Associate Partner Name Role Phone Tony Calabrese MD Primary Care Provider [phone] Jean-Pierre Cabrera MD Unavailable [phone] Kd Prince PA-C Unavailable [phone] PlushRenae gómez APRN Unavailable [phone] Encounter Details Date Type Department Care Team (Late st Contact Info) Description 10/05/2018 Transcribed Document [facility] [place] Family Medicine [address] [place] [address] ProviderLiz MD [address] [place] [address] Social History Tobacco Use Types Packs/Day [...] Note - Liz Patel MD - 10/05/2018 2:00 AM CDT Spiritual Care Assessment Entered On: 10/05/2018 13:13 EDT Performed On: 10/05/2018 11:20 EDT by MANDEEP LAMAS General Information Referred by : Patient Referral Reason Comment : PreSurgery prayer Ministry Provided to : Patient, Family/Significant other Scientologist Preference : Spiritism MANDEEP LAMAS 10/05/2018 13:12 EDT Interventions Emotional Support : Empathic/Engaged listening, Family/Significant other supported, Feelings expressed Spiritual and Scientologist : Prayer shared, Spiritual/Scientologist support provided Change, Adjustment and Loss : Relationships/Community/Support system discussed MANDEEP LAMAS - 10/05/2018 13:12 EDT Outcomes Affect/Behavior Changed : Encouraged Appreciation Expressed : Yes Thoughts, Feelings and Emotions Exp. : Yes Supportive Relationships Described : MANDEEP LAMAS - 10/05/2018 13:12 EDT Electronically signed by [facility] Conversion Preform Plate Maker Cerner at 09/26/2022 9:17 AM CDT documented in this encounter Plan of Treatment Not on file documented as of this encounter Visit Diagnoses Not on filedocumented in this encounter Care Teams Associate Partner Relationship Specialty Start Date End Date Tony Calabrese MD [address] [place] [address] PCP - General Family Medicine 06/06/22 Jean-Pierre Cabrera MD 14[address] [facility] [address] [place], [place] [id number] Surgeon Cardiothoracic Surgery 06/26/23 Kd Prince PA-C [address] [place] [address] Slasher Tender Helper Cardiology 06/26/23 Renae Car APRN [address] [facility] [address] [place] [address] Cardiology 09/30/23 documented as of this encounter
--- OUTSIDE RECORDS SUMMARY | 2025-05-02 11:44 | XMS_ITS | Encounter Summary ---
Author Organization [employer] ([place], [place], [place], [place], [place]) Address [address] [place] [address] Care Team Providers Care Voice Studies Director Name Role Phone Tony Calabrese MD Primary Care Provider [phone] Jean-Pierre Cabrera MD Unavailable [phone] Kd Prince PA-C Unavailable [phone] Renae Car APRN Unavailable [phone] Encounter Details Date Type Department Care Team (Late st Contact Info) Description 10/05/2018 Transcribed Document [facility] [place] Family Medicine [address] [place] [address] ProviderLiz MD [address] [place] [address] Social History Tobacco Use Types Packs/Day [...] Note - Liz Patel MD - 10/05/2018 11:44 AM CDT Patient: BULMARO ELLISON Age: 62 years Sex: Male : 1955 Associated Diagnoses: None Author: SUMMER FULTON APRN Chief Complaint back, LLE pain Review of Systems ROS reviewed as documented in chart no change since last seen by surgeon Health Status Allergies: Allergic Reactions (Selected) No Known Allergies, Allergies (1) Active Reaction No Known Allergies None Documented Current medications: (Selected) Inpatient Medications Ordered HYDROmorphone: 0.25 mg, IV Push, Q10Min, PRN: Pain (Moderate 4-6) HYDROmorphone: 0.5 mg, IV Push, Q10Min, PRN: Pain (Severe 7-10) Lactated Ringers Injection intravenous solution 1,000 mL: 20 mL/Hr, IntraVENous albuterol 2.5 mg/3 mL (0.083%) inhalation solution: 3 mL, Nebulized Inhalation, 1-Time, PRN: Wheezing fentaNYL: 25 mcg, IV Push, 1-Time, PRN: Pain (Severe 7-10) fentaNYL: 25 mcg, IV Push, Q10Min, PRN: Pain fentaNYL: 25 mcg, IV Push, Q10Min, PRN: Pain (Moderate 4-6) haloperidol: 1 mg, IV Push, 1-Time, PRN: Nausea/Vomiting hydrALAZINE: 2.5 mg, IV Push, 1-Time, PRN: Hypertension labetalol: 2.5 mg, IV Push, Q10Min, PRN: Hypertension lidocaine 1% preservative-free injectable solution: 0.5 mL, IntraDermal, 1-Time midazolam: 2 mg, IV Push, Q10Min, PRN: Anxiety ondansetron: 4 mg, IV Push, 1-Time, PRN: Nausea/Vomiting oxyCODONE: 5 mg, Oral, 1-Time, PRN: Pain (Moderate 4-6) promethazine: 5 mg, IV Push, Q10Min, PRN: Other (See Comment) Documented Medications Documented Calcium 600+D Plus Minerals oral tablet, chewable: 1 Tab, Chew, At Bedtime, 0 Refill(s) Fish Oil: 1,200 mg, Oral, Daily, 0 Refill(s) Tylenol 325 mg oral tablet: 2 Tab, Oral, Q4H, not to exceed 4000 mg/day, PRN: as needed for pain, 0 Refill(s) acetaminophen-HYDROcodone 325 mg-7.5 mg oral tablet: Tab, Oral, PRN: as needed for pain, 0 Refill(s) aspirin: 81 mg, Oral, Daily, 0 Refill(s) atorvastatin: 80 mg, Oral, At Bedtime, 0 Refill(s) hydrochlorothiazide-lisinopril 25 mg-20 mg oral tablet: 1 Tab, Oral, Daily, 0 Refill(s) metFORMIN: 500 mg, Oral, BID, 0 Refill(s), Home Medications (8) Active acetaminophen-HYDROcodone 325 mg-7.5 mg oral tablet , PRN, Oral aspirin 81 mg, Oral, Daily atorvastatin 80 mg, Oral, At Bedtime Calcium 600+D Plus Minerals oral tablet, chewable 1 Tab, Chew, At Bedtime Fish Oil 1,200 mg, Oral, Daily hydrochlorothiazide-lisinopril 25 mg-20 mg oral tablet 1 Tab, Oral, Daily metFORMIN 500 mg, Oral, BID Tylenol 325 mg oral tablet 650 mg = 2 Tab, PRN, Oral, Q4H , Medications (15) Active Scheduled: (1) lidocaine 1% *PF* inj 2 mL 0.5 mL, IntraDermal, 1-Time Continuous: (1) lactated ringers 1,000 mL 1,000 mL, IntraVENous, 20 mL/Hr PRN: (13) albuterol 0.083% inh soln 3 mL 3 mL, Nebulized Inhalation, 1-Time fentaNYL 100 mcg/2 mL inj 25 mcg 0.5 mL, IV Push, Q10Min fentaNYL 100 mcg/2 mL inj 25 mcg 0.5 mL, IV Push, Q10Min fentaNYL 100 mcg/2 mL inj 25 mcg 0.5 mL, IV Push, 1-Time haloperidol 5 mg/1 mL inj 1 mg 0.2 mL, IV Push, 1-Time hydrALAZINE 20 mg/1 mL inj 2.5 mg 0.13 mL, IV Push, 1-Time HYDROmorphone 2 mg/1 mL inj 0.25 mg 0.13 mL, IV Push, Q10Min HYDROmorphone 2 mg/1 mL inj 0.5 mg 0.25 mL, IV Push, Q10Min labetalol 20 mg/4 mL inj *SYRINGE* 2.5 mg 0.5 mL, IV Push, Q10Min midazolam 1 mg/1 mL inj 2 mL 2 mg 2 mL, IV Push, Q10Min ondansetron 4 mg/2 mL inj 4 mg 2 mL, IV Push, 1-Time oxyCODONE 5 mg tab 5 mg 1 Tab, Oral, 1-Time promethazine 25 mg/1 mL inj 5 mg 0.2 mL, IV Push, Q10Min Problem list: All Problems Lumbar herniated disc (L1-2) / SNOMED CT 799903145 / Confirmed Peripheral neuropathy, left foot / SNOMED CT 8603128785 / Confirmed Peptic ulcer disease / SNOMED CT 2725081053 / Confirmed Numbness and tingling of foot (great toe) / SNOMED CT 458940369 / Confirmed feels cold, numb Urinary frequency/urgency / SNOMED CT 925960763 / Confirmed Hyperlipidemia / SNOMED CT 72875870 / Confirmed High blood pressure / SNOMED CT 43215652 / Confirmed Leaky heart valve (unsure which one) / SNOMED CT 85634838 / Confirmed Murmur, heart / SNOMED CT 9292769129 / Confirmed Disorder of prostate (BPH) / SNOMED CT 32727708 / Confirmed Diet controlled diabetes mellitus / SNOMED CT 934473336 / Confirmed Deep vein thrombosis (right hip) / SNOMED CT 2048079574 / Confirmed Chest pain / SNOMED CT 71882779 / Confirmed parlor chaperone workup-stated everything was ok 06/2016 Bronchitis / SNOMED CT 37135590 / Confirmed Back pain / SNOMED CT 335990605 / Confirmed At risk for sleep apnea / IMO 84524569 / Confirmed Asthma, childhood / SNOMED CT 871498812 / Confirmed Arthritis / SNOMED CT 1444432 / Confirmed kevin horse in left calf muscle / Confirmed, Active Problems (19) kevin horse [...] Peripheral neuropathy, left foot Urinary frequency/urgency Histories Past Medical History: No active or resolved past medical history items have been selected or recorded. Family History: No family history items have been selected or recorded. Procedure history: spinal cord stimulator in the [...] left foot injury/surgery in 1958 at 2 Years. Social History Social & [...] Status Never smoker . Physical Examination VS/Measurements No qualifying data available, Measurements from flowsheet : Measurements 10/05/2018 11:26 EDT Height Source Measured Height Entry Format [place] Height/Length, KYRGYZ (ft) 0 ft Height/Length KYRGYZ 67.5 Inch CLINICALHEIGHT 171.45 cm [place] Body Weight 66 kg Weight Source Standing scale Weight Entry Format [place] Weight [place] lb 200 lb CLINICALWEIGHT 90.91 kg Body Surface Area (BSA) 2.03 m2 Body Mass Index 30.9 kg/m2 HI General: Alert and oriented, No acute distress. Eye: Pupils are equal, round and reactive to light, Extraocular movements are intact, glasses. HENT: Normocephalic, Normal hearing. Neck: Supple, Non-tender. Respiratory: Lungs are clear to auscultation, Respirations are non-labored. Cardiovascular: Normal rate, Regular rhythm, No gallop, No edema, murmur 3/6 L sternal border. Gastrointestinal: Soft, Non-tender. Genitourinary: No costovertebral angle tenderness. Lymphatics: No lymphadenopathy neck, axilla, groin. Musculoskeletal: painful ROM of back, LLE weakness. Integumentary: Warm, Dry, Robin[place]. Neurologic: Alert, Oriented. Psychiatric: Cooperative, Appropriate mood & affect. Review / Management Results review: Labs (Last four charted values) WBC H 11.7 (SEP 29) HB 13.9 (SEP 29) HCT 41.9 (SEP 29) Plt 294 (SEP 29) Na 137 (SEP 29) K 4.0 (SEP 29) Cl 102 (SEP 29) CO2 26 (SEP 29) BUN 16 (SEP 29) Cr 1.00 (SEP 29) Glu R H 208 (SEP 29) Ca 9.3 (SEP 29) PT 10.1 (SEP 29) INR 0.9 (SEP 29) PTT 27.4 (SEP 29) AST 17 (SEP 29) ALT 39 (SEP 29) ALK P 78 (SEP 29) T Bili 0.3 (SEP 29) PTN 7.0 (SEP 29) ALB 3.8 (SEP 29) , Lab results 10/05/2018 11:30 EDT Device Comment 1 Device Comment 1 Device Comment 2 Device Comment 2 Device Comment 3 Device Comment 3 Glucose POC2 123 mg/dL HI . Impression and Plan Condition: Stable. Electronically signed by Rosa, [facility] Conversion Small Business Director Cerner at 09/26/2022 9:11 AM CDT documented in this encounter Plan of Treatment Not on file documented as of this encounter Visit Diagnoses Not on filedocumented in this encounter Care Teams Voice Studies Director Relationship Specialty Start Date End Date Tony Calabrese MD [address] [place] [address] PCP - General Family Medicine 06/06/22 Jean-Pierre Cabrera MD [address] [facility] [address] [place], [place] [id number] Surgeon Cardiothoracic Surgery 06/26/23 Kd Prince PA-C [address] [place] [address] Staff Anesthesiologist Cardiology 06/26/23 Renae Car, OYSTER FLOATER [address] [facility] [address] [place], [place] [id number] Cardiology 09/30/23 documented as of this encounter
--- OUTSIDE RECORDS SUMMARY | 2025-05-02 11:44 | XMS_ITS | Encounter Summary ---
Author Organization [employer] ([place], [place], [place], [place], [place]) Address [address] [place] [address] Care Team Providers Care Supervisor Vegetable Farming Name Role Phone Tony Calabrese MD Primary Care Provider [phone] Jean-Pierre Cabrera MD Unavailable [phone] Kd Prince PA-C Unavailable [phone] Renae Car APRN Unavailable [phone] Encounter Details Date Type Department Care Team (Late st Contact Info) Description 01/17/[address] [facility] [place] Family Medicine [address] [place] [address] ProviderLiz MD [address] [place] [address] Social History Tobacco Use Types Packs/Day Years Used Date Smoking Tobacco: Never Assessed Sex and Gender Information Value Date Recorded Sex Assigned at Male 08/26/2022 2:31 AM CDT Legal Sex Male 5:38 PM CDT Gender Identity Male 08/26/2022 2:31 AM CDT Sexual Orientation Not on file documented as of this encounter Miscellaneous Notes * Cerner Conversion Note - Liz Patel MD - 01/17/2021 8:47 AM CDT Patient: IAN ELLISON Age: 65 years Sex: Male : 1955 Associated Diagnoses: None Author: ELVIS LUX MD-CAR BASIC PCP: Primary General Adjuster: None Subjective NAD Health Status Allergies: Allergic Reactions (Selected) No Known Allergies, Allergies (1) Active Reaction No Known Allergies None Documented Current medications: (Selected) Inpatient Medications Ordered Colace: 100 mg, Oral, BID Dulcolax Laxative: 5 mg, Oral, Daily, PRN: Constipation DuoNeb 0.5 mg-2.5 mg/3 mL inhalation solution: 3 mL, Nebulized Inhalation, RT_Q6H, PRN: Shortness of Breath Fish Oil: 1,000 mg, Oral, Daily MiraLax: 17 Gram, Oral, Daily, PRN: Constipation Os-Momo 500 + D: 1 Tab, Oral, At Bedtime Pepcid: 20 mg, Oral, Q12H Phenergan: 6.25 mg, IntraVENous, Q6H, PRN: Nausea Roxicodone: 10 mg, Oral, Q4H, PRN: Pain (Severe 7-10) Roxicodone: 5 mg, Oral, Q4H, PRN: Pain (Moderate 4-6) Tylenol: 650 mg, Oral, Q4H, PRN: Pain (Mild 1-3) Zofran: 4 mg, IV Push, Q4H, PRN: Nausea aspirin: 81 mg, Oral, Daily atorvastatin: 80 mg, Oral, At Bedtime heparin: 5,000 Units, SubCutaneous, Q8HInt hydrALAZINE: 10 mg, IV Push, Q6H, PRN: Hypertension insulin lispro sliding scale: Scale C:, SubCutaneous, AC and at Bedtime lisinopril: 10 mg, Oral, Daily melatonin: 3 mg, Oral, At Bedtime, PRN: Insomnia metoprolol tartrate: 12.5 mg, Oral, BID tamsulosin: 0.4 mg, Oral, Daily ticagrelor: 90 mg, Oral, BID Documented Medications Documented Brilinta (ticagrelor) 90 mg oral tablet: 1 Tab, Oral, BID, 0 Refill(s) Calcium 600+D Plus Minerals oral tablet, chewable: 1 Tab, Chew, At Bedtime, 0 Refill(s) Fish Oil 1200 mg oral capsule: 1 Cap, Oral, Daily, 0 Refill(s) Metoprolol Tartrate 25 mg oral tablet: 0.5 Tab, Oral, BID, 30 Tab, 0 Refill(s) Tylenol 325 mg oral tablet: 2 Tab, Oral, Q4H, not to exceed 4000 mg/day, PRN: as needed for pain, 0 Refill(s) aspirin 81 mg oral delayed release tablet: 1 Tab, Oral, Daily, 30 Tab, 0 Refill(s) atorvastatin 80 mg oral tablet: 1 Tab, Oral, At Bedtime, 0 Refill(s) lisinopril 10 mg oral tablet: 1 Tab, Oral, Daily, 30 Tab, 0 Refill(s) metFORMIN 500 mg oral tablet: 1 Tab, Oral, BID, 180 Tab, 0 Refill(s) methocarbamol 750 mg oral tablet: 1 Tab, Oral, TID, PRN: as needed for pain, 0 Refill(s) tamsulosin 0.4 mg oral capsule: 1 Cap, Oral, Daily, 0 Refill(s), Home Medications (11) Active aspirin 81 mg oral delayed release tablet 81 mg = 1 Tab, Oral, Daily atorvastatin 80 mg oral tablet 80 mg = 1 Tab, Oral, At Bedtime Brilinta (ticagrelor) 90 mg oral tablet 90 mg = 1 Tab, Oral, BID Calcium 600+D Plus Minerals oral tablet, chewable [...] 2 Tab, PRN, Oral, Q4H , Medications (22) Active Scheduled: (12) aspirin EC 81 mg tab 81 mg 1 Tab, Oral, Daily atorvastatin 40 mg tab 80 mg 2 Tab, Oral, At Bedtime calcium 500 mg/vit D 200 int unit tab 1 Tab, Oral, At Bedtime docusate sodium 100 mg cap 100 mg 1 Cap, Oral, BID famotidine 20 mg tab 20 mg 1 Tab, Oral, Q12H heparin 5,000 units/1 mL inj 5,000 Units 1 mL, SubCutaneous, Q8HInt insulin lispro 1 unit/0.01 mL inj Scale C:, SubCutaneous, AC and at Bedtime lisinopril 10 mg tab 10 mg 1 Tab, Oral, Daily metoprolol tartrate 25 mg tab 12.5 mg 0.5 Tab, Oral, BID omega-3 fish oil 1,000 mg cap 1,000 mg 1 Cap, Oral, Daily tamsulosin CR 0.4 mg cap 0.4 mg 1 Cap, Oral, Daily ticagrelor 90 mg tab 90 mg 1 Tab, Oral, BID Continuous: (0) PRN: (10) acetaminophen 325 mg tab 650 mg 2 Tab, Oral, Q4H albuterol-ipratropium inh 3 mL 3 mL, Nebulized Inhalation, RT_Q6H bisacodyl EC 5 mg tab 5 mg 1 Tab, Oral, Daily hydrALAZINE 20 mg/1 mL inj 10 mg 0.5 mL, IV Push, Q6H melatonin 3 mg tab 3 mg 1 Tab, Oral, At Bedtime ondansetron 4 mg/2 mL inj 4 mg 2 mL, IV Push, Q4H oxyCODONE 5 mg tab 5 mg 1 Tab, Oral, Q4H oxyCODONE 5 mg tab 10 mg 2 Tab, Oral, Q4H polyethylene glycol 3350 pwd 17 g pkt 17 Gram 1 Packet, Oral, Daily promethazine 25 mg/1 mL inj 6.25 mg 0.25 mL, IntraVENous, Q6H Problem list: All Problems High blood pressure / SNOMED CT 55515739 / Confirmed Hyperlipidemia / SNOMED CT 64127555 / Confirmed Asthma, childhood / SNOMED CT 276058687 / Confirmed Bronchitis / SNOMED CT 43045584 / Confirmed Peptic ulcer disease / SNOMED CT 2664377180 / Confirmed Arthritis / SNOMED CT 6027679 / Confirmed Back pain / SNOMED CT 930278822 / Confirmed kevin horse in left calf muscle / SNOMED CT 53472304 / Confirmed Diet controlled diabetes mellitus / SNOMED CT 631106848 / Confirmed Peripheral neuropathy, left foot / SNOMED CT 9140811150 / Confirmed Murmur, heart / SNOMED CT 0367316270 / Confirmed Leaky heart valve (unsure which one) / SNOMED CT 14230301 / Confirmed Deep vein thrombosis (right hip) / SNOMED CT 5759173336 / Confirmed Chest pain / SNOMED CT 29773148 / Confirmed meter inspector workup-stated everything was ok 06/2016 Disorder of prostate (BPH) / SNOMED CT 18015482 / Confirmed Urinary frequency/urgency / SNOMED CT 175494550 / Confirmed Numbness and tingling of foot (great toe) / SNOMED CT 082129998 / Confirmed feels cold, numb Lumbar herniated disc (L1-2) / SNOMED CT 899426431 / Confirmed At risk for sleep apnea / IMO 98802088 / Confirmed, Active Problems (19) kevin horse [...] Last Charted Minimum Maximum Temp 97.8 (JAN 17:36) 97.8 (JAN 17 05:36) 97.7 (JAN 16:48) Apical HR 85 (JAN 16 21:37) 85 (JAN 16 21:37) 85 (JAN 16 21:37) Mon HR 76 (JAN 17 05:36) 72 (JAN 16:48) 76 (JAN 17 05:36) Resp Rate 17 (JAN 17 05:36) 17 (JAN 17 05:36) 18 (JAN 16 21:48) SBP 135 (JAN 17 05:36) 120 (JAN 16 21:48) 135 (JAN 17 05:36) DBP 76 (JAN 17 05:36) 67 (JAN 16:48) 76 (JAN 17 05:36) MAP 99 (JAN 17 05:36) 85 (JAN 16 21:48) 99 (JAN 17 05:36) SpO2 98 (JAN 17 05:36) 98 (JAN 17 05:36) 100 (JAN 16:48) Results Review JAN 17 03:43 141 110 16 / H 135 4.2 27 0.80 \ JAN 17 03:43 \ L 13.0 / 9.0 257 / 41.2 \ Cardiac Markers (Current Encounter/Past 24 Hours) ProBNP 205 pg/mL PA 01/16/2021 03:57 Radiology Results (Last 48 hours) [id number] -- 01/15/2021 21:13 CR Chest 1 Vw [...] interpreted, and dictated by Carmen Wilson MD troponin 01/15/21 -- <0.015 0.020 <0.015 Echo 12/21/20 Impression: Normal sized left ventricle. Mild left [...] cm AO Root:3.16 cm LVPWd: 1.3 cm Lexiscan myoview 01/16/21 Abnormal Lexiscan Myoview perfusion study. Large area of inferior reversible defect suggestive of ischemia in the right coronary artery territory. There is a partial reversible defect involving the basal mid anterior wall suggestive of ischemia in the diagonal branch territory. Mild to moderate left ventricular systolic dysfunction post stress. Impression and Plan IMPRESSION: * Chest pain * Atherosclerotic cardiovascular disease???status post drug-eluting stent to the left anterior descending artery 12/21/20 Lexiscan-Large inferior and partial anterior reversible defect. EF 38%. * Valvular heart disease A. Moderate MR/AR / , EF 50% * Hypertension * Dyslipidemia * Diabetes mellitus type 2 * Hx PUD PLAN; 01/17/21 Repeat L heart cath with Dr. Stanley today. Continue other current CV meds. 01/16/21 Repeat L heart cath discussed, pt deferring. Allison myoview today. Continue other current CV meds. 01/15/21 Serial cardiac enzymes and EKG Probnp Recommend admission internal medicine rule out CA Continue aspirin, Brilinta, beta-scott If cardiac enzymes elevated will initiate heparin GTT per protocol Further recommendations pending lab results Electronically signed by Rosa, [facility] Conversion Bodily Injury Adjuster Cerner at 09/26/2022 9:09 AM CDT documented in this encounter Plan of Treatment Not on file documented as of this encounter Visit Diagnoses Not on filedocumented in this encounter Care Teams Supervisor Vegetable Farming Relationship Specialty Start Date End Date Tony Calabrese MD [address] [place] [address] PCP - General Family Medicine 06/06/22 Jean-Pierre Cabrera MD [address] [facility] [address] [place] [address] Surgeon Cardiothoracic Surgery 06/26/23 Kd Prince PA-C [address] [place] [id number] General Adjuster Cardiology 06/26/23 Renae Car, JOSÉ MIGUEL [address] [facility] [address] [place] [address] Cardiology 09/30/23 documented as of this encounter
--- OUTSIDE RECORDS SUMMARY | 2025-05-02 11:44 | XMS_ITS | Encounter Summary ---
Author Organization [employer] ([place], [place], [place], [place], [place]) Address [address] [place] [address] Care Team Providers Care Irrigator Valve Pipe Name Role Phone Tony Calabrese MD Primary Care Provider [phone] Jean-Pierre Cabrera MD Unavailable [phone] Kd Prince PA-C Unavailable [phone] Renae Car APRN Unavailable [phone] Encounter Details Date Type Department Care Team (Late st Contact Info) Description 01/17/2021 Transcribed Document [facility] [place] [address] [place] [address] ProviderLiz MD [address] [place] [address] Social History Tobacco Use Types Packs/Day [...] Note - Liz Patel MD - 01/17/2021 1:26 PM CDT Patient: IAN ELLISON Age: 65 Years Sex: Male : 1955 Subjective Date of service 01/17/2021 at 1:01 PM. The patient reports no further chest pain. He denies palpitations. His stress test identified abnormalities and he is due for left heart cath. Nursing staff report that he remains afebrile with stable vital signs and he saturating appropriately on room air. We have reviewed and discussed his morning laboratory results which are stable. Review of systems Constitutional: No fever, no chills Respiratory: No acute dyspnea, no cough Cardiovascular: No chest pain, no palpitation, no increasing pedal edema GI: No nausea, vomiting or diarrhea Neuro: No confusion, no acute motor or sensory changes Vital Signs T: 36.6 ??C TMIN: 36.5 ??C TMAX: 36.6 ??C HR: 69 RR: 18 BP: 152/83 SpO2: 98% HT: 170.18 cm WT: 81.82 kg BMI: 28.25 Oxygen Settings (Last) Oxygen Therapy Mode: Room air (01/17/21 08:56:00) Intake & Output Totals Last 24 Hours [...] negative ???ECG with any reported chest pain ???Abnormal stress test (01/16) ???Due for left heart cath today CAD s/p stent December 2020 ???Kirbykayla Myoview study report reviewed Dual antiplatelet therapy (aspirin & ticagrelor) ???Statin [...] 22:00:00 EDT, 01/15/21 21:04:00 EDT (HARMONY BERNAL) Ticagrelor 90 mg, Oral, Tab, BID, Routine, Start 01/15/21 22:28:00 EDT, 01/15/21 22:28:00 EDT (DOLORES ATELynn) Sequential Compression Device Start: 01/15/21 20:34:00 EDT, [...] 10 mg= 2 Tab, Oral, Q4H, PRN Sodium Chloride 0.9% intravenous solution 500 mL, 500 mL, IntraVENous tamsulosin, 0.4 mg= 1 Cap, Oral, Daily ticagrelor, 90 mg= 1 Tab, Oral, BID Tylenol, 650 mg= 2 Tab, Oral, Q4H, PRN Zofran, 4 mg= 2 mL, IV Push, Q4H, PRN Diagnostic Results Radiology Results (Last 48 hours) [id number] -- 01/15/2021 21:13 CR Chest 1 Vw [...] Test Name Test Result Date/Time Sodium Level 141 mmol/L 01/17/2021 03:43 EDT Potassium Level 4.2 mmol/L 01/17/2021 03:43 EDT Chloride Level 110 mmol/L 01/17/2021 03:43 EDT Carbon Dioxide Level 27 mmol/L 01/17/2021 03:43 EDT Anion Gap 8 (Low) 01/17/2021 03:43 EDT Glucose Level 135 mg/dL (High) 01/17/2021 03:43 EDT Blood Urea Nitrogen 16 mg/dL 01/17/2021 03:43 EDT Creatinine Level 0.80 mg/dL 01/17/2021 03:43 EDT eGFR >60 mL/min/1.73m2 01/17/2021 03:43 EDT eGFR NonAfrican >60 mL/min/1.73m2 01/17/2021 03:43 EDT Bun/Creatinine 20.0 01/17/2021 03:43 EDT Calcium Level 9.3 mg/dL 01/17/2021 03:43 EDT Device Comment 1 Notified Nurse RBV 01/17/2021 11:44 EDT Device Comment 1 Notified Nurse RBV 01/17/2021 06:28 EDT Device Comment 1 Notified Nurse RBV 01/16/2021 20:30 EDT Device Comment 1 Protocols Followed 01/16/2021 16:14 EDT Glucose POC2 118 mg/dL (High) 01/17/2021 11:44 EDT Glucose POC2 123 mg/dL (High) 01/17/2021 06:28 EDT Glucose POC2 182 mg/dL (High) 01/16/2021 20:30 EDT Glucose POC2 151 mg/dL (High) 01/16/2021 16:14 EDT WBC 9.0 K/uL 01/17/2021 03:43 EDT RBC 4.72 Million/uL 01/17/2021 03:43 EDT Hgb 13.0 g/dL (Low) 01/17/2021 03:43 EDT Hct 41.2 % 01/17/2021 03:43 EDT MCV 87.3 fL 01/17/2021 03:43 EDT MCH 27.5 pg 01/17/2021 03:43 EDT MCHC 31.6 Gram/dL (Low) 01/17/2021 03:43 EDT Platelet Count 257 K/uL 01/17/2021 03:43 EDT MPV 9.9 fL 01/17/2021 03:43 EDT RDW 14.6 % 01/17/2021 03:43 EDT Neut % 52.6 % 01/17/2021 03:43 EDT Neut # 4.75 K/uL 01/17/2021 03:43 EDT Lymph % 34.9 % 01/17/2021 03:43 EDT Lymph # 3.15 x10(3)/uL 01/17/2021 03:43 EDT Hand % 8.4 % 01/17/2021 03:43 EDT Hand # 0.76 K/uL 01/17/2021 03:43 EDT Eos % 3.0 % 01/17/2021 03:43 EDT Eos # 0.27 x10(3)/uL 01/17/2021 03:43 EDT Baso % 0.7 % 01/17/2021 03:43 EDT Baso # 0.06 x10(3)/uL 01/17/2021 03:43 EDT Slide Review No 01/17/2021 03:43 EDT IG# 0.04 x10(3)/uL 01/17/2021 03:43 EDT IG% 0.40 % 01/17/2021 03:43 EDT SARS-CoV-2 (COVID19 PCR) Negative2 01/17/2021 09:15 EDT Electronically signed by [facility] [place], [facility] Conversion Trucker Cerner at 09/26/2022 8:58 AM CDT documented in this encounter Plan of Treatment Not on file documented as of this encounter Visit Diagnoses Not on filedocumented in this encounter Care Teams Irrigator Valve Pipe Relationship Specialty Start Date End Date Tony Calabrese MD [address] [place] [address] PCP - General Family Medicine 06/06/22 Jean-Pierre Cabrera MD [address] [facility] [address] [place], [place] [id number] Surgeon Cardiothoracic Surgery 06/26/23 Kd Prince PA-C [address] [place] [address] Metal Sander Cardiology 06/26/23 Renae Car APRN [address] [facility] [address] [place] [address] Cardiology 09/30/23 documented as of this encounter
--- OUTSIDE RECORDS SUMMARY | 2025-05-02 11:44 | XMS_ITS | Encounter Summary ---
Author Organization [employer] ([place], [place], [place], [place], [place]) Address [address] [place] [address] Care Team Providers Care Men'S Golf Coach Name Role Phone Tony Calabrese MD Primary Care Provider [phone] Jean-Pierre Cabrera MD Unavailable [phone] Kd Prince PA-C Unavailable [phone] Renae Car APRN Unavailable [phone] Encounter Details Date Type Department Care Team (Late st Contact Info) Description 01/16/2021 Transcribed Document [facility] [place] Family Medicine [address] [place] [address] ProviderLiz MD [address] [place] [address] Social History Tobacco Use Types Packs/Day [...] Note - Liz Patel MD - 01/16/2021 11:21 AM CDT UM Authorization Entered On: 01/16/2021 11:21 EDT Performed On: 01/16/2021 11:21 EDT by ALBERT PARRISH, Rn-Utilization Review Primary Insurance Authorization Authorization and Policy Numbers : Insurance 1 Health Plan: MEDICARE Policy Number: [id number] Authorization Number: Insurance 2 Health Plan: [employer] Policy Number: [id number] Authorization Number: Insurance Primary Name : MEDICARE Policy Number: [id number] [employer] Policy Number: [id number] Historical Authorization Comments-Primary : No Authorization Comments Found ALBERT PARRISH Rn-Utilization Review - 01/16/2021 11:21 EDT documented in this encounter Plan of Treatment Not on file documented as of this encounter Visit Diagnoses Not on filedocumented in this encounter Care Teams Men'S Golf Coach Relationship Specialty Start Date End Date Tony Calabrese MD [address] [place] [address] PCP - General Family Medicine 06/06/22 Jean-Pierre Cabrera MD [address] [facility] [address] [place] [address] Surgeon Cardiothoracic Surgery 06/26/23 Kd Prince PA-C [address] [facility], [facility] [address] [place] [address] Developmental Writing Instructor Cardiology 06/26/23 Renae Car APRN [address] [facility] [address] [place], [place] [id number] Cardiology 09/30/23 documented as of this encounter
--- OUTSIDE RECORDS SUMMARY | 2025-05-02 11:44 | XMS_ITS | Encounter Summary ---
Author Organization [employer] ([place], [place], [place], [place], [place]) Address [address] [place] [address] Care Team Providers Care Propellant Assembler Name Role Phone Tony Calabrese MD Primary Care Provider [phone] Jean-Pierre Cabrera MD Unavailable [phone] Kd Prince PA-C Unavailable [phone] Renae Car APRN Unavailable [phone] Encounter Details Date Type Department Care Team (Late st Contact Info) Description 10/05/2018 Transcribed Document [facility] [place] [address] [place] [address] ProviderLiz MD [address] [place] [address] Social History Tobacco Use Types Packs/Day [...] Note - Liz Patel MD - 10/05/2018 1:49 PM CDT [facility] Main OR PACU Summary Primary Physician: RAVIN PACKER MD-ANS Finalized Date/Time: 10/05/18 16:57:05 Pt. Name: BULMARO ELLISON /Sex: 1955 Male Med Rec #: [id number] Physician: RAVIN PACKER MD-[facility] Financial #: [id number] Pt. Type: O Room/Bed: Admit/Disch: 10/05/18 06:39:00 - Institution: [facility] Main OR PACU I Case Times Entry 1 In PACU I 10/05/18 15:25:00 Ready for PACU 10/05/18 16:25:00 Discharge Discharge from PACU 10/05/18 16:25:00 I Last Modified By: CLARENCE BLACKBURN RN 10/05/18 16:56:05 [facility] Main OR PACU I Case Times Audit 10/05/18 16:56:22 Rigging Up Worker: KAMRON Modifier: KAMRON <+> 1 In PACU I Finalized By: CLARENCE BLACKBURN, RN Document Signatures Signed By: CLARENCE BLACKBURN RN 10/05/18 16:57 Electronically signed by [facility] Conversion Leather Stripping Machine Operator Cerner at 09/26/2022 9:11 AM CDT documented in this encounter Plan of Treatment Not on file documented as of this encounter Visit Diagnoses Not on filedocumented in this encounter Care Teams Propellant Assembler Relationship Specialty Start Date End Date Tony Calabrese MD [address] [place] [address] PCP - General Family Medicine 06/06/22 Jean-Pierre Cabrera MD [address] [facility] [address] [place], [place] [id number] Surgeon Cardiothoracic Surgery 06/26/23 dK Prince PA-C [address] [facility], [facility] [address] [place] [address] Jail Officer Cardiology 06/26/23 Renae Car APRN [address] [facility] [address] [place] [address] Cardiology 09/30/23 documented as of this encounter
--- OUTSIDE RECORDS SUMMARY | 2025-05-02 11:44 | XMS_ITS | Encounter Summary ---
Author Organization [employer] ([place], [place], [place], [place], [place]) Address [address] [place] [address] Care Team Providers Care Pharmacy Affairs Assistant Name Role Phone Tony Calabrese MD Primary Care Provider [phone] Jean-Pierre Cabrera MD Unavailable [phone] Kd Prince PA-C Unavailable [phone] LaporteRenae gómez APRN Unavailable [phone] Encounter Details Date Type Department Care Team (Late st Contact Info) Description 10/05/2018 Transcribed Document [facility] [place] [address] [place] [address] ProviderLiz MD [address] [place] [address] Social History Tobacco Use Types Packs/Day Years Used Date Smoking Tobacco: Never Assessed Sex and Gender Information Value Date Recorded Sex Assigned at Male 08/26/2022 2:31 AM CDT Legal Sex Male 5:38 PM CDT Gender Identity Male 08/26/2022 2:31 AM CDT Sexual Orientation Not on file documented as of this encounter Miscellaneous Notes * Cerner Conversion Note - Liz ProviderMD - 10/05/2018 11:26 AM CDT PAT Adult Entered On: 10/05/2018 11:28 EDT Performed On: 10/05/2018 11:26 EDT by BASIA BROWNLEE RN Height and Weight, Clinical Dosing Height Source : Measured Height Entry Format : Agor[employer]y Height, Feet : 0 ft(Converted to: 0 cm, 0 Inch) Height, Inches : 67.5 Inch(Converted to: 5 ft 7 Inch, 171.45 cm) Clinical Height : 171.45 cm Weight Source : Standing scale Weight Entry Format : Agorafy Clinical Dosing Weight : 90.91 kg Weight, Pounds : 200 lb Body Surface Area (BSA) : 2.03 m2 Body Mass Index : 30.9 kg/m2 (HI) [place] Body Weight : 66 kg BASIA BROWNLEE RN - 10/05/2018 11:26 EDT Health Histories Smoking Status : Never (less than 100 in lifetime; none in last 30 days) Smokeless Tobacco Status : Never BASIA BROWNLEE RN - 10/05/2018 11:26 EDT Social History (As Of: 10/05/2018 11:28:51 EDT) Tobacco: Smoking Status Never smoker. (Last Updated: 02/05/2017 17:51:30 EDT by Sudha Hull Rn) Alcohol: Alcohol Use History Yes. Days/Week: 7. # Drinks/Day: 1. Date/Time of Last Drink: wine (4 oz). Use in Last 12 Months: Yes. (Last Updated: 08/04/2015 11:00:59 EST by BELLA JUAN RN) Substance Abuse: Drug Use Hx: No. Use in Last 12 Months: No. (Last Updated: 08/04/2015 11:01:11 EST by BELLA JUAN RN) Infectious Disease History Infectious Disease History : Chicken pox/Shingles, Influenza, Mumps Isolation Needed : Standard Fever/Chills Last 48 Hours : No Travel To Regions with Travel Advisories : No Travel Outside [place] Within Last 30 Days : No Contact With Traveler to Advisory Region : No Tuberculosis Symptoms : Night Sweats BASIA BROWNLEE RN - 10/05/2018 11:26 EDT Anesthesia/Transfusion History Family History of Anesthesia Reaction : No prior transfusion(s) Blood Transfusion Acceptable to Patient : Yes Transfusion History : Prior anesthesia without reaction Family History of Anesthesia Reaction : None BASIA BROWNLEE RN - 10/05/2018 11:26 EDT Functional Assessment Functional ADL Evaluation Index EBN Bathing : Independent (2) Dressing : Independent (2) Toileting : Independent (2) Transferring Bed or Chair : Independent (2) Continence : Independent (2) Feeding : Independent (2) BASIA BROWNLEE RN - 10/05/2018 11:26 EDT ADL Index Score : 12 BASIA BROWNLEE RN - 10/05/2018 11:26 EDT Advance Directive Patient has Advance Directive *Q : No, patient refuses Advance Directive information Advance Directive Comment : provided Personal Choices Brochure BASIA BROWNLEE RN - 10/05/2018 11:26 EDT Spiritual/Cultural Needs Any Spiritual/Cultural Needs or Requests : Yes Spiritual/Cultural Needs Comment : prayer before surgery (02/05/2017 in at 0900) Spiritual/Cultural Needs Comment : prayer before surgery (02/05/2017 in at 0900) BASIA BROWNLEE RN - 10/05/2018 11:26 EDT Psychosocial History Do You Have a History of the Following? : Patient denies history Currently in Unsafe Situation : No Tried to Harm Yourself in the Past? : No Thoughts of Harming/Killing Yourself : No BASIA BROWNLEE RN - 10/05/2018 11:26 EDT General Info Arrived From : Home Mode of Arrival on Unit : Ambulatory Patient Arrival Date/Time : 10/05/2018 10:51 EDT Legal Guardian : Spouse Support Person/Patient Manager Learning : Yes Support Person/Pt Rep Name : Sue Koch Support Person/Pt Rep Contact Information : cell Want Family/Rep/Phys Notified of Admit : No Emergency Contact #1 : Sue Koch Emergency Contact #1 cell Emergency Contact #1 Relationship : spouse Emergency Contact #2 : Danay Solorzano Emergency Contact #2 cell Emergency Contact #2 Relationship : daughter Information Obtained From : Patient Primary Language : [place] Islander Preferred Communication Mode : Verbal Communication Barrier : None Objects to Sharing Info w Family : No BASIA BROWNLEE RN - 10/05/2018 11:26 EDT Deion Scale Deion Sensory Perception : Slightly limited Deion Moisture : Rarely moist Deion Activity : Walks occasionally Deion Mobility : No limitation Deion Nutrition : Adequate Deion Friction and Shear : No apparent problem Deion Score : 20 BASIA BROWNLEE RN - 10/05/2018 11:26 EDT Sleep Apnea Risk Assmt Hx of Obstructive Sleep Apnea Diagnosis : No Snore Loudly : Yes Tired, Fatigued, or Sleepy During Day : Yes Observed Stopping Breathing During Sleep : Yes Have/Are Being Treated for Hypertension : Yes BMI Greater Than 35 kg/m2 : No Age over 50 Years Old : Yes Neck Circumference Greater Than 40 cm : Yes Gender Male : Yes STOP-BANG Sleep Apnea Risk Level Score : 7 Sleep Apnea Risk Comment : 46 cm BASIA BROWNLEE RN - 10/05/2018 11:26 EDT Electronically signed by [facility] Conversion Technical Documentation Specialist Cerner at 09/26/2022 9:24 AM CDT documented in this encounter Plan of Treatment Not on file documented as of this encounter Visit Diagnoses Not on filedocumented in this encounter Care Teams Pharmacy Affairs Assistant Relationship Specialty Start Date End Date Tony Calabrese MD [address] [place] [address] PCP - General Family Medicine 06/06/22 Jean-Pierre Cabrera MD [address] [facility] [address] [place], [place] [id number] Surgeon Cardiothoracic Surgery 06/26/23 Kd Prince PA-C [address] [place] [address] Sales And Retail Management Recruiter Cardiology 06/26/23 Renae Car APRN [address] [facility] [address] [place], [place] [id number] Cardiology 09/30/23 documented as of this encounter
--- OUTSIDE RECORDS SUMMARY | 2025-05-02 11:44 | XMS_ITS | Encounter Summary ---
Author Organization [employer] ([place], [place], [place], [place], [place]) Address [address] [place] [address] Care Team Providers Care Mill Set Up Name Role Phone Tony Calabrese MD Primary Care Provider [phone] Jean-Pierre Cabrera MD Unavailable [phone] Kd Prince PA-C Unavailable [phone] FairmontRenae gómez Santos JOSÉ MIGUEL Unavailable [phone] Encounter Details Date Type Department Care Team (Late st Contact Info) Description 08/06/2018 Transcribed Document [facility] [place] [address] [place] [address] ProviderLiz MD [address] [place] [address] Social History Tobacco Use Types Packs/Day Years Used Date Smoking Tobacco: Never Assessed Sex and Gender Information Value Date Recorded Sex Assigned at Male 08/26/2022 2:31 AM CDT Legal Sex Male 5:38 PM CDT Gender Identity Male 08/26/2022 2:31 AM CDT Sexual Orientation Not on file documented as of this encounter Miscellaneous Notes * Cerner Conversion Note - Liz Patel MD - 08/06/2018 1:24 PM FIRE CONTROL OFFICER DATE OF PROCEDURE: 08/06/2018 PROCEDURE: Spinal cord stimulator trial. PREOPERATIVE DIAGNOSIS: Lumbosacral radiculopathy. POSTOPERATIVE DIAGNOSIS: Lumbosacral radiculopathy. COMPANY: [employer]. NUMBER OF LEADS THAT USED: Two leads with eight contacts. INTERSPACE ENTRANCE LEVEL: T12-L1. FINAL LEAD TIP: Right side tip of T8, left side tip of T9. SEDATION: Versed 2 mg and fentanyl 100 mcg. ANTIBIOTIC: Cefazolin 2 g. DESCRIPTION OF THE PROCEDURE: After having obtained consent form for the procedure, the patient was brought to the procedure room, and prepped and draped in a standard fashion under strict sterile condition. Prior to beginning procedure, a time out was performed. The interspace located using fluoroscopy guidance and the skin was then anesthetized with 1% lidocaine mixed with bicarbonate with epinephrine. The specialty designed Tuohy needle supplied with the epidural lead was then inserted in the paramedian fashion into the interspace using loss of resistance to air syringe. Then, the lead was then advanced on this side through the needle under continuous fluoroscopy guidance. After reaching the tip of the lead to the desired level, it was connected to the trial extension which was passed off the sterile field. An bilingual executive assistant then conducted an algorithm of stimulation parameters until the patient experienced satisfactory stimulation in the entire area of pain which included. During the conduction of this algorithm, the lead was repositioned as necessary to achieve optimal stimulation in its final position in the spine. The Tuohy needle was then removed under continuous fluoroscopy guidance to assure that the lead itself did not move. We sutured the leads to the skin with 2-0 silk and applied Steri-Strips to the back. The patient left the procedure room in satisfactory condition without any complication. Post-procedure algorithm stimulation was conducted again to assure lead position. Post-procedure instructions for the stimulator and the wound was given to the patient, and the patient was discharged with the designated truck driver supervisor. The patient was instructed to keep dressing dry and intact, and we will follow up the patient after seven days for the trial and the patient has already appointment for the next week. Pre and post procedure pain levels are documented in the chart. NOTE: Pre-procedure blood glucose fingerstick is 128, before the procedure. Giucho Thorne M.D., [facility] Pain Certified Dict: 08/06/2018 13:24:38 Trans: 08/06/2018 15:15:25 CC1: Guicho Thorne M.D., [facility] Pain Certified Electronically signed by [facility] Conversion Trap Operator Cerner at 09/26/2022 9:01 AM CDT documented in this encounter Plan of Treatment Not on file documented as of this encounter Visit Diagnoses Not on filedocumented in this encounter Care Teams Mill Set Up Relationship Specialty Start Date End Date Tony Calabrese MD [address] [place] [address] PCP - General Family Medicine 06/06/22 Jean-Pierre Cabrera MD [address] [facility] [address] [place], [place] [address] Surgeon Cardiothoracic Surgery 06/26/23 Kd Prince PA-C [address], [facility] [address] [place] [address] Sonogram Technician Cardiology 06/26/23 Renae Car, GRASSLAND CONSERVATIONIST [address] [facility] [address] [place] [address] Cardiology 09/30/23 documented as of this encounter
--- OUTSIDE RECORDS SUMMARY | 2025-05-02 11:44 | XMS_ITS | Encounter Summary ---
Author Organization [employer] ([place], [place], [place], [place], [place]) Address [address] [place] [address] Care Team Providers Care Security Operations Manager Name Role Phone Tony Calabrese MD Primary Care Provider [phone] Jean-Pierre Cabrera MD Unavailable [phone] Kd Prince PA-C Unavailable [phone] Renae Car APRN Unavailable [phone] Encounter Details Date Type Department Care Team (Late st Contact Info) Description 01/16/2021 Transcribed Document [facility] [place] [facility] [place] [address] ProviderLiz MD [address] [place] [address] Social History Tobacco Use Types Packs/Day [...] Note - Liz Patel MD - 01/16/2021 7:40 AM CDT Patient: IAN ELLISON Age: 65 years Sex: Male : 1955 Associated Diagnoses: None Author: ELVIS LUX MD-CAR BASIC PCP: Primary Printing Estimator: None Subjective NAD Health Status Allergies: Allergic [...] Oral, Daily ticagrelor: 90 mg, Oral, BID Prescriptions Prescribed Metoprolol Tartrate 25 mg oral [...] Problems High blood pressure / SNOMED CT 57668311 / Confirmed Hyperlipidemia / SNOMED CT 89980007 / Confirmed Asthma, childhood / SNOMED CT 101079305 / Confirmed Bronchitis / SNOMED CT 07631606 / Confirmed Peptic ulcer disease / SNOMED CT 6441065516 / Confirmed Arthritis / SNOMED CT 1088305 / Confirmed Back pain / SNOMED CT 152435175 / Confirmed kevin horse in left calf muscle / SNOMED CT 62928025 / Confirmed Diet controlled diabetes mellitus / SNOMED CT 647042582 / Confirmed Peripheral neuropathy, left foot / SNOMED CT 4100971615 / Confirmed Murmur, heart / SNOMED CT 0021144148 / Confirmed Leaky heart valve (unsure which one) / SNOMED CT 66653060 / Confirmed Deep vein thrombosis (right hip) / SNOMED CT 3137778563 / Confirmed Chest pain / SNOMED CT 31823501 / Confirmed service desk lead workup-stated everything was ok 06/2016 Disorder of prostate (BPH) / SNOMED CT 95823871 / Confirmed Urinary frequency/urgency / SNOMED CT 187653909 / Confirmed Numbness and tingling of foot (great toe) / SNOMED CT 163544358 / Confirmed feels cold, numb Lumbar herniated disc (L1-2) / SNOMED CT 882485004 / Confirmed At risk for sleep apnea / IMO 95771522 / Confirmed, Active Problems (19) kevin horse [...] Last Charted Minimum Maximum Temp 97.8 (JAN 15 17:17) 97.8 (JAN 15:17) 97.8 (JAN 15 17:17) Apical HR 84 (JAN 15 23:58) 84 (JAN 15 23:58) 84 (JAN 15 23:58) Mon HR 68 (JAN 16:33) 68 (JAN 16:33) 86 (JAN 15 23:31) Periph HR 79 (JAN 15 17:17) 79 (JAN 15 17:17) 79 (JAN 15 17:17) Resp Rate 15 (JAN 16:33) 15 (JAN 16:33) H 26 (JAN 15 21:04) SBP 132 (JAN 16:05) 124 (JAN 15 23:31) H 148 (JAN 15 17:17) DBP L 58 (JAN 16:05) L 58 (JAN 16 01:05) 76 (JAN 15 17:47) MAP 85 (JAN 16:05) 85 (JAN 16:05) 118 (JAN 15 21:53) SpO2 97 (AUG 10 01:33) 97 (JAN 15 19:25) 99 (JAN 15 17:17) Results Review JAN 16 05:34 140 109 16 / 105 3.8 27 0.80 \ JAN 16 05:34 \ L 12.9 / 8.2 254 / L 39.1 \ Cardiac Markers (Current Encounter/Past 24 Hours) ProBNP 205 pg/mL HI 01/16/2021 03:57 Radiology Results (Last 48 hours) [id number] -- 01/15/2021 21:13 CR Chest 1 Vw [...] disease A. Moderate MR/AR / , EF 50%/ * Hypertension * Dyslipidemia * Diabetes mellitus type 2 * Hx PUD PLAN; 01/16/21 Repeat L heart cath discussed, pt deferring. Lexiscan myoview today. Continue other current CV meds. 01/15/21 Serial cardiac enzymes and EKG Probnp Recommend admission internal medicine rule out AL Continue aspirin, Brilinta, beta-scott If cardiac enzymes elevated will initiate heparin GTT per protocol Further recommendations pending lab results documented in this encounter Plan of Treatment Not on file documented as of this encounter Visit Diagnoses Not on filedocumented in this encounter Care Teams Security Operations Manager Relationship Specialty Start Date End Date Tony Calabrese MD [address] [place] [address] PCP - General Family Medicine 06/06/22 Jean-Pierre Cabrera MD [address] [facility] [address] [place] [address] Surgeon Cardiothoracic Surgery 06/26/23 Kd Prince PA-C [address] [place] [address] Printing Estimator Cardiology 06/26/23 Renae Car, JOSÉ MIGUEL [address] [facility] [address] [place] [address] Cardiology 09/30/23 documented as of this encounter
--- OUTSIDE RECORDS SUMMARY | 2025-05-02 11:44 | XMS_ITS | Encounter Summary ---
Author Organization [employer] ([place], [place], [place], [place], [place]) Address [address] [place] [address] Care Team Providers Care Physical Sciences Professor Name Role Phone Tony Calabrese MD Primary Care Provider [phone] Jean-Pierre Cabrera MD Unavailable [phone] Kd Prince PA-C Unavailable [phone] Renae Car APRN Unavailable [phone] Encounter Details Date Type Department Care Team (Late st Contact Info) Description 01/17/2021 Transcribed Document [facility] [place] [address] [place] [address] ProviderLiz MD [address] [place] [address] Social History Tobacco Use Types Packs/Day [...] Note - Liz Patel MD - 01/17/2021 2:00 AM CDT Low Emission Automobile Designer Details Entered On: 01/17/2021 5:33 EDT Performed On: 01/17/2021 2:00 EDT by Darleen King RN-PATIENT CARE [...] - 01/17/2021 5:32 EDT Electronically signed by [facility] Conversion Pelts Skinner Cerner at 09/26/2022 9:19 AM CDT documented in this encounter Plan of Treatment Not on file documented as of this encounter Visit Diagnoses Not on filedocumented in this encounter Care Teams Physical Sciences Professor Relationship Specialty Start Date End Date Tony Calabrese MD [address] [place] [address] PCP - General Family Medicine 06/06/22 Jean-Pierre Cabrera MD [address] [facility] [address] [place], [place] [id number] Surgeon Cardiothoracic Surgery 06/26/23 Kd Prince PA-C [address] [facility] [address] [place] [address] Care Transition Manager Cardiology 06/26/23 Renae Car APRN [address] [facility] [address] [place], [place] [id number] Cardiology 09/30/23 documented as of this encounter
--- OUTSIDE RECORDS SUMMARY | 2025-05-02 11:44 | XMS_ITS | Encounter Summary ---
Author Organization [employer] ([place], [place], [place], [place], [place]) Address [address] [place] [address] Care Team Providers Care Tractor Operator Helper Name Role Phone Tony Calabrese MD Primary Care Provider [phone] Jean-Pierre Cabrera MD Unavailable [phone] Kd Prince PA-C Unavailable [phone] ConcordiaRenae gómez APRN Unavailable [phone] Encounter Details Date Type Department Care Team (Late st Contact Info) Description 09/29/2018 Transcribed Document [facility] [place] [address] [place] [address] ProviderLiz MD [address] [place] [address] Social History Tobacco Use Types Packs/Day Years Used Date Smoking Tobacco: Never Assessed Sex and Gender Information Value Date Recorded Sex Assigned at Male 08/26/2022 2:31 AM CDT Legal Sex Male 5:38 PM CDT Gender Identity Male 08/26/2022 2:31 AM CDT Sexual Orientation Not on file documented as of this encounter Miscellaneous Notes * Cerner Conversion Note - Liz ProviderMD - 09/29/2018 2:37 PM CDT PAT Adult Entered On: 09/29/2018 14:39 EDT Performed On: 09/29/2018 14:37 EDT by PADILLA GARCIA RN Vital Measurements Temperature Source : Temporal artery scanning PADILLA GARCIA RN - 09/29/2018 14:50 EDT Temperature Mode : Fahrenheit Temperature, Fahrenheit : 98.9 Deg F Clinical Temperature, C : 37.2 Deg C Peripheral Pulse Rate : 98 bpm Respiratory Rate : 16 Breaths/Min Blood Pressure Location : Arm, right upper Blood Pressure Source : Non-Invasive BP Device Systolic Blood Pressure : 122 mmHg Diastolic Blood Pressure : 83 mmHg Oxygen Saturation : 96 % Oxygen Therapy Mode : Room air PADILLA GARCIA RN - 09/29/2018 14:37 EDT Pain Assessment Pain Scale Goal : 4 PADILLA GARCIA RN - 09/29/2018 14:50 EDT Height and Weight, Clinical Dosing Height Source : Measured Height Entry Format : [place] Height, Feet : 0 ft(Converted to: 0 cm, 0 Inch) Height, Inches : 67.5 Inch(Converted to: 5 ft 7 Inch, 171.45 cm) Clinical Height : 171.45 cm Weight Source : Standing scale Weight Entry Format : [place] Clinical Dosing Weight : 90.91 kg Weight, Pounds : 200 lb Body Surface Area (BSA) : 2.03 m2 Body Mass Index : 30.9 kg/m2 (HI) [place] Body Weight : 66 kg PADILLA GARCIA RN - 09/29/2018 14:37 EDT Health Histories Smoking Status : Never (less than 100 in lifetime; none in last 30 days) Smokeless Tobacco Status : Never PADILLA GARCIA RN - 09/29/2018 14:50 EDT Social History (As Of: 09/29/2018 15:14:18 EDT) Tobacco: Smoking Status Never smoker. (Last [...] pox/Shingles, Influenza, Mumps Isolation Needed : Standard Travel To Regions with Travel Advisories : No Travel Outside [place] Within Last 30 Days : No Contact With Traveler to Advisory Region : No Tuberculosis Symptoms : Night Sweats PADILLA GARCIA RN - 09/29/2018 14:50 EDT Anesthesia/Transfusion History Family History of Anesthesia Reaction : No prior transfusion(s) Blood Transfusion Acceptable to Patient : Yes Transfusion History : Prior anesthesia without reaction Family History of Anesthesia Reaction : None PADILLA GARCIA RN - 09/29/2018 14:50 EDT Functional Assessment Functional ADL Evaluation Index EBN Bathing : Independent (2) Dressing : Requires assistance (1) (Comment: needs help tying shoes [PADILLA GARCIA RN - 09/29/2018 14:50 EDT] ) Toileting : Independent (2) Transferring Bed or Chair : Independent (2) PADILLA GARCIA RN - 09/29/2018 14:50 EDT Advance Directive Patient has Advance Directive *Q : No, patient refuses Advance Directive information Advance Directive Comment : provided Personal Choices Brochure PADILLA GARCIA RN - 09/29/2018 14:50 EDT Spiritual/Cultural Needs Any Spiritual/Cultural Needs or Requests : Yes Spiritual/Cultural Needs Comment : preop prayer, surgery 10/05/2018, in at 1100 Spiritual/Cultural Needs Comment : prayer before surgery (02/05/2017 in at 0900) PADILLA GARCIA RN - 09/29/2018 14:50 EDT Psychosocial History Do You Have a History of the Following? : Patient denies history Currently in Unsafe Situation : No Tried to Harm Yourself in the Past? : No Thoughts of Harming/Killing Yourself : No PADILLA GARCIA RN - 09/29/2018 14:50 EDT Teaching/Learning Assessment Individuals Taught : Patient, Spouse Readiness to Learn : Cooperative Readiness to Learn : Explanation, Printed materials PADILLA GARCIA RN - 09/29/2018 14:50 EDT Education Topics, Periop Preadmission Perioperative Education Grid Arrival Time/Place : Verbalizes understanding CHG Preoperative Bathing/Cloths : Verbalizes understanding IV's : Verbalizes understanding NPO Status/Directions : Verbalizes understanding Pain Management : Verbalizes understanding Preprocedure Preparations : Verbalizes understanding Preprocedure Tests/Labs : Verbalizes understanding Remove Body Piercings : Verbalizes understanding Responsible Adult : Verbalizes understanding Take/Hold Medications Pre-Procedure : Verbalizes understanding PADILLA GARCIA RN - 09/29/2018 14:50 EDT Responsible Adult Contact Information : Sue Koch, spouse, cell PADILLA GARCIA RN - 09/29/2018 14:50 EDT General Info Arrived From : Home Mode of Arrival on Unit : Ambulatory Legal Guardian : Spouse Support Person/Patient Ict Systems Test Engineer : Yes Support Person/Pt Rep Name : Sue Koch Support Person/Pt Rep Contact Information : cell Want Family/Rep/Phys Notified of Admit : No Emergency Contact #1 : Sue Koch Emergency Contact #1 cell Emergency Contact #1 Relationship : spouse Emergency Contact #2 : Danay Ray Emergency Contact #2 cell Emergency Contact #2 Relationship : daughter Information Obtained From : Patient Primary Language : Mauritanian Preferred Communication Mode : Verbal Communication Barrier : None Objects to Sharing Info w Family : No PADILLA GARCIA RN - 09/29/2018 14:50 EDT Deion Scale Deion Sensory Perception : Slightly limited (Comment: peripheral neuropathy left foor, wears glasses [PADILLA GARCIA RN - 09/29/2018 14:50 EDT] ) Deion Moisture : Occasionally moist Deion Activity : Walks frequently Deion Mobility : Slightly limited Deion Nutrition : Adequate Deion Friction and Shear : Potential problem Deion Score : 18 PADILLA GARCIA RN - 09/29/2018 14:50 EDT Sleep Apnea Risk Assmt Hx of [...] Sleep Apnea Risk Comment : 46 cm PADILLA GARCIA RN - 09/29/2018 14:50 EDT documented in this encounter Plan of Treatment Not on file documented as of this encounter Visit Diagnoses Not on filedocumented in this encounter Care Teams Tractor Operator Helper Relationship Specialty Start Date End Date Tony Calabrese MD [address] [place] [address] PCP - General Family Medicine 06/06/22 Jean-Pierre Cabrera MD [address] [facility] [address] [place] [address] Surgeon Cardiothoracic Surgery 06/26/23 Kd Prince PA-C [address] [place] [address] Engineering Instructor Cardiology 06/26/23 Renae Car, RESEARCH PROGRAM ASSISTANT [address] [facility] [address] [place] [address] Cardiology 09/30/23 documented as of this encounter
--- OUTSIDE RECORDS SUMMARY | 2025-05-02 11:44 | XMS_ITS | Encounter Summary ---
Author Organization [employer] ([place], [place], [place], [place], [place]) Address [address] [place] [address] Care Team Providers Care Land Clearer Name Role Phone Tony Calabrese MD Primary Care Provider [phone] Jean-Pierre Cabrera MD Unavailable [phone] Kd Prince PA-C Unavailable [phone] Renae Car APRN Unavailable [phone] Encounter Details Date Type Department Care Team (Late st Contact Info) Description 01/17/2021 Transcribed Document [facility] [place] [address] [place] [address] ProviderLiz MD [address] [place] [address] Social History Tobacco Use Types Packs/Day [...] Note - Liz Patel MD - 01/17/2021 4:00 AM CDT Height and Weight, Routine Entered On: 01/17/2021 5:33 EDT Performed On: 01/17/2021 4:00 EDT by Darleen King, MICHAEL-PATIENT CARE BEDSIDE NON-EXEMPT Height and Weight, Routine Routine Weight Source : Bed scale Routine Weight Entry Format : [place] Routine Weight, Pounds : 180 lb Routine Weight Calculation : 81.82 kg Height Source : Stated Height Entry Format : [place] Height, Feet : 5 ft Height, Inches : 7 Inch Clinical Height : 170.18 cm Body Surface Area (BSA), Routine : 1.94 m2 Body Mass Index (BMI), Routine : 28.25 kg/m2 Darleen King RN-PATIENT CARE BEDSIDE NON-EXEMPT - 01/17/2021 5:33 EDT Electronically signed by [facility], [facility] Conversion Chief Clerk Cerner at 09/26/2022 9:22 AM CDT documented in this encounter Plan of Treatment Not on file documented as of this encounter Visit Diagnoses Not on filedocumented in this encounter Care Teams Land Clearer Relationship Specialty Start Date End Date Tony Calabrese MD [address] [place] [address] PCP - General Family Medicine 06/06/22 Jean-Pierre Cabrera MD [address] [facility] [address] [place], [place] [address] Surgeon Cardiothoracic Surgery 06/26/23 Kd Prince PA-C [address] [place] [address] Fish Smoker Cardiology 06/26/23 Renae Car APRN [address] [facility] [address] [place], [place] [address] Cardiology 09/30/23 documented as of this encounter
--- OUTSIDE RECORDS SUMMARY | 2025-05-02 11:44 | XMS_ITS | Encounter Summary ---
Author Organization [employer] ([place], [place], [place], [place], [place]) Address [address] [place] [address] Care Team Providers Care Match Up Person Name Role Phone Tony Calabrese MD Primary Care Provider [phone] Jean-Pierre Cabrera MD Unavailable [phone] Kd Prince PA-C Unavailable [phone] Renae Cra APRN Unavailable [phone] Encounter Details Date Type Department Care Team (Late st Contact Info) Description 10/05/2018 Transcribed Document [facility] [place] [address] [place] [address] ProviderLiz MD [address] [place] [address] Social History Tobacco Use Types Packs/Day [...] Note - Liz Patel MD - 10/05/2018 1:00 PM CDT [facility] Main OR Preop Summary Primary Physician: RAVIN PACKER MD-ANS Finalized Date/Time: 10/05/18 13:19:30 Pt. Name: BULMARO ELLISON /Sex: 1955 Male Med Rec #: [id number] Physician: RAVIN PACKER MD-ANS Financial #: [id number] Pt. Type: O Room/Bed: Admit/Disch: 10/05/18 06:39:00 - Institution: [facility] PreOp Case Times Entry 1 In Preop 10/05/18 11:05:00 Ready for Holding n/a Room Patient Ready for 10/05/18 11:46:00 Surgery Patient Out of Preop 10/05/18 13:18:00 Patient Out of n/a Holding Room Last Modified By: BASIA BROWNLEE RN 10/05/18 13:19:29 [facility] PreOp Case Times Audit 10/05/18 13:19:29 [employer]al Food Service Supervisor: DAREN Modifier: BOWLINC <+> 1 Patient Out of Preop Finalized By: BASIA BROWNLEE RN Document Signatures Signed By: BASIA BROWNLEE RN 10/05/18 13:19 Electronically signed by Rosa [facility] Conversion Verify Rep Cerner at 09/26/2022 9:21 AM CDT documented in this encounter Plan of Treatment Not on file documented as of this encounter Visit Diagnoses Not on filedocumented in this encounter Care Teams Match Up Person Relationship Specialty Start Date End Date Tony Calabrese MD [address] [place] [address] PCP - General Family Medicine 06/06/22 Jean-Pierre Cabrera MD [address] [facility] [address] [place], [place] [address] Surgeon Cardiothoracic Surgery 06/26/23 Kd Prince PA-C [address] [facility] [address] [place] [address] Chemical Detection Expert Cardiology 06/26/23 Renae Car APRN [address] [facility] [address] [place] [address] Cardiology 09/30/23 documented as of this encounter
--- OUTSIDE RECORDS SUMMARY | 2025-05-02 11:44 | XMS_ITS | Encounter Summary ---
Author Organization [employer] ([place], [place], [place], [place], [place]) Address [address] [place] [address] Care Team Providers Care Sales Order Administrator Name Role Phone Tony Calabrese MD Primary Care Provider [phone] Jean-Pierre Cabrera MD Unavailable [phone] Kd Prince PA-C Unavailable [phone] Renae Car APRN Unavailable [phone] Encounter Details Date Type Department Care Team (Late st Contact Info) Description 01/17/2021 Transcribed Document [facility] [place] Family Medicine [address] [place] [address] ProviderLiz MD [address] [place] [address] Social History Tobacco Use Types Packs/Day [...] Note - Liz Patel MD - 01/17/2021 9:26 AM CDT Attempt to Treat, OT Entered On: 01/17/2021 9:27 EDT Performed On: 01/17/2021 9:26 EDT by STEPHANIE CORONADO, OTR/Larry Attempt to Treat Unable to Treat Due To : Patient on hold Inability to Treat Comment : Pt off the floor for heart cath and possible intervention. STEPHANIE CORONADO OTR/Larry - 01/17/2021 9:26 EDT Electronically signed by Rosa [facility] Conversion Cuff Maker Cerner at 09/26/2022 8:55 AM CDT documented in this encounter Plan of Treatment Not on file documented as of this encounter Visit Diagnoses Not on filedocumented in this encounter Care Teams Sales Order Administrator Relationship Specialty Start Date End Date Tony Calabrese MD [address] [place] [address] PCP - General Family Medicine 06/06/22 Jean-Pierre Cabrera MD [address] [facility] [address] [place] [address] Surgeon Cardiothoracic Surgery 06/26/23 Kd Prince PA-C [address] [place] [address] Radioisotope Technologist Cardiology 06/26/23 Renae Car APRN [address] [facility] [address] [place] [address] Cardiology 09/30/23 documented as of this encounter
--- OUTSIDE RECORDS SUMMARY | 2025-05-02 11:44 | XMS_ITS | Encounter Summary ---
Author Organization [employer] ([place], [place], [place], [place], [place]) Address [address] [place] [address] Care Team Providers Care Bookbinding Machine Operator Name Role Phone Tony Calabrese MD Primary Care Provider [phone] Jean-Pierre Cabrera MD Unavailable [phone] Kd Prince PA-C Unavailable [phone] Renae Car APRN Unavailable [phone] Encounter Details Date Type Department Care Team (Late st Contact Info) Description 01/17/2021 Transcribed Document [facility] [place] [address] [place] [address] ProviderLiz MD [address] [place] [address] Social History Tobacco Use Types Packs/Day Years Used Date Smoking Tobacco: Never Assessed Sex and Gender Information Value Date Recorded Sex Assigned at Male 08/26/2022 2:31 AM CDT Legal Sex Male 5:38 PM CDT Gender Identity Male 08/26/2022 2:31 AM CDT Sexual Orientation Not on file documented as of this encounter Miscellaneous Notes * Cerner Conversion Note - Liz ProviderMD - 01/17/2021 10:00 AM CDT Attempt to Treat, PT Entered On: 01/17/2021 10:01 EDT Performed On: 01/17/2021 10:00 EDT by JOSE R, PARKER, PT Attempt to Treat Unable to Treat Due To : Patient on hold Inability to Treat Comment : Patient going for heart cath with probably intervention. if patient recieves intervention will need reorders. PT will follow up PARKER ODELL, PT - 01/17/2021 10:00 EDT Electronically signed by Rosa [facility] Conversion Buyer Broker Cerner at 09/26/2022 8:55 AM CDT documented in this encounter Plan of Treatment Not on file documented as of this encounter Visit Diagnoses Not on filedocumented in this encounter Care Teams Bookbinding Machine Operator Relationship Specialty Start Date End Date Tony Calabrese MD [address] [place] [address] PCP - General Family Medicine 06/06/22 Jean-Pierre Cabrera MD [address] [facility] [address] [place], [place] [address] Surgeon Cardiothoracic Surgery 06/26/23 Kd Prince PA-C [address] [place] [address] Tricot Knitter Cardiology 06/26/23 Renae Car APRN [address] [facility] [address] [place] [address] Cardiology 09/30/23 documented as of this encounter
--- OUTSIDE RECORDS SUMMARY | 2025-05-02 11:44 | XMS_ITS | Encounter Summary ---
Author Organization [employer] ([place], [place], [place], [place], [place]) Address [address] [place] [address] Care Team Providers Care Human Resources Intern Name Role Phone Tony Calabrese MD Primary Care Provider [phone] Jean-Pierre Cabrera MD Unavailable [phone] Kd Prince PA-C Unavailable [phone] Renae Car APRN Unavailable [phone] Encounter Details Date Type Department Care Team (Late st Contact Info) Description 10/05/2018 Transcribed Document [facility] [place] [address] [place] [address] ProviderLiz MD [address] [place] [address] Social History Tobacco Use Types Packs/Day [...] Patel MD - 10/05/2018 1:49 PM CDT [facility] Main OR PostOp Summary Primary Physician: RAVIN PACKER MD-ANS Finalized Date/Time: 10/05/18 17:07:13 Pt. Name: BULMARO ELLISON GEENA BanegasB./Sex: 1955 Male Med Rec #: [id number] Physician: RAVIN PACKER MD-[facility] Financial #: [id number] Pt. Type: O Room/Bed: Admit/Disch: 10/05/18 06:39:00 - Institution: [facility] Main OR PostOp Case Times Entry 1 In PACU II 10/05/18 16:26:00 Ready for PACU II 10/05/18 17:00:00 Discharge Discharge from PACU 10/05/18 17:00:00 II Last Modified By: Michelle Ashby Rn-Traveler 10/05/18 17:07:05 Finalized By: Michelle Ashby Rn-Traveler Document Signatures Signed By: Michelle Ashby Rn-Traveler 10/05/18 17:07 Electronically signed by [facility] Conversion Federal Appellate Law Clerk Cerner at 09/26/2022 9:01 AM CDT documented in this encounter Plan of Treatment Not on file documented as of this encounter Visit Diagnoses Not on filedocumented in this encounter Care Teams Human Resources Intern Relationship Specialty Start Date End Date Tony Calabrese MD [address] [place] [address] PCP - General Family Medicine 06/06/22 Jean-Pierre Cabrera MD [address] [facility] [address] [place], [place] [address] Surgeon Cardiothoracic Surgery 06/26/23 Kd Prince PA-C [address] [place] [address] Cotton Ball Machine Tender Cardiology 06/26/23 Renae Car, SUPERVISOR CONTACT LENS [address] [facility] [address] [place], [place] [address] Cardiology 09/30/23 documented as of this encounter
--- OUTSIDE RECORDS SUMMARY | 2025-05-02 11:44 | XMS_ITS | Encounter Summary ---
Author Organization [employer] ([place], [place], [place], [place], [place]) Address [address] [place] [address] Care Team Providers Care Bomb Squad Officer Name Role Phone Tony Calabrese MD Primary Care Provider [phone] Jean-Pierre Cabrera MD Unavailable [phone] Kd Prince PA-C Unavailable [phone] Renae Car APRN Unavailable [phone] Encounter Details Date Type Department Care Team (Late st Contact Info) Description 10/05/2018 Transcribed Document [facility] [place] [address] [place] [id number] ProviderLiz MD [address] [place] [id number] Social History Tobacco Use Types Packs/Day [...] Patel MD - 10/05/2018 1:49 PM CDT [facility] Main OR IntraOp Summary Primary Physician: RAVIN PACKER MD-ANS Finalized Date/Time: 10/06/18 11:40:09 Pt. Name: IAN ELLISON GEENA Ortega/Sex: 1955 Male [facility] Rec #: [id number] Physician: RAVIN PACKER MD-ANS Financial #: [id number] Pt. Type: O Room/Bed: Admit/Disch: 10/05/18 06:39:00 - 10/05/18 17:00:00 Institution: [facility] IntraOp Case Attendance Entry 1 Entry 2 Entry 3 Case Attendee RAVIN PACKER MD-ANS GARCIA, KAREN A. Kemp, Robin A, Gravure Printing Machinist Role Performed Surgeon/Proceduralist, Furniture Sales Consultant, First Scrub, First First Time In 10/05/18 13:21:00 10/05/18 13:21:00 10/05/18 13:21:00 Time Out 10/05/18 15:22:00 10/05/18 15:22:00 10/05/18 14:34:00 Procedure Spinal Cord Stimulator Spinal Cord Stimulator Spinal Cord Stimulator Insertion Insertion Insertion Other Attendee Superficial Wound Closed By: Last Modified By: Lita Mckeon, Lita Ann RN Hauer, Jessica, RN 10/05/18 15:22:08 10/05/18 15:22:08 10/05/18 15:22:08 Entry 4 Entry 5 Entry 6 Case Attendee DARIAN VAZQUEZ BRUCE, RADAR SIGNAL PROCESSING ENGINEER Latrell Portillo, MICHAEL Role Performed Division Field Inspector RADAR SIGNAL PROCESSING ENGINEER/Nurse Tumbler Dyeing Machine Operator Supervisor Paint Department, Second Time In 10/05/18 13:21:00 10/05/18 13:21:00 10/05/18 13:21:00 Time Out 10/05/18 15:22:00 10/05/18 15:22:00 10/05/18 14:18:00 Procedure Spinal Cord Stimulator Spinal Cord Stimulator Spinal Cord Stimulator Insertion Insertion Insertion Other Attendee Superficial Wound Closed By: Last Modified By: Lita Mckeon, Lita Ann, Lita Ann RN 10/05/18 15:22:08 10/05/18 15:22:08 10/05/18 15:22:08 Entry 7 Entry 8 Entry 9 Case Attendee Lita Mckeon, RN [place] FREEMAN MD OTHER, ATTENDEE #1 Role Performed Supervisor Paint Department, First Anesthesiologist of Vendor Record Time In 10/05/18 13:21:00 10/05/18 13:21:00 10/05/18 13:21:00 Time Out 10/05/18 15:22:00 10/05/18 15:22:00 10/05/18 15:22:00 Procedure Spinal Cord Stimulator Spinal Cord Stimulator Spinal Cord Stimulator Insertion Insertion Insertion Other Attendee bri ortiz Superficial Wound Closed By: Last Modified By: Lita Mckeon, RN Lita Mckeon, RN Lita Mckeon, RN 10/05/18 15:22:08 10/05/18 15:22:08 10/05/18 15:22:08 Entry 10 Case Attendee Candy Scott, Gravure Printing Machinist Role Performed Scrub, First Time In 10/05/18 14:31:00 Time Out 10/05/18 15:22:00 Procedure Spinal Cord Stimulator Insertion Other Attendee Superficial Wound Closed By: Last Modified By: Lita Mckeon, MICHAEL 10/05/18 15:22:08 [facility] IntraOp Case Attendance Audit 10/05/18 15:22:08 Fitness Technician: [id number] Modifier: [id number] <+> Time Out 1 <*> Procedure Spinal Cord Stimulator Insertion 2 <+> Time Out 2 <*> Procedure Spinal Cord Stimulator Insertion 3 <*> Procedure Spinal Cord Stimulator Insertion 4 <+> Time Out 4 <*> Procedure Spinal Cord Stimulator Insertion 5 <+> Time Out 5 <*> Procedure Spinal Cord Stimulator Insertion 6 <*> Procedure Spinal Cord Stimulator Insertion 7 <+> Time Out 7 <*> Procedure Spinal Cord Stimulator Insertion 8 <+> Time Out 8 <*> Procedure Spinal Cord Stimulator Insertion 9 <+> Time Out 9 <*> Procedure Spinal Cord Stimulator Insertion 10 <+> Time Out 10 <*> Procedure Spinal Cord Stimulator Insertion 10/05/18 14:32:45 Fitness Technician: [id number] Modifier: [id number] <+> Time Out 3 <*> Procedure Spinal Cord Stimulator Insertion <+> 10 Case Attendee <+> 10 Role Performed <+> 10 Time In <+> 10 Procedure 10/05/18 14:23:27 Fitness Technician: [id number] Modifier: [id number] <+> Time Out 6 <*> Procedure Spinal Cord Stimulator Insertion 10/05/18 14:07:00 Fitness Technician: [id number] Modifier: [id number] <*> Procedure Spinal Cord Stimulator Insertion 2 <+> Time In 2 <*> Procedure Spinal Cord Stimulator Insertion 3 <+> Time In 3 <*> Procedure Spinal Cord Stimulator Insertion 4 <+> Time In 4 <*> Procedure Spinal Cord Stimulator Insertion 5 <+> Time In 5 <*> Procedure Spinal Cord Stimulator Insertion 6 <+> Time In 6 <*> Procedure Spinal Cord Stimulator Insertion 7 <+> Time In 7 <*> Procedure Spinal Cord Stimulator Insertion 8 <+> Time In 8 <*> Procedure Spinal Cord Stimulator Insertion 9 <+> Time In 9 <*> Procedure Spinal Cord Stimulator Insertion 10/05/18 13:52:18 Fitness Technician: [email or web address] Modifier: [id number] <+> 1 Time In <+> 1 Procedure <+> 2 Case Attendee <+> 2 Role Performed <+> 2 Procedure <+> 3 Case Attendee <+> 3 Role Performed <+> 3 Procedure <+> 4 Case Attendee <+> 4 Role Performed <+> 4 Procedure <+> 5 Case Attendee <+> 5 Role Performed <+> 5 Procedure <+> 6 Case Attendee <+> 6 Role Performed <+> 6 Procedure <+> 7 Case Attendee <+> 7 Role Performed <+> 7 Procedure <+> 8 Case Attendee <+> 8 Role Performed <+> 8 Procedure <+> 9 Case Attendee <+> 9 Role Performed <+> 9 Procedure <+> 9 Other Attendee 10/05/18 10:49:15 Fitness Technician: [email or web address] Modifier: [email or web address] 1 <*> Case Attendee RAVIN PACKER MD-ANS 1 <*> Role Performed Surgeon/Proceduralist, First Entry 2 was deleted. Higher numbered entries shifted one position to fill the gap. <-> 2 Case Attendee CITLALI BUNCH RN <-> 2 Role Performed Supervisor Paint Department, First <-> 2 Procedure Spinal Cord Stimulator Insertion 10/05/18 10:48:45 Fitness Technician: KLEBER Modifier: [email or web address] 1 <*> Case Attendee RAVIN PACKER MD-ANS 1 <*> Role Performed Surgeon/Proceduralist, First Entry 2 was deleted. Higher numbered entries shifted one position to fill the gap. <-> 2 Case Attendee LAVON URRUTIA CRNA <-> 2 Role Performed RADAR SIGNAL PROCESSING ENGINEER/Nurse Tumbler Dyeing Machine Operator <-> 2 Procedure Spinal Cord Stimulator Insertion 10/05/18 10:47:44 Fitness Technician: KLEBER Modifier: [email or web address] 1 <*> Case Attendee RAVIN PACKER MD-ANS 1 <*> Role Performed Surgeon/Proceduralist, First 2 <+> Case Attendee 2 <*> Role Performed Furniture Sales Consultant, First 2 <*> Procedure Spinal Cord Stimulator Insertion 3 <*> Case Attendee LAVON URRUTIA CRNA 3 <*> Role Performed RADAR SIGNAL PROCESSING ENGINEER/Nurse Tumbler Dyeing Machine Operator 3 <*> Procedure Spinal Cord Stimulator Insertion Entry 4 was deleted. Higher numbered entries shifted one position to fill the gap. <-> 4 Case Attendee JEMIMA DUPONT MD <-> 4 Role Performed Anesthesiologist of Record <-> 4 Procedure Spinal Cord Stimulator Insertion Entry 5 was deleted. Higher numbered entries shifted one position to fill the gap. <-> 5 Case Attendee LINO CLIFTON RN <-> 5 Role Performed Scrub, First <-> 5 Procedure Spinal Cord Stimulator Insertion [facility] IntraOp Case Times Entry 1 Patient In Room Time 10/05/18 13:21:00 Out Room Time 10/05/18 15:22:00 Anesthesia Start Time 10/05/18 13:21:00 Stop Time 10/05/18 15:22:00 Surgery / Procedure Times Start Time 10/05/18 13:49:00 Stop Time 10/05/18 15:17:00 Last Modified By: Lita Mckeon RN 10/05/18 15:22:07 [facility] IntraOp Case Times Audit 10/05/18 15:22:07 Fitness Technician: [id number] Modifier: [id number] <+> 1 Out Room Time <+> 1 Stop Time 10/05/18 15:20:49 Fitness Technician: [id number] Modifier: [id number] <+> 1 Stop Time 10/05/18 14:13:10 Fitness Technician: [id number] Modifier: [id number] <+> 1 Start Time [facility] IntraOp Cautery Entry 1 Entry 2 ESU Identification Cautery Type Monopolar ESU BiPolar ESU Cautery Type Comments ID Number [id number] ID Type Hospital Number Hospital Number Cautery Settings Cut Setting 40 8 Coag Setting 40 40 Blend Setting Bipolar Setting Argon Setting Argon Bloom ESU Grounding Pad Ground Pad Type Adult Grounding Pad Type Comment Grounding Pad Site Grounding Pad Site Comment Grounding Pad Applied By Grounding Pad Site Warm, dry and intact Skin Condition Before Cautery Site Skin Condition Before Comment Grounding Pad Site Unchanged Skin Condition After Cautery Site Skin Condition After Comment Last Modified By: CITLALI BUNCH RN DEESE, THOMAS L, RN 10/05/18 10:48:11 10/05/18 09:00:57 [facility] IntraOp Cautery Audit 10/05/18 10:48:11 Fitness Technician: KLEBER Modifier: [email or web address] 1 <-> Grounding Pad Applied By CITLALI BUNCH RN 10/05/18 09:00:57 Fitness Technician: KLEBER Modifier: [email or web address] <+> 1 Coag Setting <+> 1 Ground Pad Type <+> 1 Grounding Pad Applied By <+> 1 Grounding Pad Site Skin Condition Before Cautery <+> 1 Grounding Pad Site Skin Condition After Cautery <+> 2 Cautery Type <+> 2 Coag Setting <+> 2 Cut Setting <+> 2 ID Number <+> 2 ID Type [facility] IntraOp Communication Entry 1 Communication To Family/Significant other Comment START Last Modified By: CITLALI BUNCH RN 10/05/18 09:01:04 [facility] IntraOp Counts Verification Entry 1 Entry 2 Procedure Spinal Cord Stimulator Spinal Cord Stimulator Insertion Insertion Count Info Count Type Sponge, Sharps, Sponge, Sharps, Miscellaneous Miscellaneous Counts Verification Baseline/pre-procedure At time of permanent Sequence relief Count Results Correct, surgeon notified If Incorrect or Waived complete the Counts Action Taken form: If Intentional Retention, complete the Intential Retention form: Counts Performed By Count Performed By Rodolfo Peña, Surgical Rodolfo Peña, Surgical (Scrub) Rn Chronic Rn Chronic Count Performed By Lita Mckeon RN Hauer, Jessica, RN (RN) Last Modified By: Lita Mckeon RN Hauer, Jessica, RN 10/05/18 14:39:52 10/05/18 14:39:52 [facility] IntraOp Counts Verification Audit 10/05/18 14:39:52 Fitness Technician: [id number] Modifier: [id number] 1 <*> Count Performed By (Scrub) SUKI EMERSON Entry 1 was deleted. Higher numbered entries shifted one position to fill the gap. <-> 1 Procedure Spinal Cord Stimulator Insertion <-> 1 Count Type Sponge, Sharps <-> 1 Counts Verification Sequence Baseline/pre-procedure <-> 1 Count Performed By (Scrub) <-> 1 Count Performed By (RN) 10/05/18 13:53:14 Fitness Technician: KLEBER Modifier: [id number] <+> 2 Procedure <+> 2 Count Type <+> 2 Counts Verification Sequence <+> 2 Count Performed By (Scrub) <+> 2 Count Performed By (RN) [facility] IntraOp Counts Final Entry 1 Procedure Spinal Cord Stimulator Insertion Final Count Info Count Type Sponge, Sharps, Miscellaneous Counts Verification Skin Closure/end of Sequence procedure Count Results Correct, surgeon notified Counts Performed By Count Performed By Candy Scott, (Scrub) Gravure Printing Machinist Count Performed By Lita Mckeon RN (RN) Last Modified By: Lita Mckeon RN 10/05/18 15:09:54 [facility] IntraOp Departure from OR Entry 1 Integumentary Assessment Integumentary WDL Assessment WDL Transfer/Handoff Transfer to PACU Phase I Handoff Method Phone call Handoff Reported to OTHER, ATTENDEE Post-op Transport Stretcher/Gurney Via Patient Transport KAREN BRAMBILA CRNA, Accompanied by SUKI EMERSON Last Modified By: Lita Mckeon RN 10/05/18 15:22:41 [facility] IntraOp Departure from OR Audit 10/05/18 15:22:41 Fitness Technician: [id number] Modifier: [id number] 1 <*> Patient Transport Accompanied by KAREN BRAMBILA CRNA 10/05/18 13:53:34 Fitness Technician: KLEBER Modifier: [id number] <+> 1 Patient Transport Accompanied by 10/05/18 10:48:34 Fitness Technician: KLEBER Modifier: [email or web address] 1 <-> Patient Transport Accompanied by LAVON URRUTIA CRNA [facility] IntraOp Dressing and Packing Entry 1 Type Dressing Wound Dressing Item Border Applied By RAVIN PACKER MD-ANS Last Modified By: Latrell Portillo RN 10/05/18 14:01:30 [facility] IntraOp Fire Risk Assessment Entry 1 Fire Info Surgical Site or 0- No Incision Above the Xyphoid Open O2 Source 0- No (Mask or Cannula) Available Ignition 1- Yes (ESU, Laser, Light Source) Fire Risk 1 Assessment Score Fire Score Fire Risk Yes Assessment Complete Fire Risk Latrell Portillo RN Assessment Verified By Fire Risk 10/05/18 13:47:00 Assessment Verified Date/Time Fire Risk Standard Fire Yes Safety Precautions Followed Last Modified By: Latrell Portillo RN 10/05/18 13:54:03 [facility] IntraOp Fire Risk Assessment Audit 10/05/18 13:54:03 Fitness Technician: KLEBER Modifier: [id number] <+> 1 Fire Risk Assessment Verified By <+> 1 Fire Risk Assessment Verified Date/Time 10/05/18 10:48:57 Fitness Technician: KLEBER Modifier: KLEBER 1 <-> Fire Risk Assessment Verified By CITLALI BUNCH RN 1 <-> Fire Risk Assessment Verified 10/05/18 09:01:00 Date/Time [facility] IntraOp General Case Farmworker Dairy 1 Case Information OR OR 02 [facility] Case Level 1 Room Verified Yes Wound Class I - Clean Specialty SN Neurosurgery Anesthesia Type General ASA Class 3 Diagnosis Preop Diagnosis BACK PAIN Postop Same As Preop No Postop Diagnosis SEE POST OP NOTE Last Modified By: Latrell Portillo RN 10/05/18 13:54:38 [facility] IntraOp General Case Data Audit 10/05/18 13:54:38 Fitness Technician: [id number] Modifier: [id number] <+> 1 Preop Diagnosis 10/05/18 13:54:16 Fitness Technician: KLEBER Modifier: [id number] 1 <*> OR OR 11 [facility] 1 <+> ASA Class [facility] IntraOp Implant Log Entry 1 Entry 2 Entry 3 Type Implant (Synthetic) Implant (Synthetic) Implant (Synthetic) Implant Log Implant Type Stimulator Stimulator Stimulator Tissue Implant Type Implant LEAD 1058-50B BY NEVRO LEAD 1058-50B BY NEVRO KT LEAD ANCHOR Identification [id number] Description Implant Quantity 1 1 1 Implant Site OPERATIVE SITE OPERATIVE SITE OPERATIVE SITE Implant Identification Model Number Implant Identification Serial Number Implant [id number] Identification Lot Number Implant Agile The[employer]RO Agile [employer]RO ALY Identification Motion Picture Equipment Machinist Name: Implant [id number] Identification Catalog Number Implant Size Implant Has an Yes Yes Yes Expiration Date Implant Expiration 12/10/21 12/10/21 12/13/21 Date Wasted Radioactive Material Time Implanted Tissue Implant Continue for Tissue Implant Documentation Tissue Identification Number Graft Prep Per N/A N/A N/A Motion Picture Equipment Machinist Instructions: Tissue Preparation Method: Reconstitution Solution: Reconstitution Solution Lot Number Reconstitution Solution Expiration Date: Thawing Solution Thawing Solution Lot Number Thawing Solution Expiration Date Preparation Materials, Other Preparation Materials, Other Lot Number Preparation Materials, Other Expiration Date Tissue Prepared/Processed By Motion Picture Equipment Machinist N/A N/A N/A Paperwork Completed Implant Type Comment Last Modified By: Latrell Portillo RN Willoughby, Toni, RN Hauer, Jessica, RN 10/05/18 14:01:07 10/05/18 14:01:07 10/05/18 14:33:27 Entry 4 Type Implant (Synthetic) Implant Log Implant Type Stimulator Tissue Implant Type Implant [facility] [id number] Identification Description Implant Quantity 1 Implant Site OPERATIVE SITE Implant Identification Model Number Implant Identification Serial Number Implant [id number] Identification Lot Number Implant NEVRO ALY Identification Motion Picture Equipment Machinist Name: Implant [id number] Identification Catalog Number Implant Size Implant Has an Yes Expiration Date Implant Expiration 07/06/20 Date Wasted Radioactive Material Time Implanted Tissue Implant Continue for Tissue Implant Documentation Tissue Identification Number Graft Prep Per N/A Motion Picture Equipment Machinist Instructions: Tissue Preparation Method: Reconstitution Solution: Reconstitution Solution Lot Number Reconstitution Solution Expiration Date: Thawing Solution Thawing Solution Lot Number Thawing Solution Expiration Date Preparation Materials, Other Preparation Materials, Other Lot Number Preparation Materials, Other Expiration Date Tissue Prepared/Processed By Motion Picture Equipment Machinist N/A Paperwork Completed Implant Type Comment Last Modified By: Lita Mckeon RN 10/05/18 14:39:24 [facility] IntraOp Implant Log Audit 10/05/18 14:39:24 Fitness Technician: [id number] Modifier: [id number] <+> 4 Implant Identification Description <+> 4 Implant Identification Lot Number <+> 4 Implant Identification Motion Picture Equipment Machinist Name: <+> 4 Implant Expiration Date <+> 4 Implant Site <+> 4 Implant Quantity <+> 4 Implant Identification Catalog Number <+> 4 Implant Type <+> 4 Graft Prep Per Motion Picture Equipment Machinist Instructions: <+> 4 Motion Picture Equipment Machinist Paperwork Completed <+> 4 Implant Has an Expiration Date <+> 4 Type 10/05/18 14:33:27 Fitness Technician: [id number] Modifier: [id number] <+> 3 Implant Identification Description <+> 3 Implant Identification Lot Number <+> 3 Implant Identification Motion Picture Equipment Machinist Name: <+> 3 Implant Expiration Date <+> 3 Implant Site <+> 3 Implant Quantity <+> 3 Implant Identification Catalog Number <+> 3 Implant Type <+> 3 Graft Prep Per Motion Picture Equipment Machinist Instructions: <+> 3 Motion Picture Equipment Machinist Paperwork Completed <+> 3 Implant Has an Expiration Date <+> 3 Type [facility] IntraOp Intraoperative Assessment Entry 1 Handoff Method Bedside/Face to face Valid History / Yes Physical in Chart Preoperative Yes Checklist Reviewed/Evaluated Allergies Reviewed Yes Patient is Latex No Sensitive Isolation Not applicable Precautions Noted Level of WDL Consciousness (WDL = Alert, Oriented to Person, Place, and Time) Skin Assessment No Verified Present Upon IVs Arrival to OR Last Modified By: Latrell Portillo RN 10/05/18 13:52:52 [facility] IntraOp Intraoperative Assessment Audit 10/05/18 13:52:52 Fitness Technician: KLEBER Modifier: [id number] 1 <*> Skin Assessment Verified Yes [facility] IntraOp Intraoperative Equipment Entry 1 Type Equipment Equipment Equipment Sophia Suction System ID Number [id number] Setting 180 Intraop Monitoring Antiembolic Devices Antiembolic Devices Sequential compression device, knee high Antiembolic Device Bilateral Location Antiembolic Device [id number] ID Number Scopes Photo/Video Documentation Photo No Video No Last Modified By: CITLALI BUNCH RN 10/05/18 09:03:48 [facility] IntraOp Medication Admin Entry 1 Entry 2 Entry 3 Medication/Irrigant Bacitracin 50,00units lidocaine 1% 30ml vial Marcaine 0.25% w/ powder vial - [id number] epinephrine 1:200,000 30ml vial - [id number] Combo Med List Time Administered Route of MIXED WITH NACL FLUSH LOCAL LOCAL Administration ON STERILE FIELD Dose Dose 66252 5 5 Unit of Measure units million units ml Volume Administered By RAVIN PACKER MD-ANS RASHEED, KARIM, MD-ANS RASHEED, KARIM, MD-ANS Procedure Irrigation Irrigant Volume In Irrigant Volume Out Last Modified By: Latrell Portillo RN Willoughby, Toni, RN Willoughby, Toni, RN 10/05/18 14:04:26 10/05/18 14:04:26 10/05/18 14:04:26 Entry 4 Entry 5 Medication/Irrigant KEATON IRR NACL 0.9PCT Sterile Water 1000ml 2000ML [id number] irrigation - [id number] Combo Med List Time Administered Route of FLUSH ON FIELD FLUSH ON FILED Administration Dose Dose 1000 1000 Unit of Measure ml ml Volume Administered By RAVIN PACKER MD-ANS RASHEED, KARIM, MD-ANS Procedure Irrigation Irrigant Volume In Irrigant Volume Out Last Modified By: Latrell Portillo RN Willoughby, Toni, RN 10/05/18 14:04:26 10/05/18 14:04:26 [facility] IntraOp Patient Positioning Entry 1 Procedure Spinal Cord Stimulator Insertion Body Position Prone Left Arm Position Secured on padded arm board Right Arm Position Secured on padded arm board Left Leg Position Uncrossed, parallel Right Leg Position Uncrossed, parallel Feet Uncrossed Yes Pressure Points Yes Checked Positioning Devices Head Rest, Pad, Arm, Pad, Elbow, Pad (Other), Pillows, Safety Strap, Leg(s), Safety Strap, Arm(s), Safety Strap, Thighs Positioned By SUKI EMERSON, Latrell Portillo, MICHAEL, Lita Mckeon, MICHAEL, KAREN BRAMBILA, RENEE Position Verified Positioning Yes Verified by Anesthesia Positioning Yes Verified by Surgeon Last Modified By: Latrell Portillo RN 10/05/18 14:06:20 [facility] IntraOp Sign In Entry 1 Patient, Site, Yes Procedure Identified Surgical Consent Yes Confirmed Relevant Surgical Yes Documents Available Surgical Site Yes Marked by person performing procedure Anesthesia Machine Yes Check Completed Medication Checks Yes Completed Allergies Yes Airway Difficult Yes Airway/Aspiration Risk Difficult Yes Airway/Aspiration Intervention Equipment Available Blood Loss Risk No Blood Loss No Intervention Equipment Prepared and Ready Blood Identifiers Not applicable Verified Per Policy Hypothermia Risk Yes Warming Measures Yes Taken Last Modified By: Latrell Portillo RN 10/05/18 14:06:57 [facility] IntraOp Sign Out Entry 1 RN Confirmation Surgical Yes Procedure(s) Identified Instrument, Sponge Yes and Sharps Counts Correct/Documented Equipment Problems N/A Documented Specimen Labeled N/A Correctly Urinary Catheter N/A Documented in IView Jimenez Patient Yes Recovery Concerns Reviewed with Anesthesia Provider, Surgeon and RN Jimenez Patient Yes Management Concerns Reviewed with Anesthesia Provider, Surgeon and RN Safety Checklist Yes Elements Complete? RN Sign Out Lita Mckeon RN Signature RN Sign Out 10/05/18 15:22:00 Signature Date/Time Plan of Care Outcome - Fire Risk OUTCOME STATEMENT: Goal met Patient is free from injury related to surgical fire Plan of Care Outcome - Pt Positioning OUTCOME STATEMENT: Goal met Absence of signs and symptoms of positioning injury. Plan of Care Outcome - Skin Prep OUTCOME STATEMENT: Goal met Intraoperative care is consistent with measures to prevent infection Plan of Care Outcome - Xray/Images OUTCOME STATEMENT: Goal met Absence of observable signs or symptoms of radiation injury Plan of Care Outcome - Counts OUTCOME STATEMENT: Goal met Absence of signs and symptoms of injury related to extraneous objects Last Modified By: Lita Mckeon RN 10/05/18 15:22:19 [facility] IntraOp Sign Out Audit 10/05/18 15:22:19 Fitness Technician: [id number] Modifier: [id number] <+> 1 RN Sign Out Signature <+> 1 RN Sign Out Signature Date/Time [facility] IntraOp Skin Prep Entry 1 Procedure Spinal Cord Stimulator Insertion Prescribed N/A Pre-Surgical Prep Completed Prep Area BACK Intraop Prep Integumentary WDL Assessment WDL Prep Agents DuraPrep Prep by Lita Mckeon RN Hair Removal Methods No hair removal performed Last Modified By: Latrell Portillo RN 10/05/18 14:07:33 [facility] IntraOp Surgical Procedures Entry 1 Procedure Spinal Cord Stimulator Insertion Additional SPINAL CORD STIMULATOR Procedure IMPLANT Description Primary Procedure Yes Primary Surgeon RAVIN PACKER MD-ANS Start 10/05/18 13:49:00 Stop 10/05/18 15:17:00 Anesthesia Type General Specialty SN Pain Management Wound Class I - Clean Last Modified By: Lita Mckeon RN 10/05/18 15:20:53 [facility] IntraOp Surgical Procedures Audit 10/05/18 15:20:53 Fitness Technician: [id number] Modifier: [id number] <+> 1 Stop 10/05/18 14:44:39 Fitness Technician: [id number] Modifier: [id number] 1 <*> Procedure Spinal Cord Stimulator Insertion 1 <*> Additional Procedure Description SPINAL CORD STIMULATOR IMPLANT 10/05/18 14:32:17 Fitness Technician: [id number] Modifier: [id number] <+> 1 Start 10/05/18 14:08:12 Fitness Technician: [id number] Modifier: [id number] 1 <*> Procedure Spinal Cord Stimulator Insertion 1 <+> Specialty [facility] IntraOP Time Out Entry 1 Procedure to be Spinal Cord Stimulator Performed Insertion Time Out Time Out Pause Time 10/05/18 13:47:00 All activity Yes suspended (unless life threatening emergency) Team Verbally Correct patient Confirms Information identity, Correct side and site are marked, Consent form is present and accurate, Agreement on the procedure to be done, Correct patient position, Relevant images/results properly labeled/appropriately displayed, Confirm antibiotics have been administered, Confirm the skin prep has dried, Confirm prosthesis/implant/devic e is present, Performed in location of procedure after prepped/draped Antibiotic Yes Prophylaxis Administered Or In Progress Within the Last 60 Minutes Beta Escobar N/A Administered Venous Yes Thromboembolism Prophylaxis Required Anticipated Critical Events Surgeon None expected Anesthesia Provider None expected Nursing Assures Sterility of instruments, Equipment concerns or issues, Implant Availability Essential Imaging Yes Labeled and Displayed Last Modified By: Latrell Portillo RN 10/05/18 14:08:59 Case Comments <None> Finalized By: ROSA BLOOM Document Signatures Signed By: Lita Mckeon RN 10/05/18 15:22 ROSA BLOOM 10/06/18 11:40 Unfinalized History Date/Time Username Reason for Unfinalizing Freetext Reason for Unfinalizing 10/06/18 11:37 [id number] Correct Billing Electronically signed by Rosa [facility] Conversion Cdl Company Driver Cerner at 09/26/2022 9:19 AM CDT documented in this encounter Plan of Treatment Not on file documented as of this encounter Visit Diagnoses Not on filedocumented in this encounter Care Teams Bomb Squad Officer Relationship Specialty Start Date End Date Tony Calabrese MD [address] [place] [address] PCP - General Family Medicine 06/06/22 Jean-Pierre Cabrera MD [address] [facility] [address] [place] [address] Surgeon Cardiothoracic Surgery 06/26/23 Kd Prince PA-C 1401 [facility], [facility] [address] [place] [address] Surveillance Operator Cardiology 06/26/23 Renae Car, HOSPICE MANAGER [address] [facility] [place] [address] Cardiology 09/30/23 documented as of this encounter
--- OUTSIDE RECORDS SUMMARY | 2025-05-02 11:44 | XMS_ITS | Encounter Summary ---
Author Organization [employer] ([place], [place], [place], [place], [place]) Address [address] [place] [address] Care Team Providers Care Sole Trimmer Name Role Phone Tony Calabrese MD Primary Care Provider [phone] Jean-Pierre Cabrera MD Unavailable [phone] Kd Prince PA-C Unavailable [phone] Renae Car APRN Unavailable [phone] Encounter Details Date Type Department Care Team (Late st Contact Info) Description 01/17/2021 Transcribed Document [facility] Family Medicine [address] [place] [address] ProviderLiz MD [address] [place] [address] Social History Tobacco Use Types Packs/Day [...] Note - Liz Patel MD - 01/17/2021 8:01 AM CDT UM Authorization Entered On: 01/17/2021 8:01 EDT Performed On: 01/17/2021 8:01 EDT by RAMÓN BADILLO, RN-Utilization Review Primary Insurance Authorization Authorization and Policy Numbers : Insurance 1 Health Plan: MEDICARE Policy Number: [id number] Authorization Number: Insurance 2 Health Plan: AETNA Policy Number: [id number] Authorization Number: Insurance Primary Name : MEDICARE Policy Number: [id number] AETNA Policy Number: [id number] Authorized Service Begin Date-Primary : 01/15/2021 EDT Historical Authorization Comments-Primary : Comment 1: Per Availity eligibility, AETNA secondary to Medicare. (ALBERT PARRISH, Rn-Utilization Review 01/16/2021 11:25) RAMÓN BADILLO, RN-Utilization Review - 01/17/2021 8:01 EDT Electronically signed by Rosa [facility] Conversion Automatic Beading Lathe Operator Cerner at 09/26/2022 9:22 AM CDT documented in this encounter Plan of Treatment Not on file documented as of this encounter Visit Diagnoses Not on filedocumented in this encounter Care Teams Sole Trimmer Relationship Specialty Start Date End Date Tony Calabrese MD [address] [place] [address] PCP - General Family Medicine 06/06/22 Jean-Pierre Cabrera MD [address] [facility] [address] [place], [place] [address] Surgeon Cardiothoracic Surgery 06/26/23 Kd Prince PA-C [address], [facility] [address] [place] [id number] Cardiopulmonary Technician And Eeg Tech Cardiology 06/26/23 Renae Car APRN [address] [facility] [address] [place] [address] Cardiology 09/30/23 documented as of this encounter
--- OUTSIDE RECORDS SUMMARY | 2025-05-02 11:44 | XMS_ITS | Encounter Summary ---
Author Organization [facility] Address [address] [place], [place] [address] Care Team Providers Care Apprentice/Lineman Name Role Phone None, None Primary Care Provider UnavailCraig Zavaleta MD Unavailable [phone] Tony Calabrese MD Primary Care Provider [phone] Liss Parker MD Unavailable [phone] Reason for Visit * Reason Comments Medications Refill Encounter Details Date Type Department Care Team (Late st Contact Info) Description 07/20/2019 Refill [facility] Physicians - Primary Care, Jeff Cheney [address] [place] [address] Ana Velarde HOME MAKER [address] [place] [address] Medications Refill Social History Tobacco Use Types Packs/Day Years [...] file Not on file Not on file documented as of this encounter Miscellaneous Notes * Telephone Encounter - Marcelo Pérez MA - 07/20/2019 1:59 PM EST Pharmacy notified that pt is no longer under your care to stop sending * Telephone Encounter - Ana Velarde APRN - 07/20/2019 1:17 PM EST MARCELO PLEASE NOTE THIS PT IS NO LONGER UNDER MY CARE THEY KEEP SENDING IT CALL PHARMACY BACK WE DENIED IT YESTERDAY WELL CALL THEM PLEASE NOTE THE PCP AND THE RX DUPLICATES.. * Telephone Encounter - Marcelo Pérez MA - 07/20/2019 11:06 AM EST Last Office Visit and Type 06/26/18 pe Next Office Visit and Type none Lab orders on file y documented in this encounter Plan of Treatment Not on file documented as of this encounter Visit Diagnoses Diagnosis Controlled type 2 diabetes mellitus without complication, without long-term current use of insulin ([facility]) documented in this encounter Additional Health Concerns Assessment Noted Time PHQ-9 Depression Total Score: 1 06/25/19 20 4:11 PM EST documented as of this encounter Care Teams Apprentice/Lineman Relationship Specialty Start Date End Date None, None [address] [place] [address] PCP - General 07/15/19 09/20/20 [place] [address] [id number] PCP - General Family Medicine 09/21/20 Craig Salazar MD [address] [facility] [address] [place] [address] Cardiology 07/27/20 Liss Parker MD [address] [place] [address] General Surgery 06/16/22 documented as of this encounter
--- OUTSIDE RECORDS SUMMARY | 2025-05-02 11:44 | XMS_ITS | Encounter Summary ---
Author Organization [employer] ([place], [place], [place], [place], [place]) Address [address] [place] [address] Care Team Providers Care Molding Engineer Name Role Phone Tony Calabrese MD Primary Care Provider [phone] Jean-Pierre Cabrera MD Unavailable [phone] Kd Prince PA-C Unavailable [phone] Renae Car APRN Unavailable [phone] Encounter Details Date Type Department Care Team (Late st Contact Info) Description 01/17/2021 Transcribed Document [facility] [place] Family Medicine [address] [place] [address] ProviderLiz MD [address] [place] [address] Social History Tobacco Use Types Packs/Day [...] Note - Liz Patel MD - 01/17/2021 1:07 PM CDT On Going Discharge Planning Entered On: 01/17/2021 13:11 EDT Performed On: 01/17/2021 13:07 EDT by Althea Lloyd V, Securities Clerk Kiln Repairer Care Management Progress Note Discharge Arrangements : Patient Post-Acute Information Patient Name: BULMARO ELLISON [facility]: [id number] Gender: Male : 55 Age: 65 Years No Post-Acute Placement(s) Listed No Post-Acute Service(s) Listed No [place] Referral(s) Listed Barriers to Discharge Identified : 3 Day Qualifying Stay for SNF, Clinical Condition of Patient Is the Patient Meeting Medical Necessity : Yes Physician Agreeable to Move Forward with D/C Plan? : Yes Did you Attend Multidisciplinary Rounds? : Yes Althea Lloyd Social Worker Kiln Repairer - 01/17/2021 13:07 EDT Narrative Progress Note Narrative Progress Note : HD#-1, ELOS-not recorded, RRS-moderate, Boost-4 Patient going for heart cath today. PT/OT attempted to see pt, but he was unavailable due to the heart cath procedure. Per PT/OT, if patient recieves intervention they will need reorders. CM will continue to follow for PT/OT dc recommendations. Althea Lloyd Social Worker Kiln Repairer - 01/17/2021 13:07 EDT Electronically signed by Rosa [facility] Conversion Respiratory Care Specialist Cerner at 09/26/2022 9:15 AM CDT documented in this encounter Plan of Treatment Not on file documented as of this encounter Visit Diagnoses Not on filedocumented in this encounter Care Teams Molding Engineer Relationship Specialty Start Date End Date Tony Calabrese MD [address] [place], [place] PCP - General Family Medicine 06/06/22 Jean-Pierre Cabrera MD [address] [facility] [address] [place] [address] Surgeon Cardiothoracic Surgery 06/26/23 Kd Prince PA-C 1401 [facility], [facility] [address] [place] [address] Bomb Squad Officer Cardiology 06/26/23 Renae Car, FILM AND VIDEO GRAPHICS DESIGNER [address] [facility] [place] [address] Cardiology 09/30/23 documented as of this encounter
--- OUTSIDE RECORDS SUMMARY | 2025-05-02 11:44 | XMS_ITS | Encounter Summary ---
Author Organization [employer] ([place], [place], [place], [place], [place]) Address [address] [place] [address] Care Team Providers Care Electrician Manager Name Role Phone Tony Calabrese MD Primary Care Provider [phone] Jean-Pierre Cabrera MD Unavailable [phone] Kd Prince PA-C Unavailable [phone] Renae Car APRN Unavailable [phone] Encounter Details Date Type Department Care Team (Late st Contact Info) Description 01/16/2021 Transcribed Document [facility] [place] [address] [place] [address] ProviderLiz MD [address] [place] [address] Social History Tobacco Use Types Packs/Day [...] Note - Liz Patel MD - 01/16/2021 11:25 AM CDT UM Authorization Entered On: 01/16/2021 11:25 EDT Performed On: 01/16/2021 11:25 EDT by ALBERT PARRISH, Rn-Utilization Review Primary Insurance Authorization Authorization and Policy Numbers : Insurance 1 Health Plan: MEDICARE Policy Number: [id number] Authorization Number: Insurance 2 Health Plan: AETNA Policy Number: [id number] Authorization Number: Insurance Primary Name : MEDICARE Policy Number: [id number] AETNA Policy Number: [id number] Authorization Comments-Primary : Per Availity eligibility, AETNA secondary to Medicare. Historical Authorization Comments-Primary : No Authorization Comments Found ALBERT PARRISH Rn-Utilization Review - 01/16/2021 11:25 EDT Electronically signed by Rosa, [facility] Conversion Logger All Round Cerner at 09/26/2022 9:01 AM CDT documented in this encounter Plan of Treatment Not on file documented as of this encounter Visit Diagnoses Not on filedocumented in this encounter Care Teams Electrician Manager Relationship Specialty Start Date End Date Tony Calabrese MD [address] [place] [address] PCP - General Family Medicine 06/06/22 Jean-Pierre Cabrera MD [address] [facility] [address] [place], [place] [id number] Surgeon Cardiothoracic Surgery 06/26/23 Kd Prince PA-C [address], [address] [place] [address] Wide Area Network Engineer Cardiology 06/26/23 Renae Car APRN [address] [facility] [address] [place], [place] [id number] Cardiology 09/30/23 documented as of this encounter
--- OUTSIDE RECORDS SUMMARY | 2025-05-02 11:45 | XMS_ITS | Encounter Summary ---
Author Organization [employer] ([place], [place], [place], [place], [place]) Address [address] [place] [address] Care Team Providers Care Spa Coordinator Name Role Phone Tony Calabrese MD Primary Care Provider [phone] Jean-Pierre Cabrera MD Unavailable [phone] Kd Prince PA-C Unavailable [phone] Renae Car APRN Unavailable [phone] Encounter Details Date Type Department Care Team (Late st Contact Info) Description 01/18/2021 Transcribed Document [facility] [place] [address] [place] [address] ProviderLiz MD [address] [place] [address] Social History Tobacco Use Types Packs/Day [...] Note - Liz Patel MD - 01/18/2021 4:05 PM CDT Patient: BULMARO ELLISON Age: 65 years Sex: Male : 1955 Associated Diagnoses: None Author: ELVIS LUX MD-LUPE BASIC Primary Promotional Model: William Stanley MD Subjective NAD Health Status Allergies: Allergies (1) Active Reaction No Known Allergies None Documented Current medications: Home Medications (11) Active aspirin 81 mg [...] 2 Tab, PRN, Oral, Q4H , Medications (23) Active Scheduled: (12) aspirin EC 81 mg [...] 90 mg 1 Tab, Oral, BID Continuous: (1) NaCl 0.9% 500 mL 500 mL, IntraVENous PRN: (10) acetaminophen 325 mg tab 650 [...] mg 0.25 mL, IntraVENous, Q6H Problem list: Active Problems (19) kevin horse [...] Peripheral neuropathy, left foot Urinary frequency/urgency Objective VS/Measurements Vitals Signs (last 24 hrs) Last Charted Minimum Maximum Temp 97.8 (JAN 17 08:56) 97.8 (JAN 17 08:56) 97.7 (JAN 16:48) Apical HR 69 (JAN 17 08:58) 69 (JAN 17 08:58) 85 (JAN 16 21:37) Mon HR 76 (JAN 17 15:00) 68 (JAN 17 08:56) 76 (JAN 17 05:36) Resp Rate 18 (JAN 17 08:56) 17 (JAN 17 05:36) 18 (JAN 16 21:48) SBP 115 (JAN 17 15:04) 115 (JAN 17 15:04) H 152 (JAN 17 08:56) DBP 72 (JAN 17 15:04) 67 (JAN 16 21:48) 83 (JAN 17 08:56) MAP 85 (JAN 17 15:04) 85 (JAN 16 21:48) 121 (JAN 17 08:56) SpO2 97 (JAN 17 15:00) 97 (JAN 17 15:00) 100 (JAN 16 21:48) General: Alert and oriented, No acute distress. Eye: Pupils are equal, round and reactive to light, Normal conjunctiva, Vision unchanged. HENT: Normocephalic. Neck: Supple, Non-tender, No carotid bruit, No jugular venous distention. Respiratory: Lungs are clear to auscultation, Respirations are non-labored, Breath sounds are equal, Symmetrical chest wall expansion. Cardiovascular: Normal rate, Regular rhythm, No murmur, Good pulses equal in all extremities. Gastrointestinal: Soft, Non-distended, Normal bowel sounds. Musculoskeletal: Normal range of motion, Normal strength. Integumentary: Warm, Dry, [place]. Neurologic: Alert, Oriented. Psychiatric: Cooperative, Appropriate mood & affect. Results Review JAN 17 03:43 141 110 16 / H 135 4.2 27 0.80 \ JAN 17 03:43 \ L 13.0 / 9.0 257 / 41.2 \ Cardiac Markers (Current Encounter/Past 24 Hours) ProBNP 205 pg/mL MS 01/16/2021 03:57 Radiology Results (Last 48 hours) [id number] -- 01/17/2021 15:25 CR Chest 1 Vw Portable (01/15/2021 18:07) Result: PORTABLE CHEST 01/15/2021 5:53 PMHISTORY: Precordial chest painCOMPARISON: December 20, 2020FINDINGS: The cardiac silhouette is proper size. The aortic contours arenormal. The mediastinal and hilar structures are unremarkable. The lungsare clear. There is no pneumothorax. Thoracic spinal stimulator againnoted. IMPRESSION: No acute cardiopulmonary process. Images reviewed, interpreted, and dictated by Carmen Wilson MD Echo 12/21/20 Impression: Normal sized left ventricle. [...] moderate left ventricular systolic dysfunction post stress. [facility] - 01/17/2021 - William Stanley MD Impression and Plan IMPRESSION: Chest pain. Known CAD. Feeling much better post repeat LAD PHUONG Lexiscan 01/16/21 -Large inferior and partial anterior reversible defect. EF 38%. s/p recent PHUONG to LAD 12/21/20 + additional PHUONG mid LAD Valvular heart disease Moderate MR/AR / , EF 50% Hypertension Dyslipidemia Diabetes mellitus type 2 Hx PUD PLAN; 01/18/21 Increase Metoprolol to 25 mg BID. Continue other current CV meds. OK to DC from cardiac standpoint. RV w/ Dr. Stanley at [facility] in 4 wks. 01/17/21 Repeat L heart cath with Dr. Stanley today. Continue other current CV meds. 01/16/21 Repeat L heart cath discussed, pt deferring. Lexiscan myoview today. Continue other current CV meds. 01/15/21 Serial cardiac enzymes and EKG Probnp Recommend admission internal medicine rule out DC Continue aspirin, Brilinta, beta-scott If cardiac enzymes elevated will initiate heparin GTT per protocol Further recommendations pending lab results Electronically signed by [facility], [facility] Conversion Voice Intercept Technician Cerner at 09/26/2022 9:07 AM CDT documented in this encounter Plan of Treatment Not on file documented as of this encounter Visit Diagnoses Not on filedocumented in this encounter Care Teams Spa Coordinator Relationship Specialty Start Date End Date Tony Calabrese MD [address] [place] [address] PCP - General Family Medicine 06/06/22 Jean-Pierre Cabrera MD [address] [place] [address] [address] [place], [place] [id number] Surgeon Cardiothoracic Surgery 06/26/23 Kd Prince PA-C [address] [place] [address] Promotional Model Cardiology 06/26/23 Renae Car, SEATING AND MOBILITY TECHNOLOGIST [address] [facility] [address] [place], [place] [id number] Cardiology 09/30/23 documented as of this encounter
--- OUTSIDE RECORDS SUMMARY | 2025-05-02 11:45 | XMS_ITS | Encounter Summary ---
Author Organization [employer] ([place], [place], [place], [place], [place]) Address [address] [place] [address] Care Team Providers Care Sports Intern Name Role Phone Tony Calabrese MD Primary Care Provider [phone] Jean-Pierre Cabrera MD Unavailable [phone] Kd Prince PA-C Unavailable [phone] Renae Car APRN Unavailable [phone] Encounter Details Date Type Department Care Team (Late st Contact Info) Description 12/20/2020 Transcribed Document [facility] [place] Family Medicine [address] [place] [address] ProviderLiz MD [address] [place] [address] Social History Tobacco Use Types Packs/Day Years Used Date Smoking Tobacco: Never Assessed Sex and Gender Information Value Date Recorded Sex Assigned at Male 08/26/2022 2:31 AM CDT Legal Sex Male 5:38 PM CDT Gender Identity Male 08/26/2022 2:31 AM CDT Sexual Orientation Not on file documented as of this encounter Miscellaneous Notes * Cerner Conversion Note - Liz Patel MD - 12/20/2020 7:46 PM CDT ED Triage Entered On: 12/20/2020 20:01 EDT Performed On: 12/20/2020 19:59 EDT by Elvira Pinedo, REFRIGERATION INSULATOR Triage Across the Room Chief Complaint : pt c/o chest pain since 5pm. 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 pt has hx of diabetes, htn. Triage Date/Time : 12/20/2020 19:59 EDT Elvira Pinedo RN - 12/20/2020 19:59 EDT DCP GENERIC CODE Tracking Acuity : 2 - Emergent Tracking Group : [facility] ED Elvira Pinedo RN - 12/20/2020 19:59 EDT Mode of Arrival : Ambulatory Transported to ED by : Private vehicle To Room Via : Ambulate Accompanied By : Unaccompanied ED Vital Signs : Document Height & Weight : Document ED Allergies : Document ED Reason for Visit : Document Elvira Pinedo RN - 12/20/2020 19:59 EDT Infectious Disease History Has the patient ever been tested for COVID-19? : No, Patient stated Does patient have symptoms of COVID-19? : No COVID19 Screening : No Experiencing Infectious Disease Symptoms : No symptoms Physical contact outside [place] in the last 30 days : No Infectious Disease History : Chicken pox/Shingles, Influenza, Mumps Tuberculosis Symptoms : None Elvira Pinedo RN - 12/20/2020 19:59 EDT Vital Signs ED Temperature Source : Oral Temperature Mode : Fahrenheit Temperature, Fahrenheit : 97.8 Deg F Clinical Temperature, C : 36.6 Deg C Oxygen Therapy Mode : Room air Peripheral Pulse Rate : 90 bpm Respiratory Rate : 18 Breaths/Min Systolic Blood Pressure : 152 mmHg (HI) Diastolic Blood Pressure : 73 mmHg Oxygen Saturation : 98 % Elvira Pinedo RN - 12/20/2020 19:59 EDT Allergy (As Of: 12/20/2020 20:01:50 EDT) Allergies (Active) No Known Allergies Estimated Onset Date: Unspecified ; Created By: BELLA JUAN RN; Reaction Status: Active ; Category: Drug ; Substance: No Known Allergies ; Type: Allergy ; Updated By: BELLA JUAN RN; Reviewed Date: 12/20/2020 20:01 EDT Diagnosis Control ED (As Of: 12/20/2020 20:01:50 EDT) Problems(Active) kevin horse in left calf muscle (SNOMED CT :24589287 ) Name of Problem: kevin horse in left calf muscle ; Recorder: BELLA JUAN RN; Confirmation: Confirmed ; Classification: Medical ; Code: 25820644 ; Contributor System: PowerChart ; Last Updated: 06/03/2019 11:58 EST ; Life Cycle Date: 08/04/2015 ; Life Cycle Status: Active ; Vocabulary: SNOMED CT Arthritis (SNOMED CT :6870137 ) Name of Problem: Arthritis ; Recorder: BELLA JUAN RN; Confirmation: Confirmed ; Classification: Medical ; Code: 3299912 ; Contributor System: PowerChart ; Last Updated: 04/28/2018 15:39 EST ; Life Cycle Date: 08/04/2015 ; Life Cycle Status: Active ; Vocabulary: SNOMED CT Asthma, childhood (SNOMED CT :055114989 ) Name of Problem: Asthma, childhood ; Onset Date: 08/04/2015 ; Recorder: BELLA JUAN RN; Confirmation: Confirmed ; Classification: Medical ; Code: 159893194 ; Contributor System: PowerChart ; Last Updated: 08/04/2015 10:49 EST ; Life Cycle Date: 08/04/2015 ; Life Cycle Status: Active ; Vocabulary: SNOMED CT At risk for sleep apnea (IMO :87498071 ) Name of Problem: At risk for sleep apnea ; Recorder: SYSTEM, SYSTEM; Confirmation: Confirmed ; Classification: Medical ; Code: 90878924 ; Last Updated: 09/29/2018 15:14 EDT ; Life Cycle Date: 09/29/2018 ; Life Cycle Status: Active ; Vocabulary: IMO Back pain (SNOMED CT :263290018 ) Name of Problem: Back pain ; Recorder: BELLA JUAN RN; Confirmation: Confirmed ; Classification: Medical ; Code: 806276522 ; Contributor System: PowerChart ; Last Updated: 08/04/2015 10:55 EST ; Life Cycle Date: 08/04/2015 ; Life Cycle Status: Active ; Vocabulary: SNOMED CT Bronchitis (SNOMED CT :76842930 ) Name of Problem: Bronchitis ; Onset Date: 07/04/2015 ; Recorder: BELLA JUAN RN; Confirmation: Confirmed ; Classification: Medical ; Code: 11420085 ; Contributor System: PowerChart ; Last Updated: 08/04/2015 10:49 EST ; Life Cycle Date: 08/04/2015 ; Life Cycle Status: Active ; Vocabulary: SNOMED CT Chest pain (SNOMED CT :79993558 ) Name of Problem: Chest pain ; Recorder: ALPA THOMAS RN; Confirmation: Confirmed ; Classification: Medical ; Code: 92373345 ; Contributor System: PowerChart ; Last Updated: 01/30/2017 13:18 EDT ; Life Cycle Date: 01/30/2017 ; Life Cycle Status: Active ; Vocabulary: SNOMED CT ; Comments: 01/30/2017 13:18 - ALPA THOMAS RN 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 everything was ok 06/2016 Deep vein thrombosis (right hip) (SNOMED CT :2734475684 ) Name of Problem: Deep vein thrombosis (right hip) ; Recorder: ALPA THOMAS RN; Confirmation: Confirmed ; Classification: Medical ; Code: 8916297714 ; Contributor System: PowerChart ; Last Updated: 01/30/2017 13:18 EDT ; Life Cycle Date: 01/30/2017 ; Life Cycle Status: Active ; Vocabulary: SNOMED CT Diet controlled diabetes mellitus (SNOMED CT :329885260 ) Name of Problem: Diet controlled diabetes mellitus ; Recorder: BELLA JUAN RN; Confirmation: Confirmed ; Classification: Medical ; Code: 088686944 ; Contributor System: PowerChart ; Last Updated: 08/04/2015 10:56 EST ; Life Cycle Date: 08/04/2015 ; Life Cycle Status: Active ; Vocabulary: SNOMED CT Disorder of prostate (BPH) (SNOMED CT :31406616 ) Name of Problem: Disorder of prostate (BPH) ; Recorder: ALPA THOMAS RN; Confirmation: Confirmed ; Classification: Medical ; Code: 11805133 ; Contributor System: PowerChart ; Last Updated: 01/30/2017 13:20 EDT ; Life Cycle Date: 01/30/2017 ; Life Cycle Status: Active ; Vocabulary: SNOMED CT High blood pressure (SNOMED CT :02005110 ) Name of Problem: High blood pressure ; Onset Date: 2004 ; Recorder: BELLA JUAN RN; Confirmation: Confirmed ; Classification: Medical ; Code: 53141913 ; Contributor System: PowerChart ; Last Updated: 08/04/2015 10:48 EST ; Life Cycle Date: 08/04/2015 ; Life Cycle Status: Active ; Vocabulary: SNOMED CT Hyperlipidemia (SNOMED CT :48737500 ) Name of Problem: Hyperlipidemia ; Onset Date: 2004 ; Recorder: BELLA JUAN RN; Confirmation: Confirmed ; Classification: Medical ; Code: 28340355 ; Contributor System: GitCafeChart ; Last Updated: 08/04/2015 10:48 EST ; Life Cycle Date: 08/04/2015 ; Life Cycle Status: Active ; Vocabulary: SNOMED CT Leaky heart valve (unsure which one) (SNOMED CT :75473704 ) Name of Problem: Leaky heart valve (unsure which one) ; Recorder: ALPA THOMAS RN; Confirmation: Confirmed ; Classification: Medical ; Code: 39759459 ; Contributor System: GitCafeChart ; Last Updated: 01/30/2017 13:17 EDT ; Life Cycle Date: 01/30/2017 ; Life Cycle Status: Active ; Vocabulary: SNOMED CT Lumbar herniated disc (L1-2) (SNOMED CT :279990006 ) Name of Problem: Lumbar herniated disc (L1-2) ; Recorder: ALPA THOMAS RN; Confirmation: Confirmed ; Classification: Medical ; Code: 337898150 ; Contributor System: PowerChart ; Last Updated: 01/30/2017 13:30 EDT ; Life Cycle Date: 01/30/2017 ; Life Cycle Status: Active ; Vocabulary: SNOMED CT Murmur, heart (SNOMED CT :7142092968 ) Name of Problem: Murmur, heart ; Recorder: ALPA THOMAS RN; Confirmation: Confirmed ; Classification: Medical ; Code: 6750481526 ; Contributor System: PowerChart ; Last Updated: 01/30/2017 13:17 EDT ; Life Cycle Date: 01/30/2017 ; Life Cycle Status: Active ; Vocabulary: SNOMED CT Numbness and tingling of foot (great toe) (SNOMED CT :274450894 ) Name of Problem: Numbness and tingling of foot (great toe) ; Recorder: ALPA THOMAS RN; Confirmation: Confirmed ; Classification: Medical ; Code: 899949070 ; Contributor System: PowerChart ; Last Updated: 01/30/2017 13:27 EDT ; Life Cycle Date: 01/30/2017 ; Life Cycle Status: Active ; Vocabulary: SNOMED CT ; Comments: 01/30/2017 13:27 - ALPA THOMAS RN feels cold, numb Peptic ulcer disease (SNOMED CT :1175839486 ) Name of Problem: Peptic ulcer disease ; Onset Date: 1975 ; Recorder: BELLA JUAN RN; Confirmation: Confirmed ; Classification: Medical ; Code: 6377302346 ; Contributor System: truedash ; Last Updated: 08/04/2015 10:50 EST ; Life Cycle Date: 08/04/2015 ; Life Cycle Status: Active ; Vocabulary: SNOMED CT Peripheral neuropathy, left foot (SNOMED CT :3813380977 ) Name of Problem: Peripheral neuropathy, left foot ; Onset Date: 07/04/2015 ; Recorder: BELLA JUAN RN; Confirmation: Confirmed ; Classification: Medical ; Code: 4923786512 ; Contributor System: truedash ; Last Updated: 08/04/2015 10:56 EST ; Life Cycle Date: 08/04/2015 ; Life Cycle Status: Active ; Vocabulary: SNOMED CT Urinary frequency/urgency (SNOMED CT :441835926 ) Name of Problem: Urinary frequency/urgency ; Recorder: ALPA THOMAS RN; Confirmation: Confirmed ; Classification: Medical ; Code: 575657891 ; Contributor System: truedash ; Last Updated: 01/30/2017 13:20 EDT ; Life Cycle Date: 01/30/2017 ; Life Cycle Status: Active ; Vocabulary: SNOMED CT Diagnoses(Active) Chest pain Date: 12/20/2020 ; Diagnosis Type: Reason For Visit ; Confirmation: Complaint of ; Clinical Dx: Chest pain ; Classification: Medical ; Clinical Service: Non-Specified ; Code: PNED ; Probability: 0 ; Diagnosis Code: [id number] ED Height and Weight Height Source : Stated Height Entry Format : [place] Height, Feet : 5 ft(Converted to: 152 cm, 60 Inch) Height, Inches : 7 Inch(Converted to: 0 ft 7 Inch, 17.78 cm) Clinical Height : 170.18 cm Weight Source, ED : Critical estimated dosing weight Weight Entry Format : [place] Weight, Pounds : 184 lb Clinical Dosing Weight : 83.64 kg Body Surface Area (BSA) : 1.95 m2 Body Mass Index : 28.9 kg/m2 (HI) [place] Body Weight (IBW) : 65.16 kg Elvira Pinedo RN - 12/20/2020 19:59 EDT documented in this encounter Plan of Treatment Not on file documented as of this encounter Visit Diagnoses Not on filedocumented in this encounter Care Teams Sports Intern Relationship Specialty Start Date End Date Tony Calabrese MD [address] [place] [address] PCP - General Family Medicine 06/06/22 Jean-Pierre Cabrera MD [address] [facility] [address] [place] [address] Surgeon Cardiothoracic Surgery 06/26/23 Kd Prince PA-C [address] [place] [address] A&P Technician Cardiology 06/26/23 Renae Car APRN [address] [facility] [address] [place] [address] Cardiology 09/30/23 documented as of this encounter
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
--- OUTSIDE RECORDS SUMMARY | 2025-05-02 11:45 | XMS_ITS | Encounter Summary ---
Author Organization [employer] ([place], [place], [place], [place], [place]) Address [address] [place] [address] Care Team Providers Care Screedman Name Role Phone Tony Calabrese MD Primary Care Provider [phone] Jean-Pierre Cabrera MD Unavailable [phone] Kd Prince PA-C Unavailable [phone] Renae Car APRN Unavailable [phone] Encounter Details Date Type Department Care Team (Late st Contact Info) Description 01/18/2021 Transcribed Document [facility] [place] [address] [place] [address] ProviderLiz MD [address] [place] [address] Social History Tobacco Use Types Packs/Day [...] Note - Liz Patel MD - 01/18/2021 5:00 AM CDT Chart Check - Review Order Profile Entered On: 01/18/2021 5:36 EDT Performed On: 01/18/2021 5:00 EDT by Jose Luis Fatima Non Emp RN Chart Check Powerplans Initiated/Discontinued as Appropriate : Yes All Active Orders Reviewed : Yes Jose Luis Fatima Non Emp RN - 01/18/2021 5:36 EDT Electronically signed by Rosa [facility] Conversion Taxation Agent Cerner at 09/26/2022 8:59 AM CDT documented in this encounter Plan of Treatment Not on file documented as of this encounter Visit Diagnoses Not on filedocumented in this encounter Care Teams Screedman Relationship Specialty Start Date End Date Tony Calabrese MD [address] [place] [address] PCP - General Family Medicine 06/06/22 Jean-Pierre Cabrera MD [address] [facility] [address] [place] [address] Surgeon Cardiothoracic Surgery 06/26/23 Kd Prince PA-C [address] [place] [address] Foot Worker Cardiology 06/26/23 Renae Car, PLANER CHAIN OFFBEARER [address] [facility] [address] [place] [address] Cardiology 09/30/23 documented as of this encounter
--- OUTSIDE RECORDS SUMMARY | 2025-05-02 11:45 | XMS_ITS | Encounter Summary ---
Author Organization [employer] ([place], [place], [place], [place], [place]) Address [address] [place] [address] Care Team Providers Care Fisheries Biologist Name Role Phone Tony Calabrese MD Primary Care Provider [phone] Jean-Pierre Cabrera MD Unavailable [phone] Kd Prince PA-C Unavailable [phone] Renae Car APRN Unavailable [phone] Encounter Details Date Type Department Care Team (Late st Contact Info) Description 12/20/2020 Transcribed Document [facility] [place] Family Medicine [address] [place] [address] ProviderLiz MD [address] [place] [address] Social History Tobacco Use Types Packs/Day [...] Note - Liz Patel MD - 12/20/2020 10:25 PM CDT Phone Call for Consults Entered On: 12/21/2020 10:01 EDT Performed On: 12/21/2020 10:00 EDT by Rolando Bowman, MICHAEL Phone Call for Consults Consult Phone Call/Page Attempt : Other: notified by ER physician Rolando Bowman RN - 12/21/2020 10:00 EDT documented in this encounter Plan of Treatment Not on file documented as of this encounter Visit Diagnoses Not on filedocumented in this encounter Care Teams Fisheries Biologist Relationship Specialty Start Date End Date Tony Calabrese MD [address] [place] [address] PCP - General Family Medicine 06/06/22 Jean-Pierre Cabrera MD [address] [facility] [address] [place] [address] Surgeon Cardiothoracic Surgery 06/26/23 Kd Prince PA-C [address] [facility] [address] [place] [address] Ad Clerk Cardiology 06/26/23 Renae Car, JOSÉ MIGUEL [address] [facility] [address] [place] [address] Cardiology 09/30/23 documented as of this encounter
--- OUTSIDE RECORDS SUMMARY | 2025-05-02 11:45 | XMS_ITS | Encounter Summary ---
Author Organization [employer] ([place], [place], [place], [place], [place]) Address [address] [place] [address] Care Team Providers Care On Air Announcer Name Role Phone Tony Calabrese MD Primary Care Provider [phone] Jean-Pierre Cabrera MD Unavailable [phone] Kd Prince PA-C Unavailable [phone] DumasRenae gómez Santos JOSÉ MIGUEL Unavailable [phone] Encounter Details Date Type Department Care Team (Late st Contact Info) Description 10/05/2018 Transcribed Document [facility] [place] [address] [place] [address] ProviderLiz MD [address] [place] [address] Social History Tobacco Use Types Packs/Day Years Used Date Smoking Tobacco: Never Assessed Sex and Gender Information Value Date Recorded Sex Assigned at Male 08/26/2022 2:31 AM CDT Legal Sex Male 5:38 PM CDT Gender Identity Male 08/26/2022 2:31 AM CDT Sexual Orientation Not on file documented as of this encounter Miscellaneous Notes * [employer] Conversion Note - Liz Patel MD - 10/05/2018 3:58 PM CDT DATE OF PROCEDURE: 10/05/2018 PROCEDURE: Spinal cord stimulator lead and generator implant. DIAGNOSIS: Failed back surgery and lumbosacral radiculopathy. SEDATION: General anesthesia. ANTIBIOTICS: 2 g of cefazolin. NUMBER OF LEADS: Two leads with eight contacts. COMPANY: [employer] ENTRANCE OF THE LEADS: T12-L1. FINAL LEAD TIP: Right side top of T8 and left side top of T9. BLOOD LOSS: Minimal. DESCRIPTION OF THE PROCEDURE: After having obtained consent form for the operative procedure, the patient was brought to the procedure room and antibiotic was started running. The patient's back was prepped and draped in a standard fashion. Prior to beginning procedure, a time out was performed. The interspace between the vertebra located using fluoroscopy guidance and anesthesia with 5 mL of 1% Lidocaine mixed with Bicarbonate and 5 mL of 0.5% Marcaine containing 1:200,000 concentration of epinephrine. A specially designed Tuohy needle applied with the epidural lead was then inserted in paramedian fashion into the interspace using loss of resistance syringe. The lead was advanced through the Tuohy needle under continuous fluoroscopy guidance. The Tuohy needle was then removed under continuous fluoroscopy guidance to assure that it did not move, and the leads were then anchored to the thoracolumbar fascia utilizing supplied Silastic anchor and interrupted suture of 2-0 silk. The lead was then manually distracted until fluoroscopy guidance confirmed that no movement was possible. A pocket was prepared 1 cm deep parallel to the skin surface avoiding the beltline of the right gluteal area. Local anesthetic was administered along the tunneling tract between the back midline incision and the pocket. Then, a tunnel was advanced subcutaneously from the spinal incision to the superior gluteal area. The tunneling jeny was carefully pulled towards this pocket. The lead was advanced through the tunnel into the pocket area, where this was attached to the generator using special screws, tightened according to the shale planer operator helper's specification. Then, a generator domestic technician was inserted into the pocket area and we checked the system integrity with a programmed lead prior to wound closure and after everything was fine. Then we closed the wound both in the spinal area and the pocket area with interrupted 2-0 Vicryl Plus suture. Finally, we were able to cover the wound with clean dressing after applying antibiotic ointment. For the last hour, the patient had some sedation, tolerated the procedure, then x-ray to the entire system was obtained. Then patient was transferred to the recovery room. No sign of acute complication after the procedure. We reviewed with the patient the instruction regarding the wound, as well as the spinal cord stimulator instructions. Patient was placed on oral antibiotic which is Keflex 500 mg take every 6 hours and postoperative pain medication which is Percocet 7.5/325 take 4 times a day and then we will see the patient after one week to reevaluate him. Pre and post procedure pain levels are documented in the chart. Guicho Thorne M.D., [facility] Pain Certified Dict: 10/05/2018 15:58:24 Trans: 10/06/2018 02:58:35 CC1: Guicho Thorne M.D., [facility] Pain Certified Electronically signed by Rosa, [facility] Conversion Payroll Director Cerner at 09/26/2022 9:00 AM CDT documented in this encounter Plan of Treatment Not on file documented as of this encounter Visit Diagnoses Not on filedocumented in this encounter Care Teams On Air Announcer Relationship Specialty Start Date End Date Tony Calaberse MD [address] [place] [address] PCP - General Family Medicine 06/06/22 Jean-Pierre Cabrera MD [address] [facility] [address] [place], [place] [id number] Surgeon Cardiothoracic Surgery 06/26/23 Kd Prince PA-C [address] [place] [address] Fireman Cardiology 06/26/23 Renae Car APRN [address] [facility] [address] [place], [place] [id number] Cardiology 09/30/23 documented as of this encounter
--- OUTSIDE RECORDS SUMMARY | 2025-05-02 11:45 | XMS_ITS | Encounter Summary ---
Author Organization [employer] ([place], [place], [place], [place], [place]) Address [address] [place] [address] Care Team Providers Care Yard Goods Salesperson Name Role Phone Tony Calabrese MD Primary Care Provider [phone] Jean-Pierre Cabrera MD Unavailable [phone] Kd Prince PA-C Unavailable [phone] Renae Car APRN Unavailable [phone] Encounter Details Date Type Department Care Team (Late st Contact Info) Description 01/18/2021 Transcribed Document [facility] [place] [address] [place] [address] Liz Patel MD [address] [place] [address] Social History Tobacco Use Types Packs/Day [...] Note - Liz Patel MD - 01/18/2021 11:59 AM CDT Nursing Discharge Summary Entered On: 01/18/2021 12:00 EDT Performed On: 01/18/2021 11:59 EDT by Kevyn Oquendo Non Emp bus transportation manager Documentation Discharge Date/Time : 01/18/2021 13:00 EDT Patient Disposition, General : Discharge Discharge To : Home with ambulatory/outpatient follow-up Mode Of Departure, General Discharge : Wheelchair Accompanied By, Discharge : Spouse IV Discontinued : Yes Personal Belongings With Patient : No personal belongings to return Pt's Own Supply of Medications Returned : No Prescriptions Given to Patient : No Medications Given to Patient : No Discharge Instructions Reviewed With, Opportunity For Questions Given : Patient, Spouse Patient Education Completed : Yes Teaching Method : Explanation, Printed materials Teaching Evaluation : Verbalizes understanding Kevyn Oquendo Non Emp RN - 01/18/2021 11:59 EDT Electronically signed by [facility], [facility] Conversion Mechanical Technician Cerner at 09/26/2022 9:08 AM CDT documented in this encounter Plan of Treatment Not on file documented as of this encounter Visit Diagnoses Not on filedocumented in this encounter Care Teams Yard Goods Salesperson Relationship Specialty Start Date End Date Tony Calabrese MD [address] [place] [address] PCP - General Family Medicine 06/06/22 Jean-Pierre Cabrera MD [address] [facility] [address] [place] [address] Surgeon Cardiothoracic Surgery 06/26/23 Kd Prince PA-C [address] [place] [id number] Machine Clerical Verifier Cardiology 06/26/23 Renae Car APRN [address] [facility] [address] [place] [address] Cardiology 09/30/23 documented as of this encounter
--- OUTSIDE RECORDS SUMMARY | 2025-05-02 11:45 | XMS_ITS | Encounter Summary ---
Author Organization [employer] ([place], [place], [place], [place], [place]) Address [address] [place] [address] Care Team Providers Care Collateral Analyst Name Role Phone Tony Calabrese MD Primary Care Provider [phone] Jean-Pierre Cabrera MD Unavailable [phone] Kd Prince PA-C Unavailable [phone] Renae Car APRN Unavailable [phone] Encounter Details Date Type Department Care Team (Late st Contact Info) Description 12/20/2020 Transcribed Document [facility] [place] [address] [place] [address] ProviderLiz MD [address] [place] [address] Social History Tobacco Use Types Packs/Day [...] Note - Liz Patel MD - 12/20/2020 9:57 PM CDT RX Interventions Entered On: 12/20/2020 23:10 EDT Performed On: 12/20/2020 23:08 EDT by Newberry, Nikolai, Pharmacist-Medication Recon Clinical Interventions Heparin Per Weight-Based Protocol : Yes Nikolai Holden Pharmacist-Medication Recon - 12/20/2020 23:08 EDT Heparin Per Weight-Based Protocol Heparin Per Wgt-Based Protocol, Order : Spoke with RN; ACS protocol; patient weight 83.64 kg; initial bolus 4000 units; initial rate 10 mL/hr Heparin Per Wgt-Based Protocol, Value : 177 Dollar Heparin Per Wgt-Based Protocol, Time : 20 Minute(s) Nikolai Holden Pharmacist-Medication Recon - 12/20/2020 23:08 EDT Electronically signed by [facility], [facility] Conversion Route Sales Delivery Driver Cerner at 09/26/2022 9:22 AM CDT documented in this encounter Plan of Treatment Not on file documented as of this encounter Visit Diagnoses Not on filedocumented in this encounter Care Teams Collateral Analyst Relationship Specialty Start Date End Date Tony Calabrese MD [address] [place] [address] PCP - General Family Medicine 06/06/22 Jean-Pierre Cabrera MD [address] [facility] [address] [place], [place] [id number] Surgeon Cardiothoracic Surgery 06/26/23 Kd Prince PA-C [address] [place] [address] Tree Driller Cardiology 06/26/23 Renae Car APRN [address] [facility] [address] [place], [place] [id number] Cardiology 09/30/23 documented as of this encounter
--- OUTSIDE RECORDS SUMMARY | 2025-05-02 11:45 | XMS_ITS | Encounter Summary ---
Author Organization [employer] ([place], [place], [place], [place], [place]) Address [address] [place] [address] Care Team Providers Care Lithographic Proofer Apprentice Name Role Phone Tony Calabrese MD Primary Care Provider [phone] Jean-Pierre Cabrera MD Unavailable [phone] Kd Prince PA-C Unavailable [phone] Renae Car APRN Unavailable [phone] Encounter Details Date Type Department Care Team (Late st Contact Info) Description 01/18/2021 Transcribed Document [facility] [place] Family Medicine [address] [place] [address] ProviderLiz MD [address] [place] [address] Social History Tobacco Use Types Packs/Day [...] Note - Liz Patel MD - 01/18/2021 8:39 AM CDT Patient: BULMARO ELLISON Age: 65 Years Sex: Male : 1955 Admit Date 01/17/2021 15:25 Discharge Date January 18, 2021 Primary Care Provider JUDY TIJERINA (REF) C Discharge Diagnosis Chest Pain/Unstable angina CAD s/p stent January 17, 2021 CAD s/p stent December 21, 2020 Valvular heart disease Diabetes Mellitus Type 2 controlled Hypertension controlled Procedures Left heart cath Studies None Reason for Hospitalization Chest pain Hospital Course This is a pleasant 65-year-old male that 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 His past medical history significant for coronary artery disease with recent stent deployment December 21, 2020 by our cardiology team. His past medical history also includes diabetes, hypertension and BPH. On presentation he was on dual antiplatelet therapy, high-dose statin therapy. He was admitted to telemetry with negatively trended troponin, no elevation in his BNP and improved chest pain. A [employer] Myoview study identified a deficit. He underwent repeat cardiac catheterization via right radial approach. Stent deployment occurred. Post procedurally he did well with no further chest pain, palpitations or dyspnea. He continued to tolerate his dual antiplatelet therapy and high-dose statin therapy with no adverse events. He requested to be discharged home to the care of his family. Vital Signs T: 36.5 ??C TMIN: 36.5 ??C TMAX: 36.7 ??C HR: 61(Monitored) RR: 19 BP: 127/72 SpO2: 99% HT: 170.18 cm WT: 82.33 kg BMI: 28.43 Oxygen Settings (Last) Oxygen Therapy Mode: Room air (01/18/21 05:29:00) Physical Exam General: Alert and oriented, well [...] intact. Psychiatric: Cooperative, appropriate mood and affect. Discharge Disposition Home Discharge Follow Up CITLALI CARDENAS MD-LUPE - Within 1 week Discharge Medications (11) Active aspirin 81 mg oral [...] mg = 2 Tab, PRN, Oral, Q4H Code Status Start: 01/15/21 20:34:00 EDT, Full Code, Continuous Order Condition on Discharge Improved and stable Consulting Physicians JEAN CARLOS DALAL MD LIN, STEVE S, MD-LUPE Current Diet Order Diet, Adult - Cardiac Diet, Isolation: Standard Precautions Patient Discharge Summary Orders Discharge Activity: Activity as tolerated Discharge Diet: Healthy heart diet low in cholesterol Time Spent on Discharge I spent greater than 30 minutes in [id number] time with the patient concerning the discharge process. We discussed the admitting diagnoses and the hospital course. We discussed identified improvement and the patient's desire to be discharged. We reviewed inpatient studies and imaging. The patient voiced understanding on the importance of follow-up with his primary care provider and trucksmith. The patient plans to be compliant with the medication regimen prescribed. He understands that he can return to the emergency department with any sudden changes or concerns. documented in this encounter Plan of Treatment Not on file documented as of this encounter Visit Diagnoses Not on filedocumented in this encounter Care Teams Lithographic Proofer Apprentice Relationship Specialty Start Date End Date Tony Calabrese MD [address] [place] [address] PCP - General Family Medicine 06/06/22 Jean-Pierre Cbarera MD [address] [facility] [address] [place] [address] Surgeon Cardiothoracic Surgery 06/26/23 Kd Prince PA-C [address] [place] [address] Linotype Machinist Cardiology 06/26/23 Renae Car, JOSÉ MIGUEL [address] [facility] [address] [place] [address] Cardiology 09/30/23 documented as of this encounter
--- OUTSIDE RECORDS SUMMARY | 2025-05-02 11:45 | XMS_ITS | Encounter Summary ---
Author Organization [employer] ([place], [place], [place], [place], [place]) Address [address] [place] [address] Care Team Providers Care Health Records Technology Teacher Name Role Phone Tony Calabrese MD Primary Care Provider [phone] Jean-Pierre Cabrera MD Unavailable [phone] Kd Prince PA-C Unavailable [phone] Renae Car APRN Unavailable [phone] Encounter Details Date Type Department Care Team (Late st Contact Info) Description 01/18/2021 Transcribed Document [facility] [place] [facility] Family Medicine [address] [place] [id number] ProviderLiz MD [address] [place] [id number] Social History Tobacco Use Types Packs/Day [...] Note - Liz Patel MD - 01/18/2021 12:00 PM CDT [facility] [place] [address] BULMARO ELLISON :1955 Visit Time:01/17/2021 Your Visit Summary Your Care Team Admitting Physician - HARMONY BERNAL MD Attending Physician - HARMONY BERNAL MD Primary Care Physician - JUDY TIJERINA (REF)HEIDI Your Diagnosis Chest pain Chest pain These Are Your Goals Patient Discharge Goal Patient Discharge Goal: Home Discharge Vitals Temperature 36.6 ??C Heart Rate (Monitored) 71 Respiratory Rate 18 Blood Pressure 143/80 What to do next Instructions From Your Care Team Discharge Activity: Discharge Activity: Activity as tolerated Diet: Discharge Diet: Resume usual diet as tolerated Follow-Up Appointments Follow Up with CITLALI CARDENAS MD-CAR When 01/30/2021 12:45 PM EDT Comments Follow-up as instructed Appointment has been made Where: [facility] [place] [address]- Medications What How Much When Instructions Next Dose acetaminophen (Tylenol 325 mg oral tablet) 2 Tablet(s) Oral Every 4 Hours as needed for as needed for pain not to exceed 4000 mg/ day aspirin (aspirin 81 mg oral delayed release tablet) 1 Tablet(s) Oral Every Day atorvastatin (atorvastatin 80 mg oral tablet) 1 Tablet(s) Oral At Bedtime lisinopril (lisinopril 10 mg oral tablet) 1 Tablet(s) Oral Every Day metFORMIN (metFORMIN 500 mg oral tablet) 1 Tablet(s) Oral Two Times A Day methocarbamol (methocarbamol 750 mg oral tablet) 1 Tablet(s) Oral Three Times A Day as needed for as needed for pain metoprolol (Metoprolol Tartrate 25 mg oral tablet) 0.5 Tablet(s) Oral Two Times A Day multivitamin with minerals (Calcium 600+D Plus Minerals oral tablet, chewable) 1 Tablet(s) Chew At Bedtime omega-3 polyunsaturated fatty acids (Fish Oil 1200 mg oral capsule) 1 Capsule(s) Oral Every Day tamsulosin (tamsulosin 0.4 mg oral capsule) 1 Capsule(s) Oral Every Day ticagrelor (Brilinta (ticagrelor) 90 mg oral tablet) 1 Tablet(s) Oral Two Times A Day Take your medications faithfully. Do NOT [...] Allergies Immunizations This Visit No Immunizations Found Stroke/TIA Instructions Individualized Stroke Risk Factors Individualized Stroke Risk Factors *Q: Diabetes, Hypertension/High blood pressure Stroke/TIA Signs/Symptoms to Report Immediately: Sudden onset difficulty speaking, Sudden onset difficulty understanding speech, Sudden onset change in vision, Sudden onset weakness particulary on one side of the body, Sudden onset numbness/tingling, Sudden severe headache, Sudden dizziness or trouble with gait, Call : EMS activation is crucial Mutually Agreed Upon Goals My LDL Level: My LDL Level: Education Materials Coronary Angiogram With Stent, Care After This sheet gives you information about how to care for yourself after your procedure. Your health care provider may also give you more specific instructions. If you have problems or questions, contact your health care provider. What can I expect after the procedure? After the procedure, it is common to have: ??? Bruising and tenderness at the insertion site. This usually fades within 1???2 weeks. ??? A collection of blood under the skin (hematoma). This usually decreases within 1???2 weeks. Follow these instructions at home: Medicines ??? Take deax-why-egazwmh and prescription medicines only as told by your health care provider. ??? If you were prescribed an antibiotic medicine, take it as told by your health care provider. Do not stop using the antibiotic even if you start to feel better. ??? If you take medicines for diabetes, your health care provider may need to change how much you take. Ask your health care provider for specific directions about taking your diabetes medicines. ??? If you are taking blood thinners: ? Talk with your health care provider before you take any medicines that contain aspirin or NSAIDs, such as ibuprofen. These medicines increase your risk for dangerous bleeding. ? Take your medicine exactly as told, at the same time every day. ? Avoid activities that could cause injury or bruising, and follow instructions about how to prevent falls. ? Wear a medical alert bracelet or carry a card that lists what medicines you take. Eating and drinking ??? Follow instructions from your health care provider about eating or drinking restrictions. ??? Eat a heart-healthy diet that includes plenty of fresh fruits and vegetables. ??? Avoid foods that are high in salt, sugar, or saturated fat. Avoid fried foods or canned or highly processed food. ??? Drink enough fluid to keep your urine pale yellow. Alcohol use ??? Do not drink alcohol if: ? Your health care provider tells you not to. ? You are , may be , or plan to become . ??? If you drink alcohol: ? Limit how much you use to: ? 0???1 drink a day for women. ? 0???2 drinks a day for men. ? Be aware of how much alcohol is in your drink. In the [place] one drink equals one 12 oz bottle of beer (355 mL), one 5 oz glass of wine (148 mL), or one 1?? oz glass of hard liquor (44 mL). Bathing ??? Do not take baths, swim, or use a hot tub until your health care provider approves. Ask your health care provider if you may take showers. You may only be allowed to take sponge baths. ??? Gently wash the insertion site with plain soap and water. ??? Pat the area dry with a clean towel. Do not rub. This may cause bleeding. Incision care ??? Follow instructions from your health care provider about how to take care of your insertion area. Make sure you: ? Wash your hands with soap and water before and after you change your bandage (dressing). If soap and water are not available, use hand tip cutter. ? Change your dressing as told by your health care provider. ? Leave stitches (sutures) or adhesive strips in place. These skin closures may need to stay in place for 2 weeks or longer. If adhesive strip edges start to loosen and curl up, you may trim the loose edges. Do not remove adhesive strips completely unless your health care provider tells you to do that. ??? Do not apply powder or lotion on the insertion area. ??? Check your insertion area every day for signs of infection. Check for: ? Redness, swelling, or pain. ? Fluid or blood. ? Warmth. ? Pus or a bad smell. Activity ??? Do not drive for 24 hours if you were given a sedative during your procedure. ??? Rest as told by your health care provider. ? Avoid sitting for a long time without moving. Get up to take short walks every 1???2 hours. This is important to improve blood flow and breathing. Ask for help if you feel weak or unsteady. ??? Do not lift anything that is heavier than 10 lb (4.5 kg), or the limit that you are told, until your health care provider says that it is safe. ??? Return to your normal activities as told by your health care provider. Ask your health care provider what activities are safe for you. Lifestyle ??? Do not use any products that contain nicotine or tobacco, such as cigarettes, e-cigarettes, and chewing tobacco. If you need help quitting, ask your health care provider. ??? If needed, work with your health care provider to treat other problems, such as being overweight, or having high blood pressure or diabetes. ??? Get regular exercise. Do exercises as told by your health care provider. General instructions ??? Tell all your health care providers that you have a stent. This is especially important if you are going to get imaging studies, such as MRI. ??? Wear compression stockings as told by your health care provider. These stockings help to prevent blood clots and reduce swelling in your legs. ??? Do not strain during a bowel movement if the procedure was done through your leg. Straining may cause bleeding from the insertion site. ??? Keep all follow-up visits as directed by your health care provider. This is important. Contact a health care provider if you: ??? Have a fever. ??? Have chills. ??? Have redness, swelling, or pain around your insertion area. ??? Have fluid or blood (other than a little blood on the dressing) coming from your insertion area. ??? Notice that your insertion area feels warm to the touch. ??? Have pus or a bad smell coming from your insertion area. ??? Have more bleeding from the insertion area. Hold pressure on the area. Get help right away if: ??? You develop chest pain or shortness of breath. ??? You feel like fainting or you faint. ??? Your leg or arm becomes cool, numb, or tingly. ??? You have unusual pain. ??? Your insertion area is bleeding, and bleeding continues after 30 minutes of steadily held pressure. ??? You develop bleeding anywhere else, including from your rectum. There may be bright red blood in your urine or stool, or you may have black, tarry stool. These symptoms may represent a serious problem that is an emergency. Do not wait to see if the symptoms will go away. Get medical help right away. Call your local emergency services (911 in the [place] Do not drive yourself to the hospital. Summary ??? After this procedure, it is common to have bruising and tenderness around the catheter insertion site. This will go away in a few weeks. ??? Follow your health care provider's instructions about caring for your insertion site. Change dressing and clean the area as instructed. ??? Eat a heart-healthy diet. Limit alcohol use. Do not use tobacco or nicotine. ??? Contact a health care provider if you have fever or chills, or if you have pus or a bad smell coming from the site. ??? Get help right away if you develop chest pain, you faint, or have bleeding at the insertion site. This information is not intended to replace advice given to you by your health care provider. Make sure you discuss any questions you have with your health care provider. Document Revised: 12/15/2019 Document Reviewed: 12/15/2019 [employer] Patient Education ?? 2020 [employer] Coronary Artery Disease, Male Coronary artery disease (CAD) is a condition in which the arteries that lead to the heart (coronary arteries) become narrow or blocked. The narrowing or blockage can lead to decreased blood flow to the heart. Prolonged reduced blood flow can cause a heart attack (myocardial infarction or SC). This condition may also be called coronary heart disease. Because CAD is the leading cause of in men, it is important to understand what causes this condition and how it is treated. What are the causes? CAD is most often caused by atherosclerosis. This is the buildup of fat and cholesterol (plaque) on the inside of the arteries. Over time, the plaque may narrow or block the artery, reducing blood flow to the heart. Plaque can also become weak and break off within a coronary artery and cause a sudden blockage. Other less common causes of CAD include: ??? A blood clot or a piece of a blood clot or other substance that blocks the flow of blood in a coronary artery (embolism). ??? A tearing of the artery (spontaneous coronary artery dissection). ??? An enlargement of an artery (aneurysm). ??? Inflammation (vasculitis) in the artery wall. What increases the risk? The following factors may make you more likely to develop this condition: ??? Age. Men over age 45 are at a greater risk of CAD. ??? Family history of CAD. ??? Gender. Men often develop CAD earlier in life than women. ??? High blood pressure (hypertension). ??? Diabetes. ??? High cholesterol levels. ??? Tobacco use. ??? Excessive alcohol use. ??? Lack of exercise. ??? A diet high in saturated and trans fats, such as fried food and processed meat. Other possible risk factors include: ??? High stress levels. ??? Depression. ??? Obesity. ??? Sleep apnea. What are the signs or symptoms? Many people do not have any symptoms during the early stages of CAD. As the condition progresses, symptoms may include: ??? Chest pain (angina). The pain can: ? Feel like crushing or squeezing, or like a tightness, pressure, fullness, or heaviness in the chest. ? Last more than a few minutes or can stop and recur. The pain tends to get worse with exercise or stress and to fade with rest. ??? Pain in the arms, neck, jaw, ear, or back. ??? Unexplained heartburn or indigestion. ??? Shortness of breath. ??? Nausea or vomiting. ??? Sudden light-headedness. ??? Sudden cold sweats. ??? Fluttering or fast heartbeat (palpitations). How is this diagnosed? This condition is diagnosed based on: ??? Your family and medical history. ??? A physical exam. ??? Tests, including: ? A test to check the electrical signals in your heart (electrocardiogram). ? Exercise stress test. This looks for signs of blockage when the heart is stressed with exercise, such as running on a treadmill. ? Pharmacologic stress test. This test looks for signs of blockage when the heart is being stressed with a medicine. ? Blood tests. ? Coronary angiogram. This is a procedure to look at the coronary arteries to see if there is any blockage. During this test, a dye is injected into your arteries so they appear on an X-ray. ? Coronary artery CT scan. This CT scan helps detect calcium deposits in your coronary arteries. Calcium deposits are an indicator of CAD. ? A test that uses sound waves to take a picture of your heart (echocardiogram). ? Chest X-ray. How is this treated? This condition may be treated by: ??? Healthy lifestyle changes to reduce risk factors. ??? Medicines such as: ? Antiplatelet medicines and blood-thinning medicines, such as aspirin. These help to prevent blood clots. ? Nitroglycerin. ? Blood pressure medicines. ? Cholesterol-lowering medicine. ??? Coronary angioplasty and stenting. During this procedure, a thin, flexible tube is inserted through a blood vessel and into a blocked artery. A balloon or similar device on the end of the tube is inflated to open up the artery. In some cases, a small, mesh tube (stent) is inserted into the artery to keep it open. ??? Coronary artery bypass surgery. During this surgery, veins or arteries from other parts of the body are used to create a bypass around the blockage and allow blood to reach your heart. Follow these instructions at home: Medicines ??? Take qkqq-uca-mvnride and prescription medicines only as told by your health care provider. ??? Do not take the following medicines unless your health care provider approves: ? NSAIDs, such as ibuprofen, naproxen, or celecoxib. ? Vitamin supplements that contain vitamin A, vitamin E, or both. Lifestyle ??? Follow an exercise program approved by your health care provider. Aim for 150 minutes of moderate exercise or 75 minutes of vigorous exercise each week. ??? Maintain a healthy weight or lose weight as approved by your health care provider. ??? Learn to manage stress or try to limit your stress. Ask your health care provider for suggestions if you need help. ??? Get screened for depression and seek treatment, if needed. ??? Do not use any products that contain nicotine or tobacco, such as cigarettes, e-cigarettes, and chewing tobacco. If you need help quitting, ask your health care provider. ??? Do not use illegal drugs. Eating and drinking ??? Follow a heart-healthy diet. A dietitian can help educate you about healthy food options and changes. In general, eat plenty of fruits and vegetables, lean meats, and whole grains. ??? Avoid foods high in: ? Sugar. ? Salt (sodium). ? Saturated fat, such as processed or fatty meat. ? Trans fat, such as fried foods. ??? Use healthy cooking methods such as roasting, grilling, broiling, baking, poaching, steaming, or stir-frying. ??? Do not drink alcohol if your health care provider tells you not to drink. ??? If you drink alcohol: ? Limit how much you have to 0???2 drinks per day. ? Be aware of how much alcohol is in your drink. In the [place] one drink equals one 12 oz bottle of beer (355 mL), one 5 oz glass of wine (148 mL), or one 1?? oz glass of hard liquor (44 mL). General instructions ??? Manage any other health conditions, such as hypertension and diabetes. These conditions affect your heart. ??? Your health care provider may ask you to monitor your blood pressure. Ideally, your blood pressure should be below 130/80. ??? Keep all follow-up visits as told by your health care provider. This is important. Get help right away if: ??? You have pain in your chest, neck, ear, arm, jaw, stomach, or back that: ? Lasts more than a few minutes. ? Is recurring. ? Is not relieved by taking medicine under your tongue (sublingual nitroglycerin). ??? You have profuse sweating without cause. ??? You have unexplained: ? Heartburn or indigestion. ? Shortness of breath or difficulty breathing. ? Fluttering or fast heartbeat (palpitations). ? Nausea or vomiting. ? Fatigue. ? Feelings of nervousness or anxiety. ? Weakness. ? Diarrhea. ??? You have sudden light-headedness or dizziness. ??? You faint. ??? You feel like hurting yourself or think about taking your own life. These symptoms may represent a serious problem that is an emergency. Do not wait to see if the symptoms will go away. Get medical help right away. Call your local emergency services (911 in the [place] Do not drive yourself to the hospital. Summary ??? Coronary artery disease (CAD) is a condition in which the arteries that lead to the heart (coronary arteries) become narrow or blocked. The narrowing or blockage can lead to a heart attack. ??? Many people do not have any symptoms during the early stages of CAD. ??? CAD can be treated with lifestyle changes, medicines, surgery, or a combination of these treatments. This information is not intended to replace advice given to you by your health care provider. Make sure you discuss any questions you have with your health care provider. Document Revised: 02/12/2019 Document Reviewed: 02/02/2019 [employer] Patient Education ?? 2020 [employer]. Emergency Awareness and Preventative Care STROKE is [...] Assistance with quitting is available by contacting 1-000-PMXH-NOW. This is a free resource providing counseling, [...] This Visit (last charted value for your 01/17/2021 visit) Hematology 01/18/2021 5:59 AM WBC: 9.5 K/uL -- Normal range between ( 3.6 and 9.5 ) RBC: 4.82 Million/uL -- Normal range between ( 4.20 and 5.70 ) Hct: 41.7 % -- Normal range between ( 40.1 and 51.0 ) Hgb: 13.1 g/dL -- Normal range between ( 13.5 and 17.3 ) Platelet Count: 267 K/uL -- Normal range between ( 163 and 369 ) MCH: 27.2 pg -- Normal range between ( 25.6 and 32.2 ) MCHC: 31.4 Gram/dL -- Normal range between ( 32.2 and 36.5 ) MCV: 86.5 fL -- Normal range between ( 79.0 and 94.8 ) Slide Review: No Eos %: 2.8 % -- Normal range between ( 0.0 and 7.0 ) [place] #: 0.70 K/uL -- Normal range between ( 0.16 and 1.00 ) Eos #: 0.27 x10(3)/uL -- Normal range between ( 0.00 and 0.80 ) [place] %: 7.3 % -- Normal range between ( 3.0 and 9.0 ) Baso %: 0.8 % -- Normal range between ( 0.0 and 1.5 ) Baso #: 0.08 x10(3)/uL -- Normal range between ( 0.00 and 0.20 ) RDW: 14.7 % -- Normal range between ( 11.7 and 14.9 ) Neut %: 56.2 % -- Normal range between ( 34.0 and 71.0 ) Neut #: 5.35 K/uL -- Normal range between ( 1.56 and 6.13 ) Lymph %: 32.4 % -- Normal range between ( 19.3 and 53.1 ) Lymph #: 3.09 x10(3)/uL -- Normal range between ( 1.00 and 3.90 ) MPV: 10.0 fL -- Normal range between ( 9.4 and 12.4 ) IG#: 0.05 x10(3)/uL -- Normal range between ( 0.00 and 0.05 ) IG%: 0.50 % -- Normal range between ( 0.00 and 0.60 ) Microbiology 01/17/2021 9:15 AM SARS-CoV-2 (COVID19 PCR): Negative General Chemistry 01/18/2021 5:59 AM Creatinine Level: 0.90 mg/dL -- Normal range between ( 0.70 and 1.30 ) Sodium Level: 138 mmol/L -- Normal range between ( 136 and 146 ) Potassium Level: 4.0 mmol/L -- Normal range between ( 3.5 and 5.1 ) Chloride Level: 107 mmol/L -- Normal range between ( 102 and 112 ) Carbon Dioxide Level: 26 mmol/L -- Normal range between ( 21 and 32 ) Anion Gap: 9 -- Normal range between ( 9 and 20 ) Bun/Creatinine: 16.7 -- Normal range between ( 8.0 and 20.0 ) Calcium Level: 9.7 mg/dL -- Normal range between ( 8.4 and 10.1 ) eGFR : >60 mL/min/1.73m2 eGFR NonAfrican: >60 mL/min/1.73m2 Glucose Level: 131 mg/dL -- Normal range between ( 74 and 106 ) Blood Urea Nitrogen: 15 mg/dL -- Normal range between ( 7 and 22 ) 01/17/2021 9:52 PM Glucose POC2: 208 mg/dL -- Normal range between ( 70 and 110 ) Device Comment 1: Device Comment 1 01/16/2021 5:34 AM Magnesium Level: 2.1 mg/dL -- Normal range between ( 1.5 and 2.4 ) 01/15/2021 5:54 PM Bilirubin Total: 0.7 mg/dL -- Normal range between ( 0.2 and 1.2 ) A/G Ratio: 1.1 -- Normal range between ( 1.1 and 2.5 ) ALT: 41 Units/Liter -- Normal range between ( 16 and 61 ) AST: 43 Units/Liter -- Normal range between ( 5 and 37 ) Globulin: 3.8 Gram/dL -- Normal range between ( 1.5 and 4.5 ) Alk Phos: 69 Units/Liter -- Normal range between ( 27 and 136 ) Protein Total: 7.8 Gram/dL -- Normal range between ( 6.4 and 8.2 ) Albumin Level: 4.0 Gram/dL -- Normal range between ( 3.4 and 5.0 ) Lipase Level: 123 Units/Liter -- Normal range between ( 73 and 393 ) Cardiac Specific Markers 01/16/2021 5:34 AM Troponin I Ultra: <0.015 ng/mL -- Normal range between ( 0.015 and 0.045 ) 01/15/2021 9:45 PM ProBNP: 205 pg/mL -- Normal range between ( 0 and 125 ) Coagulation 01/17/2021 1:39 PM ACT POC: 252 Second(s) -- Normal range between ( 74 and 137 ) 01/16/2021 5:34 AM INR: 1.0 -- Normal range between ( 0.9 and 1.2 ) PT: 10.9 Second(s) -- Normal range between ( 9.2 and 12.0 ) 01/15/2021 5:54 PM D Dimer Quant: 0.33 mg/L FEU -- Normal range between ( 0.19 and 0.58 ) Endocrinology 01/16/2021 5:34 AM TSH: 3.290 mcInt Units/mL -- Normal range between ( 0.358 and 3.740 ) Diagnostic Radiology 01/15/2021 6:07 PM CR Chest 1 Vw Portable: CR Chest 1 Vw Portable Vascular Ultrasound 01/17/2021 12:45 PM VL Vascular Access: VL Vascular Access Patient Name:BULMARO ELLISON I have received and understand this information and was given the opportunity to ask questions. Patient/Personal Care Home Administrator Name: Patient/Personal Care Home Administrator Signature: Relationship to Patient: Clinician/Hospital Personal Care Home Administrator Signature: Date: Electronically signed by [facility] Conversion [employer] Soa Architect Colbyner at 09/26/2022 9:16 AM CDT documented in this encounter Plan of Treatment Not on file documented as of this encounter Visit Diagnoses Not on filedocumented in this encounter Care Teams Health Records Technology Teacher Relationship Specialty Start Date End Date Tony Calabrese MD [address] [place] [address] PCP - General Family Medicine 06/06/22 Jean-Pierre Cabrera MD [address] [address] Surgeon Cardiothoracic Surgery 06/26/23 dK Prince PA-C [address] [place] [address] Laser Beam Trim Operator Cardiology 06/26/23 Renae Car, KILN BURNER [address] [facility] [address] [place] [address] Cardiology 09/30/23 documented as of this encounter
--- OUTSIDE RECORDS SUMMARY | 2025-05-02 11:45 | XMS_ITS | Encounter Summary ---
Author Organization [employer] ([place], [place], [place], [place], [place]) Address [address] [place] [address] Care Team Providers Care Director Immunology Name Role Phone Tony Calabrese MD Primary Care Provider [phone] Jean-Pierre Cabrera MD Unavailable [phone] Kd Prince PA-C Unavailable [phone] Renae Car APRN Unavailable [phone] Encounter Details Date Type Department Care Team (Late st Contact Info) Description 12/20/2020 Transcribed Document [facility] [place] Family Medicine [address] [place] [address] ProviderLiz MD [address] [place] [address] Social History Tobacco Use Types Packs/Day [...] Note - Liz Patel MD - 12/20/2020 10:34 PM CDT Admission History, Adult Entered On: 12/21/2020 21:36 EDT Performed On: 12/20/2020 22:34 EDT by NirBan Rn-Traveler Advance Directive Patient has Advance Directive *Q : No, patient refuses Advance Directive information Ban Loyola Rn-Traveler - 12/21/2020 21:31 EDT Anesthesia/Transfusion History Family History of Anesthesia Reaction : No prior transfusion(s) Transfusion History : Prior anesthesia without reaction Family History of Anesthesia Reaction : None Ban Loyola Rn-Traveler - 12/21/2020 21:31 EDT Functional Assessment Living Situation : Home Current Home Treatments : None Ban Loyola Rn-Traveler - 12/21/2020 21:31 EDT General Info Mode of Arrival on Unit : Ambulatory Legal Guardian : Unaccompanied 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 pt has hx of diabetes, htn. Information Obtained From : Patient Primary Language : Guamanian Preferred Communication Mode : Verbal Communication Barrier : None Players Club Representative Needed : No Ban Loyola Rn-Traveler - 12/21/2020 21:31 EDT Fall Risk Scales ABCs Fall Injury Risk Identification : Bones, Coagulation ABC Fall Injury Risk : Moderate to high injury risk PEREZ Hx Falls Immediate/Within 3 Months : No Chris Secondary Diagnosis : Yes PEREZ Use of Ambulatory Aid : Bed rest/Nurse assist PEREZ IV Therapy or IV Access : Yes Chris Gait/Transferring : Normal, bedrest, immobile Perez Mental Status : Oriented to own ability Perez Fall Risk Score : 35 PEREZ Fall Scale Risk Level : 25-45 Medium Risk [place] Fall Interventions : Adequate lighting, Assistive devices within reach, Bed in low position, Call device within reach, Hourly comfort/safety rounds, Non-slip footwear, Personal items within reach, Reinforced to call for assistance before getting out of bed, Room free of clutter/spills, Upper side-rails up, Wheels locked, Wires/Cords secured Fall Moderate to High Risk Interventions : Transport methods appropriate to patient Ban Loyola Rn-Traveler - 12/21/2020 21:31 EDT Fall Risk Education Grid Alarms : Verbalizes understanding Assistive Equipment Use : Verbalizes understanding Bed Height/Stabilization : Verbalizes understanding Call light use : Verbalizes understanding Door Open : Verbalizes understanding Night Light Use : Verbalizes understanding Nonskid Footwear Use : Verbalizes understanding Siderails use/risks : Verbalizes understanding Symptom Identification & Action Plan *Q : Verbalizes understanding Symptom Reporting : Verbalizes understanding Wait for Assistance : Verbalizes understanding Ban Loyola Rn-Traveler - 12/21/2020 21:31 EDT Fall Risk Scale Calc Temp : 0 Ban Loyola Rn-Traveler - 12/21/2020 21:31 EDT Health Histories Smoking Status : Never (less than 100 in lifetime; none in last 30 days) Smokeless Tobacco Status : Never Ban Loyola Rn-Traveler - 12/21/2020 21:31 EDT Social History (As Of: 12/21/2020 21:36:23 EDT) Tobacco: Smoking Status Never smoker. (Last [...] Updated: 08/04/2015 11:01:11 EST by BELLA JUAN, RN) Height and Weight, Clinical Dosing Height Source : Stated Height Entry Format : [place] Height, Feet : 5 ft(Converted to: 152 cm, 60 Inch) Height, Inches : 7 Inch(Converted to: 0 ft 7 Inch, 17.78 cm) Clinical Height : 170.18 cm Weight Source : Bed scale Weight Entry Format : [place] Clinical Dosing Weight : 83.64 kg Weight, Pounds : 184 lb Body Surface Area (BSA) : 1.95 m2 Body Mass Index : 28.9 kg/m2 (HI) [place] Body Weight : 65 kg Ban Loyola Rn-Traveler - 12/21/2020 21:31 EDT Infectious Disease History Has the patient ever been tested for COVID-19? : No, Patient stated Does patient have symptoms of COVID-19? : No COVID19 Screening : No Experiencing Infectious Disease Symptoms : No symptoms Physical contact outside [place] in the last 30 days : No Infectious Disease History : Chicken pox/Shingles, Influenza, Mumps Tuberculosis Symptoms : None Ban Loyola Rn-Traveler - 12/21/2020 21:31 EDT Influenza Vaccine Asmt, Adult Previous Vaccines from Immunization Schedule : No qualifying data available. Influenza Immunization, Current Season : No Inactivated Flu Vaccine Contraindications : No contraindications to inactivated influenza vaccine Transplant Workup/Recent Transplant : No Order for Influenza Vaccine : Declined Vaccination Ban Loyola Rn-Traveler - 12/21/2020 21:31 EDT Pneumococcal Vaccine Previous Vaccines from Immunization Schedule : No qualifying data available. Pneumonia Immunization Received : No Pneumococcal Risk Assessment < Age 65 : None Ban Loyola Rn-Traveler - 12/21/2020 21:31 EDT Order Details Transport Mode Order Detail [...] Crushed/Liquid : No Ban Loyola Rn-Traveler - 12/21/2020 21:31 EDT Nutrition History Adaptive Feeding Equipment : Regular Eating Poorly Due to Decreased Appetite : No Unplanned Weight Loss in Past 3-6 Months : No Malnutrition Screening Tool Total(mal) : 0 Malnutrition Screening Tool Risk Level : Patient not at risk aBn Loyola Rn-Traveler - 12/21/2020 21:31 EDT [place] Suicide Severity Rating Scale (C-SSRS) CSSRS Past Month Wish to be : No CSSRS Past Month Suicidal Thoughts : No CSSRS Lifetime Suicide Behavior : No Suicide Severity Rating Score : 0 Suicide Severity Rating : No Additional Care Required at this time Ban Loyola Rn-Traveler - 12/21/2020 21:31 EDT Psychosocial History Do You Have a History of the Following? : Patient denies history Currently in Unsafe Situation : No Ban Loyola Rn-Traveler - 12/21/2020 21:31 EDT Sleep Apnea Risk Assmt Hx of [...] Sleep Apnea Risk Level Score : 4 Ban Loyola Rn-Traveler - 12/21/2020 21:31 EDT Valuables and Belongings Valuables and Belongings : No clothing, No comfort items, No jewelry, No personal devices, No personal items, No assistive devices, No respiratory devices, No medications Ban Loyola Rn-Traveler - 12/21/2020 21:31 EDT Electronically signed by [facility], [facility] Conversion Lime Supervisor Cerner at 09/26/2022 9:00 AM CDT documented in this encounter Plan of Treatment Not on file documented as of this encounter Visit Diagnoses Not on filedocumented in this encounter Care Teams Director Immunology Relationship Specialty Start Date End Date Tony Calabrese MD [address] [place] [address] PCP - General Family Medicine 06/06/22 Jean-Pierre Cabrera MD [address] [facility] [address] [place], [place] [id number] Surgeon Cardiothoracic Surgery 06/26/23 Kd Prince PA-C [address], [address] [place] [address] Fiberglass Container Winding Operator Cardiology 06/26/23 Renae Car APRN [address] [facility] [address] [place], [place] [id number] Cardiology 09/30/23 documented as of this encounter
--- OUTSIDE RECORDS SUMMARY | 2025-05-02 11:45 | XMS_ITS | Encounter Summary ---
Author Organization [employer] ([place], [place], [place], [place], [place]) Address [address] [place] [address] Care Team Providers Care Manager Product Support Name Role Phone Tony Calabrese MD Primary Care Provider [phone] Jean-Pierre Cabrera MD Unavailable [phone] Kd Prince PA-C Unavailable [phone] Renae Car APRN Unavailable [phone] Encounter Details Date Type Department Care Team (Late st Contact Info) Description 01/18/2021 Transcribed Document [facility] [place] [address] [place] [address] ProviderLiz MD [address] [place] [address] Social History Tobacco Use Types Packs/Day Years Used Date Smoking Tobacco: Never Assessed Sex and Gender Information Value Date Recorded Sex Assigned at Male 08/26/2022 2:31 AM CDT Legal Sex Male 5:38 PM CDT Gender Identity Male 08/26/2022 2:31 AM CDT Sexual Orientation Not on file documented as of this encounter Miscellaneous Notes * Cerner Conversion Note - Liz ProviderMD - 01/18/2021 8:47 AM CDT Therapy Screen, PT Entered On: 01/18/2021 8:48 EDT Performed On: 01/18/2021 8:47 EDT by MARY JANE HUMPHREY, PT Therapy Screen, PT Medical Chart Reviewed : Yes Person Providing Information : Other: chart Screen Completed : Yes Recommendation for Evaluation, PT : None Recommendations Upon Discharge : None Additional Therapy Screen Comment : pt had LHC on 01/17/21, had stent placed. Need new PT eval order to evaluate pt due to change in status. Nsg notified. MARY JANE HUMPHREY, PT - 01/18/2021 8:47 EDT Electronically signed by [facility], [facility] Conversion Six Sigma Black Trainer Cerner at 09/26/2022 9:12 AM CDT documented in this encounter Plan of Treatment Not on file documented as of this encounter Visit Diagnoses Not on filedocumented in this encounter Care Teams Manager Product Support Relationship Specialty Start Date End Date Tony Calabrese MD [address] [place] [address] PCP - General Family Medicine 06/06/22 Jean-Pierre Cabrera MD [address] [facility] [address] [place], [place] [id number] Surgeon Cardiothoracic Surgery 06/26/23 Kd Prince PA-C [address], [facility] [address] [place] [address] Beet Topper Cardiology 06/26/23 Renae Car APRN [address] [facility] [address] [place], [place] [id number] Cardiology 09/30/23 documented as of this encounter
--- OUTSIDE RECORDS SUMMARY | 2025-05-02 11:45 | XMS_ITS | Encounter Summary ---
Author Organization [employer] ([place], [place], [place], [place], [place]) Address [address] [place] [address] Care Team Providers Care Semiconductor Processing Technician Name Role Phone Tony Calabrese MD Primary Care Provider [phone] Jean-Pierre Cabrera MD Unavailable [phone] Kd Prince PA-C Unavailable [phone] Renae Car APRN Unavailable [phone] Encounter Details Date Type Department Care Team (Late st Contact Info) Description 01/18/2021 Transcribed Document [facility] [place] Family Medicine [address] [place] [address] ProviderLiz MD [address] [place] [address] Social History Tobacco Use Types Packs/Day [...] Patel MD - 01/18/2021 9:11 AM CDT Therapy Screen, OT Entered On: 01/18/2021 9:12 EDT Performed On: 01/18/2021 9:11 EDT by SIRISHA RAJAN, OTR/L Therapy Screen, OT Medical Chart Reviewed : Yes Person Providing Information : Nurse Screen Completed : Yes Recommendations for Evaluation OT : Recommend Occupational Therapy evaluation Therapy Screen Findings, OT : Patient with recent functional decline Additional Therapy Screen Comment : Patient had heart cath with stent placement yesterday and we will need a new MD order prior to evaluation. Will sign off until new order is received. SIRISHA RAJAN, OTR/L - 01/18/2021 9:11 EDT Electronically signed by [facility], [facility] Conversion Raw Stock Dyeing Machine Tender Cerner at 09/26/2022 8:59 AM CDT documented in this encounter Plan of Treatment Not on file documented as of this encounter Visit Diagnoses Not on filedocumented in this encounter Care Teams Semiconductor Processing Technician Relationship Specialty Start Date End Date Tony Calabrese MD [address] [place] [address] PCP - General Family Medicine 06/06/22 Jean-Pierre Cabrera MD [address] [facility] [address] [place], [place] [id number] Surgeon Cardiothoracic Surgery 06/26/23 Kd Prince PA-C [address] [facility], [facility] [address] [place] [address] Biological Plant Operator Cardiology 06/26/23 Renae Car APRN [address] [facility] [address] [place] [address] Cardiology 09/30/23 documented as of this encounter
--- OUTSIDE RECORDS SUMMARY | 2025-05-02 11:45 | XMS_ITS | Encounter Summary ---
Author Organization [employer] ([place], [place], [place], [place], [place]) Address [address] [place] [address] Care Team Providers Care Java Technical Manager Name Role Phone Tony Calabrese MD Primary Care Provider [phone] Jean-Pierre Cabrera MD Unavailable [phone] Kd Prince PA-C Unavailable [phone] WinfieldRenae gómez APRN Unavailable [phone] Encounter Details Date Type Department Care Team (Late st Contact Info) Description 01/18/2021 Transcribed Document [facility] [place] [address] [place] [address] Liz Patel MD [address] [place] [address] Social History Tobacco Use Types Packs/Day [...] Note - Liz Patel MD - 01/18/2021 8:37 AM CDT Patient Education Materials Follows: Coronary Artery Disease, Male Coronary artery disease (CAD) is a condition in which the arteries that lead to the heart (coronary arteries) become narrow or blocked. The narrowing or blockage can lead to decreased blood flow to the heart. Prolonged reduced blood flow can cause a heart attack (myocardial infarction or OH). This condition may also be called coronary [...] these instructions at home: Medicines ??? Take uuhu-rnj-dfeehls and prescription medicines only as told by [...] ? Limit how much you have to 0?2 drinks per day. ? Be aware of how much alcohol is in your drink. In the [place] one drink equals one 12 oz bottle of beer (355 mL), one 5 oz glass of wine (148 mL), or one 1? oz glass of hard liquor (44 mL). [...] provider. Document Revised: 02/12/2019 Document Reviewed: 02/02/2019 [employer] Patient Education ? 2020 [employer]. Radiology Coronary Angiogram With Stent, Care After This [...] the insertion site. This usually fades within 1?2 weeks. ??? A collection of blood under the skin (hematoma). This usually decreases within 1?2 weeks. Follow these instructions at home: Medicines ??? Take jbkc-kuz-hjoxafe and prescription medicines only as told by [...] Limit how much you use to: ? 0?1 drink a day for women. ? 0?2 drinks a day for men. ? Be aware of how much alcohol is in your drink. In the [place] one drink equals one 12 oz bottle of beer (355 mL), one 5 oz glass of wine (148 mL), or one 1? oz glass of hard liquor (44 mL). [...] and water are not available, use hand supervisor screen making. ? Change your dressing as told by [...] Get up to take short walks every 1?2 hours. This is important to improve blood [...] provider. Document Revised: 12/15/2019 Document Reviewed: 12/15/2019 [employer] Patient Education ? 2020 [employer] documented in this encounter Plan of Treatment Not on file documented as of this encounter Visit Diagnoses Not on filedocumented in this encounter Care Teams Java Technical Manager Relationship Specialty Start Date End Date Tony Calabrese MD [address] [place] [address] PCP - General Family Medicine 06/06/22 Jean-Pierre Cabrera MD [address] [facility] [address] [place] [address] Surgeon Cardiothoracic Surgery 06/26/23 Kd Prince PA-C [address], [address] [place] [address] Engraver Optical Frames Cardiology 06/26/23 eRnae Car, JOSÉ MIGUEL [address] [facility] [address] [place] [address] Cardiology 09/30/23 documented as of this encounter
--- OUTSIDE RECORDS SUMMARY | 2025-05-02 11:45 | XMS_ITS | Encounter Summary ---
Author Organization [employer] ([place], [place], [place], [place], [place]) Address [address] [place] [address] Care Team Providers Care Cake Stripper Name Role Phone Tony Calabrese MD Primary Care Provider [phone] Jean-Pierre Cabrera MD Unavailable [phone] Kd Prince PA-C Unavailable [phone] Renae Car APRN Unavailable [phone] Encounter Details Date Type Department Care Team (Late st Contact Info) Description 01/18/2021 Transcribed Document [facility] [place] Family Medicine [address] [place] [address] ProviderLiz MD [address] [place] [address] Social History Tobacco Use Types Packs/Day [...] Note - Liz Patel MD - 01/18/2021 2:00 AM CDT Powertrain Control Systems Engineer Details Entered On: 01/18/2021 3:11 EDT Performed On: 01/18/2021 2:00 EDT by Jose Luis Fatima Non Emp RN Order Details Transport Mode Order Detail : [...] Luis Fatima Non Emp RN - 01/18/2021 3:11 EDT Electronically signed by [facility], [facility] Conversion Civil Engineering Design Draftsperson Cerner at 09/26/2022 9:21 AM CDT documented in this encounter Plan of Treatment Not on file documented as of this encounter Visit Diagnoses Not on filedocumented in this encounter Care Teams Cake Stripper Relationship Specialty Start Date End Date Tony Calabrese MD [address] [place] [address] PCP - General Family Medicine 06/06/22 Jean-Pierre Cabrera MD [address] [facility] [address] [place], [place] [id number] Surgeon Cardiothoracic Surgery 06/26/23 Kd Prince PA-C [address], [facility] [address] [place] [address] Shredded Filler Hopper Feeder Cardiology 06/26/23 Renae Car APRN [address] [facility] [address] [place] [address] Cardiology 09/30/23 documented as of this encounter
--- OUTSIDE RECORDS SUMMARY | 2025-05-02 11:45 | XMS_ITS | Encounter Summary ---
Author Organization [employer] ([place], [place], [place], [place], [place]) Address [address] [place] [address] Care Team Providers Care Film Mounter Name Role Phone Tony Calabrese MD Primary Care Provider [phone] Jean-Pierre Cabrera MD Unavailable [phone] Kd Prince PA-C Unavailable [phone] Renae Car APRN Unavailable [phone] Encounter Details Date Type Department Care Team (Late st Contact Info) Description 01/18/2021 Transcribed Document [facility] [place] [address] [place] [address] ProviderLiz MD [address] [place] [address] Social History Tobacco Use Types Packs/Day [...] Note - Liz Patel MD - 01/18/2021 4:00 AM CDT Height and Weight, Routine Entered On: 01/18/2021 5:36 EDT Performed On: 01/18/2021 4:00 EDT by Jose Luis Fatima, Non Emp RN Height and Weight, Routine Routine Weight Source : Bed scale Routine Weight Entry Format : [place] Routine Weight, Pounds : 181 lb Routine Weight, Ounces : 2 oz Routine Weight Calculation : 82.33 kg Height Source : Stated Height Entry Format : [place] Height, Feet : 5 ft Height, Inches : 7 Inch Clinical Height : 170.18 cm Body Surface Area (BSA), Routine : 1.94 m2 Body Mass Index (BMI), Routine : 28.43 kg/m2 Jose Luis Fatima Non Emp RN - 01/18/2021 5:36 EDT Electronically signed by Rosa, [facility] Conversion Inclusion Manager Cerner at 09/26/2022 9:18 AM CDT documented in this encounter Plan of Treatment Not on file documented as of this encounter Visit Diagnoses Not on filedocumented in this encounter Care Teams Film Mounter Relationship Specialty Start Date End Date Tony Calabrese MD [address] [place] [address] PCP - General Family Medicine 06/06/22 Jean-Pierre Cabrera MD [address] [facility] [address] [place], [place] [id number] Surgeon Cardiothoracic Surgery 06/26/23 Kd Prince PA-C [address], [address] [place] [address] Patient Financial Advocate Cardiology 06/26/23 Renae Car APRN [address] [facility] [address] [place], [place] [id number] Cardiology 09/30/23 documented as of this encounter
--- OUTSIDE RECORDS SUMMARY | 2025-05-02 11:46 | XMS_ITS | Encounter Summary ---
Author Organization [employer] ([place], [place], [place], [place], [place]) Address [address] [place] [address] Care Team Providers Care Associate Curator Name Role Phone Tony Calabrese MD Primary Care Provider [phone] Jean-Pierre Cabrera MD Unavailable [phone] Kd Prince PA-C Unavailable [phone] Renae Car APRN Unavailable [phone] Encounter Details Date Type Department Care Team (Late st Contact Info) Description 12/21/2020 Transcribed Document [facility] [place] Family Medicine [address] [place] [address] ProviderLiz MD [address] [place] [address] Social History Tobacco Use Types Packs/Day Years Used Date Smoking Tobacco: Never Assessed Sex and Gender Information Value Date Recorded Sex Assigned at Male 08/26/2022 2:31 AM CDT Legal Sex Male 5:38 PM CDT Gender Identity Male 08/26/2022 2:31 AM CDT Sexual Orientation Not on file documented as of this encounter Miscellaneous Notes * Cerner Conversion Note - Liz Patel MD - 12/21/2020 1:15 PM CDT Patient: BULMARO ELLISON Age: 64 years Sex: Male : 1955 Associated Diagnoses: None Author: MAGALI ABEL DO Subjective pt was seen by me this afternoon, at bedside, no coughing or sob, chest pain from yesterday is largely improved and almost resolved. no n/v. Health Status Current medications: Medications (16) Active Scheduled: (5) aspirin EC 81 mg tab 81 mg [...] inj 6.25 mg 0.25 mL, IntraVENous, Q6H Objective Intake and Output Intake & Output Totals Last 24 Hours (7a-7a) Intake (2 Events) Continuous Infusions (65 mL) Output (0 Events) No output events found in the last 24 hours. Input Total: 65 mL Output Total: 0 mL Balance: 65 mL VS/Measurements Vitals Signs (last 24 hrs) Last Charted Minimum Maximum Temp 97.8 (DEC 20 19:59) 97.8 (DEC 20 19:59) 97.8 (DEC 20 19:59) Mon HR 80 (DEC 21 12:00) 64 (DEC 21 05:00) 96 (DEC 21 11:00) Periph HR 90 (DEC 20 19:59) 90 (DEC 20 19:59) 90 (DEC 20 19:59) Resp Rate H 21 (DEC 21 12:00) L 10 (DEC 21 10:00) H 38 (DEC 21 09:00) SBP H 148 (DEC 21 12:00) 119 (DEC 21 06:00) H 167 (DEC 20 22:30) DBP 76 (DEC 21 12:00) 62 (DEC 21 06:00) 88 (DEC 21 08:00) MAP 111 (DEC 21 12:00) 93 (DEC 21 06:00) 124 (DEC 20 23:30) SpO2 98 (DEC 21 12:) 97 (DEC 20 23:30) 99 (DEC 20 22:30) General: Alert and oriented, No acute distress. [...] affect. Results Review General results Interpretation: DEC 21 03:18 140 107 15 / H 109 4.0 27 L 0.60 \ DEC 21 03:18 \ L 12.1 / H 11.0 250 / L 37.1 \ Labs (Last four charted values) WBC H 11.0 (DEC 21) H 10.3 (DEC 20) HB L 12.1 (DEC 21) L 12.9 (DEC 20) HCT L 37.1 (DEC 21) 40.6 (DEC 20) Plt 250 (DEC 21) 274 (DEC 20) Na 140 (DEC 21) 138 (DEC 20) K 4.0 (DEC 21) 3.7 (DEC 20) Cl 107 (DEC 21) 105 (DEC 20) CO2 27 (DEC 21) 28 (DEC 20) BUN 15 (DEC 21) 18 (DEC 20) Cr L 0.60 (DEC 21) 0.70 (DEC 20) Glu R H 109 (DEC 21) H 114 (DEC 20) Ca 9.0 (DEC 21) 8.9 (DEC 20) Lactic 1.2 (DEC 20) PT 10.5 (DEC 20) INR 1.0 (DEC 20) AST 20 (DEC 21) 20 (DEC 20) ALT 29 (DEC 21) 37 (DEC 20) ALK P 73 (DEC 21) 89 (DEC 20) T Bili 0.4 (DEC 21) 0.3 (DEC 20) PTN 6.7 (DEC 21) 7.5 (DEC 20) ALB 3.6 (DEC 21) 4.0 (DEC 20) Troponin H 0.159 (DEC 21) H 0.366 (DEC 21) H 0.402 (DEC 20) H 0.149 (DEC 20) Radiology Results (Last 48 hours) [id number] -- 12/21/2020 12:57 CR Chest 2 Vws (12/20/2020 20:50) Result: EXAMINATION TECHNIQUE:2 view chestCLINICAL HISTORY:Chest pain.COMPARISON:02/07/2017FINDINGS:No dense consolidation. No pneumothorax or pleural effusion. Normalheart size.IMPRESSION:No acute cardiopulmonary findings.Images personally reviewed, interpreted and dictated by Cristino Cobos Impression and Plan NSTEMI - cards plan for [facility] this afternoon - continue heparin drip, statin and aspirin - monitor on telemetry - cardiology consult appreciated type 2 dm - a1c 7.4 - continue ssi essential htn - bp elevated today - restart home meds and monitor BPH - continue flomax d/w at bedside time spent: 26 min discharge goals: [facility] this afternoon anticipated discharge disposition: home Magali Joel Hospitalist pager- [phone] documented in this encounter Plan of Treatment Not on file documented as of this encounter Visit Diagnoses Not on filedocumented in this encounter Care Teams Associate Curator Relationship Specialty Start Date End Date Tony Calabrese MD [address] [place] [address] PCP - General Family Medicine 06/06/22 Jean-Pierre Cabrera MD [address] [facility] [address] [place] [address] Surgeon Cardiothoracic Surgery 06/26/23 Kd Prince PA-C [address] [place] [address] Cream Gatherer Cardiology 06/26/23 Renae Car, TILE SPRAYER [address] [facility] [address] [place] [address] Cardiology 09/30/23 documented as of this encounter
--- OUTSIDE RECORDS SUMMARY | 2025-05-02 11:46 | XMS_ITS | Encounter Summary ---
Author Organization [employer] ([place], [place], [place], [place], [place]) Address [address] [place] [address] Care Team Providers Care Disk And Tape Machine Tender Name Role Phone Tony Calabrese MD Primary Care Provider [phone] Jean-Pierre Cabrera MD Unavailable [phone] Kd Prince PA-C Unavailable [phone] Renae Car APRN Unavailable [phone] Encounter Details Date Type Department Care Team (Late st Contact Info) Description 10/13/2018 Transcribed Document [facility] [place] Family Medicine [address] [place] [address] ProviderLiz MD [address] [place] [address] Social History Tobacco Use Types Packs/Day Years Used Date Smoking Tobacco: Never Assessed Sex and Gender Information Value Date Recorded Sex Assigned at Male 08/26/2022 2:31 AM CDT Legal Sex Male 5:38 PM CDT Gender Identity Male 08/26/2022 2:31 AM CDT Sexual Orientation Not on file documented as of this encounter Miscellaneous Notes * Cerner Conversion Note - Lzi Patel MD - 10/13/2018 9:14 AM CDT DATE OF ADMISSION: 10/12/2018 HISTORY OF PRESENT ILLNESS: This is a 62-year-old male with a chief complaint of chronic lower back pain radiated to lower extremity, came today for followup. The patient is status post spinal cord stimulator implant last week, October 05, 2018 by [employer] spinal cord stimulator [employer] and he came today for followup. The patient mentioned that he is doing well and he had 90% to 95% relief of pain that giving him great help and relief. He denied any pain or problem with his back and incision area, and he denied any neurological findings too. He denied any fever, chills or any sign of infection. The patient mentioned that he had some little bit of subcutaneous blood in his left pocket area after we put the stimulator, however, he denied any painful or any oozing or bleeding from that site. PHYSICAL EXAMINATION: Blood pressure 126/67, heart rate is 104, respirations 16, saturation 93%, temperature 97.6. Pain level 2. Hours of sleep . No change in physical and neurological exam. Muscle tone power sensory and deep tendon reflexes were unchanged. The nurse notes, vital signs, and medication were reviewed and evaluated. Examination of the back showed well healing scar from his incision area. No swelling or deformity. There is mild discoloration in the left buttock area related to subcutaneous blood in that area, however, no sign of oozing, bleeding or discharge. ASSESSMENT: 1. Chronic lower back pain secondary to degenerative joint disease and degenerative disk disease to the lumbosacral spine. 2. Lumbosacral radiculopathy. 3. Multiple failed back surgeries. 4. Lumbosacral spondylosis. PLAN: 1. I had lengthy discussion with the patient and his . I am pleased that the spinal cord stimulator give the patient almost 95% relief of pain since we implanted on October 05, 2018 with the [employer] spinal cord stimulator company. The patient was pleased with that result. He was able to control most of his pain in the back and lower extremity. 2. I changed the dressing of the wound and it looked like well healed incision and I reassured the patient of the mild subcutaneous blood that should go away soon and the patient does not have any complaint about that. I mentioned to the patient that he can take shower after two days. 3. I encouraged the patient to continue his antibiotic as well as his opioid medication in case we need them for next three days to make it 10 days. 4. The patient gave me a paper from his workplace to write about his restriction of work and I filled them and I am going to mail it to him later. 5. I am going to see the patient on a p.r.n. basis if need more adjustment. Guicho Thorne M.D., RIVER Pain Certified Dict: 10/13/2018 09:14:41 Trans: 10/13/2018 12:06:38 CC1: Guicho Thorne M.D., R[facility] Pain Certified CC2: Dr. Dave Levine, Primary Physician Electronically signed by [facility] Conversion Production Sound Mixer Cerner at 09/26/2022 9:15 AM CDT documented in this encounter Plan of Treatment Not on file documented as of this encounter Visit Diagnoses Not on filedocumented in this encounter Care Teams Disk And Tape Machine Tender Relationship Specialty Start Date End Date Tony Calabrese MD [address] [place] [address] PCP - General Family Medicine 06/06/22 Jean-Pierre Cabrera MD [address] [facility] [address] [place] [address] Surgeon Cardiothoracic Surgery 06/26/23 Kd Prince PA-C [address], [facility] [address] [place] [address] Steel Die Engraver Cardiology 06/26/23 Renae Car APRN [address] [facility] [address] [place], [place] [id number] Cardiology 09/30/23 documented as of this encounter
--- OUTSIDE RECORDS SUMMARY | 2025-05-02 11:46 | XMS_ITS | Encounter Summary ---
Author Organization [employer] ([place], [place], [place], [place], [place]) Address [address] [place] [address] Care Team Providers Care Radio Dispatcher Name Role Phone Tony Calabrese MD Primary Care Provider [phone] Jean-Pierre Cabrera MD Unavailable [phone] Kd Prince PA-C Unavailable [phone] Renae Car APRN Unavailable [phone] Encounter Details Date Type Department Care Team (Late st Contact Info) Description 12/21/2020 Transcribed Document [facility] [place] Family Medicine [address] [place] [address] ProviderLiz MD [address] [place] [address] Social History Tobacco Use Types Packs/Day [...] Note - Liz Patel MD - 12/21/2020 9:37 PM CDT Admission History, Adult Entered On: 12/21/2020 21:38 EDT Performed On: 12/21/2020 21:37 EDT by NirBan Rn-Traveler Advance Directive Patient has Advance Directive *Q : No, patient refuses Advance Directive information Ban Loyola Rn-Traveler - 12/21/2020 21:37 EDT Anesthesia/Transfusion History Family History of Anesthesia Reaction : No prior transfusion(s) Transfusion History : Prior anesthesia without reaction Family History of Anesthesia Reaction : None Ban Loyola Rn-Traveler - 12/21/2020 21:37 EDT Functional Assessment Living Situation : Home Current Home Treatments : None Ban Loyola Rn-Traveler - 12/21/2020 21:37 EDT General Info Mode of Arrival on Unit : Ambulatory Legal Guardian : Unaccompanied Support Person/Patient Velvet Weaver : Yes Support Person/Pt Rep Name : Sue Koch Support Person/Pt Rep Contact Information : cell Want Family/Rep/Phys Notified of Admit : No Emergency Contact #1 : sue bal Emergency Contact #1 Phone Number : [phone] Emergency Contact #1 Relationship : spouse Emergency Contact #2 : x Emergency Contact #2 Phone Number : x Emergency Contact #2 Relationship : x Chief Complaint : pt c/o chest pain since 5pm. 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 pt has hx of diabetes, htn. Information Obtained From : Patient Primary Language : Serbian Preferred Communication Mode : Verbal Communication Barrier : None Quality Systems Specialist Needed : No Ban Loyola Rn-Traveler - 12/21/2020 21:37 EDT Fall Risk Scales ABCs Fall Injury Risk Identification : Bones, Coagulation ABC Fall Injury Risk : Moderate to high injury risk Injury Moderate to High Risk Interventions : Specialty low bed PEREZ Hx Falls Immediate/Within 3 Months : No Perez Secondary Diagnosis : Yes PEREZ Use of Ambulatory Aid : Bed rest/Nurse assist PEREZ IV Therapy or IV Access : Yes Perez Gait/Transferring : Normal, bedrest, immobile Perez Mental Status : Oriented to own ability Perez Fall Risk Score : 35 PEREZ Fall Scale Risk Level : 25-45 Medium Risk [place] Fall Interventions : Adequate lighting, Assistive devices within reach, Bed in low position, Call device within reach, Hourly comfort/safety rounds, Non-slip footwear, Personal items within reach, Reinforced to call for assistance before getting out of bed, Room free of clutter/spills, Upper side-rails up, Wheels locked, Wires/Cords secured Fall Risk Scale Calc Temp : 0 Ban Loyola Rn-Traveler - 12/21/2020 21:37 EDT Health Histories Smoking Status : Never (less than 100 in lifetime; none in last 30 days) Smokeless Tobacco Status : Never Ban Loyola Rn-Traveler - 12/21/2020 21:37 EDT Social History (As Of: 12/21/2020 21:38:36 EDT) Tobacco: Smoking Status Never smoker. (Last [...] 08/04/2015 11:01:11 EST by BELLA JUAN RN) Height and Weight, Clinical Dosing Height Source : Stated Height Entry Format : [place] Height, Feet : 5 ft(Converted to: 152 cm, 60 Inch) Height, Inches : 7 Inch(Converted to: 0 ft 7 Inch, 17.78 cm) Clinical Height : 170.18 cm Weight Source : Bed scale Weight Entry Format : [place] Clinical Dosing Weight : 83.64 kg Weight, Pounds : 184 lb Body Surface Area (BSA) : 1.95 m2 Body Mass Index : 28.9 kg/m2 (HI) Irons Body Weight : 65 kg Ban Loyola Rn-Traveler - 12/21/2020 21:37 EDT Infectious Disease History Has the patient ever been tested for COVID-19? : No, Patient stated Does patient have symptoms of COVID-19? : No COVID19 Screening : No Experiencing Infectious Disease Symptoms : No symptoms Physical contact outside [place] in the last 30 days : No Infectious Disease History : Chicken pox/Shingles, Influenza, Mumps Tuberculosis Symptoms : None Ban Loyola Rn-Traveler - 12/21/2020 21:37 EDT Tetanus Immunization Status Previous Tetanus Immunizations : No qualifying data available. Ban Loyola Rn-Traveler - 12/21/2020 21:37 EDT Influenza Vaccine Asmt, Adult Previous Vaccines from Immunization Schedule : No qualifying data available. Influenza Immunization, Current Season : No Inactivated Flu Vaccine Contraindications : No contraindications to inactivated influenza vaccine Transplant Workup/Recent Transplant : No Order for Influenza Vaccine : Declined Vaccination Ban Loyola Rn-Traveler - 12/21/2020 21:37 EDT Pneumococcal Vaccine Previous Vaccines from Immunization Schedule : No qualifying data available. Pneumonia Immunization Received : No Pneumococcal Risk Assessment < Age 65 : None Ban Loyola Rn-Traveler - 12/21/2020 21:37 EDT Order Details Transport Mode Order Detail : Bed (including specialty) Isolation Precautions Order Detail : Standard Precautions Order Detail : N/A IV Order Detail : 1 Oxygen Order Detail : 0 Lift/Transfer : Minimal Central Line Order Detail : No Room Service : Appropriate Arterial Line : No Patient Needs Meds Crushed/Liquid : No Ban Loyola Rn-Traveler - 12/21/2020 21:37 EDT Nutrition History Adaptive Feeding Equipment : Regular Eating Poorly Due to Decreased Appetite : No Unplanned Weight Loss in Past 3-6 Months : No Malnutrition Screening Tool Total(mal) : 0 Malnutrition Screening Tool Risk Level : Patient not at risk Ban Loyola Rn-Traveler - 12/21/2020 21:37 EDT Rogers Suicide Severity Rating Scale (C-SSRS) CSSRS Past Month Wish to be : No CSSRS Past Month Suicidal Thoughts : No CSSRS Lifetime Suicide Behavior : No Suicide Severity Rating Score : 0 Suicide Severity Rating : No Additional Care Required at this time Ban Loyola Rn-Traveler - 12/21/2020 21:37 EDT Psychosocial History Do You Have a History of the Following? : Patient denies history Currently in Unsafe Situation : No Ban Loyola Rn-Traveler - 12/21/2020 21:37 EDT Sleep Apnea Risk Assmt Hx of [...] : 4 Ban Loyola Rn-Traveler - 12/21/2020 21:37 EDT Valuables and Belongings Valuables and Belongings : No clothing, No comfort items, No jewelry, No personal devices, No personal items, No assistive devices, No respiratory devices, No medications Ban Loyola Rn-Traveler - 12/21/2020 21:37 EDT Electronically signed by [facility], [facility] Conversion Md Senior Research Scientist Cerner at 09/26/2022 9:08 AM CDT documented in this encounter Plan of Treatment Not on file documented as of this encounter Visit Diagnoses Not on filedocumented in this encounter Care Teams Radio Dispatcher Relationship Specialty Start Date End Date Tony Calabrese MD [address] [place] [address] PCP - General Family Medicine 06/06/22 Jean-Pierre Cabrera MD [address] [facility] [address] [place], [place] [address] Surgeon Cardiothoracic Surgery 06/26/23 Kd Prince PA-C [address], [facility] [address] [place] [address] Customer Account Executive Cardiology 06/26/23 Renae Car APRN [address] [facility] [address] [place] [address] Cardiology 09/30/23 documented as of this encounter
--- OUTSIDE RECORDS SUMMARY | 2025-05-02 11:46 | XMS_ITS | Encounter Summary ---
Author Organization [employer] ([place], [place], [place], [place], [place]) Address [address] [place] [address] Care Team Providers Care Chief Controller Tower Name Role Phone Tony Calabrese MD Primary Care Provider [phone] Jean-Pierre Cabrera MD Unavailable [phone] Kd Prince PA-C Unavailable [phone] Renae Car APRN Unavailable [phone] Encounter Details Date Type Department Care Team (Late st Contact Info) Description 12/20/2020 Transcribed Document [facility] [place] [address] [place] [address] ProviderLiz MD [address] [place] [address] Social History Tobacco Use Types Packs/Day [...] Note - Liz Patel MD - 12/20/2020 10:24 PM CDT Consult Phone Call Documentation Entered On: 12/22/2020 8:55 EDT Performed On: 12/20/2020 22:24 EDT by Stacy Reeves Phone Call for Consults Consult Phone Call/Page Attempt : First call Consult Reason : Nstemi Physician Requesting Consult : MAGALI ABEL DO Physician Requested for Consult : PINKY BENNETT APRN Provider Service Notified Name : Cardiology Date and Time Call Returned : 12/22/2020 8:54 EDT Consult, Additional Information : spoke to robbin and they were aware of the consult and they will pass it on Stacy Reeves - 12/22/2020 8:54 EDT documented in this encounter Plan of Treatment Not on file documented as of this encounter Visit Diagnoses Not on filedocumented in this encounter Care Teams Chief Controller Tower Relationship Specialty Start Date End Date Tony Calabrese MD [address] [place] [address] PCP - General Family Medicine 06/06/22 Jean-Pierre Cabrera MD [address] [facility] [address] [place] [address] Surgeon Cardiothoracic Surgery 06/26/23 Kd Prince PA-C [address] [facility], [facility] [address] [place] [address] Ceramic Products Sales Engineer Cardiology 06/26/23 Renae Car APRN [address] [facility] [address] [place], [place] [address] Cardiology 09/30/23 documented as of this encounter
--- OUTSIDE RECORDS SUMMARY | 2025-05-02 11:46 | XMS_ITS | Encounter Summary ---
Author Organization [employer] ([place], [place], [place], [place], [place]) Address [address] [place] [address] Care Team Providers Care Garnett Machine Operator Helper Name Role Phone Tony Calabrese MD Primary Care Provider [phone] Jean-Pierre Cabrera MD Unavailable [phone] Kd Prince PA-C Unavailable [phone] Renae Car APRN Unavailable [phone] Encounter Details Date Type Department Care Team (Late st Contact Info) Description 12/21/2020 Transcribed Document [facility] [place] [address] [place] [address] ProviderLiz MD [address] [place] [address] Social History Tobacco Use Types Packs/Day [...] Note - Liz Patel MD - 12/21/2020 12:32 PM CDT UM Authorization Entered On: 12/21/2020 12:32 EDT Performed On: 12/21/2020 12:32 EDT by ALBERT PARRISH, Rn-Utilization Review Primary Insurance Authorization Authorization and Policy Numbers : Insurance 1 Health Plan: MEDICARE Policy Number: [id number] Authorization Number: Insurance Primary Name : MEDICARE Policy Number: [id number] Historical Authorization Comments-Primary : No Authorization Comments Found ALBERT PARRISH, Rn-Utilization Review - 12/21/2020 12:32 EDT Electronically signed by [facility], [facility] Conversion Veterinarian Assistant Cerner at 09/26/2022 9:20 AM CDT documented in this encounter Plan of Treatment Not on file documented as of this encounter Visit Diagnoses Not on filedocumented in this encounter Care Teams Garnett Machine Operator Helper Relationship Specialty Start Date End Date Tony Calabrese MD [address] [place] [address] PCP - General Family Medicine 06/06/22 Jean-Pierre Cabrera MD [address] [facility] [address] [place] [address] Surgeon Cardiothoracic Surgery 06/26/23 Kd Prince PA-C [address], [address] [place] [address] Child Nutrition Assistant Cardiology 06/26/23 Renae Car APRN [address] [facility] [address] [place] [address] Cardiology 09/30/23 documented as of this encounter
--- OUTSIDE RECORDS SUMMARY | 2025-05-02 11:46 | XMS_ITS | Encounter Summary ---
Author Organization [employer] ([place], [place], [place], [place], [place]) Address [address] [place] [address] Care Team Providers Care Information Management Manager Name Role Phone Tony Calabrese MD Primary Care Provider [phone] Jean-Pierre Cabrera MD Unavailable [phone] Kd Prince PA-C Unavailable [phone] Renae Car APRN Unavailable [phone] Encounter Details Date Type Department Care Team (Late st Contact Info) Description 01/17/2021 Transcribed Document [facility] [place] Family Medicine [address] [place] [address] ProviderLiz MD [address] [place] [address] Social History Tobacco Use Types Packs/Day [...] Note - Liz Patel MD - 01/17/2021 5:00 AM CDT Chart Check - Review Order Profile Entered On: 01/17/2021 5:33 EDT Performed On: 01/17/2021 5:00 EDT by Darleen King RN-PATIENT CARE BEDSIDE NON-EXEMPT Chart Check Powerplans Initiated/Discontinued as Appropriate : Yes All Active Orders Reviewed : Yes Darleen King RN-PATIENT CARE BEDSIDE NON-EXEMPT - 01/17/2021 5:33 EDT documented in this encounter Plan of Treatment Not on file documented as of this encounter Visit Diagnoses Not on filedocumented in this encounter Care Teams Information Management Manager Relationship Specialty Start Date End Date Tony Calabrese MD [address] [place] [address] PCP - General Family Medicine 06/06/22 Jean-Pierre Cabrera MD [address] [facility] [address] [place] [address] Surgeon Cardiothoracic Surgery 06/26/23 Kd Prince PA-C [address], [address] [place] [address] Vinegar Maker Cardiology 06/26/23 Renae Car, JOSÉ MIGUEL [address] [facility] [address] [place] [address] Cardiology 09/30/23 documented as of this encounter
--- OUTSIDE RECORDS SUMMARY | 2025-05-02 11:46 | XMS_ITS | Encounter Summary ---
Author Organization [email or web address] ([place], [place], [place], [place], [place]) Address [address] [place] [address] Care Team Providers Care Communication Center Operator Name Role Phone Tony Calabrese MD Primary Care Provider [phone] Jean-Pierre Cabrera MD Unavailable [phone] Kd Prince PA-C Unavailable [phone] Renae Car APRN Unavailable [phone] Encounter Details Date Type Department Care Team (Late st Contact Info) Description 12/20/2020 Transcribed Document [facility] [place] [address] [place] [address] ProviderLiz MD [address] [place] [address] Social History Tobacco Use Types Packs/Day [...] Patel MD - 12/20/2020 9:57 PM CDT Provider Notification Entered On: 12/21/2020 10:01 EDT Performed On: 12/21/2020 10:01 EDT by Rolando Bowman, MICHAEL Provider Notification Provider Notified of Concerns/Results : Lab result Rolando Bowman RN - 12/21/2020 10:01 EDT documented in this encounter Plan of Treatment Not on file documented as of this encounter Visit Diagnoses Not on filedocumented in this encounter Care Teams Communication Center Operator Relationship Specialty Start Date End Date Tony Calabrese MD [address] [place] [address] PCP - General Family Medicine 06/06/22 Jean-Pierre Cabrera MD [address] [facility] [address] [place] [address] Surgeon Cardiothoracic Surgery 06/26/23 Kd Prince PA-C [address] [place] [address] Silica Dry Press Helper Cardiology 06/26/23 Renae Car APRN [address] [facility] [address] [place] [address] Cardiology 09/30/23 documented as of this encounter
--- OUTSIDE RECORDS SUMMARY | 2025-05-02 11:46 | XMS_ITS | Encounter Summary ---
Author Organization [employer] ([place], [place], [place], [place], [place]) Address [address] [place] [address] Care Team Providers Care Porcelain Turner Name Role Phone Tony Calabrese MD Primary Care Provider [phone] Jean-Pierre Cabrera MD Unavailable [phone] Kd Prince PA-C Unavailable [phone] Renae Car APRN Unavailable [phone] Encounter Details Date Type Department Care Team (Late st Contact Info) Description 12/21/2020 Transcribed Document [facility] [place] [address] [place] [address] ProviderLiz MD [address] [place] [address] Social History Tobacco Use Types Packs/Day [...] Note - Liz Patel MD - 12/21/2020 5:42 PM CDT ED Discharge Entered On: 12/21/2020 17:42 EDT Performed On: 12/21/2020 17:42 EDT by Rolando Bowman RN Discharge Process Patient Disposition : Admit/Observe Personal Belongings With Patient : Yes Patient Education Completed : Yes Teaching Evaluation : Verbalizes understanding IV Discontinued : No Rolando Bowman RN - 12/21/2020 17:42 EDT Admission, ED Nurse Report Accepted By : hang servin Nurse Report Acceptance Time : 12/21/2020 17:42 EDT `Nurse Report (Hand Off) : Called Accompanied By, Discharge : Daughter, Spouse Reason For Hold : Pending Bed Assignment Rolando Bowman RN - 12/21/2020 17:42 EDT Electronically signed by [facility] Conversion Wash And Greaser Cerner at 09/26/2022 9:01 AM CDT documented in this encounter Plan of Treatment Not on file documented as of this encounter Visit Diagnoses Not on filedocumented in this encounter Care Teams Porcelain Turner Relationship Specialty Start Date End Date Tony Calabrese MD [address] [place] [address] PCP - General Family Medicine 06/06/22 Jean-Pierre Cabrera MD [address] [facility] [address] [place] [address] Surgeon Cardiothoracic Surgery 06/26/23 Kd Prince PA-C [address], [facility] [address] [place] [address] Trousseau Consultant Cardiology 06/26/23 Renae Car APRN [address] [facility] [address] [place] [address] Cardiology 09/30/23 documented as of this encounter
--- OUTSIDE RECORDS SUMMARY | 2025-05-02 11:46 | XMS_ITS | Encounter Summary ---
Author Organization [employer] ([place], [place], [place], [place], [place]) Address [address] [place] [address] Care Team Providers Care Checker Cashier Name Role Phone Tony Calabrese MD Primary Care Provider [phone] Jean-Pierre Cabrera MD Unavailable [phone] Kd Prince PA-C Unavailable [phone] Renae Car APRN Unavailable [phone] Encounter Details Date Type Department Care Team (Late st Contact Info) Description 12/20/2020 Transcribed Document [facility] [place] [address] [place] [address] ProviderLiz MD [address] [place] [address] Social History Tobacco Use Types Packs/Day [...] Note - Liz Patel MD - 12/20/2020 10:20 PM CDT Patient: BULMARO ELLISON Age: 64 years Sex: Male : 1955 Associated Diagnoses: NSTEMI (non-ST elevated myocardial infarction) Author: DEMAR MANCIA MD Basic Information History source: Patient. Arrival mode: Private vehicle. History limitation: None. Additional information: Chief Complaint from Nursing Triage Note : Chief Complaint 12/20/2020 19:59 EDT Chief Complaint pt c/o chest pain since 5pm. 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 pt has hx of diabetes, htn. . History of Present Illness This is a 64-year-old male with a past medical history significant for hypertension, hyperlipidemia, DM who presents to the emergency department for evaluation of central stabbing chest pain that occurred at rest when he was sitting in his truck at around 5 PM this evening. The pain radiated around to the left, but has since spontaneously resolved. He took 1 baby aspirin at home. He did not have any nausea, vomiting, diaphoresis or shortness of breath. Currently he feels back to baseline. He has had pain like this before in the past but it was very transient and not as bad. He has a history of heart murmur and sees a skiver operator once a year in [place], no known history of coronary artery disease. He has not been ill recently, no fevers or cough. No known exacerbating or alleviating factors. Review of Systems Additional review of systems information: 10 point review of systems reviewed and negative except as stated in history of present illness . Health Status Allergies: Allergic Reactions (Selected) No Known Allergies. Medications: (Selected) Inpatient Medications Ordered aspirin: 243 mg, Chew, 1-Time heparin injection 25,000 Units + NaCl 0.45% Premix Diluent 250 mL: Titrate, IntraVENous Documented Medications Documented Calcium 600+D Plus Minerals [...] metFORMIN: 500 mg, Oral, BID, 0 Refill(s), per nurse's notes. Immunizations: Per nurse's notes. Past Medical/ Family/ Social History Medical history Reviewed as documented in chart. Surgical history: Reviewed as documented in chart. Family history: Reviewed as documented in chart. Social history: Reviewed as documented in chart. Problem list: [...] Physical Examination Vital Signs Vital Signs/Vital Measures 12/20/2020 19:59 EDT Systolic Blood Pressure 152 mmHg HI Diastolic Blood Pressure 73 mmHg Temperature Source Oral Temperature Mode Fahrenheit Temperature, Fahrenheit 97.8 Deg F Clinical Temperature, C 36.6 Deg C Peripheral Pulse Rate 90 bpm Respiratory Rate 18 Breaths/Min Oxygen Saturation 98 % Oxygen Therapy Mode Room air . Per nurse's notes. General: Alert, no acute distress. Skin: Warm, dry. Head: Normocephalic. Neck: Supple. Ears, nose, mouth and throat: Oral mucosa moist. Cardiovascular: Regular rate and rhythm. Respiratory: Lungs are clear to auscultation, respirations are non-labored, breath sounds are equal. Chest wall: No tenderness, No deformity. Gastrointestinal: Soft, Nontender, Non distended. Neurological: Alert and oriented to person, place, time, and situation, normal speech observed, normal coordination observed. Psychiatric: Cooperative. Medical Decision Making Documents reviewed: Emergency department nurses' notes, prior records. Electrocardiogram: Time 12/20/2020 20:04:00, rate 84, normal sinus rhythm, normal MN & QRS intervals, EP Interp, No STEMI. Chest X-Ray: No acute disease process, interpretation by Emergency Physician. Notes: Patient with resolved chest pain by the time of my evaluation. His EKG shows no signs of acute ischemia. Chest x-ray shows no pneumonia, pneumothorax, florid pulmonary edema or widened mediastinum that would suggest dissection. He was given 243 mg additional of aspirin and started on a heparin drip for a troponin of 0.1. I discussed this case with Cal Umaña, on-call for cardiology, who will see the patient in the morning and I have discussed this case with Dr. Schmidt who will admit the patient for further management. Patient remains hemodynamically stable while under my care.. Procedure Critical care note Total time: 30 minutes spent engaged in work directly related to patient care and/ or available for direct patient care, exclusive of procedure time, which included Includes interpretation of imaging, labs, discussion of condition with family and patient, multiple reassessments.. Critical condition(s) addressed for impending deterioration include: airway, respiratory, cardiovascular. Associated risk factors. Impression and Plan Diagnosis NSTEMI (non-ST elevated myocardial infarction) - Discharge, Medical Plan Disposition: Admit Admit/Transfer/Discharge: Place in Observation (Order): Start: 12/20/2020 22:23 EDT, Observation Reason: NSTEMI, Unit type: Med-Surg with telemetry, Admitting: ELIZABETH SCHMIDT MD-[facility]. Electronically signed by [facility] Conversion Glassware Selector Cerner at 09/26/2022 8:56 AM CDT documented in this encounter Plan of Treatment Not on file documented as of this encounter Visit Diagnoses Not on filedocumented in this encounter Care Teams Checker Cashier Relationship Specialty Start Date End Date Tony Calabrese MD [address] [place] [address] PCP - General Family Medicine 06/06/22 Jean-Pierre Cabrera MD [address] [facility] [address] [place] [address] Surgeon Cardiothoracic Surgery 06/26/23 Kd Prince PA-C [address] [place] [address] Grey Tender Cardiology 06/26/23 Renae Car, LEATHER ROLLER [address] [facility] [place] [address] Cardiology 09/30/23 documented as of this encounter
--- OUTSIDE RECORDS SUMMARY | 2025-05-02 11:46 | XMS_ITS | Encounter Summary ---
Author Organization [employer] ([place], [place], [place], [place], [place]) Address [address] [place] [address] Care Team Providers Care Tower Erector Name Role Phone Tony Calabrese MD Primary Care Provider [phone] Jean-Pierre Cabrera MD Unavailable [phone] Kd Prince PA-C Unavailable [phone] Renae Car APRN Unavailable [phone] Encounter Details Date Type Department Care Team (Late st Contact Info) Description 12/21/2020 Transcribed Document [facility] [place] [address] [place] [address] ProviderLiz MD [address] [place] [address] Social History Tobacco Use Types Packs/Day [...] Note - Liz Patel MD - 12/21/2020 6:02 PM CDT Meds to Bed Enrollment Entered On: 12/22/2020 7:35 EDT Performed On: 12/21/2020 18:02 EDT by VIRI FRANK RPh Meds to Bed Enrollment Patient Enrollment Decision: : Yes/enroll in meds to bed program VIRI FRANK RPh - 12/22/2020 7:35 EDT documented in this encounter Plan of Treatment Not on file documented as of this encounter Visit Diagnoses Not on filedocumented in this encounter Care Teams Tower Erector Relationship Specialty Start Date End Date Tony Calabrese MD [address] [place] [address] PCP - General Family Medicine 06/06/22 Jean-Pierre Cabrera MD [address] [facility] [address] [place] [address] Surgeon Cardiothoracic Surgery 06/26/23 Kd Prince PA-C [address], [facility] [address] [place] [address] Casing Sewer Cardiology 06/26/23 Renae Car, JOSÉ MIGUEL [address] [facility] [address] [place] [address] Cardiology 09/30/23 documented as of this encounter
--- OUTSIDE RECORDS SUMMARY | 2025-05-02 11:46 | XMS_ITS | Encounter Summary ---
Author Organization [employer] ([place], [place], [place], [place], [place]) Address [address] [place] [address] Care Team Providers Care Pig Casting Machine Operator Name Role Phone Tony Calabrese MD Primary Care Provider [phone] Jean-Pierre Cabrera MD Unavailable [phone] Kd Prince PA-C Unavailable Renae Car APRN Unavailable Encounter Details Date Type Department Care Team (Late st Contact Info) Description 12/21/2020 Transcribed Document [facility] Cardiology [address] [place] [address] William Stanley MD [address] [facility] [address] [place] [id number] Social History Tobacco Use Types Packs/Day Years Used Date Smoking Tobacco: Never Assessed Sex and Gender Information Value Date Recorded Sex Assigned at Male 08/26/2022 2:31 AM CDT Legal Sex Male 5:38 PM CDT Gender Identity Male 08/26/2022 2:31 AM CDT Sexual Orientation Not on file documented as of this encounter Miscellaneous Notes * Cerner Conversion Note - William Stanley MD - 12/21/2020 12:04 AM EDT Patient: BULMARO ELLISON Age: 64 years Sex: Male : 1955 Associated Diagnoses: None Author: PINKY BENNETT APRN Basic Information PCP: Cardiology: [facility] Chief Complaint Chest pain History of Present Illness Patient is an exceptionally pleasant 62-year-old gentleman with a known history of hypertension, dyslipidemia, diabetes mellitus type 2, and heart murmur who presents to [facility] emergency department with complaints of midsternal chest pain. Cardiology has been asked to see and assist in management of his care after he was found to have a slight elevation in his cardiac enzymes. He tells me he was in his normal state of health until this afternoon when he was working at home. He developed midsternal stabbing which radiated into his left arm and abdomen. He tells me it was associated with shortness of air and diaphoresis. He tells me this resolved fairly quickly he has had no further episodes. On exam I hear a systolic murmur and he tells me he has been told for many years he is murmur. He denies dizziness or syncope, but tells me he has intermittent rapid heart rates which are associated with dizziness. He otherwise has no complaints. At the time of this assessment the patient is resting comfortably in no acute distress in the emergency department. Review of Systems Constitutional: Negative except as [...] No Known Allergies None Documented Home Medications (8) Active acetaminophen-HYDROcodone 325 mg-7.5 [...] Documented Current medications: (Selected) Inpatient Medications Ordered aspirin: 243 mg, [...] metFORMIN: 500 mg, Oral, BID, 0 Refill(s), Medications (2) Active Scheduled: (1) aspirin 81 mg chew tab 243 mg 3 Tab, Chew, 1-Time Continuous: (1) heparin/NaCl 0.45% 25,000 Units + Premix Diluent NaCl 0.45% 250 mL 250 mL, IntraVENous PRN: (0) Problem list: All Problems Arthritis / SNOMED CT 2413518 / Confirmed Asthma, childhood / SNOMED CT 372111866 / Confirmed At risk for sleep apnea / IMO 50332015 / Confirmed Back pain / SNOMED CT 793240542 / Confirmed Bronchitis / SNOMED CT 92997158 / Confirmed Chest pain / SNOMED CT 31130387 / Confirmed table inspector workup-stated everything was ok 06/2016 kevin horse in left calf muscle / SNOMED CT 55284812 / Confirmed Deep vein thrombosis (right hip) / SNOMED CT 8690481402 / Confirmed Diet controlled diabetes mellitus / SNOMED CT 286884241 / Confirmed Disorder of prostate (BPH) / SNOMED CT 43736892 / Confirmed Murmur, heart / SNOMED CT 8898285560 / Confirmed Leaky heart valve (unsure which one) / SNOMED CT 83218458 / Confirmed High blood pressure / SNOMED CT 70271534 / Confirmed Hyperlipidemia / SNOMED CT 03685221 / Confirmed Urinary frequency/urgency / SNOMED CT 213764016 / Confirmed Numbness and tingling of foot (great toe) / SNOMED CT 525960041 / Confirmed feels cold, numb Peptic ulcer disease / SNOMED CT 1127227918 / Confirmed Peripheral neuropathy, left foot / SNOMED CT 4805813567 / Confirmed Lumbar herniated disc (L1-2) / SNOMED CT 508539044 / Confirmed, Active Problems (19) kevin horse [...] Smoking Status Never smoker Past Medical History: Hypertension, dyslipidemia, diabetes, peptic ulcer disease, heart murmur Family History: Noncontributory Procedure history: spinal cord stimulator in the [...] Last Charted Minimum Maximum Temp 97.8 (DEC 20:59) 97.8 (DEC 20:59) 97.8 (DEC 20:59) Periph HR 90 (DEC 20:59) 90 (DEC 20:59) 90 (DEC 20:59) Resp Rate 18 (DEC 20:59) 18 (DEC 20 19:59) 18 (DEC 20:59) SBP H 152 (DEC 20:59) H 152 (DEC 20:59) H 152 (DEC 20:59) DBP 73 (DEC 20:59) 73 (DEC 20 19:59) 73 (DEC 20 19:59) SpO2 98 (DEC 20:59) 98 (DEC 20:59) 98 (DEC 20:59) General: Alert and oriented, No acute distress. [...] Appropriate mood & affect. Review / Management DEC 20 20:14 138 105 18 / H 114 3.7 28 0.70 \ DEC 20 20:14 \ L 12.9 / H 10.3 274 / 40.6 \ Cardiac Markers (Current Encounter/Past 24 Hours) ProBNP 194 pg/mL AK 12/20/2020 21:49 Blood Gases (Current Encounter/Past 24 Hours) No Blood Gas Results Found (Past 24 Hours) No Radiology Results Found Results review: Labs (Last four charted values) WBC H 10.3 (DEC 20) HB L 12.9 (DEC 20) HCT 40.6 (DEC 20) Plt 274 (DEC 20) Na 138 (DEC 20) K 3.7 (DEC 20) Cl 105 (DEC 20) CO2 28 (DEC 20) BUN 18 (DEC 20) Cr 0.70 (DEC 20) Glu R H 114 (DEC 20) Ca 8.9 (DEC 20) Lactic 1.2 (DEC 20) AST 20 (DEC 20) ALT 37 (DEC 20) ALK P 89 (DEC 20) T Bili 0.3 (DEC 20) PTN 7.5 (DEC 20) ALB 4.0 (DEC 20) Troponin H 0.149 (DEC 20) . Impression and Plan IMPRESSION: * Chest pain-- mild troponin leak * Hypertension * Heart murmur * Dyslipidemia * Diabetes mellitus type 2 * History of peptic ulcer disease PLAN; Agree with admission to internal medicine Serial cardiac enzymes and EKG Aspirin, statin, ticagrelor Continue heparin for now Restart home beta-scott Echocardiogram N.p.o. after midnight for ischemic evaluation tomorrow. Type to be determined pending cardiac enzyme trend documented in this encounter Plan of Treatment Not on file documented as of this encounter Visit Diagnoses Not on filedocumented in this encounter Care Teams Pig Casting Machine Operator Relationship Specialty Start Date End Date Tony Calabrese MD [address] [place] [address] PCP - General Family Medicine 06/06/22 Jean-Pierre Cabrera MD [address] [place] [address] [address] [place] [address] Surgeon Cardiothoracic Surgery 06/26/23 Kd Prince PA-C [address] [place] [address] Statistical Machine Servicer Cardiology 06/26/23 Renae Car, ONLINE RETAILER [address] [facility] [address] [place] [id number] Cardiology 09/30/23 documented as of this encounter
--- OUTSIDE RECORDS SUMMARY | 2025-05-02 11:46 | XMS_ITS | Encounter Summary ---
Author Organization [employer] ([place], [place], [place], [place], [place]) Address [address] [place] [address] Care Team Providers Care Wood Sash And Frame Carpenter Name Role Phone Tony Calabrese MD Primary Care Provider [phone] Jean-Pierre Cabrera MD Unavailable [phone] Kd Prince PA-C Unavailable [phone] Renae Car APRN Unavailable [phone] Encounter Details Date Type Department Care Team (Late st Contact Info) Description 12/20/2020 Transcribed Document [facility] [place] [address] [place] [address] ProviderLiz MD [address] [place] [address] Social History Tobacco Use Types Packs/Day [...] Patel MD - 12/20/2020 7:46 PM CDT [place] Suicide Severity Rating Scale (C-SSRS) Entered On: 12/20/2020 23:23 EDT Performed On: 12/20/2020 23:23 EDT by Ana Dumont Rn [place] Suicide Severity Rating Scale (C-SSRS) CSSRS Past Month Wish to be : No CSSRS Past Month Suicidal Thoughts : No CSSRS Lifetime Suicide Behavior : No Suicide Severity Rating Score : 0 Suicide Severity Rating : No Additional Care Required at this time Ana Dumont Rn - 12/20/2020 23:23 EDT Electronically signed by [facility] Conversion Agile Test Lead Cerner at 09/26/2022 9:07 AM CDT documented in this encounter Plan of Treatment Not on file documented as of this encounter Visit Diagnoses Not on filedocumented in this encounter Care Teams Wood Sash And Frame Carpenter Relationship Specialty Start Date End Date Tony Calabrese MD [address] [place] [address] PCP - General Family Medicine 06/06/22 Jean-Pierre Cabrera MD [address] [facility] [address] [place], [place] [id number] Surgeon Cardiothoracic Surgery 06/26/23 Kd Prince PA-C [address] [place] [address] Surgical Consultant Cardiology 06/26/23 Renae Car APRN [address] [facility] [address] [place] [address] Cardiology 09/30/23 documented as of this encounter
--- OUTSIDE RECORDS SUMMARY | 2025-05-02 11:46 | XMS_ITS | Encounter Summary ---
Author Organization [employer] ([place], [place], [place], [place], [place]) Address [address] [place] [address] Care Team Providers Care Photostat Operator Helper Name Role Phone Tony Calabrese MD Primary Care Provider [phone] Jean-Pierre Cabrera MD Unavailable [phone] Kd Prince PA-C Unavailable [phone] Renae Car APRN Unavailable [phone] Encounter Details Date Type Department Care Team (Late st Contact Info) Description 12/21/2020 Transcribed Document [facility] Family Medicine [address] [place] [address] ProviderLiz MD [address] [place] [address] Social History Tobacco Use Types Packs/Day [...] Note - Liz Patel MD - 12/21/2020 12:55 AM CDT DATE OF ADMISSION: 12/20/2020 ADMITTING PHYSICIAN: ELIZABETH SCHMIDT MD PRIMARY CARE PHYSICIAN: Dr. Dave Levine. CHIEF COMPLAINT: Chest pain. HISTORY OF PRESENT ILLNESS: This is a 64-year-old male with history of hypertension, hyperlipidemia, history of diabetes mellitus. The patient presented to ER because of chest pain. The patient has been having chest pain on and off since 5:00 p.m., radiating to his shoulder. Denies any nausea or vomiting, but had some shortness of breath. The patient came in to ER to be evaluated. Blood work done shows elevated troponin. The patient was started on heparin drip. Cardiology consulted. He will be n.p.o. after midnight for cardiology evaluation. SYSTEMIC REVIEW: GENERAL: No fever or chills. HEAD: No headache or dizziness. EYES: No change of vision. EARS: No earache. NOSE: No epistaxis. THROAT: No sore throat. RESPIRATORY: Positive shortness of breath. No cough. CARDIAC: Positive for chest pain. No palpitation. GI: No nausea or vomiting. URINARY: No hematuria. MUSCULOSKELETAL: Body ache. NEUROLOGICAL: No focal numbness or weakness. SKIN: No new rashes. ENDOCRINE: No heat or cold intolerance. PAST MEDICAL HISTORY: 1. Hypertension. 2. Hyperlipidemia. 3. History of deep vein thrombosis. 4. Diabetes mellitus. 5. Benign prostatic hyperplasia. 6. History of heart murmur. 7. Peptic ulcer disease. 8. Back pain. 9. Asthma. PAST SURGICAL HISTORY: 1. Left leg surgery. 2. Back surgery. 3. Inguinal hernia repair. 4. Foot surgery. 5. Back fusion. SOCIAL HISTORY: The patient is a nonsmoker. Drinks alcohol occasionally. No drug abuse. FAMILY HISTORY: Positive for heart disease. ALLERGIES: No known drug allergies. HOME MEDICATIONS: 1. Tylenol as needed. 2. Acetaminophen/hydrocodone as needed. 3. Aspirin 81 mg daily. 4. Lipitor 80 mg daily. 5. Hydrochlorothiazide/lisinopril 25/20 once daily. 6. Metformin 500 mg twice a day. 7. Multivitamin daily. 8. Fish oil daily. PHYSICAL EXAMINATION: VITAL SIGNS: Blood pressure 152/73, temperature 97.8, heart rate 78, respiratory rate 18. HEENT: Head, atraumatic, normocephalic. Pupils are round and reactive. Eyes, no conjunctival injection or discharge. Ears, no discharge. Nose, no bleeding or discharge. Mouth, dry. NECK: Supple. Full range of motion. CHEST: Clear to auscultation. No crackles, wheezes, or rhonchi. HEART: S1 and S2 heard. Regular rate and rhythm. ABDOMEN: Soft. Audible bowel sounds. No tenderness. No guarding. No rebound tenderness. EXTREMITIES: No edema, erythema, or tenderness. NEUROLOGICAL: No apparent focal motor or sensory deficits. The patient is alert, awake, and oriented x3. Intact cranial nerves. PSYCHIATRIC: Mild anxiety. SKIN: No apparent rashes or induration. ENDOCRINE: No thyromegaly or tenderness. GENERAL: The patient is lying in bed, in mild distress. No family at bedside. LABORATORY DATA AND STUDIES: Sodium 138, potassium 3.7, chloride 105, CO2 of 28, glucose 114, BUN 18, creatinine 0.7, calcium 8.9. Protein 7.5, albumin 4.0, globulin 3.5, bilirubin 0.3, alkaline phosphatase 89, AST 20, ALT 37, lactic acid 1.2. Troponin 0.149. BNP 194. White blood cells 10.3, hemoglobin 12.9, hematocrit 40.6, platelets 274. INR 1.0. ASSESSMENT AND PLAN: 1. Chest pain. The patient admitted to the hospital with chest pain. The patient with elevated troponin. Recheck troponin in a.m. Cardiology consult. Start on heparin drip. The patient will be n.p.o. for cardiology evaluation. 2. Hypertension. Start hydralazine as needed. 3. History of diabetes mellitus, diet controlled. We will start sliding scale, check A1c. 4. Hyperlipidemia. Resume home medication. 5. Gastrointestinal prophylaxis. Pepcid. 6. Deep venous thrombosis prophylaxis. The patient is on heparin drip. Plan discussed with the patient, with ER physician. Chart was reviewed. Time spent, 55 minutes. /[id number] MD DOMINIK Carter/PEG / DOMINIK / MODL CC: Dave Levine MD Electronically signed by [facility], [facility] Conversion Rotor Casting Machine Operator Cerner at 09/26/2022 9:11 AM CDT documented in this encounter Plan of Treatment Not on file documented as of this encounter Visit Diagnoses Not on filedocumented in this encounter Care Teams Photostat Operator Helper Relationship Specialty Start Date End Date Tony Calabrese MD [address] [place] [address] PCP - General Family Medicine 06/06/22 Jean-Pierre Cabrera MD [address] [facility] [address] [place], [place] [id number] Surgeon Cardiothoracic Surgery 06/26/23 Kd Prince PA-C [address] [place] [address] Tableau Developer Cardiology 06/26/23 Renae Car, PELT SHEARER [address] [facility] [address] [place] [address] Cardiology 09/30/23 documented as of this encounter
--- OUTSIDE RECORDS SUMMARY | 2025-05-02 11:46 | XMS_ITS | Encounter Summary ---
Author Organization [employer] ([place], [place], [place], [place], [place]) Address [address] [place] [address] Care Team Providers Care Circular Sawyer Helper Name Role Phone Tony Calabrese MD Primary Care Provider [phone] Jean-Pierre Cabrera MD Unavailable [phone] Kd Prince PA-C Unavailable [phone] Renae Car APRN Unavailable [phone] Encounter Details Date Type Department Care Team (Late st Contact Info) Description 12/20/2020 Transcribed Document [facility] Family Medicine [address] [place] [address] ProviderLiz MD [address] [place] [address] Social History Tobacco Use Types Packs/Day [...] Patel MD - 12/20/2020 7:46 PM CDT Ellie Violence Assessment Entered On: 12/20/2020 23:23 EDT Performed On: 12/20/2020 23:23 EDT by Tim, Ana A, Rn Broset Violence Assessment Broset Violence Checklist of Symptoms : None Broset Violence Symptoms Subtotal : 0 Broset Violence Symptoms Indicator : Low risk (0) Ana Dumont Rn - 12/20/2020 23:23 EDT Electronically signed by Rosa [facility] Conversion Bundle Packer Cerner at 09/26/2022 9:04 AM CDT documented in this encounter Plan of Treatment Not on file documented as of this encounter Visit Diagnoses Not on filedocumented in this encounter Care Teams Circular Sawyer Helper Relationship Specialty Start Date End Date Tony Calabrese MD [address] [place] [address] PCP - General Family Medicine 06/06/22 Jean-Pierre Cabrera MD [address] [facility] [address] [place] [address] Surgeon Cardiothoracic Surgery 06/26/23 Kd Prince PA-C [address], [facility] [address] [place] [address] Director Medical Writing Cardiology 06/26/23 Renae Car APRN [address] [facility] [address] [place] [address] Cardiology 09/30/23 documented as of this encounter
--- OUTSIDE RECORDS SUMMARY | 2025-05-02 11:46 | XMS_ITS | Encounter Summary ---
Author Organization [employer] ([place], [place], [place], [place], [place]) Address [address] [place] [address] Care Team Providers Care Neon Sign Erector Name Role Phone Tony Calabrese MD Primary Care Provider [phone] Jean-Pierre Cabrera MD Unavailable [phone] Kd Prince PA-C Unavailable [phone] Renae Car APRN Unavailable [phone] Encounter Details Date Type Department Care Team (Late st Contact Info) Description 12/21/2020 Transcribed Document [facility] [place] [address] [place] [address] ProviderLiz MD [address] [place] [address] Social History Tobacco Use Types Packs/Day [...] Note - Liz Patel MD - 12/21/2020 5:07 PM CDT ED Event Note Entered On: 12/21/2020 17:08 EDT Performed On: 12/21/2020 17:07 EDT by Rolando Bowman RN ED Event Note ED Event Date/Time : 12/21/2020 17:07 EDT ED Description of Event : attempt to give report, receiving nurse to return call Rolando Bowman RN - 12/21/2020 17:07 EDT Electronically signed by Rosa [facility] Conversion Senior Manager Mmcoe Cerner at 09/26/2022 9:03 AM CDT documented in this encounter Plan of Treatment Not on file documented as of this encounter Visit Diagnoses Not on filedocumented in this encounter Care Teams Neon Sign Erector Relationship Specialty Start Date End Date Tony Calabrese MD [address] [place] [address] PCP - General Family Medicine 06/06/22 Jean-Pierre Cabrera MD [address] [facility] [address] [place] [address] Surgeon Cardiothoracic Surgery 06/26/23 Kd Prince PA-C [address] [place] [address] Agronomy Teacher Cardiology 06/26/23 Renae Car, JOSÉ MIGUEL [address] [facility] [address] [place] [address] Cardiology 09/30/23 documented as of this encounter
--- OUTSIDE RECORDS SUMMARY | 2025-05-02 11:46 | XMS_ITS | Encounter Summary ---
Author Organization [employer] ([place], [place], [place], [place], [place]) Address [address] [place] [address] Care Team Providers Care Sheriff Officer Name Role Phone Tony Calabrese MD Primary Care Provider [phone] Jean-Pierre Cabrera MD Unavailable [phone] Kd Prince PA-C Unavailable [phone] Renae Car APRN Unavailable [phone] Encounter Details Date Type Department Care Team (Late st Contact Info) Description 12/21/[address] [facility] Radiology [address] [place] [address] Rey Lau MD [address] [place] [address] Social History Tobacco Use Types Packs/Day Years Used Date Smoking Tobacco: Never Assessed Sex and Gender Information Value Date Recorded Sex Assigned at Male 08/26/2022 2:31 AM CDT Legal Sex Male 5:38 PM CDT Gender Identity Male 08/26/2022 2:31 AM CDT Sexual Orientation Not on file documented as of this encounter Miscellaneous Notes * Cerner Conversion Note - Rey Lau MD - 12/21/2020 12:05 PM EDT Patient: BULMARO ELLISON Age: 64 years Sex: Male : 1955 Associated Diagnoses: None Author: REY LAU MD-CAR Primary Suede Brusher: [facility] NAD Patient was seen and examined at the bedside and ER. Was awake alert oriented x3, not dyspneic no tongue pain. I discussed with the patient treatment for chronic tension. Patient agreed to procedure and wishing to proceed. Health Status Current medications: (Selected) Inpatient Medications Ordered Ativan: [...] Nausea aspirin: 81 mg, Oral, Daily atorvastatin: 40 mg, Oral, At Bedtime cloNIDine: 0.1 mg, Oral, Q4H, PRN: Hypertension heparin injection 25,000 Units + NaCl 0.45% Premix Diluent 250 mL: Titrate, IntraVENous hydrALAZINE: 10 mg, IV Push, Q6H, PRN: Hypertension morphine: 2 mg, IV Push, Q2H, PRN: Pain (Severe 7-10) ticagrelor: 90 mg, Oral, BID, Home Medications (8) Active aspirin 81 mg oral delayed release [...] 500 mg = 1 Tab, Oral, BID tamsulosin 0.4 mg oral capsule 0.4 mg = 1 Cap, Oral, Daily Tylenol 325 mg oral tablet 650 mg = 2 Tab, PRN, Oral, Q4H , Medications (14) Active Scheduled: (4) aspirin EC 81 mg tab 81 mg 1 Tab, Oral, Daily atorvastatin 40 mg tab 40 mg 1 Tab, Oral, At Bedtime famotidine 20 mg tab 20 mg 1 Tab, Oral, Daily ticagrelor 90 mg tab 90 mg 1 Tab, Oral, BID Continuous: (2) heparin/NaCl 0.45% 25,000 Units + Premix Diluent NaCl 0.45% 250 mL 250 mL, IntraVENous NaCl 0.9% TITRATE 500 mL 500 mL, IntraVENous PRN: (8) acetaminophen 325 mg tab 650 mg 2 Tab, Oral, Q4H albuterol-ipratropium inh 3 mL 3 mL, Nebulized Inhalation, Q6H cloNIDine 0.1 mg tab 0.1 mg 1 Tab, Oral, Q4H hydrALAZINE 20 mg/1 mL inj 10 mg 0.5 mL, IV Push, Q6H LORazepam 2 mg/mL inj 0.5 mg 0.25 mL, IV Push, Q4H morphine 2 mg/1 ml inj 2 mg [...] 24 hour intake, 24 hour output VS/Measurements Vital Signs/Vital Measures 12/21/2020 10:00 EDT Systolic Blood Pressure 128 mmHg Diastolic Blood Pressure 77 mmHg Heart Rate Monitored 66 bpm Respiratory Rate 10 Breaths/Min LOW Oxygen Saturation 98 % 12/21/2020 9:00 EDT Systolic Blood Pressure 147 mmHg HI Diastolic Blood Pressure 84 mmHg Mean Arterial Pressure (MAP)-BMDI 114 , Vitals Signs (last 24 hrs) Last Charted Minimum Maximum Temp 97.8 (DEC 20 19:59) 97.8 (DEC 20 19:59) 97.8 (DEC 20 19:59) Mon HR 66 (DEC 21 10:00) 64 (DEC 21 05:00) 84 (DEC 20 23:30) Periph HR 90 (DEC 20 19:59) 90 (DEC 20 19:59) 90 (DEC 20 19:59) Resp Rate L 10 (DEC 21 10:00) L 10 (DEC 21 10:00) H 38 (DEC 21 09:00) SBP 128 (DEC 21 10:00) 119 (DEC 21 06:00) H 167 (DEC 20 22:30) DBP 77 (DEC 21 10:00) 62 (DEC 21 06:00) 88 (DEC 21 08:00) MAP 97 (DEC 21 10:00) 93 (DEC 21 06:00) 124 (DEC 20 23:30) SpO2 98 (DEC 21 10:00) 97 (DEC 20 23:30) 99 (DEC 20 [...] Appropriate mood & affect. Results Review DEC 21 03:18 140 107 15 / H 109 4.0 27 L 0.60 \ DEC 21 03:18 \ L 12.1 / H 11.0 250 / L 37.1 \ Cardiac Markers (Current Encounter/Past 24 Hours) CK MB 2.00 ng/mL 12/21/2020 04:03 CK 139 Units/Liter 12/21/2020 04:03 MBI 1.4 NA 12/21/2020 04:03 ProBNP 194 pg/mL HI 12/20/2020 21:49 Radiology Results (Last 48 hours) [id number] -- 12/20/2020 22:23 CR Chest 2 Vws (12/20/2020 20:50) Result: EXAMINATION TECHNIQUE:2 view chestCLINICAL HISTORY:Chest pain.COMPARISON:02/07/2017FINDINGS:No dense consolidation. No pneumothorax or pleural effusion. Normalheart size.IMPRESSION:No acute cardiopulmonary findings.Images personally reviewed, interpreted and dictated by Cristino Cobos Impression and Plan IMPRESSION: * NSTEMI troponin 0.149-->0.402-->0.366 * Hypertension * Heart murmur * Dyslipidemia * Diabetes mellitus type 2 * History of peptic ulcer disease PLAN; 12/21/2020 Patient had an elevated troponin that [...] on filedocumented in this encounter Care Teams Sheriff Officer Relationship Specialty Start Date End Date Tony Calabrese MD [address] [place] [address] PCP - General Family Medicine 06/06/22 Jean-Pierre Cabrera MD [address] [facility] [address] [place] [address] Surgeon Cardiothoracic Surgery 06/26/23 Kd Prince PA-C [address] [place] [id number] Suede Brusher Cardiology 06/26/23 Renae Car, DIE SET UP WORKER [address] [facility] [address] [place] [address] Cardiology 09/30/23 documented as of this encounter
--- OUTSIDE RECORDS SUMMARY | 2025-05-02 11:46 | XMS_ITS | Encounter Summary ---
Author Organization [employer] ([place], [place], [place], [place], [place]) Address [address] [place] [address] Care Team Providers Care Creative Director Name Role Phone Tony Calabrese MD Primary Care Provider [phone] Jean-Pierre Cabrera MD Unavailable [phone] Kd Prince PA-C Unavailable [phone] Renae Car APRN Unavailable [phone] Encounter Details Date Type Department Care Team (Late st Contact Info) Description 12/21/2020 Transcribed Document [facility] Family Medicine [address] [place] [address] ProviderLiz MD [address] [place] [address] Social History Tobacco Use Types Packs/Day [...] Note - Liz Patel MD - 12/21/2020 8:54 AM CDT UM Authorization Entered On: 12/21/2020 8:54 EDT Performed On: 12/21/2020 8:54 EDT by Alicia Samano, Rn-Utilization Review Primary Insurance Authorization Authorization and Policy Numbers : Insurance 1 Health Plan: MEDICARE Policy Number: [id number] Authorization Number: Historical Authorization Comments-Primary : No Authorization Comments Found Alicia Samano Rn-Utilization Review - 12/21/2020 8:54 EDT Electronically signed by Rosa [facility] Conversion Spinner Open End Cerner at 09/26/2022 8:58 AM CDT documented in this encounter Plan of Treatment Not on file documented as of this encounter Visit Diagnoses Not on filedocumented in this encounter Care Teams Creative Director Relationship Specialty Start Date End Date Tony Calabrese MD [address] [place] [address] PCP - General Family Medicine 06/06/22 Jean-Pierre Cabrear MD [address] [facility] [address] [place], [place] [address] Surgeon Cardiothoracic Surgery 06/26/23 Kd Prince PA-C [address] [place] [address] Fisher Diver Net Cardiology 06/26/23 Renae Car APRN [address] [facility] [address] [place] [address] Cardiology 09/30/23 documented as of this encounter
--- OUTSIDE RECORDS SUMMARY | 2025-05-02 11:46 | XMS_ITS | Encounter Summary ---
Author Organization [employer] ([place], [place], [place], [place], [place]) Address [address] [place] [address] Care Team Providers Care Account Services Manager Name Role Phone Tony Calabrese MD Primary Care Provider [phone] Jean-Pierre Cabrera MD Unavailable [phone] Kd Prince PA-C Unavailable [phone] Renae Car APRN Unavailable [phone] Encounter Details Date Type Department Care Team (Late st Contact Info) Description 01/17/2021 Transcribed Document [facility] [place] [address] [place] [address] ProviderLiz MD [address] [place] [address] Social History Tobacco Use Types Packs/Day [...] Note - Liz Patel MD - 01/17/2021 10:07 AM CDT Spiritual Care Short Form Entered On: 01/17/2021 13:19 EDT Performed On: 01/17/2021 10:07 EDT by DHARA ROMERO General Information, Spiritual Care Spiritual Care Referred by : Lesson Instructor initiated Reason for Visit : Initial Ministry Provided to : Patient Intervention/Comment/Summary Points : Spiritual Care visit by volunteer, Raj Min. Patient supported by family and anabaptist. Provided prayer. Judaism Preference : Nondenominational DHARA ROMERO - 01/17/2021 13:18 EDT Electronically signed by Rosa [facility] Conversion Riveting Machine Operator Tape Control Cerner at 09/26/2022 9:28 AM CDT documented in this encounter Plan of Treatment Not on file documented as of this encounter Visit Diagnoses Not on filedocumented in this encounter Care Teams Account Services Manager Relationship Specialty Start Date End Date Tony Calabrese MD [address] [place] [address] PCP - General Family Medicine 06/06/22 Jean-Pierre Cabrera MD [address] [facility] [address] [place], [place] [id number] Surgeon Cardiothoracic Surgery 06/26/23 Kd Prince PA-C [address] [place] [address] Digital Engineer Cardiology 06/26/23 Renae Car APRN [address] [facility] [address] [place] [address] Cardiology 09/30/23 documented as of this encounter
--- OUTSIDE RECORDS SUMMARY | 2025-05-02 11:46 | XMS_ITS | Encounter Summary ---
Author Organization [employer] ([place], [place], [place], [place], [place]) Address [address] [place] [address] Care Team Providers Care Dry Mill Worker Name Role Phone Tony Calabrese MD Primary Care Provider [phone] Jean-Pierre Cabrera MD Unavailable [phone] Kd Prince PA-C Unavailable [phone] Renae Car APRN Unavailable [phone] Encounter Details Date Type Department Care Team (Late st Contact Info) Description 12/21/[address] 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 Ban Loyola Rn-Traveler - 12/22/2020 2:15 EDT documented in this encounter Plan of Treatment Not on file documented as of this encounter Visit Diagnoses Not on filedocumented in this encounter Care Teams Dry Mill Worker Relationship Specialty Start Date End Date Tony Calabrese MD [address] [place] [address] PCP - General Family Medicine 06/06/22 Jean-Pierre Cabrera MD [address] [facility] [address] [place] [address] Surgeon Cardiothoracic Surgery 06/26/23 Kd Prince PA-C [address] [place] [address] Wheat Grower Cardiology 06/26/23 Renae Car APRN [address] [facility] [address] [place] [address] Cardiology 09/30/23 documented as of this encounter
== END 2025-04-29 23:59 ==
LOC: LAB.DROPOF 05-02 11:15
PROVIDERS: PCP Family Medicine; Visit Provider Family Medicine
DX: E11.9 Type 2 diabetes mellitus without complications (principal)
CPT/HCPCS: 82043; 82570